=== PATIENT | male | born 1935 | race Caucasian/White ===

== ENCOUNTER → 2017-10-07 | Outpatient (CLI) | payer MEDICARE ==
--- NOTE | 2017-10-07 09:03 | CT ---
EXAMINATION TYPE: CT abdomen pelvis w con DATE OF EXAM: 10/07/2017 COMPARISON: Renal ultrasound November 28, 2015 HISTORY: Bladder cancer CT DLP: 1297.60 mGycm, Automated Exposure Control for Dose Reduction was Utilized. CONTRAST: CT scan of the abdomen and pelvis is performed with oral and with IV Contrast, patient injected with 100 ml mL of Visipaque 320. FINDINGS: LUNG BASES: Calcification at level of mitral valve is present. LIVER/GB: Liver is somewhat small in size. PANCREAS: No significant abnormality is seen. SPLEEN: No significant abnormality is seen. ADRENALS: Slight thickening centrally in both adrenal glands favors benign hyperplasia. KIDNEYS: There is symmetric cortical medullary uptake and excretion from both kidneys. There is occas ional subcentimeter low dense lesion identified bilaterally too small to further characterize but pre sumed benign largest lesion lower pole level left kidney measures 1.0 cm long axis consistent with si mple cyst seen best axial image 40 series 5 which likely correlates with ultrasound lesion. There is no significant right-sided hydronephrosis. There is however new mild to moderate left-sided pyelocali ectasis and diffuse hydroureter up to level of the bladder where there is eccentric 1.4 cm hyperdense or enhancing mass seen on axial image 72 and coronal image 73 along posterior bladder wall in which recurrent neoplasm is suspected. BOWEL: Normal-appearing appendix is seen from the cecum. No suspicious dilatation is noted. PROSTATE/SEMINAL VESICLES: Numerous brachytherapy seeds are seen in prostate bed which does not appea r suspiciously enlarged. LYMPH NODES: No greater than 1cm abdominal or pelvic lymph nodes are appreciated. OSSEOUS STRUCTURES: There is some narrowing and subchondral cystic change at pubic symphysis. There is moderate joint space narrowing with mild to moderate spurring and subchondral cystic change in both hips. There is multilevel vacuum disc phenomenon with mild to moderate disc space narrowing and spurring th roughout the lumbar spine. OTHER: There is mild to moderate mixed plaque in the aorta extending into iliac branch vessels. IMPRESSION: Suspicious posterior 1.4 cm bladder wall mass worrisome for recurrent malignancy as is ca using new mild to moderate left-sided hydronephrosis but not delayed excretion.
== END | disposition home or self-care (01) ==
LOC: RADCTMAIN 06:29
PROVIDERS: ATTEND Urology
DX: C67.0 Malignant neoplasm of trigone of bladder (principal); N13.30 Unspecified hydronephrosis
CPT/HCPCS: 82565; 84520; 74177; 36415; Q9967

== ENCOUNTER → 2017-12-06 | Outpatient (CLI) | payer MEDICARE | END | disposition home or self-care (01) | LOC: RADCTMAIN 11:23 | PROVIDERS: ATTEND Urology | DX: Z01.812 Encounter for preprocedural laboratory examination (principal); R94.4 Abnormal results of kidney function studies | CPT/HCPCS: 82565; 84520 ==

== ENCOUNTER → 2017-12-22 | Outpatient (CLI) | payer MEDICARE ==
--- NOTE | 2017-12-22 14:51 | MR ---
EXAMINATION TYPE: MR pelvis wo/w con DATE OF EXAM: 12/22/2017 COMPARISON: CT abdomen and pelvis October 07, 2017 HISTORY: Bladder CA initially diagnosed and treated in November 2015. CONTRAST: Standard multiplanar, multisequence MRI departmental protocol utilizing 10 mL intravenous Gadavist ga dolinium contrast. FINDINGS: Corresponding to recent CT bladder is poorly distended with mild to moderate concentric abn ormal wall thickening. Corresponding to CT there is heterogeneous suspected enhancing round area in t he posterior bladder wall measuring 1.3 x 0.9 cm axial image 21, while this does show some hyperinten sity on T1 fat saturation images. There is definitive surrounding ill-defined enhancement on postcont rast images. There is more hyperintense appearance or enhancement on sagittal images at this level sa gittal image 23. Area is isointense to may be slightly hyperintense on T2-weighted images. No serosal extension or breakthrough is identified. Exam is slightly suboptimal due to pelvic technique versus smaller mfakd-op-dews. Similar to CT there is mild to moderate distal hydroureter as lesion is in region of the UVJ. No righ t-sided hydroureter is present. Some vague enhancement along the course of the prostatic urethra is s een of uncertain etiology or significance. Punctate areas of T1 and T2 hypointensity correlate to bra chytherapy seeds. Small bilateral scrotal fluid collection or hydroceles are identified. No suspicious small or large bowel dilatation is seen. No concerning pelvic fluid collection is noted . No suspicious pelvic adenopathy is present. Visualized osseous structures are intact. IMPRESSION: Area of concern on recent CT is stable, recurrent neoplasm at this level cannot be excluded. Would ad vise correlation with cystoscopy to exclude. Findings could be postsurgical in nature.
== END | disposition home or self-care (01) ==
LOC: RADMRIMAIN 12:21
PROVIDERS: ATTEND Urology
DX: C67.9 Malignant neoplasm of bladder, unspecified (principal)
CPT/HCPCS: 72197; A9581

== ENCOUNTER → 2018-06-27 | Outpatient (CLI) | payer MEDICARE ==
--- NOTE | 2018-06-27 11:30 | US ---
EXAMINATION TYPE: US kidneys/renal and bladder DATE OF EXAM: 06/27/2018 COMPARISON: CT abdomen and pelvis October 07, 2017 CLINICAL HISTORY: N13.1 Hydronephrosis with ureteral stricture. Hx of left hydronephrosis and stent. Hx of bladder and prostate cancer with stent placement. EXAM MEASUREMENTS: Right Kidney: 9.9 x 3.9 x 4.5 cm Left Kidney: 10.0 x 4.1 x 5.1 cm Right Kidney: Cortical thinning seen. Lateral mid tiny cyst in cortex - 1.0 x 0.8 x 0.9 cm. Medial anechoic round lesion at hilum - 1.8 x 1.6 cm. Left Kidney: Cortical thinning. Increased echogenicity. Lobular in appearance. Bladder: Distended. Bladder lesion not appreciated on today's ultrasound. Right jet seen There is no evidence for hydronephrosis at this point in time. The urinary bladder is anechoic. Dist al right ureter jet is seen. IMPRESSION: No hydronephrosis currently including left kidney. A new 1.8 cm round anechoic lesion centrally in ri ght kidney images 12 through [address] definitive CT correspondence. Favor simple cyst. Howeve r given patient's history solid lesion or neoplasm is not excluded. Further investigation with renal protocol contrast-enhanced CT or MRI is advised. Chronic cortical changes left kidney are noted.
== END | disposition home or self-care (01) ==
LOC: RADUSWWP 10:36
PROVIDERS: ATTEND Urology
DX: N28.9 Disorder of kidney and ureter, unspecified (principal)
CPT/HCPCS: 76770

== ENCOUNTER → 2018-08-17 | Outpatient (CLI) | payer MEDICARE ==
--- NOTE | 2018-08-17 16:04 | CT ---
EXAMINATION TYPE: CT pelvis w con DATE OF EXAM: 08/17/2018 COMPARISON: Prior CT 10/07/2017 HISTORY: malignant neoplasm bladder CT DLP: 655.90 mGycm Automated exposure control for dose reduction was used. TECHNIQUE: Helical acquisition of images from the lung bases through the pelvis have been completed. CONTRAST: Performed with Oral Contrast and with IV Contrast, patient injected with 100 mL of Isovue 300. FINDINGS: AORTA: Atheromatous changes are present. KIDNEYS: Lower aspect of the kidneys included on the exam, ureters show normal insertion into the uri nary bladder, and there is no hydroureter REPRODUCTIVE ORGANS: No prostate seeds are present as on prior BOWEL: No significant abnormality is seen. FREE AIR: No Free Air visible. ASCITES: None visible. PELVIC ADENOPATHY: None visualized. RETROPERITONEAL ADENOPATHY: No Retroperitoneal Adenopathy visible. URINARY BLADDER: There is wall thickening which is nonspecific. The mural nodule seen posteriorly on previous exam is no longer evident. OSSEOUS STRUCTURES: Degenerative disc changes present at the lumbosacral spine, bilateral spondyloly sis at L5. IMPRESSION: INTERVAL TREATMENT CHANGE SUSPECTED, THE BLADDER WALL NODULE IS NO LONGER EVIDENT.
== END | disposition home or self-care (01) ==
LOC: RADCTMAIN 11:46
PROVIDERS: ATTEND Urology
DX: C67.9 Malignant neoplasm of bladder, unspecified (principal)
CPT/HCPCS: 82565; 84520; 72193; 36415; Q9967 ×2

== ENCOUNTER → 2018-08-18 | Outpatient (CLI) | payer MEDICARE ==
--- NOTE | 2018-08-18 18:06 | ECHOF ---
Referral Reason:R01.1 Heart Murmur MEASUREMENTS -------- HEIGHT: 180.3 cm WEIGHT: 86.2 kg BP: IVSd: 1.5 cm (0.6 - 1.1) LVIDd: 3.3 cm (3.9 - 5.3) LVPWd: 1.3 cm (0.6 - 1.1) IVSs: 1.9 cm LVIDs: 1.7 cm LVPWs: 1.6 cm LAESV Index (A-L): 31.83 ml/m MV E Abran: 1.32 m/s MV DecT: 871 ms MV A Abran: 0.01 m/s MV E/A Ratio: 228.93 AV maxP.96 mmHg AV meanP.65 mmHg RAP: 5.00 mmHg RVSP: 54.50 mmHg FINDINGS -------- Sinus rhythm. This was a technically adequate study. The left ventricular size is normal. There is mild concentric left ventricular hypertrophy. Overa ll left ventricular systolic function is normal with, an EF between 55 - 60 %. The right ventricle is normal in size and function. LA is midly dilated 29-33ml/m2. RA appears enlarged. There is severe aortic valve sclerosis. There is moderate aortic regurgitation. There is severe a ortic stenosis present. Peak/mean gradient across the Aortic Valve is 89.96mmHg / 58.65mmHg. The mitral valve leaflets are mild to moderately thickened. Severe mitral annular calcification pr esent. Ysvv-pk-erymvbkd mitral regurgitation is present. The peak and mean MV gradients are 22.9 2mmHg 8.93mmHg as measured by doppler. Moderate mitral stenosis. Vzms-ae-dhisdpop tricuspid regurgitation present. There is mild to moderate pulmonary hypertension. The right ventricular systolic pressure, as measured by Doppler, is 54.50mmHg. The pulmonic valve was not well visualized. The aortic root size is normal. Normal inferior vena cava with normal inspiratory collapse consistent with estimated right atrial pre ssure of 5 mmHg. There is no pericardial effusion. CONCLUSIONS -------- 1. Sinus rhythm. 2. This was a technically adequate study. 3. The left ventricular size is normal. 4. There is mild concentric left ventricular hypertrophy. 5. Overall left ventricular systolic function is normal with, an EF between 55 - 60 %. 6. LA is midly dilated 29-33ml/m2. 7. RA appears enlarged. 8. There is severe aortic valve sclerosis. 9. There is moderate aortic regurgitation. 10. There is severe aortic stenosis present. 11. Peak/mean gradient across the Aortic Valve is 89.96mmHg / 58.65mmHg. 12. The mitral valve leaflets are mild to moderately thickened. 13. Severe mitral annular calcification present. 14. Ngax-gp-vdschgzx mitral regurgitation is present. 15. The peak and mean MV gradients are 22.92mmHg 8.93mmHg as measured by doppler. 16. Moderate mitral stenosis. 17. Yaad-sf-niivmxru tricuspid regurgitation present. 18. There is mild to moderate pulmonary hypertension. 19. The right ventricular systolic pressure, as measured by Doppler, is 54.50mmHg. 20. The pulmonic valve was not well visualized. 21. The aortic root size is normal. 22. There is no pericardial effusion. PAPER TWISTER: Waldemar Pak RDCS
== END ==
LOC: RADECHMAIN 14:32
PROVIDERS: ATTEND Family Medicine
DX: I08.3 Combined rheumatic disorders of mitral, aortic and tricuspid valves (principal); I27.20 Pulmonary hypertension, unspecified
CPT/HCPCS: 93306

== ENCOUNTER → 2019-05-25 | Outpatient (CLI) | payer MEDICARE ==
--- NOTE | 2019-05-25 16:41 | CT ---
EXAMINATION TYPE: CT abdomen pelvis wo con DATE OF EXAM: 05/25/2019 COMPARISON: CT pelvis 08/17/2018 INDICATION: Bladder CA DLP: 577.1 mGycm, Automated exposure control for dose reduction was used. CONTRAST: 0 mL of Isovue 300. Study performed with Oral Contrast TECHNIQUE: Axial images were obtained from above the diaphragm to the pubic rami in the axial plane a t 5 mm thick sections. Reconstructed images are reviewed on the computer in the coronal plane. FINDINGS: Limited CT sections are obtained the lung bases. The lung bases are clear. CT ABDOMEN: Liver: Normal Spleen: Normal Pancreas: Normal Adrenal glands: The adrenal glands are normal. Gallbladder: Normal Kidneys: No masses are evident. No hydronephrosis is present. No cysts are present. No renal stone s are identified. Aorta: Vascular calcification is within the aorta. Inferior vena cava: Normal. CT PELVIS: Loops of bowel within the abdomen and pelvis are normal. There are loops of bowel which are incom pletely distended or lack oral contrast limiting their evaluation. Appendix: Normal as visualized. Urinary bladder: Decompressed and cannot be evaluated. Thickened wall cannot be excluded. Genitourinary structures: Multiple brachytherapy seeds are present within the enlarged prostate. Osseous structures: No suspicious lytic or sclerotic lesions. Degenerative disc changes are present L 5-S1. Spondylolysis of L5 is evident. IMPRESSIONS: 1. Urinary bladder cannot be evaluated on this examination due to non-distention no intravenous cont rast. 2. No suspicious changes suggest metastatic disease.
== END | disposition home or self-care (01) ==
LOC: RADCTMAIN 14:22
PROVIDERS: ATTEND Urology
DX: C67.9 Malignant neoplasm of bladder, unspecified (principal); C61 Malignant neoplasm of prostate
CPT/HCPCS: 36415; 74176; 82565; 84520

== ENCOUNTER → 2019-08-18 | Outpatient (CLI) | payer MEDICARE ==
[2019-08-18 11:02] LABS: Basophils % (A) 1 %; Eosinophils # (A) 0.2 k/uL (0-0.7); Eosinophils % (A) 3 %; HCT 38.7 % (39.0-53.0); HGB 12.2 gm/dL (13.0-17.5); Lymphocytes # (A) 0.9 k/uL (1.0-4.8); Lymphocytes % (A) 15 %; MCH 31.1 pg (25.0-35.0); MCHC 31.5 g/dL (31.0-37.0); MCV 98.8 fL (80.0-100.0); Mean Platelet Volume 6.6; Monocytes # (A) 0.4 k/uL (0-1.0); Monocytes % (A) 6 %; Neutrophils # (A) 4.7 k/uL (1.3-7.7); Neutrophils % (A) 74 %; Platelet Count 199 k/uL (150-450); RBC 3.91 m/uL (4.30-5.90); RDW 13.1 % (11.5-15.5); WBC 6.3 k/uL (3.8-10.6)
[2019-08-18 18:56] LABS: African American GFR (CKD) 58.5 (60.0-200.0); Albumin 4.3 g/dL (3.80-4.90); Albumin/Globulin Ratio 2.39 (1.60-3.17); Anion Gap 12.6 mmol/L (4.00-12.00); BUN/Creat Ratio 23.08 Ratio (12.00-20.00); Calcium 9.6 mg/dL (8.7-10.3); Carbon Dioxide 28.4 mmol/L (21.6-31.8); Globulin 1.8 g/dL (1.6-3.3); Total Bilirubin 0.4 mg/dL (0.2-1.2); Total Protein 6.1 g/dL (6.2-8.2)
== END | disposition home or self-care (01) ==
LOC: LABWHC1 09:47
PROVIDERS: ATTEND Internal Medicine Interventional Cardiology
DX: I35.0 Nonrheumatic aortic (valve) stenosis (principal)
CPT/HCPCS: 36415; 80053; 83880; 85025

== ENCOUNTER 2020-02-14 18:59 | Inpatient (IN) | payer MEDICARE ==
[2020-02-14 20:08] LABS: Basophils % (A) 0 %; Eosinophils # (A) 0.1 k/uL (0-0.7); Eosinophils % (A) 1 %; HCT 44.8 % (39.0-53.0); Lymphocytes # (A) 0.6 k/uL (1.0-4.8); Lymphocytes % (A) 4 %; MCH 30.4 pg (25.0-35.0); MCHC 31.2 g/dL (31.0-37.0); MCV 97.5 fL (80.0-100.0); Mean Platelet Volume 7.8; Monocytes # (A) 0.7 k/uL (0-1.0); Monocytes % (A) 5 %; Neutrophils # (A) 14.8 k/uL (1.3-7.7); Neutrophils % (A) 91 %; Platelet Count 249 k/uL (150-450); RBC 4.59 m/uL (4.30-5.90); RDW 13.4 % (11.5-15.5); WBC 16.3 k/uL (3.8-10.6)
[2020-02-14 20:15] LABS: Albumin 4.7 g/dL (3.5-5.0); Calcium 9.7 mg/dL (8.4-10.2); Total Bilirubin 0.7 mg/dL (0.2-1.3); Total Protein 7.7 g/dL (6.3-8.2)
[2020-02-14] MEDS ORDERED: ALBUTEROL NEBULIZED 2.5 MG/3 ML INHALATION STA ×2 (20:16→21:17)
[2020-02-14] MEDS ORDERED: IPRATROPIUM-ALBUTEROL 3 ML NEB INHALATION STA ×2 (20:16→21:17)
--- NOTE | 2020-02-14 20:28 | ED ---
General Adult HPI - General Chief complaint: Shortness of Breath Stated complaint: Chest pain, SOB Time Seen by Provider: 02/14/20 19:15 Source: patient, RN notes reviewed, old records reviewed Mode of arrival: wheelchair Limitations: no limitations - History of Present Illness Initial comments: 84 yo male presents with chief complaint of dyspnea minimal cough. No fever. Patient states symptoms have been worsening over the past several days. He sta bronwyn he does have baseline dyspnea. Also reports belching which is been ongoing for several years. He reports some minimal left-sided chest pain which is worse with deep inspiration. No central radiating chest pain. No vomiting. No abdominal pain. Minimal bilateral lower extremity swelling. - Related Data Home Medications Medication Instructions Recorded Confirmed Apixaban [Eliquis] 5 mg PO BID 02/14/20 02/14/20 Aspirin EC [Ecotrin Low Dose] 81 mg PO DAILY 02/14/20 02/14/20 Ipratropium Nebulized [Atrovent 0.5 mg INHALATION RT-TID 02/14/20 02/14/20 Nebulized 0.2 MG/ML] Metoprolol Tartrate [Lopressor] 25 mg PO BID 02/14/20 02/14/20 Multivitamins, Thera [Multivitamin 1 tab PO DAILY 02/14/20 02/14/20 (formulary)] Allergies Allergy/AdvReac Type Severity Reaction Status Date / Time No Known Allergies Allergy Verified 02/14/20 19:58 Review of Systems ROS Statement: Those systems with pertinent positive or pertinent negative responses have been documented in the HPI. ROS Other: All systems not noted in ROS Statement are negative. Past Medical History Past Medical History: Asthma, Hypertension History of Any Multi-Drug Resistant Organisms: None Reported Additional Past Surgical History / Comment(s): heart valve replacement, bladder sx Past Psychological History: No Psychological Hx Reported Smoking Status: Never smoker Past Alcohol Use History: None Reported Past Drug Use History: None Reported General Exam Limitations: no limitations General appearance: alert, in distress Head exam: Present: atraumatic, normocephalic Eye exam: Present: normal appearance, PERRL ENT exam: Present: normal exam Neck exam: Present: normal inspection. Absent: tenderness, meningismus Respiratory exam: Present: respiratory distress, accessory muscle use, decreased breath sounds. Absent: wheezes, rales Cardiovascular Exam: Present: regular rate, irregular rhythm, systolic murmur GI/Abdominal exam: Present: soft. Absent: distended, tenderness, guarding Extremities exam: Present: pedal edema Back exam: Present: normal inspection, full ROM Neurological exam: Present: alert, oriented X3, CN II-XII intact. Absent: motor sensory deficit Psychiatric exam: Present: normal affect, normal mood Skin exam: Present: warm, dry, intact. Absent: cyanosis, diaphoretic Course Vital Signs 02/14/20 02/14/20 02/14/20 19:03 19:51 20:00 Temperature 98.4 F Pulse Rate 95 109 H Respiratory 20 19 Rate Blood Pressure 95/59 84/64 O2 Sat by Pulse 100 99 94 L Oximetry 02/14/20 02/14/20 02/14/20 20:10 20:20 20:33 Temperature Pulse Rate 107 H 106 H Respiratory 34 H 22 Rate Blood Pressure 92/58 92/58 O2 Sat by Pulse 93 L 96 Oximetry 02/14/20 20:42 Temperature Pulse Rate 114 H Respiratory 28 H Rate Blood Pressure O2 Sat by Pulse Oximetry EKG Findings - EKG Comments: EKG Findings:: Atrial flutter with variable AV block rate of 114, rightward axis, baseline artifact, no definitive ST segment elevation QRS duration 90, QTC 463 similar compared to previous in 2016. Medical Decision Making - Medical Decision Making 84-year-old male presenting with chief complaint of dyspnea. Patient in moderate respiratory distress upon arrival. He has diminished breath sounds bilaterally. History of asthma and COPD. Complains of some intermittent left- sided chest pain, no radiating substernal chest pain. He has 1+ pitting edema bilaterally. X-ray performed, consistent with COPD, no focal pneumonia, no significant pulmonary edema. He has leukocytosis at 16, he has a creatinine of 1.57 which is baseline for this patient. He has an elevated d-dimer in the setting of chronic kidney disease. VQ scan has been ordered. He has normally elevated troponin of 0.40. This level will be trended. He will be started on heparin both for elevated troponin and for the possibility of pulmonary embolism given his positive d-dimer. I suspect the majority of his respiratory distress is secondary to asthma and COPD. He is placed on steroids, antibiotics and breathing treatments. He will be admitted with both cardiology and pulmonology on consult. I did discuss case with Dr. Kaur who will admit. - Lab Data Result diagrams: 02/14/20 19:35 02/14/20 19:35 Lab Results 02/14/20 02/14/20 02/14/20 Range/Units 19:35 19:35 19:35 WBC 16.3 H (3.8-10.6) k/uL RBC 4.59 (4.30-5.90) m/uL Hgb 14.0 (13.0-17.5) gm/dL Hct 44.8 (39.0-53.0) % MCV 97.5 (80.0-100.0) fL MCH 30.4 (25.0-35.0) pg MCHC 31.2 (31.0-37.0) g/dL RDW 13.4 (11.5-15.5) % Plt Count 249 (150-450) k/uL Neutrophils % 91 % Lymphocytes % 4 % Monocytes % 5 % Eosinophils % 1 % Basophils % 0 % Neutrophils # 14.8 H (1.3-7.7) k/uL Lymphocytes # 0.6 L (1.0-4.8) k/uL Monocytes # 0.7 (0-1.0) k/uL Eosinophils # 0.1 (0-0.7) k/uL Basophils # 0.0 (0-0.2) k/uL PT 10.9 (9.0-12.0) sec INR 1.1 (<1.2) APTT 25.9 (22.0-30.0) sec D-Dimer 0.76 H (<0.60) mg/L FEU Sodium 136 L (137-145) mmol/L Potassium 5.0 (3.5-5.1) mmol/L Chloride 95 L (98-107) mmol/L Carbon Dioxide 34 H (22-30) mmol/L Anion Gap 7 mmol/L BUN 29 H (9-20) mg/dL Creatinine 1.56 H (0.66-1.25) mg/dL Est GFR (CKD-EPI)AfAm 47 (>60 ml/min/1.73 sqM) Est GFR (CKD-EPI)NonAf 40 (>60 ml/min/1.73 sqM) Glucose 113 H (74-99) mg/dL Plasma Lactic Acid Jose (0.7-2.0) mmol/L Calcium 9.7 (8.4-10.2) mg/dL Total Bilirubin 0.7 (0.2-1.3) mg/dL AST 41 (17-59) U/L ALT 17 (4-49) U/L Alkaline Phosphatase 143 H (38-126) U/L Troponin I (0.000-0.034) ng/mL NT-Pro-B Natriuret Pep pg/mL Total Protein 7.7 (6.3-8.2) g/dL Albumin 4.7 (3.5-5.0) g/dL 02/14/20 02/14/20 02/14/20 Range/Units 19:35 19:35 19:35 WBC (3.8-10.6) k/uL RBC (4.30-5.90) m/uL Hgb (13.0-17.5) gm/dL Hct (39.0-53.0) % MCV (80.0-100.0) fL MCH (25.0-35.0) pg MCHC (31.0-37.0) g/dL RDW (11.5-15.5) % Plt Count (150-450) k/uL Neutrophils % % Lymphocytes % % Monocytes % % Eosinophils % % Basophils % % Neutrophils # (1.3-7.7) k/uL Lymphocytes # (1.0-4.8) k/uL Monocytes # (0-1.0) k/uL Eosinophils # (0-0.7) k/uL Basophils # (0-0.2) k/uL PT (9.0-12.0) sec INR (<1.2) APTT (22.0-30.0) sec D-Dimer (<0.60) mg/L FEU Sodium (137-145) mmol/L Potassium (3.5-5.1) mmol/L Chloride (98-107) mmol/L Carbon Dioxide (22-30) mmol/L Anion Gap mmol/L BUN (9-20) mg/dL Creatinine (0.66-1.25) mg/dL Est GFR (CKD-EPI)AfAm (>60 ml/min/1.73 sqM) Est GFR (CKD-EPI)NonAf (>60 ml/min/1.73 sqM) Glucose (74-99) mg/dL Plasma Lactic Acid Jose 2.4 H* (0.7-2.0) mmol/L Calcium (8.4-10.2) mg/dL Total Bilirubin (0.2-1.3) mg/dL AST (17-59) U/L ALT (4-49) U/L Alkaline Phosphatase (38-126) U/L Troponin I 0.040 H* (0.000-0.034) ng/mL NT-Pro-B Natriuret Pep 2180 pg/mL Total Protein (6.3-8.2) g/dL Albumin (3.5-5.0) g/dL Critical Care Time Critical Care Time: Yes Total Critical Care Time: 35 Disposition Clinical Impression: Acute exacerbation of chronic obstructive pulmonary disease, Atrial flutter, Elevated troponin Disposition: ADMITTED IP TO THIS [facility] Condition: Stable Is patient prescribed a controlled substance at d/c from ED?: No Referrals: Dago Kaur MD [Primary Care Provider] - 1-2 days Decision to Admit Reason: Admit from EC Decision Date: 02/14/20 Decision Time: 21:13
[2020-02-14] MEDS ORDERED: methylPREDNISolone SOD SUCCI 125 MG/2 ML VIAL IV STA (20:30)
[2020-02-14 20:32] LABS: INR 1.1 (<1.2); Partial Thromboplastin Time 25.9 sec (22.0-30.0); Prothrombin Time 10.9 sec (9.0-12.0)
[2020-02-14 20:34] LABS: D-Dimer 0.76 mg/L FEU (<0.60)
[2020-02-14] MEDS ORDERED: ASPIRIN 325 MG TAB PO STA (20:59)
[2020-02-14] MEDS ORDERED: cefTRIAXone IN SWFI 1,000 MG/10 ML SYRINGE IVP STA (21:01)
[2020-02-14] MEDS ORDERED: HEPARIN SODIUM,PORCINE 5,000 UNIT/ML 1 ML VIAL IV PRN (21:01)
[2020-02-14] MEDS ORDERED: HEPARIN SODIUM,PORCINE 5,000 UNIT/ML 1 ML VIAL IV ONE (21:01)
--- NOTE | 2020-02-14 21:07 | XR ---
EXAMINATION TYPE: XR chest 2V DATE OF EXAM: 02/14/2020 COMPARISON: NONE HISTORY: Shortness of breath TECHNIQUE: Frontal and lateral views of the chest are obtained. FINDINGS: Subtle perihilar peribronchial cuffing. 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 There is no focal air space opacity, pleural effusion, or pneumothorax seen. The cardiac silhouet te size is mildly enlarged. Cardiac stent graft is seen. Pleural reaction at the right lung base on the frontal view not reproduced on the lateral view. The osseous structures are intact. IMPRESSION: Findings suggesting underlying COPD and faint peribronchial cuffing that can be seen in bronchitis or reactive airway disease.
[2020-02-14] MEDS ORDERED: HEPARIN SOD,PORK IN 0.45% NACL 25,000 UNIT in 0.45% NACL 1 250ML.BAG IV SCH (21:15)
[2020-02-14] MEDS ORDERED: SODIUM CHLORIDE 0.9% 500 ML 500 ML IV ONE (21:17)
[2020-02-15] MEDS: methylPREDNISolone SOD SUCCI 125 MG/2 ML VIAL IV SCH ×5 (03:17→22:55)
[2020-02-15 03:25] LABS: Basophils % (A) 0 %; Eosinophils % (A) 0 %; HCT 41.3 % (39.0-53.0); HGB 12.9 gm/dL (13.0-17.5); Lymphocytes # (A) 0.5 k/uL (1.0-4.8); Lymphocytes % (A) 3 %; MCH 30.7 pg (25.0-35.0); MCHC 31.4 g/dL (31.0-37.0); Mean Platelet Volume 8.2; Monocytes # (A) 0.5 k/uL (0-1.0); Monocytes % (A) 3 %; Neutrophils # (A) 18.1 k/uL (1.3-7.7); Neutrophils % (A) 94 %; Platelet Count 222 k/uL (150-450); RBC 4.21 m/uL (4.30-5.90); RDW 13.5 % (11.5-15.5); WBC 19.1 k/uL (3.8-10.6)
[2020-02-15 06:03] LABS: Glucose,Whole Blood 134 mg/dL (75-99)
[2020-02-15] MEDS: INSULIN ASPART (NovoLOG) 100 UNIT/ML VIAL SQ SCH ×4 (06:35→22:56)
[2020-02-15 06:59] LABS: Basophils % (A) 0 %; Eosinophils # (A) 0.1 k/uL (0-0.7); Eosinophils % (A) 0 %; HCT 40.4 % (39.0-53.0); HGB 12.6 gm/dL (13.0-17.5); Lymphocytes # (A) 0.5 k/uL (1.0-4.8); Lymphocytes % (A) 3 %; MCH 30.6 pg (25.0-35.0); MCHC 31.3 g/dL (31.0-37.0); MCV 97.7 fL (80.0-100.0); Mean Platelet Volume 9.1; Monocytes # (A) 0.6 k/uL (0-1.0); Monocytes % (A) 4 %; Neutrophils # (A) 16.2 k/uL (1.3-7.7); Neutrophils % (A) 93 %; Platelet Count 195 k/uL (150-450); RBC 4.13 m/uL (4.30-5.90); RDW 13.4 % (11.5-15.5); WBC 17.4 k/uL (3.8-10.6)
[2020-02-15 07:25] LABS: Calcium 8.9 mg/dL (8.4-10.2); Total Bilirubin 0.6 mg/dL (0.2-1.3); Total Protein 7.4 g/dL (6.3-8.2)
[2020-02-15 07:34] LABS: Potassium 6.1 mmol/L (3.5-5.1)
[2020-02-15] MEDS ORDERED: ALBUTEROL NEBULIZED 2.5 MG/3 ML INHALATION SCH (08:00)
[2020-02-15] MEDS ORDERED: SODIUM POLYSTYRENE SULFONATE 15 GM/60 ML BOTTLE PO ONE (08:04)
[2020-02-15] MEDS ORDERED: SODIUM CHLORIDE 0.45% 1,000 ML with SODIUM BICARB (1 MEQ/ML) 50 ML IV ONE ×2 (08:30)
[2020-02-15] MEDS: ALBUTEROL HFA INHALER INHALATION SCH ×4 (08:39→20:09)
--- NOTE | 2020-02-15 08:46 | CONS ---
CONSULTATION Geraldo López is an 84-year-old gentleman, a patient of Dr. Dago Kaur who recently in November had a percutaneous aortic valve implant at [facility] by Dr. Jovany Mauricio. He has history of hypertension, chronic atrial fibrillation and he takes Eliquis 5 mg b.i.d. After his aortic valve implant was placed, apparently he went to [place] to stay with his son and then returned to [place], [place]. He came in with complaints of cough and shortness of breath getting worse over the past few days. He had also mild sharp discomfort in the chest, especially with deep breath. With these symptoms he came into the hospital. A V/Q scan was ordered which is being done today. He is also on heparin drip. His Eliquis has been held. When I saw him, patient has no chest discomfort. His respirophasic pleuritic-type pain seems to have also improved. He does have what he describes as decreased energy and some cough and shortness of breath at home. He does not have any chest discomfort to suggest angina. PAST MEDICAL HISTORY: 1. Bronchial asthma. Patient also may have some emphysema. 2. Hypertension. 3. History of aortic valve replacement by percutaneous approach in November at [facility]. 4. He has had some previous bladder surgery. SOCIAL HISTORY: Patient is not a smoker, does not consume alcohol. ALLERGIES: None. MEDICATIONS: Medications include Eliquis 5 mg b.i.d., aspirin 81 mg daily, metoprolol tartrate 25 mg b.i.d. and vitamin supplements and Atrovent inhaler. PHYSICAL EXAMINATION: On examination, blood pressure is 96/60, pulse rate is about 80 to 100, irregular. HEENT unremarkable. Fundus was not examined by me. Neck is supple. There is JVD of 1 cm. There is no carotid bruit. Heart exam reveals S1, S2. Heart sounds are distant. There is a short systolic murmur at the base. Lungs reveal a diminished air entry in both lung salgado. Abdomen is soft. Lower extremities reveal diminished pulses. Central nervous system grossly no focal deficits. IMPRESSION: 1. Pleuritic chest pain, rule out any pulmonary embolism seems unlikely. His D-dimer is elevated. 2. Status post aortic valve replacement by percutaneous approach. 3. History of probable upper respiratory tract infection, rule out pneumonia. 4. History of bronchial asthma and possibly some emphysema. 5. Patient also has mitral regurgitation and some calcific mitral stenosis by past echo in 2018. RECOMMENDATIONS: I am recommending that we proceed with a V/Q scan. Laboratory data reveals that the 3 sets of troponins are unremarkable and do not suggest any myocardial injury. Potassium is elevated to 6.1. I am recommending Kayexalate for potassium, a bicarb and half- normal saline drip. Seek Nephrology consult. If V/Q scan is negative, I will discontinue heparin and resume the Eliquis. His renal function has also deteriorated. I will place him on 100 mL/hour half-normal saline and bicarb combination. We will add Lopressor 50 mg daily. The patient has chronic atrial fibrillation and has been anticoagulated. BNP is modestly elevated at 2180. Prognosis remains guarded. MMODL / IJN: [id number] /
--- NOTE | 2020-02-15 08:47 | NM ---
EXAMINATION TYPE: NM pul vent and perfuse DATE OF EXAM: 02/15/2020 COMPARISON: NONE HISTORY: Pulmonary embolism TECHNIQUE: Utilizing inhalation of 68.9 mCi Tc 99m DTPA aerosol and intravenous injection of 5.2 mCi of Tc 99m MAA, ventilation and perfusion images are acquired post injection in multiple projections. FINDINGS: There is patchy radiotracer distribution on the ventilation portion study. Milder patchy distribution is present in the perfusion portion of the study. Large mismatched defects are not evident. Some mod erate mismatched defects appear to be present in the mid lung regions bilaterally and at the right ba se. This exam is compared to chest x-ray of 02/14/2020. Radiotracer distribution appears significantly wors e than the chest x-ray findings. IMPRESSION: Intermediate probability for acute pulmonary embolism.
[2020-02-15] MEDS ORDERED: SODIUM BICARB 8.4% 50 ML SYR (1 MEQ/ML) IV STA (08:55)
[2020-02-15] MEDS ORDERED: APIXABAN 2.5 MG TABLET PO SCH (09:00)
[2020-02-15] MEDS: METOPROLOL TARTRATE 50 MG TAB PO SCH (09:06)
[2020-02-15] MEDS: AZITHROMYCIN 500 MG TAB PO SCH (09:06)
[2020-02-15] MEDS: APIXABAN 5 MG TAB PO SCH ×2 (09:27→19:44)
[2020-02-15] MEDS ORDERED: IPRATROPIUM-ALBUTEROL 3 ML NEB INHALATION PRN (11:14)
[2020-02-15] MEDS ORDERED: ALBUTEROL HFA INHALER INHALATION PRN (11:40)
--- NOTE | 2020-02-15 12:03 | P.HPIM ---
History of Present Illness H&P Date: 02/15/20 This is an 84-year-old gentleman with history of chronic intermittent asthma, hypertension, recent aortic valve replacement at [facility] in November 2019, presented to the ER with complaints of worsening shortness of breath, accompanied by a mild cough, mild nonradiating left-sided chest pain worsened with deep inspiration, mild lower extremity edema. Denies fever or chills. Denies nausea vomiting or diarrhea. Denies abdominal pain. EKG reporting atrial flutter with variable AV block with PVCs with nonspecific ST abnormality. Elevated troponins 0.040, 0.061, 0.056. BNP 2180. Chest x-ray reporting underlying COPD with air bronchial cuffing, possible bronchitis or reactive airway disease. On admission BUN 29, creatinine 1.56, worsened this morning, creatinine 2.3 to, potassium 6.1. Received Kayexalate, sodium bicarb and IV fluids. Lactic acid on admission 2.4, down to 1.4. Afebrile, WBC 17.4. D- dimer elevated 0.76. VQ scan reported intermediate probability for acute PE; moderate mismatched defects present in the mid lung regions bilaterally and right base. Heparin drip initiated. Bicarb 34 on admission, down to 30. Tachycardic, borderline hypotension. Currently denies chest pain, palpitations. Review of Systems ROS Statement: Those systems with pertinent positive or pertinent negative responses have been documented in the HPI. ROS Other: All systems not noted in ROS Statement are negative. Past Medical History Past Medical History: Asthma, Hypertension History of Any Multi-Drug Resistant Organisms: None Reported Additional Past Surgical History / Comment(s): aortic heart valve replacement, bladder sx Past Psychological History: No Psychological Hx Reported Smoking Status: Never smoker Past Alcohol Use History: None Reported Past Drug Use History: None Reported - Past Family History Father Family Medical History: Cancer Medications and Allergies Home Medications Medication Instructions Recorded Confirmed Type Apixaban [Eliquis] 5 mg PO BID 02/14/20 02/14/20 History Aspirin EC [Ecotrin Low Dose] 81 mg PO DAILY 02/14/20 02/14/20 History Ipratropium Nebulized [Atrovent 0.5 mg INHALATION RT-TID 02/14/20 02/14/20 History Nebulized 0.2 MG/ML] Metoprolol Tartrate [Lopressor] 25 mg PO BID 02/14/20 02/14/20 History Multivitamins, Thera [Multivitamin 1 tab PO DAILY 02/14/20 02/14/20 History (formulary)] Allergies Allergy/AdvReac Type Severity Reaction Status Date / Time No Known Allergies Allergy Verified 02/14/20 19:58 Physical Exam Vitals: Vital Signs Temp Pulse Pulse Resp BP BP Pulse Ox 02/15/20 03:23 98.0 F 88 18 91/58 100 02/15/20 00:00 97.4 F L 109 H 24 95/45 96 02/14/20 22:41 97.4 F L 109 H 22 95/45 96 02/14/20 22:30 92/31 02/14/20 22:20 105 H 77/47 02/14/20 22:10 108 H 77/47 87 L 02/14/20 22:00 121 H 24 81/62 96 02/14/20 21:50 81/62 99 02/14/20 21:40 112 H 81/62 83 L 02/14/20 21:30 111 H 81/62 93 L 02/14/20 21:20 108 H 81/62 98 02/14/20 21:10 118 H 23 70/55 83 L 02/14/20 21:00 110 H 27 H 86/33 96 02/14/20 20:50 118 H 20 86/33 99 02/14/20 20:42 114 H 28 H 02/14/20 20:40 112 H 27 H 92/58 83 L 02/14/20 20:33 106 H 22 02/14/20 20:30 114 H 26 H 92/58 02/14/20 20:20 107 H 34 H 92/58 96 02/14/20 20:10 92/58 93 L 02/14/20 20:00 84/64 94 L 02/14/20 19:51 109 H 19 99 02/14/20 19:03 98.4 F 95 20 95/59 100 Intake and Output 02/14/20 02/15/20 02/15/20 22:59 06:59 14:59 Intake Total 9.99 57.253 Balance 9.99 57.253 Intake: Intake, IV Titration 9.99 57.253 Amount Heparin Sod,Pork in 0.45% 9.99 57.253 NaCl 25,000 unit In 0.45 % NaCl 1 250ml.bag @ 11.9 UNITS/KG/HR 9.986 mls/hr IV .Q24H [facility] Rx#: [id number] Other: Voiding Method Urinal Weight 83.915 kg 76 kg PHYSICAL EXAM: VITAL SIGNS: As above GENERAL: Sitting up in bed, no acute distress HEENT: Conjunctivae normal. eyes normal. NECK: No JVD. No thyroid enlargement. No LNs CARDIOVASCULAR: S1, S2 irregular. Systolic murmur. RESPIRATION: Breath sounds diminished in the bases. No rhonchi or crackles. No bronchial breathing. ABDOMEN: Soft, nontender . No guarding. no masses palpable. No ascites, No hepatosplenomegaly.Bowel sounds heard. LEGS: No edema. no swelling. PSYCHIATRY: Alert and oriented X3, mood and affect normal. NERVOUS SYSTEM: Cranial N 2-12 grossly normal. Moves all 4 limbs. Diffuse weakness No focal deficits. Strength and sensation grossly intact. Skin: no rash. Lymphatic system. No LN neck axilla. Results CBC & Chem 7: 02/15/20 06:07 02/15/20 06:07 Labs: Abnormal Lab Results - Last 24 Hours (Table) 02/14/20 02/14/20 02/14/20 Range/Units 19:35 19:35 19:35 WBC 16.3 H (3.8-10.6) k/uL RBC (4.30-5.90) m/uL Hgb (13.0-17.5) gm/dL Neutrophils # 14.8 H (1.3-7.7) k/uL Lymphocytes # 0.6 L (1.0-4.8) k/uL APTT (22.0-30.0) sec D-Dimer 0.76 H (<0.60) mg/L FEU Sodium 136 L (137-145) mmol/L Potassium (3.5-5.1) mmol/L Chloride 95 L (98-107) mmol/L Carbon Dioxide 34 H (22-30) mmol/L BUN 29 H (9-20) mg/dL Creatinine 1.56 H (0.66-1.25) mg/dL Glucose 113 H (74-99) mg/dL POC Glucose (mg/dL) (75-99) mg/dL Plasma Lactic Acid Jose (0.7-2.0) mmol/L Alkaline Phosphatase 143 H (38-126) U/L Troponin I (0.000-0.034) ng/mL 02/14/20 02/14/20 02/15/20 Range/Units 19:35 19:35 02:37 WBC (3.8-10.6) k/uL RBC (4.30-5.90) m/uL Hgb (13.0-17.5) gm/dL Neutrophils # (1.3-7.7) k/uL Lymphocytes # (1.0-4.8) k/uL APTT 103.3 H* (22.0-30.0) sec D-Dimer (<0.60) mg/L FEU Sodium (137-145) mmol/L Potassium (3.5-5.1) mmol/L Chloride (98-107) mmol/L Carbon Dioxide (22-30) mmol/L BUN (9-20) mg/dL Creatinine (0.66-1.25) mg/dL Glucose (74-99) mg/dL POC Glucose (mg/dL) (75-99) mg/dL Plasma Lactic Acid Jose 2.4 H* (0.7-2.0) mmol/L Alkaline Phosphatase (38-126) U/L Troponin I 0.040 H* (0.000-0.034) ng/mL 02/15/20 02/15/20 02/15/20 Range/Units 02:37 02:37 06:01 WBC 19.1 H (3.8-10.6) k/uL RBC 4.21 L (4.30-5.90) m/uL Hgb 12.9 L (13.0-17.5) gm/dL Neutrophils # 18.1 H (1.3-7.7) k/uL Lymphocytes # 0.5 L (1.0-4.8) k/uL APTT (22.0-30.0) sec D-Dimer (<0.60) mg/L FEU Sodium (137-145) mmol/L Potassium (3.5-5.1) mmol/L Chloride (98-107) mmol/L Carbon Dioxide (22-30) mmol/L BUN (9-20) mg/dL Creatinine (0.66-1.25) mg/dL Glucose (74-99) mg/dL POC Glucose (mg/dL) 134 H (75-99) mg/dL Plasma Lactic Acid Jose (0.7-2.0) mmol/L Alkaline Phosphatase (38-126) U/L Troponin I 0.061 H* (0.000-0.034) ng/mL 02/15/20 02/15/20 02/15/20 Range/Units 06:07 06:07 06:07 WBC 17.4 H (3.8-10.6) k/uL RBC 4.13 L (4.30-5.90) m/uL Hgb 12.6 L (13.0-17.5) gm/dL Neutrophils # 16.2 H (1.3-7.7) k/uL Lymphocytes # 0.5 L (1.0-4.8) k/uL APTT (22.0-30.0) sec D-Dimer (<0.60) mg/L FEU Sodium 134 L (137-145) mmol/L Potassium 6.1 H* (3.5-5.1) mmol/L Chloride 95 L (98-107) mmol/L Carbon Dioxide (22-30) mmol/L BUN 38 H (9-20) mg/dL Creatinine 2.32 H (0.66-1.25) mg/dL Glucose 128 H (74-99) mg/dL POC Glucose (mg/dL) (75-99) mg/dL Plasma Lactic Acid Jose (0.7-2.0) mmol/L Alkaline Phosphatase (38-126) U/L Troponin I 0.056 H* (0.000-0.034) ng/mL Thrombosis Risk Factor Assmnt - Choose All That Apply Each Factor Represents 1 point: Abnormal pulmonary function (COPD), Swollen legs (current) Each Risk Factor Represents 3 Points: Age 75 years or older Thrombosis Risk Factor Assessment Total Risk Factor Score: 5 Thrombosis Risk Factor Assessment Level: High Risk Assessment and Plan Assessment: Acute Chest pain, with elevated troponins, appears pleuritic in nature. Cardiology following Acute PE Acute hypoxic respiratory failure secondary to the above, possible acute bronchitis Chronic intermittent asthma Recent aortic valve replacement at [facility] in November 2019 Hypertension Acute on chronic renal failure, baseline 1.3, stage III Hyperkalemia Chronic atrial fibrillation, on Eliquis Plan: Continue on current medication regime ,monitoring and symptomatic treatment. Eliquis currently on hold, Anticoagulated on heparin drip. Gentle IV fluid hydration. Follow-up potassium level this afternoon ordered, status post Kayexalate. Nephrology, pulmonary consult in place, recommendations pend ing. Follow closely with cardiology. The impression and plan of care has been dictated as directed. : I performed a history and examination of this patient, discussed the same with the dictator. I agree with the dictator's note ,documented as a scribe. Any additional findings or plans will be noted.
[2020-02-15] MEDS: TIOTROPIUM 18 MCG/PUFF INHALER INHALATION SCH (12:06)
[2020-02-15 12:23] LABS: Glucose,Whole Blood 139 mg/dL (75-99)
[2020-02-15] MEDS ORDERED: IPRATROPIUM-ALBUTEROL 3 ML NEB INHALATION SCH (13:00)
[2020-02-15 13:43] VITALS: BMI 23.3
--- NOTE | 2020-02-15 13:56 | P.CNPUL ---
History of Present Illness Consult date: 02/15/20 Reason for consult: dyspnea Chief complaint: Dyspnea, minimal cough, lower extremity edema History of present illness: 84-year-old male patient of Dr. Dago Kaur, with past medical history of valvular heart disease, status post percutaneous aortic valve implant at [facility] by Dr. Jovany Palacios, hypertension, chronic A. fib on Eliquis, mild intermittent bronchial asthma, who presented to the hospital on 02/14/2020 evaluation of worsening shortness of breath, mild nonproductive cough, mild nonradiating left-sided chest pain which was worsened with deep inspiration, and increasing lower extremity edema, she denied any fever or chills, denied any nausea vomiting or diarrhea, no lightheadedness or dizziness, no phlegm production, no chest congestion. EKG showed a flutter with nonspecific ST abnormality, troponins were positive at 0.040, 0.061, and 0.056. ProBNP was 2180, chest x-ray showed underlying COPD, air bronchial coughing, possible bronchitis or reactive airway disease. White blood cell count was 16.3, hemoglobin of 14.0, increased neutrophilia at 14.8, and lymphopenia 0.6, d-dimer was 0.76, sodium was 136, potassium was 5.0, chloride was 95, CO2 is 34, B1 is 29 creatinine of 1.56. Patient was started on empiric antibiotics in the form of Zithromax and Rocephin for possibility of community-acquired pneumonia, he was given IV steroids, and breathing treatments on today's labs there has been worsening of his renal function, with B1 up to 38 and creatinine up to 2.32, potassium 6.1. Patient has been afebrile, he remains on 3 L of oxygen and the pulse ox of 96 100%. Patient normally does not wear oxygen at his baseline, VQ scan was completed and showed intermediate probability for acute pulmonary embolism, and is already on oral anticoagulation in the form of Eliquis, ec hocardiogram is pending. He is awake and alert, sitting up in the chair, in no acute distress, no altered mentation, no fever or chills, no rhonchi, wheezing, diminished breath sounds at the bases, does have significant lower extremity edema Review of Systems All systems: negative Constitutional: Denies chills, Denies fever Eyes: denies blurred vision, denies pain Ears, nose, mouth and throat: Denies headache, Denies sore throat Cardiovascular: Reports dyspnea on exertion, Reports leg edema, Denies chest pain, Denies shortness of breath Respiratory: Reports cough, Reports dyspnea Gastrointestinal: Denies abdominal pain, Denies diarrhea, Denies nausea, Denies vomiting Musculoskeletal: Denies myalgias Integumentary: Denies pruritus, Denies rash Neurological: Denies numbness, Denies weakness Psychiatric: Denies anxiety, Denies depression Endocrine: Denies fatigue, Denies weight change Past Medical History Past Medical History: Atrial Fibrillation, Atrial Flutter, Asthma, Heart Failure, Hypertension History of Any Multi-Drug Resistant Organisms: None Reported Additional Past Surgical History / Comment(s): aortic heart valve replacement, bladder sx Past Psychological History: No Psychological Hx Reported Smoking Status: Never smoker Past Alcohol Use History: None Reported Past Drug Use History: None Reported - Past Family History Father Family Medical History: Cancer Medications and Allergies Home Medications Medication Instructions Recorded Confirmed Type Apixaban [Eliquis] 5 mg PO BID 02/14/20 02/14/20 History Aspirin EC [Ecotrin Low Dose] 81 mg PO DAILY 02/14/20 02/14/20 History Ipratropium Nebulized [Atrovent 0.5 mg INHALATION RT-TID 02/14/20 02/14/20 Hist ory Nebulized 0.2 MG/ML] Metoprolol Tartrate [Lopressor] 25 mg PO BID 02/14/20 02/14/20 History Multivitamins, Thera [Multivitamin 1 tab PO DAILY 02/14/20 02/14/20 History (formulary)] Allergies Allergy/AdvReac Type Severity Reaction Status Date / Time No Known Allergies Allergy Verified 02/14/20 19:58 Physical Exam Vitals: Vital Signs Temp Pulse Pulse Resp BP BP Pulse Ox 02/15/20 08:00 98.0 F 116 H 18 95/44 96 02/15/20 03:23 98.0 F 88 18 91/58 100 02/15/20 00:00 97.4 F L 109 H 24 95/45 96 02/14/20 22:41 97.4 F L 109 H 22 95/45 96 02/14/20 22:30 92/31 02/14/20 22:20 105 H 77/47 02/14/20 22:10 108 H 77/47 87 L 02/14/20 22:00 121 H 24 81/62 96 02/14/20 21:50 81/62 99 02/14/20 21:40 112 H 81/62 83 L 02/14/20 21:30 111 H 81/62 93 L 02/14/20 21:20 108 H 81/62 98 02/14/20 21:10 118 H 23 70/55 83 L 02/14/20 21:00 110 H 27 H 86/33 96 02/14/20 20:50 118 H 20 86/33 99 02/14/20 20:42 114 H 28 H 02/14/20 20:40 112 H 27 H 92/58 83 L 02/14/20 20:33 106 H 22 02/14/20 20:30 114 H 26 H 92/58 02/14/20 20:20 107 H 34 H 92/58 96 02/14/20 20:10 92/58 93 L 02/14/20 20:00 84/64 94 L 02/14/20 19:51 109 H 19 99 02/14/20 19:03 98.4 F 95 20 95/59 100 Intake and Output 02/14/20 02/15/20 02/15/20 22:59 06:59 14:59 Intake Total 9.99 57.253 Output Total 25 Balance 9.99 57.253 -25 Intake: Intake, IV Titration 9.99 57.253 Amount Heparin Sod,Pork in 0.45% 9.99 57.253 NaCl 25,000 unit In 0.45 % NaCl 1 250ml.bag @ 11.9 UNITS/KG/HR 9.986 mls/hr IV .Q24H [facility] Rx#: [id number] Output: Urine 25 Other: Voiding Method Urinal Urinal Weight 83.915 kg 76 kg GENERAL EXAM: Alert, pleasant, 84-year-old white male, on 3 L of oxygen and the pulse ox 100%, comfortable in no apparent distress. HEAD: Normocephalic/atraumatic. EYES: Normal reaction of pupils, equal size. Conjunctiva pink, sclera white. NOSE: Clear with pink turbinates. THROAT: No erythema or exudates. NECK: No masses, no JVD, no thyroid enlargement, no adenopathy. CHEST: No chest wall deformity. Symmetrical expansion. LUNGS: Equal air entry with no crackles, wheeze, rhonchi or dullness. CVS: Irregular rate and rhythm, normal S1 and S2, no gallops, no murmurs, no rubs ABDOMEN: Soft, nontender. No hepatosplenomegaly, normal bowel sounds, no guarding or rigidity. EXTREMITIES: No clubbing,2+ lower extremity edema, no cyanosis, 2+ pulses and upper and lower extremities. MUSCULOSKELETAL: Muscle strength and tone normal. SPINE: No scoliosis or deformity SKIN: No rashes CENTRAL NERVOUS SYSTEM: Alert and oriented -3. No focal deficits, tone is normal in all 4 extremities. PSYCHIATRIC: Alert and oriented -3. Appropriate affect. Intact judgment and insight. Results - Laboratory Findings CBC and BMP: 02/15/20 06:07 02/15/20 06:07 PT/INR, D-dimer PT 10.9 sec (9.0-12.0) 02/14/20 19:35 INR 1.1 (<1.2) 02/14/20 19:35 D-Dimer 0.76 mg/L FEU (<0.60) H 02/14/20 19:35 Abnormal lab findings: Abnormal Labs 02/14/20 02/14/20 02/14/20 19:35 19:35 19:35 WBC 16.3 H RBC Hgb Neutrophils # 14.8 H Lymphocytes # 0.6 L APTT D-Dimer 0.76 H Sodium 136 L Potassium Chloride 95 L Carbon Dioxide 34 H BUN 29 H Creatinine 1.56 H Glucose 113 H POC Glucose (mg/dL) Plasma Lactic Acid Jose Alkaline Phosphatase 143 H Troponin I 02/14/20 02/14/20 02/15/20 19:35 19:35 02:37 WBC RBC Hgb Neutrophils # Lymphocytes # APTT 103.3 H* D-Dimer Sodium Potassium Chloride Carbon Dioxide BUN Creatinine Glucose POC Glucose (mg/dL) Plasma Lactic Acid Jose 2.4 H* Alkaline Phosphatase Troponin I 0.040 H* 02/15/20 02/15/20 02/15/20 02:37 02:37 06:01 WBC 19.1 H RBC 4.21 L Hgb 12.9 L Neutrophils # 18.1 H Lymphocytes # 0.5 L APTT D-Dimer Sodium Potassium Chloride Carbon Dioxide BUN Creatinine Glucose POC Glucose (mg/dL) 134 H Plasma Lactic Acid Jose Alkaline Phosphatase Troponin I 0.061 H* 02/15/20 02/15/20 02/15/20 06:07 06:07 06:07 WBC 17.4 H RBC 4.13 L Hgb 12.6 L Neutrophils # 16.2 H Lymphocytes # 0.5 L APTT D-Dimer Sodium 134 L Potassium 6.1 H* Chloride 95 L Carbon Dioxide BUN 38 H Creatinine 2.32 H Glucose 128 H POC Glucose (mg/dL) Plasma Lactic Acid Jose Alkaline Phosphatase Troponin I 0.056 H* 02/15/20 12:20 WBC RBC Hgb Neutrophils # Lymphocytes # APTT D-Dimer Sodium Potassium Chloride Carbon Dioxide BUN Creatinine Glucose POC Glucose (mg/dL) 139 H Plasma Lactic Acid Jose Alkaline Phosphatase Troponin I - Diagnostic Findings Chest x-ray: report reviewed, image reviewed Additional studies: VQ scan EKG reviewed Assessment and Plan Plan: Assessment: #1. Acute hypoxic respiratory failure multifactorial, possibly related to mild exacerbation of CHF with unknown EF, mild exacerbation of mild intermittent bronchial asthma/COPD. #2. Mildly elevated d-dimer, VQ scan showed intermediate probability of PE, patient has been maintained on oral anticoagulation on outpatient basis, doubt acute pulmonary embolism #3. Mild pleuritic chest discomfort, doubt possibility of acute pulmonary embolism #4. Chronic kidney disease unspecified #5. Acute kidney injury possibly cardiorenal #6. Hyperkalemia #7. History of aortic valve disease, status post percutaneous unit valve implant in November 2019 #8. Chronic atrial fibrillation on Eliquis #9. Hypertension #10. 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 We'll reorder patient's Spiriva, Symbicort, and Ventolin. Continue with IV steroids, we'll continue to follow and make further recommendations based on his clinical course I performed a history & physical examination of the patient and discussed their management with my nurse practitioner, Dea Urias. I reviewed the nurse practitioner's note and agree with the documented findings and plan of care. Lung sounds are positive for diminished breath sounds. The findings and the impression was discussed with the patient. I attest to the documentation by the nurse practitioner. Time with Patient: Greater than 30
--- NOTE | 2020-02-15 14:39 | ECHOF ---
Referral Reason:CHF MEASUREMENTS -------- HEIGHT: 180.3 cm WEIGHT: 75.7 kg BP: 91/58 RVIDd: 3.8 cm (< 3.3) IVSd: 1.3 cm (0.6 - 1.1) LVIDd: 3.0 cm (3.9 - 5.3) LVPWd: 1.3 cm (0.6 - 1.1) IVSs: 1.7 cm LVIDs: 2.4 cm LVPWs: 1.7 cm LAESV Index (A-L): 45.42 ml/m MV E Abran: 1.52 m/s MV DecT: 336 ms MV A Abran: 0.00 m/s MV E/A Ratio: 346.70 AV maxP.15 mmHg AV meanP.35 mmHg RAP: 5.00 mmHg RVSP: 34.21 mmHg FINDINGS -------- Undetermined rhythm. This was a technically difficult study with suboptimal views. The left ventricular size is normal. There is mild concentric left ventricular hypertrophy. Overa ll left ventricular systolic function is normal with, an EF between 55 - 60 %. The right ventricle is mild to moderately enlarged. LA is severely dilated >40 ml/m2 The right atrium is moderately enlarged. There is mild aortic valve sclerosis. There is mild aortic regurgitation. There is mild aortic st enosis present. Peak/mean gradient across the Aortic Valve is 24.15mmHg / 11.35mmHg. Severe mitral annular calcification present. Rmmo-[id number] mitral regurgitation is present. Mi cm-st-galbsgqk mitral stenosis , with a MVA of 2.2cm (by PHT) Mild tricuspid regurgitation present. There is mild pulmonary hypertension. The right ventricular systolic pressure, as measured by Doppler, is 34.21mmHg. The pulmonic valve was not well visualized. There is no pulmonic regurgitation present. The aortic root size is normal. IVC Not well visulized. There is a small, generalized pericardial effusion present. CONCLUSIONS -------- 1. This was a technically difficult study with suboptimal views. 2. There is mild concentric left ventricular hypertrophy. 3. Overall left ventricular systolic function is normal with, an EF between 55 - 60 %. 4. The right ventricle is mild to moderately enlarged. 5. LA is severely dilated >40 ml/m2 6. The right atrium is moderately enlarged. 7. There is mild aortic valve sclerosis. 8. There is mild aortic regurgitation. 9. There is mild aortic stenosis present. 10. Peak/mean gradient across the Aortic Valve is 24.15mmHg / 11.35mmHg. 11. Severe mitral annular calcification present. 12. Kybe-zr-bhmwifve mitral regurgitation is present. 13. Vism-vx-rnpghsqd mitral stenosis. 14. , with a MVA of 2.2cm (by PHT) 15. Mild tricuspid regurgitation present. 16. There is mild pulmonary hypertension. 17. There is a small, generalized pericardial effusion present. SPENT GRAIN DRYER: Sharon Lynn RDCS
--- NOTE | 2020-02-15 16:56 | US ---
EXAMINATION TYPE: US kidneys/renal and bladder DATE OF EXAM: 02/15/2020 COMPARISON: US 06/27/2018, CT 05/25/2019 CLINICAL HISTORY: rf. renal failure EXAM MEASUREMENTS: Right Kidney: 9.1 x 5.3 x 5.3 cm Left Kidney: 10.3 x 5.3 x 4.6 cm Right Kidney No hydronephrosis. Hypoechoic area visualized mid pole measuring 0.8 cm. This previously measured 0.8 cm x 0.9 x 1.0 cm on the prior of 06/27/2018. Corticomedullary thinning Left Kidney: No hydronephrosis. Corticomedullary thinning. Difficult and limited visualization. Lobul ar appearance Bladder: not distended There is no evidence for hydronephrosis at this point in time. No nephrolithiasis is seen. The urin shirin bladder is not distended IMPRESSION: No hydronephrosis of either kidney. Sonographic sequela of medical renal disease. Right r enal lesion appears to have no significant interval growth from 2018 and therefore likely is benign.
--- NOTE | 2020-02-15 17:10 | CONS ---
CONSULTATION REASON FOR CONSULTATION: Renal failure. HISTORY OF PRESENT ILLNESS: Patient is an 84-year-old male who has a history of hypertension, valvular heart disease status post aortic valve replacement in November 2019. The patient also has underlying CKD stage 3 with previous creatinine as low as 1.3 to 1.4 in 2017 and 2018 secondary to nephrosclerosis. He was admitted to the hospital this admission with complaints of shortness of breath with some cough and chest pain. Troponin was borderline as 0.061. The patient was noted to have a creatinine of 2.3 this morning, yesterday it was 1.56. Potassium was 6.1 today. The patient was not on any nonsteroidal antiinflammatory agents prior to admission or angiotensin receptor blockers. Blood pressure has been running low with systolic in the 90s currently. The patient has been voiding on his own. PAST MEDICAL HISTORY: Valvular heart disease, recent aortic valve replacement in November 2019, history of asthma, history of hypertension, CKD, atrial fibrillation. SOCIAL HISTORY: Negative for smoking, drug abuse, or alcohol abuse. PAST SURGICAL HISTORY: Bladder surgery, aortic valve replacement. MEDICATIONS: Prior to admission, Eliquis, aspirin, lopressor, multivitamins. ALLERGIES: None. PHYSICAL EXAMINATION: Patient is comfortable, awake, he is not in any acute distress. Blood pressure was 95/44, heart rate 116 per minute this morning. He is afebrile. EXAMINATION OF THE HEART: S1 and S2. EXAMINATION OF THE LUNGS: Decreased breath sounds at the bases. ABDOMEN: Soft, nontender. Examination of the extremities shows no significant edema. 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 LABS: Sodium 134, potassium 6.1, chloride 95, BUN 38, creatinine 2.32. Hemoglobin 12.5 g/dL. ASSESSMENT: 1. Acute kidney injury, most likely associated with hypotension hypoperfusion, rule out urine retention. Check UA. Check ultrasound of the kidneys. Repeat potassium this evening and avoid use of NSAIDs, angiotensin receptor blockers, and ROSALIND inhibitors for now. 2. Chronic kidney disease stage 3 secondary to nephrosclerosis. Previous creatinine 1.3 to 1.5 mg/dL in 2017 and August 2019. 3. Hyperkalemia associated with acute kidney injury. Rule out urine retention, status post Kayexalate today and IV bicarbonate. 4. Atrial fibrillation with controlled ventricular response, maintained on Eliquis. 5. Possible pneumonia, maintained on antibiotics. PLAN: Check UA. Check ultrasound of the kidneys. I would avoid use of IV bicarbonate as CO2 is already 30. Repeat potassium this evening. Repeat labs in the morning. Thank you for this consultation. We will continue to follow the patient with you during his hospitalization. SHIRIN / JEANNINEN: [id number] /
[2020-02-15] MEDS ORDERED: DEXTROSE 50% SYRINGE 50 ML IVP STA (17:14)
[2020-02-15 17:33] LABS: Glucose,Whole Blood 128 mg/dL (75-99)
[2020-02-15] MEDS: MIDODRINE 5 MG TAB PO SCH (17:54)
[2020-02-15] MEDS: SODIUM CHLORIDE 0.9% 1,000 ML IV SCH (17:55)
[2020-02-15] MEDS ORDERED: INSULIN REGULAR 100 UNIT/ML VIAL IV ONE (18:00)
[2020-02-15] MEDS: SYMBICORT 160-4.5 MCG INHALER INHALATION SCH (20:09)
[2020-02-15 20:34] LABS: Glucose,Whole Blood 136 mg/dL (75-99)
[2020-02-15 21:19] LABS: Appearance,Urine Clear (Clear); Bilirubin,Urine Negative (Negative); Blood,Urine Small (Negative); Color,Urine Yellow; Glucose,Urine (UA) Negative (Negative); Hyaline Casts,Urine 67 /lpf (0-2); Ketones,Urine Trace (Negative); Leukocyte Esterase,Urine Negative (Negative); Mucus,Urine Occasional /hpf; Nitrite,Urine Negative (Negative); Protein,Urine Trace (Negative); RBC,Urine 11 /hpf (0-5); Specific Gravity,Urine 1.019 (1.001-1.035); Squamous Epithelial Cell,Urine 1 /hpf (0-4); Urobilinogen,Urine <2.0 mg/dL (<2.0); WBC,Urine 2 /hpf (0-5)
[2020-02-16 06:21] LABS: Basophils % (A) 0 %; Eosinophils % (A) 0 %; HCT 35.9 % (39.0-53.0); HGB 11.3 gm/dL (13.0-17.5); Lymphocytes # (A) 0.5 k/uL (1.0-4.8); Lymphocytes % (A) 2 %; MCH 31.2 pg (25.0-35.0); MCHC 31.6 g/dL (31.0-37.0); MCV 98.9 fL (80.0-100.0); Mean Platelet Volume 8.5; Monocytes # (A) 0.7 k/uL (0-1.0); Monocytes % (A) 4 %; Neutrophils % (A) 94 %; Platelet Count 181 k/uL (150-450); RBC 3.63 m/uL (4.30-5.90); RDW 13.5 % (11.5-15.5); WBC 20.3 k/uL (3.8-10.6)
[2020-02-16 06:32] LABS: Glucose,Whole Blood 124 mg/dL (75-99)
[2020-02-16] MEDS: INSULIN ASPART (NovoLOG) 100 UNIT/ML VIAL SQ SCH ×4 (06:33→21:43)
[2020-02-16 06:35] LABS: Albumin 3.4 g/dL (3.5-5.0); Calcium 8.9 mg/dL (8.4-10.2); Potassium 5.1 mmol/L (3.5-5.1); Total Bilirubin 0.2 mg/dL (0.2-1.3); Total Protein 5.9 g/dL (6.3-8.2)
[2020-02-16] MEDS: methylPREDNISolone SOD SUCCI 125 MG/2 ML VIAL IV SCH ×4 (06:35→23:40)
--- NOTE | 2020-02-16 07:38 | XR ---
EXAMINATION TYPE: XR chest 1V portable DATE OF EXAM: 02/16/2020 CLINICAL HISTORY: Difficulty breathing progress study. TECHNIQUE: Single AP portable upright view of the chest is obtained. COMPARISON: Chest x-ray from 2 days earlier FINDINGS: There is chronic parenchymal fibrotic change without suspicious new focal airspace opacity or pneumothorax seen bilaterally. Stable small right pleural effusion or pleural thickening. Persist ent cardiomegaly with atherosclerotic thoracic aorta. Aortic root metallic stent graft redemonstrated seen better on prior study lateral view. Osseous structures are intact. IMPRESSION: Chronic emphysematous change and cardiomegaly with tiny right pleural effusion or pleural thickening redemonstrated. No new focal infiltrate.
[2020-02-16] MEDS: MIDODRINE 5 MG TAB PO SCH ×2 (07:57→19:17)
[2020-02-16] MEDS: AZITHROMYCIN 500 MG TAB PO SCH (07:58)
[2020-02-16] MEDS: APIXABAN 5 MG TAB PO SCH ×2 (07:58→20:35)
[2020-02-16] MEDS: ALBUTEROL HFA INHALER INHALATION SCH ×4 (08:28→21:02)
[2020-02-16] MEDS: SYMBICORT 160-4.5 MCG INHALER INHALATION SCH ×2 (08:28→21:03)
[2020-02-16] MEDS: TIOTROPIUM 18 MCG/PUFF INHALER INHALATION SCH (08:28)
--- NOTE | 2020-02-16 09:14 | PN ---
PROGRESS NOTE Mr. López is clinically feeling better. Denies any chest pain. He seems to be a bit dehydrated. He was started on midodrine by Dr. Anthony. His LV systolic function is good. He has mitral stenosis and regurgitation, but not significant. Aortic valve is stable, this is a bioprosthesis. He had a percutaneous implant. Gradient is mild. Patient overall clinically doing better. Creatinine remains high. We will continue to hydrate him and hopefully if we will once his labs improve, he can be discharged. I will see him in the office in 3 weeks. JVD is not evident. S1, S2 heard normally, short systolic murmur. Lungs reveal improved air entry. Abdomen is soft. Lower extremities reveal diminished pulses. Central nervous system grossly within normal limits. MMODL / IJN: [id number] /
--- NOTE | 2020-02-16 11:13 | P.PN ---
Subjective Progress Note Date: 02/16/20 Principal diagnosis: Dyspnea, minimal cough, lower extremity edema 84-year-old male patient of Dr. Dago Kaur, with past medical history of valvular heart disease, status post percutaneous aortic valve implant at [facility] by Dr. Jovany Palacios, hypertension, chronic A. fib on Eliquis, mild intermittent bronchial asthma, who presented to the hospital on 02/14/2020 evaluation of worsening shortness of breath, mild nonproductive cough, mild nonradiating left-sided chest pain which was worsened with deep inspiration, and increasing lower extremity edema, she denied any fever or chills, denied any nausea vomiting or diarrhea, no lightheadedness or dizziness, no phlegm production, no chest congestion. EKG showed a flutter with nonspecific ST abnormality, troponins were positive at 0.040, 0.061, and 0.056. ProBNP was 2180, chest x-ray showed underlying COPD, air bronchial coughing, possible bronchitis or reactive airway disease. White blood cell count was 16.3, hemoglobin of 14.0, increased neutrophilia at 14.8, and lymphopenia 0.6, d-dimer was 0.76, sodium was 136, potassium was 5.0, chloride was 95, CO2 is 34, B1 is 29 creatinine of 1.56. Patient was started on empiric antibiotics in the form of Zithromax and Rocephin for possibility of community-acquired pneumonia, he was given IV steroids, and breathing treatments on today's labs there has been worsening of his renal function, with B1 up to 38 and creatinine up to 2.32, potassium 6.1. Patient has been afebrile, he remains on 3 L of oxygen and the pulse ox of 96 100%. Patient normally does not wear oxygen at his baseline, VQ scan was completed and showed intermediate probability for acute pulmonary embolism, and is already on oral anticoagulation in the form of Eliquis, echocardiogram is pending. He is awake and alert, sitting up in the chair, in no acute distress, no altered mentation, no fever or chills, no rhonchi, wheezing, diminished breath sounds at the bases, does have significant lower extremity edema On 02/16/2020 the patient was seen at the bedside with Dr. Aguillon. He is sitting up in a recliner and appears very comfortable. Denies any pain or shortness of breath. Remains afebrile. Heart rate in the high 90s to low 100s. Blood pressure stable. Remains on room air with oxygen saturation 94%. Currently on Zithromax, ceftriaxone, and IV Solu-Medrol. Chest x-ray demonstrated chronic emphysematous changes with cardiomegaly and tiny right pleural effusion. White blood cell count 20.3, BUN 66, creatinine 2.48, potassium 5.1. Objective - Vital Signs Vital signs: Vital Signs Temp 97.4 F L 02/16/20 08:00 Pulse 106 H 02/16/20 08:00 Resp 18 02/16/20 08:00 BP 104/50 02/16/20 08:00 Pulse Ox 94 L 02/16/20 08:00 Intake & Output 02/15/20 02/16/20 02/16/20 18:59 06:59 18:59 Intake Total 460 275 480 Output Total 25 1050 400 Balance 435 -775 80 Weight 76 kg 87.7 kg Intake: Oral 460 275 480 Output: Urine 25 900 400 Post Void Residual 150 Other: Voiding Method Urinal Urinal Urinal # Voids 2 2 1 # Bowel Movements 1 1 - Constitutional Constitutional Comment(s): Sitting up in a recliner, appears comfortable General appearance: Present: cooperative, no acute distress, obese - Respiratory Details: Lungs sounds diminished bilaterally. Respirations even, nonlabored. Currently on room air with oxygen saturation 94%. - Cardiovascular Details: S1, S2 present. Irregular rate and rhythm, atrial fibrillation on telemetry. Palpable peripheral pulses bilaterally. 2+ bilateral lower extremity edema present. No calf pain or tenderness noted. - Gastrointestinal Gastrointestinal Comment(s): Abdomen soft, nontender, nondistended. No organomegaly present. Active bowel sounds present 4 quadrants. Tolerating diet. - Genitourinary Genitourinary Comment(s): Continues to void, negative fluid balance - Integumentary Integumentary Comment(s): Skin is warm and dry with evidence of good perfusion - Neurologic Neurologic: Present: CNII-XII intact - Musculoskeletal Musculoskeletal: Present: gait normal, strength equal bilaterally - Psychiatric Psychiatric: Present: A&O x's 3, appropriate affect, intact judgment & insight - Allied health notes Allied health notes reviewed: nursing - Labs CBC & Chem 7: 02/16/20 05:08 02/16/20 05:08 Labs: Abnormal Lab Results - Last 24 Hours (Table) 02/15/20 02/15/20 02/15/20 Range/Units 12:20 15:15 17:17 WBC (3.8-10.6) k/uL RBC (4.30-5.90) m/uL Hgb (13.0-17.5) gm/dL Hct (39.0-53.0) % Neutrophils # (1.3-7.7) k/uL Lymphocytes # (1.0-4.8) k/uL Sodium (137-145) mmol/L Potassium 6.3 H* (3.5-5.1) mmol/L Chloride (98-107) mmol/L Carbon Dioxide (22-30) mmol/L BUN (9-20) mg/dL Creatinine (0.66-1.25) mg/dL Glucose (74-99) mg/dL POC Glucose (mg/dL) 139 H 128 H (75-99) mg/dL Total Protein (6.3-8.2) g/dL Albumin (3.5-5.0) g/dL Urine Protein (Negative) Urine Ketones (Negative) Urine Blood (Negative) Urine RBC (0-5) /hpf Hyaline Casts (0-2) /lpf Urine Mucus (None) /hpf 02/15/20 02/15/20 02/16/20 Range/Units 20:23 20:26 05:08 WBC 20.3 H (3.8-10.6) k/uL RBC 3.63 L (4.30-5.90) m/uL Hgb 11.3 L (13.0-17.5) gm/dL Hct 35.9 L (39.0-53.0) % Neutrophils # 19.0 H (1.3-7.7) k/uL Lymphocytes # 0.5 L (1.0-4.8) k/uL Sodium (137-145) mmol/L Potassium (3.5-5.1) mmol/L Chloride (98-107) mmol/L Carbon Dioxide (22-30) mmol/L BUN (9-20) mg/dL Creatinine (0.66-1.25) mg/dL Glucose (74-99) mg/dL POC Glucose (mg/dL) 136 H (75-99) mg/dL Total Protein (6.3-8.2) g/dL Albumin (3.5-5.0) g/dL Urine Protein Trace H (Negative) Urine Ketones Trace H (Negative) Urine Blood Small H (Negative) Urine RBC 11 H (0-5) /hpf Hyaline Casts 67 H (0-2) /lpf Urine Mucus Occasional H (None) /hpf 02/16/20 02/16/20 Range/Units 05:08 05:56 WBC (3.8-10.6) k/uL RBC (4.30-5.90) m/uL Hgb (13.0-17.5) gm/dL Hct (39.0-53.0) % Neutrophils # (1.3-7.7) k/uL Lymphocytes # (1.0-4.8) k/uL Sodium 132 L (137-145) mmol/L Potassium (3.5-5.1) mmol/L Chloride 90 L (98-107) mmol/L Carbon Dioxide 33 H (22-30) mmol/L BUN 66 H (9-20) mg/dL Creatinine 2.48 H (0.66-1.25) mg/dL Glucose 135 H (74-99) mg/dL POC Glucose (mg/dL) 124 H (75-99) mg/dL Total Protein 5.9 L (6.3-8.2) g/dL Albumin 3.4 L (3.5-5.0) g/dL Urine Protein (Negative) Urine Ketones (Negative) Urine Blood (Negative) Urine RBC (0-5) /hpf Hyaline Casts (0-2) /lpf Urine Mucus (None) /hpf - Imaging and Cardiology Chest x-ray: report reviewed, image reviewed Assessment and Plan Assessment: #1. Acute hypoxic respiratory failure multifactorial, possibly related to mild exacerbation of CHF with unknown EF, mild exacerbation of mild intermittent bronchial asthma/COPD. #2. Mildly elevated d-dimer, VQ scan showed intermediate probability of PE, patient has been maintained on oral anticoagulation on outpatient basis, doubt acute pulmonary embolism #3. Mild pleuritic chest discomfort, doubt possibility of acute pulmonary embolism #4. Chronic kidney disease unspecified #5. Acute kidney injury possibly cardiorenal #6. Hyperkalemia, resolving #7. History of aortic valve disease, status post percutaneous valve implant in November 2019 #8. Chronic atrial fibrillation on Eliquis #9. Hypertension #10. 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 Lungs sounds are diminished bilaterally. Maintaining good O2 saturations in the 90s on room air. I discussed the assessment and plan of care with my nurse practitioner, Keshia Garner. I attest to the above note as dictated by her. Time with Patient: Greater than 30
[2020-02-16] MEDS: METOPROLOL TARTRATE 50 MG TAB PO SCH (11:38)
[2020-02-16 11:46] LABS: Glucose,Whole Blood 126 mg/dL (75-99)
[2020-02-16] MEDS: SODIUM CHLORIDE 0.9% 1,000 ML IV SCH ×2 (12:37→20:35)
--- NOTE | 2020-02-16 14:03 | P.PN ---
Subjective Progress Note Date: 02/16/20 This is an 84-year-old gentleman with history of chronic intermittent asthma, hypertension, recent aortic valve replacement at [facility] in November 2019, presented to the ER with complaints of worsening shortness of breath, accompanied by a mild cough, mild nonradiating left-sided chest pain worsened with deep inspiration, mild lower extremity edema. Denies fever or chills. Denies nausea vomiting or diarrhea. Denies abdominal pain. EKG reporting atrial flutter with variable AV block with PVCs with nonspecific ST abnormality. Elevated troponins 0.040, 0.061, 0.056. BNP 2180. Chest x-ray reporting underlying COPD with air bronchial cuffing, possible bronchitis or reactive airway disease. On admission BUN 29, creatinine 1.56, worsened this morning, creatinine 2.3 to, potassium 6.1. Received Kayexalate, sodium bicarb and IV fluids. Lactic acid on admission 2.4, down to 1.4. Afebrile, WBC 17.4. D- dimer elevated 0.76. VQ scan reported intermediate probability for acute PE; moderate mismatched defects present in the mid lung regions bilaterally and right base. Heparin drip initiated. Bicarb 34 on admission, down to 30. Tachycardic, borderline hypotension. Currently denies chest pain, palpitations. 02/16/2020 Maintained on Zithromax, Rocephin, IV steroids. Breathing improving, maintaining O2 sats of low 90s on room air. Blood sugars controlled. Telemetry reporting atrial fibrillation, heart rate low 100s, . Borderline hypotension, systolic blood pressure ranging from low 90s to 110 .Chest x-ray reporting cardiomegaly, chronic emphysematous change with pleural thickening. Creatinine mildly worsened .potassium significantly improved, currently 5.1. Afebrile. Objective - Vital Signs Vital signs: Vital Signs Temp 97.4 F L 02/16/20 08:00 Pulse 106 H 02/16/20 08:00 Resp 18 02/16/20 08:00 BP 104/50 02/16/20 08:00 Pulse Ox 94 L 02/16/20 08:00 Intake & Output 02/15/20 02/16/20 02/16/20 18:59 06:59 18:59 Intake Total 460 275 480 Output Total 25 1050 400 Balance 435 -775 80 Weight 76 kg 87.7 kg Intake: Oral 460 275 480 Output: Urine 25 900 400 Post Void Residual 150 Other: Voiding Method Urinal Urinal Urinal # Voids 2 2 1 # Bowel Movements 1 1 - Exam PHYSICAL EXAM: VITAL SIGNS: As above GENERAL: Sitting up in bed, no acute distress HEENT: Conjunctivae normal. eyes normal. NECK: No JVD. No thyroid enlargement. No LNs CARDIOVASCULAR: S1, S2 irregular. Systolic murmur. RESPIRATION: Breath sounds diminished in the bases. No rhonchi or crackles. No bronchial breathing. ABDOMEN: Soft, nontender . No guarding. no masses palpable. No ascites, No hepatosplenomegaly.Bowel sounds heard. LEGS: Positive edema. no calf tenderness. PSYCHIATRY: Alert and oriented X3, mood and affect normal. NERVOUS SYSTEM: Cranial N 2-12 grossly normal. Moves all 4 limbs. Diffuse weakness No focal deficits. Strength and sensation grossly intact. Skin: no rash. Lymphatic system. No LN neck axilla. - Labs CBC & Chem 7: 02/16/20 05:08 02/16/20 05:08 Labs: Abnormal Lab Results - Last 24 Hours (Table) 02/15/20 02/15/20 02/15/20 Range/Units 15:15 17:17 20:23 WBC (3.8-10.6) k/uL RBC (4.30-5.90) m/uL Hgb (13.0-17.5) gm/dL Hct (39.0-53.0) % Neutrophils # (1.3-7.7) k/uL Lymphocytes # (1.0-4.8) k/uL Sodium (137-145) mmol/L Potassium 6.3 H* (3.5-5.1) mmol/L Chloride (98-107) mmol/L Carbon Dioxide (22-30) mmol/L BUN (9-20) mg/dL Creatinine (0.66-1.25) mg/dL Glucose (74-99) mg/dL POC Glucose (mg/dL) 128 H (75-99) mg/dL Total Protein (6.3-8.2) g/dL Albumin (3.5-5.0) g/dL Urine Protein Trace H (Negative) Urine Ketones Trace H (Negative) Urine Blood Small H (Negative) Urine RBC 11 H (0-5) /hpf Hyaline Casts 67 H (0-2) /lpf Urine Mucus Occasional H (None) /hpf 02/15/20 02/16/20 02/16/20 Range/Units 20:26 05:08 05:08 WBC 20.3 H (3.8-10.6) k/uL RBC 3.63 L (4.30-5.90) m/uL Hgb 11.3 L (13.0-17.5) gm/dL Hct 35.9 L (39.0-53.0) % Neutrophils # 19.0 H (1.3-7.7) k/uL Lymphocytes # 0.5 L (1.0-4.8) k/uL Sodium 132 L (137-145) mmol/L Potassium (3.5-5.1) mmol/L Chloride 90 L (98-107) mmol/L Carbon Dioxide 33 H (22-30) mmol/L BUN 66 H (9-20) mg/dL Creatinine 2.48 H (0.66-1.25) mg/dL Glucose 135 H (74-99) mg/dL POC Glucose (mg/dL) 136 H (75-99) mg/dL Total Protein 5.9 L (6.3-8.2) g/dL Albumin 3.4 L (3.5-5.0) g/dL Urine Protein (Negative) Urine Ketones (Negative) Urine Blood (Negative) Urine RBC (0-5) /hpf Hyaline Casts (0-2) /lpf Urine Mucus (None) /hpf 02/16/20 02/16/20 Range/Units 05:56 11:44 WBC (3.8-10.6) k/uL RBC (4.30-5.90) m/uL Hgb (13.0-17.5) gm/dL Hct (39.0-53.0) % Neutrophils # (1.3-7.7) k/uL Lymphocytes # (1.0-4.8) k/uL Sodium (137-145) mmol/L Potassium (3.5-5.1) mmol/L Chloride (98-107) mmol/L Carbon Dioxide (22-30) mmol/L BUN (9-20) mg/dL Creatinine (0.66-1.25) mg/dL Glucose (74-99) mg/dL POC Glucose (mg/dL) 124 H 126 H (75-99) mg/dL Total Protein (6.3-8.2) g/dL Albumin (3.5-5.0) g/dL Urine Protein (Negative) Urine Ketones (Negative) Urine Blood (Negative) Urine RBC (0-5) /hpf Hyaline Casts (0-2) /lpf Urine Mucus (None) /hpf Assessment and Plan Assessment: Acute Chest pain, with elevated troponins, appears pleuritic in nature, Cardiology following Intermediate probability of PE, doubt acute PE as per pulmonary, in a patient on oral anticoagulation at home Acute hypoxic respiratory failure secondary to the above, possible acute asthma exacerbation secondary to bronchitis, with emphysematous changes. Possible acute COPD exacerbation. Possible community-acquired pneumonia pneumonia. Pulmonary following. Dehydration Chronic intermittent asthma Recent aortic valve replacement at [facility] in November 2019 Hypertension Acute on chronic renal failure, baseline 1.3, stage III. Acute secondary to hypotension, dehydration. Chronic related to nephrosclerosis. 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 Maintain nebulized bronchodilators, antibiotics, IV steroids. Maintain gentle IV fluid hydration, close monitoring of renal function, electrolytes with repeat labs ordered for a.m. Discharge planning in progress soon pending pulmonary ,cardiology clearance. The impression and plan of care has been dictated as directed. : I performed a history and examination of this patient, discussed the same with the dictator. I agree with the dictator's note ,documented as a scribe. Any additional findings or plans will be noted.
--- NOTE | 2020-02-16 16:29 | PN ---
PROGRESS NOTE Patient is seen for followup for acute kidney injury. He is currently sitting up in bed. Patient denies any significant complaints. He is maintained on IV fluids, which have been increased. Patient states he is voiding well. His blood pressure has been around 104 to 110 mmHg. He denies any nausea, vomiting, abdominal pain or diarrhea. PHYSICAL EXAMINATION: On examination this morning, blood pressure was 104/50, heart rate 106 per minute. Patient is afebrile. EXAMINATION OF THE HEART: S1 and S2. EXAMINATION OF LUNGS: Bilateral breath sounds are heard. Decreased breath sounds at bases. ABDOMEN: Soft, non-tender. Examination of lower extremities shows no evidence of edema. 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 LABS: Sodium 132, potassium 5.1, chloride 90. CO2 is 33, BUN 66, creatinine 2.48. ASSESSMENT: 1. Acute kidney injury; appears to be prerenal and associated with hypotension, hypoperfusion. Patient is nonoliguric. He is maintained on IV fluids. IV fluids have been increased. Ultrasound of the kidneys done yesterday shows no evidence of hydronephrosis. UA is fairly benign with trace blood and protein. No nephrotoxic medications on board. 2. Chronic kidney disease, stage III, secondary to nephrosclerosis. Previous creatinine 1.3 to 1.5 mg/dL in August of 2019 and 2018 as well. 3. Hyperkalemia associated with acute kidney injury, currently improved. 4. Atrial fibrillation with controlled ventricular response, maintained on Eliquis. 5. Possible pneumonia, maintained on empiric antibiotics. PLAN: Continue IV fluids. Check labs in a.m. Expect improvement in renal function. The patient will need followup as outpatient for CKD. MMODL / IJN: [id number] /
[2020-02-16 17:08] LABS: Glucose,Whole Blood 167 mg/dL (75-99)
[2020-02-16 20:29] LABS: Glucose,Whole Blood 147 mg/dL (75-99)
[2020-02-17 00:04] VITALS: RESP 18
[2020-02-17 05:47] LABS: Glucose,Whole Blood 151 mg/dL (75-99)
[2020-02-17] MEDS: methylPREDNISolone SOD SUCCI 125 MG/2 ML VIAL IV SCH ×2 (05:59→12:14)
[2020-02-17] MEDS: MIDODRINE 5 MG TAB PO SCH (05:59)
[2020-02-17] MEDS: INSULIN ASPART (NovoLOG) 100 UNIT/ML VIAL SQ SCH ×2 (06:00→11:59)
[2020-02-17] MEDS: SODIUM CHLORIDE 0.9% 1,000 ML IV SCH (06:10)
[2020-02-17 06:21] LABS: Basophils % (A) 0 %; Eosinophils % (A) 0 %; HCT 35.5 % (39.0-53.0); HGB 11.3 gm/dL (13.0-17.5); Lymphocytes # (A) 0.4 k/uL (1.0-4.8); Lymphocytes % (A) 2 %; MCH 31.1 pg (25.0-35.0); MCHC 31.9 g/dL (31.0-37.0); MCV 97.7 fL (80.0-100.0); Mean Platelet Volume 8.4; Monocytes # (A) 0.4 k/uL (0-1.0); Monocytes % (A) 3 %; Neutrophils # (A) 15.1 k/uL (1.3-7.7); Neutrophils % (A) 95 %; Platelet Count 224 k/uL (150-450); RBC 3.64 m/uL (4.30-5.90); RDW 13.7 % (11.5-15.5)
[2020-02-17 06:33] LABS: Albumin 3.2 g/dL (3.5-5.0); Calcium 8.8 mg/dL (8.4-10.2); Total Bilirubin 0.2 mg/dL (0.2-1.3); Total Protein 5.9 g/dL (6.3-8.2)
--- NOTE | 2020-02-17 07:03 | XR ---
EXAMINATION TYPE: XR chest 2V DATE OF EXAM: 02/17/2020 HISTORY: pneumonia. REFERENCE: Previous study dated 02/16/2020. FINDINGS: Lung volumes are prominent. The heart is mildly enlarged. There is a stable nodular opacity in the right lower lobe. There are numerous other nodular opacities IMPRESSION: 1. EMPHYSEMATOUS CHANGE. 2. MILD CARDIOMEGALY. 3. MULTIPLE NODULAR OPACITIES THROUGHOUT BOTH LUNGS. A CT SCAN OF THE CHEST WOULD BE SUGGESTED.
[2020-02-17] MEDS: SYMBICORT 160-4.5 MCG INHALER INHALATION SCH (07:28)
[2020-02-17] MEDS: TIOTROPIUM 18 MCG/PUFF INHALER INHALATION SCH (07:28)
[2020-02-17] MEDS: ALBUTEROL HFA INHALER INHALATION SCH ×3 (07:31→15:09)
[2020-02-17] MEDS: AZITHROMYCIN 500 MG TAB PO SCH (08:51)
[2020-02-17] MEDS: METOPROLOL TARTRATE 50 MG TAB PO SCH (08:51)
[2020-02-17] MEDS: APIXABAN 5 MG TAB PO SCH (08:51)
--- NOTE | 2020-02-17 09:56 | P.PN ---
Subjective This is a pleasant 84-year-old male currently being treated for dehydration and hypotension. Past medical history significant for percutaneous aortic valve and plan at [facility] in November 2019, hypertension and chronic atrial fibrillation on Eliquis. Repeat chest x-ray today reveals emphysematous changes with multiple nodule opacities throughout both lungs. Blood pressure 89/64 heart rate 98 afebrile maintaining oxygen saturation on room air. Laboratory data reviewed, WBC 16, hemoglobin 11.3, platelets 224, sodium 134, potassium 5.0, creatinine 1.94. Currently maintained on Eliquis 5 mg twice a day, Lopressor 50 mg daily and midodrine 10 mg twice a day. He is also receiving IV steroids, IV antibiotics and inhalers. GENERAL: Well-appearing, well-nourished and in no acute distress. NECK: Supple without JVD or thyromegaly. LUNGS: Breath sounds clear to auscultation bilaterally. Respiration equal and unlabored. No wheezes, rales or rhonchi. HEART: Regular rate and rhythm without murmurs, rubs or gallops. S1 and S2 heard. EXTREMITIES: Normal range of motion, no edema. No clubbing or cyanosis. Peripheral pulses intact. ASSESSMENT Pleuritic chest pain. Leukocytosis Bronchial asthma Acute kidney injury Valvular heart disease status post percutaneous valve replacement Hypertension Chronic persistent atrial fibrillation PLAN Continue current medical regimen. Clinically stable from a cardiac perspective. Follow-up in the office with Dr. Schaffer upon discharge. Nurse Practitioner note has been reviewed, I agree with a documented findings and plan of care. Patient was seen and examined. Objective - Vital Signs Vital signs: Vital Signs Temp 97.7 F 02/17/20 04:00 Pulse 98 02/17/20 04:00 Resp 18 02/17/20 04:00 BP 89/64 02/17/20 04:00 Pulse Ox 93 L 02/17/20 04:00 Intake & Output 02/16/20 02/17/20 02/17/20 18:59 06:59 18:59 Intake Total 1440 280 Output Total 850 1350 300 Balance 590 -1350 -20 Weight 86.8 kg Intake: Oral 1440 280 Output: Urine 850 1350 300 Other: Voiding Method Urinal Urinal # Voids 1 # Bowel Movements 1 - Labs CBC & Chem 7: 02/17/20 05:47 02/17/20 05:47 Labs: Abnormal Lab Results - Last 24 Hours (Table) 02/16/20 02/16/20 02/16/20 Range/Units 11:44 17:07 20:03 WBC (3.8-10.6) k/uL RBC (4.30-5.90) m/uL Hgb (13.0-17.5) gm/dL Hct (39.0-53.0) % Neutrophils # (1.3-7.7) k/uL Lymphocytes # (1.0-4.8) k/uL Sodium (137-145) mmol/L Chloride (98-107) mmol/L BUN (9-20) mg/dL Creatinine (0.66-1.25) mg/dL Glucose (74-99) mg/dL POC Glucose (mg/dL) 126 H 167 H 147 H (75-99) mg/dL Total Protein (6.3-8.2) g/dL Albumin (3.5-5.0) g/dL 02/17/20 02/17/20 02/17/20 Range/Units 05:45 05:47 05:47 WBC 16.0 H (3.8-10.6) k/uL RBC 3.64 L (4.30-5.90) m/uL Hgb 11.3 L (13.0-17.5) gm/dL Hct 35.5 L (39.0-53.0) % Neutrophils # 15.1 H (1.3-7.7) k/uL Lymphocytes # 0.4 L (1.0-4.8) k/uL Sodium 134 L (137-145) mmol/L Chloride 97 L (98-107) mmol/L BUN 63 H (9-20) mg/dL Creatinine 1.94 H (0.66-1.25) mg/dL Glucose 134 H (74-99) mg/dL POC Glucose (mg/dL) 151 H (75-99) mg/dL Total Protein 5.9 L (6.3-8.2) g/dL Albumin 3.2 L (3.5-5.0) g/dL Microbiology - Last 24 Hours (Table) 02/15/20 15:19 Blood Culture - Preliminary Blood No Growth after 24 hours 02/15/20 15:15 Blood Culture - Preliminary Blood No Growth after 24 hours
[2020-02-17 11:57] LABS: Glucose,Whole Blood 93 mg/dL (75-99)
--- NOTE | 2020-02-17 12:39 | P.PN ---
Subjective Progress Note Date: 02/17/20 Principal diagnosis: Acute hypoxic respiratory failure secondary to mild exacerbation of chronic congestive heart failure and acute exacerbation of mild intermittent chronic bronchial asthma/COPD 84-year-old male patient of Dr. Dago Kaur, with past medical history of valvular heart disease, status post percutaneous aortic valve implant at [facility] by Dr. Jovany Palacios, hypertension, chronic A. fib on Eliquis, mild intermittent bronchial asthma, who presented to the hospital on 02/14/2020 evaluation of worsening shortness of breath, mild nonproductive cough, mild nonradiating left-sided chest pain which was worsened with deep inspiration, and increasing lower extremity edema, she denied any fever or chills, denied any nausea vomiting or diarrhea, no lightheadedness or dizziness, no phlegm production, no chest congestion. EKG showed a flutter with nonspecific ST abnormality, troponins were positive at 0.040, 0.061, and 0.056. ProBNP was 2180, chest x-ray showed underlying COPD, air bronchial coughing, possible bronchitis or reactive airway disease. White blood cell count was 16.3, hemoglobin of 14.0, increased neutrophilia at 14.8, and lymphopenia 0.6, d-dimer was 0.76, sodium was 136, potassium was 5.0, chloride was 95, CO2 is 34, B1 is 29 creatinine of 1.56. Patient was started on empiric antibiotics in the form of Zithromax and Rocephin for possibility of community-acquired pneumonia, he was given IV steroids, and breathing treatments on today's labs there has been worsening of his renal function, with B1 up to 38 and creatinine up to 2.32, potassium 6.1. Patient has been afebrile, he remains on 3 L of oxygen and the pulse ox of 96 100%. Patient normally does not wear oxygen at his baseline, VQ scan was completed and showed intermediate probability for acute pulmonary embolism, and is already on oral anticoagulation in the form of Eliquis, echocardiogram is pending. He is awake and alert, sitting up in the chair, in no acute distress, no altered mentation, no fever or chills, no rhonchi, wheezing, diminished breath sounds at the bases, does have significant lower extremity edema On 02/16/2020 the patient was seen at the bedside with Dr. Henna. He is sitting up in a recliner and appears very comfortable. Denies any pain or shortness of breath. Remains afebrile. Heart rate in the high 90s to low 100s. Blood pressure stable. Remains on room air with oxygen saturation 94%. Currently on Zithromax, ceftriaxone, and IV Solu-Medrol. Chest x-ray demonstrated chronic emphysematous changes with cardiomegaly and tiny right pleural effusion. White blood cell count 20.3, BUN 66, creatinine 2.48, potassium 5.1. The patient is seen today 02/17/2020 in follow-up on the selective care unit. He is currently sitting up in a chair at the bedside. Awake and alert in no acute distress. Breathing quite a bit better today compared to yesterday. Still with some dyspnea on minimal exertion. He is maintaining O2 saturations in the 90s on room air. He's afebrile. Blood culture reveals no growth. White count 16.0. Hemoglobin 11.3. Creatinine 1.94. Chest x-ray reveals emphysematous changes. Mild cardiomegaly. Multiple nodular opacities throughout both lungs. Computed tomography scan of the chest without contrast pending. Objective - Vital Signs Vital signs: Vital Signs Temp 96.2 F L 02/17/20 08:00 Pulse 124 H 02/17/20 08:00 Resp 18 02/17/20 08:00 BP 125/65 02/17/20 08:00 Pulse Ox 92 L 02/17/20 08:00 Intake & Output 02/16/20 02/17/20 02/17/20 18:59 06:59 18:59 Intake Total 1440 280 Output Total 850 1350 300 Balance 590 -1350 -20 Weight 86.8 kg Intake: Oral 1440 280 Output: Urine 850 1350 300 Other: Voiding Method Urinal Urinal # Voids 1 # Bowel Movements 1 - Exam GENERAL EXAM: Alert, active, pleasant 84-year-old gentleman, on room air, comfortable in no apparent distress. HEAD: Normocephalic. EYES: Normal reaction of pupils, equal size. NOSE: Clear with pink turbinates. THROAT: No erythema or exudates. NECK: No masses, no JVD. CHEST: No chest wall deformity. LUNGS: Equal air entry with faint end expiratory wheeze. Diminished. CVS: S1 and S2 normal with no audible murmur, regular rhythm. ABDOMEN: No hepatosplenomegaly, normal bowel sounds, no guarding or rigidity. SPINE: No scoliosis or deformity SKIN: No rashes CENTRAL NERVOUS SYSTEM: No focal deficits, tone is normal in all 4 extremities. EXTREMITIES: There is no peripheral edema. No clubbing, no cyanosis. Peripheral pulses are intact. - Labs CBC & Chem 7: 02/17/20 05:47 02/17/20 05:47 Labs: Abnormal Lab Results - Last 24 Hours (Table) 02/16/20 02/16/20 02/17/20 Range/Units 17:07 20:03 05:45 WBC (3.8-10.6) k/uL RBC (4.30-5.90) m/uL Hgb (13.0-17.5) gm/dL Hct (39.0-53.0) % Neutrophils # (1.3-7.7) k/uL Lymphocytes # (1.0-4.8) k/uL Sodium (137-145) mmol/L Chloride (98-107) mmol/L BUN (9-20) mg/dL Creatinine (0.66-1.25) mg/dL Glucose (74-99) mg/dL POC Glucose (mg/dL) 167 H 147 H 151 H (75-99) mg/dL Total Protein (6.3-8.2) g/dL Albumin (3.5-5.0) g/dL 02/17/20 02/17/20 Range/Units 05:47 05:47 WBC 16.0 H (3.8-10.6) k/uL RBC 3.64 L (4.30-5.90) m/uL Hgb 11.3 L (13.0-17.5) gm/dL Hct 35.5 L (39.0-53.0) % Neutrophils # 15.1 H (1.3-7.7) k/uL Lymphocytes # 0.4 L (1.0-4.8) k/uL Sodium 134 L (137-145) mmol/L Chloride 97 L (98-107) mmol/L BUN 63 H (9-20) mg/dL Creatinine 1.94 H (0.66-1.25) mg/dL Glucose 134 H (74-99) mg/dL POC Glucose (mg/dL) (75-99) mg/dL Total Protein 5.9 L (6.3-8.2) g/dL Albumin 3.2 L (3.5-5.0) g/dL Microbiology - Last 24 Hours (Table) 02/15/20 15:19 Blood Culture - Preliminary Blood No Growth after 24 hours 02/15/20 15:15 Blood Culture - Preliminary Blood No Growth after 24 hours Assessment and Plan Assessment: #1. Acute hypoxic respiratory failure multifactorial, possibly related to mild exacerbation of diastolic congestive heart failure with preserved left ventricular systolic function, mild exacerbation of mild intermittent bronchial asthma/COPD. chest x-ray showing emphysematous changes, mild cardiomegaly, multiple nodular opacities throughout both lungs. Computed tomography scan of the chest without contrast pending. #2. Mildly elevated d-dimer, VQ scan showed intermediate probability of PE, patient has been maintained on oral anticoagulation on outpatient basis, doubt acute pulmonary embolism #3. Mild pleuritic chest discomfort, doubt possibility of acute pulmonary embolism #4. Chronic kidney disease unspecified #5. Acute kidney injury possibly cardiorenal #6. Hyperkalemia, resolving #7. History of aortic valve disease, status post percutaneous valve implant in November 2019 #8. Chronic atrial fibrillation on Eliquis #9. Hypertension #10. 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 Aguillon CT without contrast ordered per medicine If no significant findings could be discharged home today Continue Symbicort, Spiriva, albuterol. Prednisone taper upon discharge. Follow-up in our office for further COPD workup We'll continue to follow I, the cosigning physician, performed a history & physical examination of the patient. Lungs sounds with faint end expiratory wheeze, diminished. Maintaining good O2 saturations in the 90s on room air. I discussed the assessment and plan of care with my nurse practitioner, Che Millard. I attest to the above note as dictated by her.
[2020-02-17 13:54] VITALS: BP 145/79; PULSE 110; TEMP 97
--- NOTE | 2020-02-17 14:08 | PN ---
PROGRESS NOTE Patient is seen for followup for acute kidney injury, which is mainly prerenal. Patient is maintained on IV fluids. Serum creatinine has improved down to 1.9 from 2.48 yesterday. PHYSICAL EXAMINATION: Patient is comfortable. He denies any complaints. He is likely going home today. Blood pressure was 125/65, heart rate 124 per minute. He is afebrile. EXAMINATION OF THE HEART: S1, S2. EXAMINATION OF LUNGS: Decreased breath sounds at bases. ABDOMEN: Soft, nontender. Examination of lower extremities shows trace edema bilaterally. [employer] GU[employer] INSPECTOR exam grossly intact. LABS: Labs show sodium 134, potassium 5.0, BUN 63, creatinine 1.9, hemoglobin 11.3 g/dL. ASSESSMENT: 1. Acute kidney injury prerenal currently improved with IV hydration. 2. Chronic kidney disease NKF stage 3 previous creatinine 1.3 to 1.5 mg/dL in August 2019 and 2017 as well. 3. Hyperkalemia associated with acute kidney injury, now improved. 4. Atrial fibrillation with controlled ventricular response, maintained on Eliquis. 5. Possible pneumonia, currently on antibiotics. PLAN: Continue IV fluids. Continue to encourage increased oral intake. Currently patient is not volume overloaded. He could be discharged from nephrology standpoint with plans to follow up as outpatient with repeat labs in 4 to 5 days post discharge. MMODL / IJN: [id number] /
--- NOTE | 2020-02-20 11:17 | CDI ---
Documentation Clarification Form Date: 02/20/20 From: Nicolette Stephenson Phone: If you have a question about this query, please contact Hermelinda Frankel, Head Refrigerating Engineer at [phone] between 8am and 5pm. Admit Date: 02/14/20 Discharge Date: 02/17/20 Patient Name: LEIGH CHAPA Visit Number: [id number] ATTENTION: The Clinical Documentation Specialists (CDI) and [facility] Coding Staff appreciate your assistance in clarifying documentation. Please respond to the clarification below the line at the bottom and electronically sign. The CDI & [facility] Coding staff will review the response and follow-up if needed. Please note: Queries are made part of the Legal Health Record. If you have any questions, please contact the author of this message via ITS. Dear Dr. Dago Kaur, Atrial Flutter is documented in the ED Note & H&P. History/Risk factors: Emphysema, acute exacerbation of mild intermittent asthma, acute on chronic diastolic CHF, JAKE, chronic persistent atrial fibrillation EKG/telemetry: Atrial flutter with variable AV block rate of 114, rightward axis, baseline artifact, no definitive ST segment elevation QRS duration 90, QTC 463 Treatment: Eliquis In your professional opinion, in order to capture the severity of condition; can you please clarify the type of Atrial Flutter if known? Typical/Type I Atypical/Type II Other, please specify Unable to determine MTDD
--- NOTE | 2020-02-26 10:05 | CDI ---
Documentation Clarification Form Date: 02/20/20 From: Nicolette Stephenson Phone: If you have a question about this query, please contact Hermelinda Frankel, Orthodontic Treatment Coordinator at [phone] between 8am and 5pm. Admit Date: 02/14/20 Discharge Date: 02/17/20 Patient Name: LEIGH CHAPA Visit Number: [id number] ATTENTION: The Clinical Documentation Specialists (CDI) and [facility] Coding Staff appreciate your assistance in clarifying documentation. Please respond to the clarification below the line at the bottom and electronically sign. The CDI & [facility] Coding staff will review the response and follow-up if needed. Please note: Queries are made part of the Legal Health Record. If you have any questions, please contact the author of this message via ITS. Dear Dr. Dago Kaur, Atrial Flutter is documented in the ED Note & H&P. History/Risk factors: Emphysema, acute exacerbation of mild intermittent asthma, acute on chronic diastolic CHF, JAKE, chronic persistent atrial fibrillation EKG/telemetry: Atrial flutter with variable AV block rate of 114, rightward axis, baseline artifact, no definitive ST segment elevation QRS duration 90, QTC 463 Treatment: Eliquis In your professional opinion, in order to capture the severity of condition; can you please clarify the type of Atrial Flutter if known? Typical/Type I Atypical/Type II Other, please specify Unable to determine MTDD
--- NOTE | 2020-03-11 01:04 | DS ---
DISCHARGE SUMMARY DATE OF ADMISSION: 02/14/2020 DATE OF DISCHARGE: 02/17/2020. DISCHARGE MEDICATIONS: 1. Multivitamin daily. 2. Lopressor 25 b.i.d. 3. DuoNeb t.i.d. 4. Aspirin 81 mg daily. 5. Eliquis 5 mg b.i.d. 6. Azithromycin 500 daily for 7 days. CONDITION: Stable. PROGNOSIS: Guarded. AMBULATE: As tolerated. This is a white male who was admitted for acute hypoxemic respiratory failure secondary to CHF and COPD, was seen by the renal physician for chronic kidney disease; Dr. Aguillon, pulmonology; and Dr. Bryant for atrial fibrillation and atrial flutter. The patient was stabilized with medications from all of these doctors and patient was cleared for discharge to follow up with these 3 physicians and possibly a study for home sleep apnea. He was cleared for discharge by all the specialists. Respiratory thought his problems were cardiac in nature. Cardiology stabilized him as best they could, placed him on a blood thinner for atrial fibrillation to prevent strokes and he was sent home to follow up as an outpatient with Pulmonology. Prognosis guarded. Condition stable. Diet as tolerated. MMODL / IJN: [id number] /
== END 2020-02-17 15:13 | disposition home or self-care (01) | DRG 190 ==
LOC: EC 18:59 → 3SCARD 21:08
PROVIDERS: ADMIT Family Medicine; ATTEND Family Medicine
DX: J43.9 Emphysema, unspecified (principal); J96.01 Acute respiratory failure with hypoxia; I50.33 Acute on chronic diastolic (congestive) heart failure; J45.21 Mild intermittent asthma with (acute) exacerbation; N17.9 Acute kidney failure, unspecified; I13.0 Hypertensive heart and chronic kidney disease with heart failure and stage 1 through stage 4 chronic kidney disease, or unspecified chronic kidney disease; I48.19 Other persistent atrial fibrillation; I05.2 Rheumatic mitral stenosis with insufficiency; N18.3 Chronic kidney disease, stage 3 (moderate); I95.9 Hypotension, unspecified; J98.6 Disorders of diaphragm; E86.0 Dehydration; D72.810 Lymphocytopenia; E87.5 Hyperkalemia; Z95.2 Presence of prosthetic heart valve; Z79.82 Long term (current) use of aspirin; Z79.01 Long term (current) use of anticoagulants; Z79.899 Other long term (current) drug therapy; Z80.9 Family history of malignant neoplasm, unspecified
CPT/HCPCS: 36415; 71045; 71046; 76770; 78582; 80053; 81001; 83605; 83735; 83880; 84132; 84484; 85025; 85379; 85610; 85730; 87040; 93005; 93306; 94640; 96365; 96374; 96375; 99291

== ENCOUNTER 2020-02-18 17:03 | Inpatient (IN) | payer MEDICARE ==
[2020-02-18] MEDS ORDERED: IPRATROPIUM-ALBUTEROL 3 ML NEB INHALATION STA (17:37)
[2020-02-18 17:51] LABS: Basophils # (A) 0.1 k/uL (0-0.2); Basophils % (A) 0 %; Eosinophils # (A) 0.1 k/uL (0-0.7); Eosinophils % (A) 1 %; HGB 13.4 gm/dL (13.0-17.5); Lymphocytes # (A) 0.3 k/uL (1.0-4.8); Lymphocytes % (A) 1 %; MCH 30.7 pg (25.0-35.0); MCHC 31.1 g/dL (31.0-37.0); MCV 98.6 fL (80.0-100.0); Mean Platelet Volume 8.4; Monocytes # (A) 1.1 k/uL (0-1.0); Monocytes % (A) 5 %; Neutrophils # (A) 19.9 k/uL (1.3-7.7); Neutrophils % (A) 92 %; Platelet Count 262 k/uL (150-450); RBC 4.36 m/uL (4.30-5.90); RDW 13.6 % (11.5-15.5); WBC 21.6 k/uL (3.8-10.6)
[2020-02-18 18:01] LABS: Albumin 4.2 g/dL (3.5-5.0); Calcium 9.4 mg/dL (8.4-10.2); Magnesium 2.3 mg/dL (1.6-2.3); Total Bilirubin 0.7 mg/dL (0.2-1.3); Total Protein 7.5 g/dL (6.3-8.2)
[2020-02-18 18:02] LABS: Potassium 6.2 mmol/L (3.5-5.1)
[2020-02-18] MEDS ORDERED: SODIUM CHLORIDE 0.9% 500 ML 500 ML IV ONE (18:03)
[2020-02-18] MEDS ORDERED: DILTIAZEM DRIP BOLUS FROM BAG 1 MG SOLN IV ONE (18:06)
[2020-02-18 18:07] LABS: INR 1.1 (<1.2); Prothrombin Time 11.1 sec (9.0-12.0)
--- NOTE | 2020-02-18 18:08 | XR ---
EXAMINATION TYPE: XR chest 2V DATE OF EXAM: 02/18/2020 COMPARISON: 02/17/2020 TECHNIQUE: PA and lateral views submitted. HISTORY: Difficulty breathing FINDINGS: No pneumothorax or new consolidation. Hyperinflation suggests COPD and there is a coarsened interstit ial pattern with right-sided consolidation and bilateral pleural effusion or thickening. Heart is enl arged. Atherosclerotic change aorta. Stable 8 mm nodule right midlung. Previously described additional nodul es not as well-seen on today's exam. Degenerative changes spine. Suggestion of an aortic valve replac ement. IMPRESSION: 1. COPD with suspected chronic interstitial lung disease and chronic bilateral effusions or thickenin g. 2. Stable pulmonary nodules..
[2020-02-18 18:09] LABS: Partial Thromboplastin Time 19.7 sec (22.0-30.0)
--- NOTE | 2020-02-18 18:25 | ED ---
SOB HPI - General Source: patient, RN notes reviewed Mode of arrival: wheelchair Limitations: no limitations <Preet Corrigan - Last Filed: 02/18/20 18:38> <James Benton - Last Filed: 02/18/20 18:57> - General Chief Complaint: Shortness of Breath Stated Complaint: SOB Time Seen by Provider: 02/18/20 17:29 - History of Present Illness Initial Comments: 84-year-old male presents emergency Department chief complaint of worsening dyspnea. Patient states he was admitted for last 4 days or so and was discharged yesterday. Patient states he is on his way home when he states symptoms worsen they will go today and the symptoms were even worse. Patient states that he has no chest pain but states that he just cannot get a full breath of air. Patient states he was being treated for COPD. He does admit that he had aortic valve replacement at [facility] and November and he is on and take coagulants currently. Denies any leg swelling of the usual. Denies fevers or chills. (Preet Corrigan) - Related Data Home Medications Medication Instructions Recorded Confirmed Apixaban [Eliquis] 5 mg PO BID 02/14/20 02/18/20 Aspirin EC [Ecotrin Low Dose] 81 mg PO DAILY 02/14/20 02/18/20 Ipratropium Nebulized [Atrovent 0.5 mg INHALATION RT-TID 02/14/20 02/18/20 Nebulized 0.2 MG/ML] Metoprolol Tartrate [Lopressor] 25 mg PO BID 02/14/20 02/18/20 Multivitamins, Thera [Multivitamin 1 tab PO DAILY 02/14/20 02/18/20 (formulary)] Previous Rx's Medication Instructions Recorded Azithromycin [Zithromax] 500 mg PO DAILY 7 Days #7 tab 02/17/20 Allergies Allergy/AdvReac Type Severity Reaction Status Date / Time No Known Allergies Allergy Verified 02/18/20 18:34 Review of Systems ROS Other: All systems not noted in ROS Statement are negative. <Preet Corrigan - Last Filed: 02/18/20 18:38> ROS Other: All systems not noted in ROS Statement are negative. <James Benton - Last Filed: 02/18/20 18:57> ROS Statement: Those systems with pertinent positive or pertinent negative responses have been documented in the HPI. Past Medical History Past Medical History: Atrial Fibrillation, Atrial Flutter, Asthma, Heart Failure, Hypertension History of Any Multi-Drug Resistant Organisms: None Reported Additional Past Surgical History / Comment(s): aortic heart valve replacement, bladder sx Past Psychological History: No Psychological Hx Reported Smoking Status: Never smoker Past Alcohol Use History: None Reported Past Drug Use History: None Reported - Past Family History Father Family Medical History: Cancer <Preet Corrigan - Last Filed: 02/18/20 18:38> General Exam Limitations: no limitations General appearance: alert, in no apparent distress Head exam: Present: atraumatic, normocephalic, normal inspection Neck exam: Present: normal inspection, full ROM. Absent: tenderness, meningismus, lymphadenopathy Respiratory exam: Present: wheezes, decreased breath sounds. Absent: normal lung sounds bilaterally, respiratory distress, rales, rhonchi, stridor Cardiovascular Exam: Present: tachycardia, irregular rhythm, normal heart sounds. Absent: systolic murmur, diastolic murmur, rubs, gallop, clicks Back exam: Absent: CVA tenderness (R), CVA tenderness (L) Neurological exam: Present: alert, oriented X3 Skin exam: Present: warm, dry, intact, normal color. Absent: rash <Preet Corrigan - Last Filed: 02/18/20 18:38> Course Vital Signs 02/18/20 02/18/20 02/18/20 17:05 17:38 17:39 Temperature 97.4 F L Pulse Rate 127 H Respiratory 20 Rate Blood Pressure 146/81 O2 Sat by Pulse 89 L 90 L 89 L Oximetry 02/18/20 02/18/20 02/18/20 18:00 18:14 18:21 Temperature Pulse Rate 123 H 129 H Respiratory Rate Blood Pressure 132/98 O2 Sat by Pulse Oximetry 02/18/20 18:30 Temperature Pulse Rate 129 H Respiratory 20 Rate Blood Pressure 125/93 O2 Sat by Pulse 98 Oximetry Medical Decision Making - Lab Data Result diagrams: 02/18/20 17:25 02/18/20 18:07 - EKG Data -: EKG Interpreted by Md <Preet Corrigan - Last Filed: 02/18/20 18:38> - Lab Data Result diagrams: 02/18/20 17:25 02/18/20 18:07 <James Benton - Last Filed: 02/18/20 18:57> - Medical Decision Making 84-year-old male present emergency Department for dyspnea. Patient found in A. fib RVR was placed on Cardizem. Patient's case discussed with Dr. Richter who accepts admission. Patient's will have cardiology and pulmonary consult. (Preet Corrigan) Patient reevaluated and reexamined by myself, Dr. Benton. Patient resting comfortably in bed. Lung sounds are diminished. Heart rate remains 1:30 on Cardizem drip. Patient updated on results and plan. Case discussed in detail with Dr. Kaur who recently discharged patient and will admit. Consults will be placed for pulmonary and cardiology. I do agree with chief findings. This includes diagnostic interpretation and treatment plan. (James Benton) - Lab Data Lab Results 02/18/20 02/18/20 02/18/20 Range/Units 17:25 17:25 17:25 WBC 21.6 H (3.8-10.6) k/uL RBC 4.36 (4.30-5.90) m/uL Hgb 13.4 (13.0-17.5) gm/dL Hct 43.0 (39.0-53.0) % MCV 98.6 (80.0-100.0) fL MCH 30.7 (25.0-35.0) pg MCHC 31.1 (31.0-37.0) g/dL RDW 13.6 (11.5-15.5) % Plt Count 262 (150-450) k/uL Neutrophils % 92 % Lymphocytes % 1 % Monocytes % 5 % Eosinophils % 1 % Basophils % 0 % Neutrophils # 19.9 H (1.3-7.7) k/uL Lymphocytes # 0.3 L (1.0-4.8) k/uL Monocytes # 1.1 H (0-1.0) k/uL Eosinophils # 0.1 (0-0.7) k/uL Basophils # 0.1 (0-0.2) k/uL PT 11.1 (9.0-12.0) sec INR 1.1 (<1.2) APTT 19.7 L (22.0-30.0) sec Sodium 137 (137-145) mmol/L Potassium 6.2 H* (3.5-5.1) mmol/L Chloride 101 (98-107) mmol/L Carbon Dioxide 32 H (22-30) mmol/L Anion Gap 4 mmol/L BUN 64 H (9-20) mg/dL Creatinine 1.60 H (0.66-1.25) mg/dL Est GFR (CKD-EPI)AfAm 45 (>60 ml/min/1.73 sqM) Est GFR (CKD-EPI)NonAf 39 (>60 ml/min/1.73 sqM) Glucose 112 H (74-99) mg/dL Plasma Lactic Acid Jose (0.7-2.0) mmol/L Calcium 9.4 (8.4-10.2) mg/dL Magnesium 2.3 (1.6-2.3) mg/dL Total Bilirubin 0.7 (0.2-1.3) mg/dL AST 63 H (17-59) U/L ALT 42 (4-49) U/L Alkaline Phosphatase 90 (38-126) U/L Troponin I (0.000-0.034) ng/mL NT-Pro-B Natriuret Pep pg/mL Total Protein 7.5 (6.3-8.2) g/dL Albumin 4.2 (3.5-5.0) g/dL 02/18/20 02/18/20 02/18/20 Range/Units 17:25 17:25 17:25 WBC (3.8-10.6) k/uL RBC (4.30-5.90) m/uL Hgb (13.0-17.5) gm/dL Hct (39.0-53.0) % MCV (80.0-100.0) fL MCH (25.0-35.0) pg MCHC (31.0-37.0) g/dL RDW (11.5-15.5) % Plt Count (150-450) k/uL Neutrophils % % Lymphocytes % % Monocytes % % Eosinophils % % Basophils % % Neutrophils # (1.3-7.7) k/uL Lymphocytes # (1.0-4.8) k/uL Monocytes # (0-1.0) k/uL Eosinophils # (0-0.7) k/uL Basophils # (0-0.2) k/uL PT (9.0-12.0) sec INR (<1.2) APTT (22.0-30.0) sec Sodium (137-145) mmol/L Potassium (3.5-5.1) mmol/L Chloride (98-107) mmol/L Carbon Dioxide (22-30) mmol/L Anion Gap mmol/L BUN (9-20) mg/dL Creatinine (0.66-1.25) mg/dL Est GFR (CKD-EPI)AfAm (>60 ml/min/1.73 sqM) Est GFR (CKD-EPI)NonAf (>60 ml/min/1.73 sqM) Glucose (74-99) mg/dL Plasma Lactic Acid Jose 1.3 (0.7-2.0) mmol/L Calcium (8.4-10.2) mg/dL Magnesium (1.6-2.3) mg/dL Total Bilirubin (0.2-1.3) mg/dL AST (17-59) U/L ALT (4-49) U/L Alkaline Phosphatase (38-126) U/L Troponin I 0.037 H* (0.000-0.034) ng/mL NT-Pro-B Natriuret Pep 65987 pg/mL Total Protein (6.3-8.2) g/dL Albumin (3.5-5.0) g/dL 02/18/20 Range/Units 18:07 WBC (3.8-10.6) k/uL RBC (4.30-5.90) m/uL Hgb (13.0-17.5) gm/dL Hct (39.0-53.0) % MCV (80.0-100.0) fL MCH (25.0-35.0) pg MCHC (31.0-37.0) g/dL RDW (11.5-15.5) % Plt Count (150-450) k/uL Neutrophils % % Lymphocytes % % Monocytes % % Eosinophils % % Basophils % % Neutrophils # (1.3-7.7) k/uL Lymphocytes # (1.0-4.8) k/uL Monocytes # (0-1.0) k/uL Eosinophils # (0-0.7) k/uL Basophils # (0-0.2) k/uL PT (9.0-12.0) sec INR (<1.2) APTT (22.0-30.0) sec Sodium (137-145) mmol/L Potassium 5.5 H (3.5-5.1) mmol/L Chloride (98-107) mmol/L Carbon Dioxide (22-30) mmol/L Anion Gap mmol/L BUN (9-20) mg/dL Creatinine (0.66-1.25) mg/dL Est GFR (CKD-EPI)AfAm (>60 ml/min/1.73 sqM) Est GFR (CKD-EPI)NonAf (>60 ml/min/1.73 sqM) Glucose (74-99) mg/dL Plasma Lactic Acid Jose (0.7-2.0) mmol/L Calcium (8.4-10.2) mg/dL Magnesium (1.6-2.3) mg/dL Total Bilirubin (0.2-1.3) mg/dL AST (17-59) U/L ALT (4-49) U/L Alkaline Phosphatase (38-126) U/L Troponin I (0.000-0.034) ng/mL NT-Pro-B Natriuret Pep pg/mL Total Protein (6.3-8.2) g/dL Albumin (3.5-5.0) g/dL - EKG Data EKG Comments: EKG performed at 17:48 show flutter with 2-1 conduction rate of 128 QRS 96 QT/QTC 320/478 (Preet Corrigan) Critical Care Time Critical Care Time: Yes Total Critical Care Time: 35 <Preet Corrigan - Last Filed: 02/18/20 18:38> Critical Care Time: Total 35 minutes of critical care time used initially evaluated patient, reviewed past medical history, past medical records. Patient's found to be in A. fib RVR started on Cardizem , patient will have consult to cardiology. Patient also consult to pulmonology for ongoing dyspnea, COPD. Patient had leukocytosis may be related to steroids but started on antibiotics concerning for infection. Patient's BMP is notably elevated at 17,500 with no overt signs of CHF. This will be closely monitor at this time. (Preet Corrigan) Disposition <Preet Corrigan - Last Filed: 02/18/20 18:38> <James Benton - Last Filed: 02/18/20 18:57> Clinical Impression: Acute exacerbation of chronic obstructive pulmonary disease, Atrial flutter with rapid ventricular response, Elevated troponin Disposition: ADMITTED IP TO THIS HOSP Condition: Serious Referrals: Ramana Kaur MD [Primary Care Provider] - 1-2 days
[2020-02-18] MEDS: DILTIAZEM 125 MG in SODIUM CHLORIDE 0.9% 100 ML IV SCH (18:28)
[2020-02-18] MEDS ORDERED: NALOXONE 0.4 MG/ML 1 ML VIAL IV PRN (18:40)
[2020-02-18] MEDS: APIXABAN 5 MG TAB PO SCH (21:02)
[2020-02-18] MEDS: METOPROLOL TARTRATE 25 MG TAB PO SCH (23:36)
[2020-02-19] MEDS: DILTIAZEM 125 MG in SODIUM CHLORIDE 0.9% 100 ML IV SCH (05:34)
[2020-02-19 06:42] LABS: HCT 39.9 % (39.0-53.0); HGB 12.3 gm/dL (13.0-17.5); MCH 30.8 pg (25.0-35.0); MCHC 30.9 g/dL (31.0-37.0); MCV 99.7 fL (80.0-100.0); Mean Platelet Volume 8.2; Platelet Count 203 k/uL (150-450); RDW 13.6 % (11.5-15.5)
[2020-02-19 06:51] LABS: Albumin 3.5 g/dL (3.5-5.0); Calcium 9.4 mg/dL (8.4-10.2); Potassium 5.4 mmol/L (3.5-5.1); Total Bilirubin 0.4 mg/dL (0.2-1.3); Total Protein 6.2 g/dL (6.3-8.2)
[2020-02-19 07:21] LABS: Band Neutrophils % 1 %; Lymphocytes # (M) 0.24 k/uL (1.0-4.8); Monocytes # (M) 1.08 k/uL (0-1.0); Neutrophils % (M) 88 %; Nucleated Red Blood Cells 0 /100 WBC (0-0); Total Cells Counted 100
[2020-02-19] MEDS: METOPROLOL TARTRATE 25 MG TAB PO SCH ×2 (08:24→17:47)
[2020-02-19] MEDS: APIXABAN 5 MG TAB PO SCH ×2 (08:25→20:34)
[2020-02-19] MEDS ORDERED: AZITHROMYCIN 500 MG TAB PO SCH (09:00)
[2020-02-19] MEDS ORDERED: DEXTROSE 5% IN WATER 100 ML with AMIODARONE 150 MG IV ONE (10:30)
[2020-02-19] MEDS ORDERED: AMIODARONE 360 MG in DEXTROSE 5% IN WATER 200 ML IV ONE ×2 (10:30)
[2020-02-19] MEDS ORDERED: IPRATROPIUM-ALBUTEROL 3 ML NEB INHALATION PRN ×2 (10:35→13:10)
[2020-02-19] MEDS: PANTOPRAZOLE 40 MG TABLET PO SCH (10:43)
[2020-02-19] MEDS: IPRATROPIUM-ALBUTEROL 3 ML NEB INHALATION SCH ×3 (11:20→20:49)
[2020-02-19] MEDS ORDERED: FUROSEMIDE 10 MG/ML 4 ML VIAL IV STA (12:36)
--- NOTE | 2020-02-19 13:20 | P.HPIM ---
History of Present Illness H&P Date: 02/19/20 This is an 84-year-old gentleman with history of chronic intermittent asthma, hypertension, recent aortic valve replacement at [facility] in November 2019, recently discharged with multifactorial hypoxic respiratory failure, V/Q scan had showed intermediate probability of PE and multiple other medical issues presented to the ER with worsening shortness of breath, no chest pain. Denies fever or chills. Denies nausea vomiting or diarrhea. Chest x-ray reporting suspected chronic interstitial lung disease, chronic bilateral effusions or thickening, stable pulmonary nodules. Reports unable to sit back in recliner, positive belching. EKG report atrial flutter with 2:1 AV conduction, rapid ventricular rate, 130, possible anterior infarct, age undetermined. Troponin 0.0379 lower compared to the troponins from prior visit). BNP 17,500, significant increase from last visit. Placed on amiodarone drip, heart rate has improved from 130s now down to 60. Cardiology discussing possible cardioversion tomorrow if patient remains in atrial flutter. Review of Systems ROS Statement: Those systems with pertinent positive or pertinent negative responses have been documented in the HPI. ROS Other: All systems not noted in ROS Statement are negative. Past Medical History Past Medical History: Atrial Fibrillation, Atrial Flutter, Asthma, Heart Failure, Hypertension History of Any Multi-Drug Resistant Organisms: None Reported Additional Past Surgical History / Comment(s): aortic heart valve replacement, bladder sx Past Psychological History: No Psychological Hx Reported Smoking Status: Current every day smoker Past Alcohol Use History: None Reported Past Drug Use History: None Reported - Past Family History Father Family Medical History: Cancer Medications and Allergies Home Medications Medication Instructions Recorded Confirmed Type Apixaban [Eliquis] 5 mg PO BID 02/14/20 02/18/20 History Aspirin EC [Ecotrin Low Dose] 81 mg PO DAILY 02/14/20 02/18/20 History Ipratropium Nebulized [Atrovent 0.5 mg INHALATION RT-TID 02/14/20 02/18/20 History Nebulized 0.2 MG/ML] Metoprolol Tartrate [Lopressor] 25 mg PO BID 02/14/20 02/18/20 History Multivitamins, Thera [Multivitamin 1 tab PO DAILY 02/14/20 02/18/20 History (formulary)] Azithromycin [Zithromax] 500 mg PO DAILY 7 Days #7 tab 02/17/20 02/18/20 Rx Allergies Allergy/AdvReac Type Severity Reaction Status Date / Time No Known Allergies Allergy Verified 02/18/20 18:34 Physical Exam Vitals: Vital Signs Temp Pulse Pulse Resp BP BP Pulse Ox 02/19/20 11:39 64 02/19/20 11:20 64 02/19/20 11:13 65 16 107/61 96 02/19/20 11:00 98.1 F 65 18 111/44 96 02/19/20 08:42 97.6 F 133 H 16 96/61 96 02/19/20 04:00 97.9 F 131 H 17 95/61 98 02/18/20 23:37 97.5 F L 119 H 18 98/59 98 02/18/20 20:26 97.9 F 133 H 20 120/77 94 L 02/18/20 20:00 97.9 F 133 H 20 120/77 94 L 02/18/20 19:30 131 H 24 119/75 99 02/18/20 19:00 131 H 17 115/84 99 02/18/20 18:30 129 H 20 125/93 98 02/18/20 18:21 129 H 02/18/20 18:14 123 H 02/18/20 18:00 132/98 02/18/20 17:39 89 L 02/18/20 17:38 90 L 02/18/20 17:05 97.4 F L 127 H 20 146/81 89 L Intake and Output 02/18/20 02/19/20 02/19/20 22:59 06:59 14:59 Intake Total 644.25 102.5 240 Output Total 500 Balance 644.25 -397.5 240 Intake: Intake, IV Titration 104.25 102.5 Amount Diltiazem 125 mg In 4.25 102.5 Sodium Chloride 0.9% 100 ml @ 5 MG/HR 5 mls/hr IV .Q24H [facility] Rx#:[id number] cefTRIAXone 1 gm In 100 Sodium Chloride 0.9% 50 ml @ 100 mls/hr IVPB ONCE STA Rx#:[id number] Oral 540 240 Output: Urine 500 Other: Voiding Method Urinal Urinal Urinal # Voids 1 1 Weight 83.461 kg 90.9 kg VITAL SIGNS: As above GENERAL: Sitting up in recliner, respiratory effort mildly increased HEENT: Conjunctivae normal. eyes normal. NECK: No JVD. No thyroid enlargement. No LNs CARDIOVASCULAR: S1, S2 irregular. Systolic murmur. RESPIRATION: Breath sounds diminished in the bases. No rhonchi or crackles. Expiratory wheezing ABDOMEN: Soft, nontender . No guarding. no masses palpable. No ascites, No hepatosplenomegaly.Bowel sounds heard. LEGS: No edema. no swelling. PSYCHIATRY: Alert and oriented X3, mood and affect normal. NERVOUS SYSTEM: Cranial N 2-12 grossly normal. Moves all 4 limbs. Diffuse weakness No focal deficits. Strength and sensation grossly intact. Skin: no rash. Lymphatic system. No LN neck axilla. Results CBC & Chem 7: 02/19/20 06:18 02/19/20 06:18 Labs: Abnormal Lab Results - Last 24 Hours (Table) 02/18/20 02/18/20 02/18/20 Range/Units 17:25 17:25 17:25 WBC 21.6 H (3.8-10.6) k/uL RBC (4.30-5.90) m/uL Hgb (13.0-17.5) gm/dL MCHC (31.0-37.0) g/dL Neutrophils # 19.9 H (1.3-7.7) k/uL Neutrophils # (Manual) (1.3-7.7) k/uL Lymphocytes # 0.3 L (1.0-4.8) k/uL Lymphocytes # (Manual) (1.0-4.8) k/uL Monocytes # 1.1 H (0-1.0) k/uL Monocytes # (Manual) (0-1.0) k/uL APTT 19.7 L (22.0-30.0) sec Potassium 6.2 H* (3.5-5.1) mmol/L Carbon Dioxide 32 H (22-30) mmol/L BUN 64 H (9-20) mg/dL Creatinine 1.60 H (0.66-1.25) mg/dL Glucose 112 H (74-99) mg/dL AST 63 H (17-59) U/L Troponin I (0.000-0.034) ng/mL Total Protein (6.3-8.2) g/dL 02/18/20 02/18/20 02/19/20 Range/Units 17:25 18:07 06:18 WBC 12.0 H (3.8-10.6) k/uL RBC 4.00 L (4.30-5.90) m/uL Hgb 12.3 L (13.0-17.5) gm/dL MCHC 30.9 L (31.0-37.0) g/dL Neutrophils # (1.3-7.7) k/uL Neutrophils # (Manual) 10.60 H (1.3-7.7) k/uL Lymphocytes # (1.0-4.8) k/uL Lymphocytes # (Manual) 0.24 L (1.0-4.8) k/uL Monocytes # (0-1.0) k/uL Monocytes # (Manual) 1.08 H (0-1.0) k/uL APTT (22.0-30.0) sec Potassium 5.5 H (3.5-5.1) mmol/L Carbon Dioxide (22-30) mmol/L BUN (9-20) mg/dL Creatinine (0.66-1.25) mg/dL Glucose (74-99) mg/dL AST (17-59) U/L Troponin I 0.037 H* (0.000-0.034) ng/mL Total Protein (6.3-8.2) g/dL 02/19/20 Range/Units 06:18 WBC (3.8-10.6) k/uL RBC (4.30-5.90) m/uL Hgb (13.0-17.5) gm/dL MCHC (31.0-37.0) g/dL Neutrophils # (1.3-7.7) k/uL Neutrophils # (Manual) (1.3-7.7) k/uL Lymphocytes # (1.0-4.8) k/uL Lymphocytes # (Manual) (1.0-4.8) k/uL Monocytes # (0-1.0) k/uL Monocytes # (Manual) (0-1.0) k/uL APTT (22.0-30.0) sec Potassium 5.4 H (3.5-5.1) mmol/L Carbon Dioxide (22-30) mmol/L BUN 59 H (9-20) mg/dL Creatinine 1.59 H (0.66-1.25) mg/dL Glucose 102 H (74-99) mg/dL AST (17-59) U/L Troponin I (0.000-0.034) ng/mL Total Protein 6.2 L (6.3-8.2) g/dL Thrombosis Risk Factor Assmnt - Choose All That Apply Each Factor Represents 1 point: Abnormal pulmonary function (COPD), Serious lung disease incl. pneumonia (< 1month) Each Risk Factor Represents 3 Points: Age 75 years or older Thrombosis Risk Factor Assessment Total Risk Factor Score: 5 Thrombosis Risk Factor Assessment Level: High Risk Assessment and Plan Assessment: -Atrial flutter with uncontrolled ventricular rate, currently on amiodarone drip -Acute hypoxic respiratory failure secondary to the above, possible acute asthma exacerbation secondary to bronchitis, with emphysematous changes, acute COPD exacerbation. Possible community-acquired pneumonia pneumonia. Pulmonary - following. -Intermediate probability of PE, per VQ scan of last visit, doubt acute PE as per pulmonary, in a patient on prior oral anticoagulation at home -Stable pulmonary nodules including 8 mm nodule right mid lung, further follow- up outpatient. -Chronic intermittent asthma -Recent aortic valve replacement at [facility] in November 2019 -Hypertension -Acute on chronic renal failure, baseline 1.3, stage III. Chronic related to nephrosclerosis. 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 Cardizem drip discontinued, converted to amiodarone drip. Maintain ed on Rocephin. Dose of Lasix, nebulized bronchodilators ordered. Potential cardioversion being discussed as mentioned above for cardiology tomorrow. CT of chest and abdomen without contrast related to renal function;previously ordered on last visit. Pulmonary and cardiology consults in place. The impression and plan of care has been dictated as directed. : I performed a history and examination of this patient, discussed the same with the dictator. I agree with the dictator's note ,documented as a scribe. Any additional findings or plans will be noted.
[2020-02-19] MEDS ORDERED: IPRATROPIUM-ALBUTEROL 3 ML NEB INHALATION SCH (16:00)
[2020-02-19] MEDS: AMIODARONE 300 MG in DEXTROSE 5% IN WATER 250 ML IV SCH ×2 (17:36)
--- NOTE | 2020-02-19 19:55 | CONS ---
CONSULTATION Geraldo López is an 84-year-old gentleman who in November of this year underwent aortic valve replacement by percutaneous approach at [facility]. He carries a diagnosis of hypertension, chronic persistent atrial fibrillation -- apparently it has been paroxysmal but recently persistent -- and hypertension. He is not known to have any significant CAD. He does have some mitral valve disease, for which he was advised medical therapy. I saw this patient last week when he came into the hospital with atrial fibrillation, moderately rapid ventricular rate, and had history of a valve replacement by percutaneous approach. On February 14, his echo revealed that aortic valve was stable, ejection fraction was 50% to 55%. He remained in what seemed to be an atrial flutter with a slower rate. There was no significant pulmonary hypertension. There was mild to moderate mitral stenosis noted. However, apparently this gentleman was discharged. He went home on February 16 and he came back yesterday with complaints of increasing shortness of breath, was found to be in atrial flutter with a 2:1 rate and also short of breath, elevated BNP and mild increase in troponin. I was asked to see him in this regard. At the time of my evaluation, he is more comfortable resting. The rate is better. He has no chest pain. His shortness of breath has improved. He complains of belching, which seems to occur along with atrial fibrillation rapid rate. PAST MEDICAL HISTORY: 1. Status post percutaneous aortic valve implant. 2. Paroxysmal/persistent atrial fibrillation. 3. Hypertension. 4. Hyperlipidemia. 5. No evidence of documented CAD, according to the patient. ALLERGIES: NONE. MEDICATIONS: Medications include: 1. Eliquis 5 mg b.i.d. 2. Metoprolol tartrate 25 mg b.i.d. 3. Multivitamin tablets. 4. Atrovent inhaler. 5. Zithromax. PHYSICAL EXAMINATION: Blood pressure is 118/70. Pulse rate is about 70. Atrial flutter with a controlled rate. HEENT unremarkable. Fundus was not examined by me. NECK: Supple. There is JVD of about 1 cm. No carotid bruit. Heart exam reveals S1, S2 with tachycardia, short systolic murmur at the base. Lungs reveal diminished air entry. Abdomen is soft. Lower extremities reveal trace edema. Central nervous system is normal. IMPRESSION: 1. Atrial flutter with a 2:1 block with symptoms of shortness of breath. 2. Status post aortic valve replacement. 3. Probably diastolic heart failure secondary to atrial arrhythmia on arrival. 4. Hyperkalemia, which has resolved. 5. History of aortic valve replacement by percutaneous approach in November at [facility]. RECOMMENDATIONS: I am recommending that if he continues to be in atrial flutter with a rapid rate we will do electrical cardioversion. I will first try amiodarone intravenously to see if it helps convert him to sinus rhythm. If not, I will consider electrical cardioversion tomorrow. The patient has been on Eliquis or heparin continuously without any break in anticoagulation at least for the past 4-6 weeks that we know of. I am recommending that we cut down the Cardizem drip, add amiodarone bolus and drip, and if the rate is lower than 100, we will discontinue Cardizem drip and continue beta rinku. The patient understands the rationale, risks, benefits and options related to electrical cardioversion; he had this performed in [place] about a month or two ago after his aortic valve replacement. Patient wishes to proceed with the procedure. I will perform electrical cardioversion if the patient does not convert to sinus rhythm. Thank you very much for the consult. MMALEXIAL / IJN: [id number] /
--- NOTE | 2020-02-19 20:40 | CONS ---
CONSULTATION PULMONARY/CRITICAL CARE CONSULTATION: DATE OF CONSULTATION: 02/19/2020 REASON FOR CONSULTATION: Shortness of breath. This is an 84-year-old gentleman who was just recently inpatient. The patient complained of being short of breath and was evaluated recently and after about 4 days was discharged. He apparently was discharged home on February 16, I believe. Apparently on the way home the patient developed worsening shortness of breath. For that reason, he came back into the emergency room to be evaluated. The patient was seen in the emergency room on February 17 and admitted to the hospital for shortness of breath. The patient describes a pain in his left chest. In addition, he has atrial fibrillation with RVR. He does have some underlying COPD as well. In addition, the patient does admit to a relatively recent aortic valve replacement at [facility]. He apparently had a transcatheter aortic valve replacement. Anyway, the patient's complaints include the chest discomfort, which he says is related to belching, and his shortness of breath. He feels like he just cannot get a full breath in. He denies any fever or chills. He is not coughing. He is not wheezing. He denies any abdominal pain. There is no nausea, vomiting, diarrhea. There is no fever or chills. No genitourinary complaints. He is currently on a Cardizem drip for his atrial fibrillation RVR. CURRENT HOME MEDICATIONS: Reviewed. He is on Eliquis, aspirin, DuoNeb, metoprolol, multiple vitamins, and he was previously on Zithromax. ALLERGIES: DENIED. MEDICAL HISTORY: Medical history includes atrial fibrillation/flutter, COPD/asthma, CHF, hypertension, and aortic stenosis with recent transcatheter aortic valve replacement. In addition, the patient has had previous bladder surgery. SOCIAL HISTORY: Social history is significant in that he is a lifelong nonsmoker. Denies alcohol use. No illicit drug use. FAMILY HISTORY: Positive for father with cancer. The rest of his history is not too remarkable. REVIEW OF SYSTEMS: CONSTITUTIONAL: Negative. NEUROLOGIC: Negative. HEENT: Negative. CARDIOVASCULAR: Chest pain which is a pressure sensation over his left chest. PULMONARY: Shortness of breath. GI: Belching. : Negative. RHEUMATOLOGIC: Negative. IMMUNOLOGIC: Negative. ENDOCRINOLOGIC: Negative. DERMATOLOGIC: Negative. PHYSICAL EXAMINATION: VITAL SIGNS: Current vital signs are reviewed. Temperature 98.1, heart rate 64, respiratory rate 18, blood pressure 107/61, mean 76. Two-liter saturation 96%. GENERAL APPEARANCE: He appears in no acute distress. HEENT: Examination is grossly unremarkable. Mucous membranes are moist. No oral lesions. NECK: Supple. Full range of motion. No adenopathy. Neck veins are flat. CARDIOVASCULAR: Examination reveals tachycardia. It is irregular. Heart rate about 135. S1, S2 normal. No distinct murmur. LUNGS: A few scattered expiratory wheezes. No rhonchi or crackles. ABDOMEN: Soft. EXTREMITIES: Intact. No edema. SKIN: Without rash. NEUROLOGIC: Neurologic examination is brief but nonfocal. LABS/IMAGING: Reviewed. White count 12, hemoglobin 12.3, hematocrit 39.9, platelet count 203,000. PT/INR normal. PTT 19.7. Sodium 137, potassium 5.4, chloride 102. CO2 is 30. BUN and creatinine were 59 and 1.59. Anion gap is 5. His troponin was 0.037. N-terminal proBNP 17,500. Albumin 3.5. Microbiology is currently pending or negative. Chest x-ray shows some changes of COPD. There are some stable pulmonary nodules and some chronic interstitial changes. The costophrenic angles are blunted, suggesting small pleural effusions. CURRENT MEDICATIONS: Reviewed. He is on Eliquis, Rocephin, Cardizem drip, DuoNeb, metoprolol, Narcan and Protonix. ASSESSMENT: 1. Shortness of breath, likely multifactorial, in part related to mild underlying congestive heart failure, atrial fibrillation with rapid ventricular response, and possibly some mild chronic obstructive pulmonary disease exacerbation. 2. History of recent transcatheter aortic valve replacement for aortic stenosis. 3. History of chronic atrial fibrillation/atrial flutter. 4. History of asthma. 5. History of congestive heart failure. 6. History of hypertension. 7. Prior bladder surgery. PLAN: We added updrafts. No additional recommendations are made. I do not believe he has a significant COPD component to his complaint. No additional recommendations are made. He does continue to mention belching. Maybe a GI consult would be in order. He also described left-sided chest pain. He is being followed by Cardiology. He is currently on a Cardizem drip. Additional recommendations and suggestions are forthcoming. MMODL / IJN: [id number] /
[2020-02-19] MEDS: DILTIAZEM ORAL 30 MG TAB PO SCH (20:53)
[2020-02-20] MEDS: AMIODARONE 300 MG in DEXTROSE 5% IN WATER 250 ML IV SCH ×2 (04:01)
[2020-02-20] MEDS: APIXABAN 5 MG TAB PO SCH ×2 (06:11→19:58)
[2020-02-20] MEDS: DILTIAZEM ORAL 30 MG TAB PO SCH ×3 (06:11→22:20)
[2020-02-20] MEDS: METOPROLOL TARTRATE 25 MG TAB PO SCH ×2 (06:11→19:58)
[2020-02-20] MEDS: PANTOPRAZOLE 40 MG TABLET PO SCH ×2 (06:11→16:40)
[2020-02-20 06:35] LABS: Basophils % (A) 0 %; Eosinophils # (A) 0.2 k/uL (0-0.7); Eosinophils % (A) 2 %; HCT 40.5 % (39.0-53.0); HGB 12.6 gm/dL (13.0-17.5); Lymphocytes # (A) 0.7 k/uL (1.0-4.8); Lymphocytes % (A) 7 %; MCH 30.9 pg (25.0-35.0); MCHC 31.2 g/dL (31.0-37.0); MCV 98.9 fL (80.0-100.0); Mean Platelet Volume 8.3; Monocytes # (A) 0.8 k/uL (0-1.0); Monocytes % (A) 8 %; Neutrophils # (A) 8.8 k/uL (1.3-7.7); Neutrophils % (A) 83 %; Platelet Count 200 k/uL (150-450); RBC 4.09 m/uL (4.30-5.90); RDW 13.4 % (11.5-15.5); WBC 10.6 k/uL (3.8-10.6)
[2020-02-20 06:38] LABS: Calcium 9.2 mg/dL (8.4-10.2)
[2020-02-20 06:43] LABS: Potassium 5.2 mmol/L (3.5-5.1)
[2020-02-20] MEDS ORDERED: SODIUM CHLORIDE 0.9% 500 ML 500 ML IV ONE (07:08)
[2020-02-20] MEDS ORDERED: PROPOFOL 10 MG/ML 20 ML VIAL IV ONE (07:16)
[2020-02-20] MEDS: IPRATROPIUM-ALBUTEROL 3 ML NEB INHALATION SCH ×3 (07:32→19:12)
--- NOTE | 2020-02-20 08:35 | CE ---
CARDIAC ELECTROPHYSIOLOGY REPORT DATE OF SERVICE: 02/20/2020 PROCEDURE: Electrical cardioversion. INDICATION: Persistent atrial fibrillation in spite of pharmacological therapy. CLINICAL INFORMATION: Mr. Geraldo López is an 84-year-old gentleman with a history of aortic valve replacement, chronic persistent atrial flutter fibrillation syndrome. He continued to have A. Flutter with a rapid rate with then converted to atrial fibrillation. He was quite short of breath and symptomatic with this. He was already on Eliquis 5 mg b.i.d. for over 3 to 4 weeks. He was advised a cardioversion after due discussion with the patient and also his son was informed. He was brought in for the procedure today. PROCEDURE NOTE: Under the influence of ultra short-acting intravenous anesthetic agent with the attendance of the anesthesiologist, a single shock of 200 joules was delivered with anterior and posterior patches. Patient converted to sinus rhythm, remains hemodynamically stable and neurologically intact. This was a successful electrical cardioversion. He will be observed for 24 hours and will be discharged tomorrow. The details were discussed with the patient and his son. EKG will be performed. MMODL / IJN: [id number] /
[2020-02-20] MEDS: AMIODARONE 200 MG TAB PO SCH ×2 (09:42→19:58)
--- NOTE | 2020-02-20 10:47 | XR ---
EXAMINATION TYPE: XR chest 1V portable DATE OF EXAM: 02/20/2020 COMPARISON: 02/18/2020 HISTORY: Shortness of breath TECHNIQUE: Single frontal view of the chest is obtained. FINDINGS: Hyperinflation suggests COPD the degree of chronic underlying interstitial lung disease. S mall right effusion and consolidation seen. Air in the overlying neck appears to be likely within the airway correlate clinically. Vague nodule right lung stable. IMPRESSION: 1. COPD with right lower lobe infiltrate and small effusion. 2. Lucencies overlying the soft tissues the neck most likely related air within the airway correlate clinically.
[2020-02-20] MEDS: POLYETHYLENE GLYCOL 3350 17 GM POWD.PACK PO SCH (11:58)
[2020-02-20] MEDS: METOCLOPRAMIDE 5 MG TAB PO SCH ×2 (11:59→16:42)
--- NOTE | 2020-02-20 12:08 | P.PN ---
Subjective Progress Note Date: 02/20/20 Principal diagnosis: This 84-year-old gentleman who was recently an inpatient. Patient complained of being short of breath and was evaluated recently and after about 4 days was di scharged and was discharged home on 02/17/2020. On the way home apparently the patient developed worsening shortness of breath and for that reason he came back into the emergency room to be evaluated. The patient was seen and examined in the emergency room on 02/18/2020 and admitted to the hospital for shortness of breath. The patient describes a pain in his left chest. In addition, he has atrial fibrillation with RVR. He does have some underlying COPD as well. In addition, the patient does admit to relatively recent aortic valve replacement at [facility]. He apparently had a transcatheter aortic valve replacement. Anyways, the patient's complaints include the chest discomfort, which she says is related to belching, and his shortness of breath. He feels like he just cannot get a full breath in. He denies any fever or chills. He is not coughing. He is not wheezing. He denies any abnormal pain. There is no nausea, vomiting, diarrhea. There is no fever or chills. No genitourinary complaints. On 02/20/2020 the patient was seen in follow-up on the selective care unit with Dr. Odell. He is in no acute distress, remains hemodynamically stable, and is sitting up to the bedside recliner. He denies any complaints of chest pain or shortness of breath, although he is complaining of frequent belching. An electrical cardioversion was completed this morning by Dr. CHELSEA Schaffer for persistent atrial fibrillation despite pharmacological therapy. His remote telemetry is currently showing normal sinus rhythm with some global ST elevation heart rate 69. Oxygen saturation are 95% on 2 L nasal cannula. Amiodarone drip is infusing at 0.5 mg/m and he also has a 0.9% normal saline at 10 mL per hour. A chest x-ray was completed this morning which demonstrated COPD with right lower lobe infiltrate and small effusion. Objective - Vital Signs Vital signs: Vital Signs Temp 97.5 F L 02/20/20 08:18 Pulse 90 02/20/20 11:02 Resp 16 02/20/20 08:18 BP 119/60 04/14/20 08:18 Pulse Ox 95 02/20/20 08:18 Intake & Output 02/19/20 02/20/20 02/20/20 18:59 06:59 18:59 Intake Total 1000 566.4 0 Output Total 1300 1575 Balance -300 -1008.6 0 Weight 91.3 kg Intake: IV 0 Intake, IV Titration 400 566.4 Amount Amiodarone 300 mg In 250 Dextrose 5% in Water 250 ml @ 0.5 MG/MIN 25 mls/hr IV .Q10H [facility] Rx#: [id number] Amiodarone 360 mg In 200 266.4 Dextrose 5% in Water 200 ml @ 1 MG/MIN 33.333 mls/ hr IV .Q6H [facility] Rx#: [id number] Dextrose 5% in Water 100 100 ml @ 618 mls/hr IV .Q10M [facility] with Amiodarone 150 mg Rx#:[id number] cefTRIAXone 1 gm In 100 Sodium Chloride 0.9% 50 ml @ 100 mls/hr IVPB ONCE STA Rx#:[id number] cefTRIAXone 1 gm In 50 Sodium Chloride 0.9% 50 ml @ 100 mls/hr IVPB Q12HR [facility] Rx#:[id number] Oral 600 Output: Urine 1300 1575 Other: Voiding Method Urinal Urinal # Voids 2 2 # Bowel Movements 0 - Constitutional Constitutional Comment(s): This is an 84-year-old gentleman who is sitting up to the bedside chair in no acute distress. Alert and oriented 3. Oxygen saturations 95% on 2 L nasal cannula. General appearance: Present: cooperative, no acute distress, obese - EENT Eyes: Present: PERRLA. Absent: scleral icterus - Neck Details: Neck is supple, no JVD. Neck: Absent: stridor - Respiratory Details: Lung sounds essentially clear throughout with some few scattered expiratory wheezes. No rhonchi or crackles. Respirations are symmetrical and nonlabored. - Cardiovascular Details: Regular rhythm and rate. S1 and S2 present, negative for S3, gallop gallop with positive systolic murmur. - Gastrointestinal Gastrointestinal Comment(s): Abdomen is soft, nontender and nondistended. Active bowel sounds present in all 4 abdominal quadrants. no guarding or rigidity. General gastrointestinal: Present: normal bowel sounds. Absent: organomegaly - Integumentary Integumentary Comment(s): Skin is warm and dry. No clubbing or cyanosis is present. Integumentary: Absent: rash - Neurologic Neurologic: Present: CNII-XII intact - Musculoskeletal Musculoskeletal: Present: gait normal, strength equal bilaterally - Psychiatric Psychiatric: Present: A&O x's 3, appropriate affect, intact judgment & insight - Allied health notes Allied health notes reviewed: nursing - Labs CBC & Chem 7: 02/20/20 05:20 02/20/20 05:20 Labs: Abnormal Lab Results - Last 24 Hours (Table) 02/20/20 02/20/20 Range/Units 05:20 05:20 RBC 4.09 L (4.30-5.90) m/uL Hgb 12.6 L (13.0-17.5) gm/dL Neutrophils # 8.8 H (1.3-7.7) k/uL Lymphocytes # 0.7 L (1.0-4.8) k/uL Sodium 134 L (137-145) mmol/L Potassium 5.2 H (3.5-5.1) mmol/L Chloride 96 L (98-107) mmol/L Carbon Dioxide 31 H (22-30) mmol/L BUN 59 H (9-20) mg/dL Creatinine 1.71 H (0.66-1.25) mg/dL - Imaging and Cardiology Chest x-ray: report reviewed, image reviewed Assessment and Plan Assessment: 1. Shortness of breath, likely multifactorial, in part related to mild underlying congestive heart failure, atrial fibrillation with RVR and possibly some mild chronic obstructive pulmonary disease exacerbation. 2. History of recent transcatheter aortic valve replacement for aortic valve stenosis. 3. History of chronic persistent atrial fibrillation/atrial flutter status post cardioversion 02/20/2020. 4. History of asthma. 5. History of congestive heart failure. 6. History of hypertension. 7. History of prior bladder surgery. Plan: 1. The patient was seen and examined at his bedside on the selective care unit with Dr. Odell. 2. He continues to complain of belching, GI consult pending. 3. Atrial fibrillation/atrial flutter management per cardiology recommendations. 4. Continue updrafts. Wean oxygen as tolerated to keep oxygen saturations greater than or equal to 92%. 5. More recommendations to follow based on patient's clinical course. I, the cosigning physician, performed a history and physical examination on the patient. Lungs are clear with few expiratory wheezes and maintaining O2 saturation in the 90s on 2 L nasal cannula. I discussed the plan and assessment of care with Thor Arias NP. I attest that the above note is dictated by him. Time with Patient: Less than 30
--- NOTE | 2020-02-20 12:32 | P.PN ---
Subjective Progress Note Date: 02/20/20 This is an 84-year-old gentleman with history of chronic intermittent asthma, hypertension, recent aortic valve replacement at [facility] in November 2019, recently discharged with multifactorial hypoxic respiratory failure, V/Q scan had showed intermediate probability of PE and multiple other medical issues presented to the ER with worsening shortness of breath, no chest pain. Denies fever or chills. Denies nausea vomiting or diarrhea. Chest x-ray reporting suspected chronic interstitial lung disease, chronic bilateral effusions or thickening, stable pulmonary nodules. Reports unable to sit back in recliner, positive belching. EKG report atrial flutter with 2:1 AV conduction, rapid ventricular rate, 130, possible anterior infarct, age undetermined. Troponin 0.0379 lower compared to the troponins from prior visit). BNP 17,500, significant increase from last visit. Placed on amiodarone drip, heart rate has improved from 130s now down to 60. Cardiology discussing possible cardioversion tomorrow if patient remains in atrial flutter. 02/20/2020 underwent successful cardioversion, tolerated procedure well. Converted to oral amiodarone. GI consulted regarding persistent belching, recomm endations pending. Vital signs stable, maintaining O2 sats in the 90s on 2 L nasal cannula. Chest x-ray reporting COPD with right lower lobe infiltrate, small effusion, the right lung nodule, stable. Objective - Vital Signs Vital signs: Vital Signs Temp 97.5 F L 02/20/20 08:18 Pulse 90 02/20/20 11:02 Resp 16 02/20/20 08:18 BP 119/60 02/20/20 08:18 Pulse Ox 95 02/20/20 08:18 Intake & Output 02/19/20 02/20/20 02/20/20 18:59 06:59 18:59 Intake Total 1000 566.4 0 Output Total 1300 1575 Balance -300 -1008.6 0 Weight 91.3 kg Intake: IV 0 Intake, IV Titration 400 566.4 Amount Amiodarone 300 mg In 250 Dextrose 5% in Water 250 ml @ 0.5 MG/MIN 25 mls/hr IV .Q10H [facility] Rx#: [id number] Amiodarone 360 mg In 200 266.4 Dextrose 5% in Water 200 ml @ 1 MG/MIN 33.333 mls/ hr IV .Q6H [facility] Rx#: [id number] Dextrose 5% in Water 100 100 ml @ 618 mls/hr IV .Q10M [facility] with Amiodarone 150 mg Rx#:[id number] cefTRIAXone 1 gm In 100 Sodium Chloride 0.9% 50 ml @ 100 mls/hr IVPB ONCE STA Rx#:[id number] cefTRIAXone 1 gm In 50 Sodium Chloride 0.9% 50 ml @ 100 mls/hr IVPB Q12HR [facility] Rx#:[id number] Oral 600 Output: Urine 1300 1575 Other: Voiding Method Urinal Urinal # Voids 2 2 # Bowel Movements 0 - Exam VITAL SIGNS: As above GENERAL: Sitting up in bed, no acute distress HEENT: Conjunctivae normal. eyes normal. NECK: No JVD. No thyroid enlargement. No LNs CARDIOVASCULAR: S1, S2 irregular. Systolic murmur. RESPIRATION: Breath sounds diminished in the bases. No rhonchi or crackles. Fine scattered expiratory wheezing. ABDOMEN: Soft, nontender . No guarding. no masses palpable. Bowel sounds heard. LEGS: No edema. no swelling. PSYCHIATRY: Alert and oriented X3, mood and affect normal. NERVOUS SYSTEM: Cranial N 2-12 grossly normal. Moves all 4 limbs. Diffuse weakness, No focal deficits. Strength and sensation grossly intact. Skin: no rash. - Labs CBC & Chem 7: 02/20/20 05:20 02/20/20 05:20 Labs: Abnormal Lab Results - Last 24 Hours (Table) 02/20/20 02/20/20 Range/Units 05:20 05:20 RBC 4.09 L (4.30-5.90) m/uL Hgb 12.6 L (13.0-17.5) gm/dL Neutrophils # 8.8 H (1.3-7.7) k/uL Lymphocytes # 0.7 L (1.0-4.8) k/uL Sodium 134 L (137-145) mmol/L Potassium 5.2 H (3.5-5.1) mmol/L Chloride 96 L (98-107) mmol/L Carbon Dioxide 31 H (22-30) mmol/L BUN 59 H (9-20) mg/dL Creatinine 1.71 H (0.66-1.25) mg/dL Assessment and Plan Assessment: -Atrial flutter with uncontrolled ventricular rate, status post amiodarone drip. Status post successful cardioversion. -Acute hypoxic respiratory failure secondary to the above, possible acute asthma exacerbation secondary to bronchitis, with emphysematous changes, acute COPD exacerbation. Possible community-acquired pneumonia pneumonia. Pulmonary - following. -Intermediate probability of PE, per VQ scan of last visit, doubt acute PE as per pulmonary, in a patient on prior oral anticoagulation at home. -Stable pulmonary nodules including 8 mm nodule right mid lung, further follow- up outpatient. -Chronic intermittent asthma -Recent aortic valve replacement at [facility] in November 2019 -Hypertension -Acute on chronic renal failure, baseline 1.3, stage III. Chronic related to nephrosclerosis. 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 Converted to oral amiodarone. Maintained on Rocephin, nebulized bronchodilators ordered. Patient declined CT of chest and abdomen without contrast related to renal function;previously ordered on last visit. The impression and plan of care has been dictated as directed. : I performed a history and examination of this patient, discussed the same with the dictator. I agree with the dictator's note ,documented as a scribe. Any additional findings or plans will be noted.
--- NOTE | 2020-02-20 12:41 | PN ---
PROGRESS NOTE Mr. López is a gentleman with aortic valve replacement by percutaneous approach and paroxysmal atrial flutter fibrillation syndrome, underwent electrical cardioversion, maintaining sinus rhythm this morning. Complains of belching and hiccups. I will try Reglan a small dose 5 mg t.i.d. with each meal. Vitals are stable. Blood pressure is 108/70, pulse rate is 64. JVD 1 cm. No carotid bruit. S1, S2 heard normally, short systolic murmur. Lungs are clear. Abdomen and lower extremity exam unchanged. Plan is to increase activity and possibly discharge him tomorrow on Eliquis, amiodarone and his current medications for rate lowering. MMODL / IJN: [id number] /
--- NOTE | 2020-02-20 16:52 | CDI ---
Documentation Clarification Form Date: 02/20/2020 CDS: Sandy Murphy, CCS, CCDS Admit Date: 02/18/2020 Patient Name: Geraldo López Discharge Date: ATTENTION: The Clinical Documentation Specialists (CDI) and [facility] Coding Staff appreciate your assistance in clarifying documentation. Please respond to the clarification below the line at the bottom and electronically sign. The CDI & [facility] Coding staff will review the response and follow-up if needed. Please note: Queries are made part of the Legal Health Record. If you have any questions, please contact the author of this message via ITS. Dear Dr. Komal Schaffer: Atrial Flutter is documented in the Cardiology Consult on 02/18 and also in the subsequent Progress Notes & Electrical Cardioversion report of 02/19. History/Risk factors: Chronic intermittent asthma, Hypertension, recent AVR at [facility] November 2019. History of recent admit for multifactorial hypoxic respiratory failure & PE. Clinical Indicators: Presented to the ED on 02/17 with SOB. EKG/telemetry: Atrial flutter with 2:1 AV conduction, rapid ventricular rate: 130, possible anterior infarct, age undetermined. Treatment: INH Albuterol, IV fluid bolus 500 mls@999/hr, IV Cardizem drip, IV Rocephin. 02/19 Cardioversion. In your professional opinion, in order to capture the severity of condition; can you please clarify the type of Atrial Flutter if known? Typical/Type I Atypical/Type II Other, please specify Unable to determine (Last Revision: February 2018) Atypical/Type II MTDD
--- NOTE | 2020-02-20 17:41 | CONS ---
CONSULTATION DATE OF DICTATION: 02/20/2020 REASON FOR CONSULTATION: Extensive belching and epigastric discomfort. HISTORY OF PRESENT ILLNESS: The patient is an 84-year-old pleasant white male with a history of aortic valve replacement at [facility] in November of this year, history of atrial fibrillation and hypertension as well as coronary artery disease. He was admitted to the hospital because of shortness of breath as well as some left-sided chest pain. He was noted to have atrial fibrillation with RVR and he underwent cardioversion this morning. He is feeling better. We are consulted for extensive belching that has been going on for the last one year's duration. The patient states that his belching happens all day, sometimes mostly in the morning and postprandial periods. He does complain of occasional chest tightness and it feels like a gas bubble that is touching his chest area. Once he expels it, he feels better. He denies any heartburn. He reports no dysphagia or odynophagia. He denies any abdominal pain. No nausea or vomiting. He tried [id number] acid medications, with no relief. Never had an upper endoscopy in the past. PAST MEDICAL HISTORY: Significant for atrial fibrillation, COPD, hypertension, coronary artery disease, congestive heart failure, mitral regurgitation. MEDICATIONS: Medications at home include multivitamin, metoprolol, Atrovent, Zithromax, Ecotrin, Eliquis. ALLERGIES: NONE. SOCIAL HISTORY: No smoking. No alcohol use. FAMILY HISTORY: Unremarkable. PAST SURGICAL HISTORY: Aortic valve replacement and bladder surgery. REVIEW OF SYSTEMS: CARDIOPULMONARY: No chest pain or shortness of breath. GENITOURINARY: No dysuria or hematuria. MUSCULOSKELETAL: Unremarkable. SKIN: Unremarkable. ENDOCRINE: Unremarkable. PSYCHIATRIC: Unremarkable. NEUROLOGY: Unremarkable. ENT/VISION: Unremarkable. CONSTITUTIONAL: No recent weight loss. No fever, chills, night sweats. PHYSICAL EXAMINATION: He appears comfortable. No apparent distress. VITAL SIGNS: Stable. Blood pressure is 149/63, pulse rate 79, temperature 97.9. HEENT examination unremarkable. Conjunctivae pink. Sclerae anicteric. Oral cavity no lesions. NECK: No JVD or lymph node enlargement. CHEST: Clear to auscultation. HEART: Regular rate and rhythm. ABDOMEN: Soft. Bowel sounds are positive. No organomegaly. EXTREMITIES: No pedal edema. SKIN: No rashes. NEUROLOGIC: Alert and oriented x3. No focal deficits. LABS: WBC 10.6, hemoglobin 12.6, platelets normal. Basic metabolic panel is within normal limits. BUN is 59, creatinine 1.71. Sodium 134, potassium 5.2, chloride 96, CO2 31. IMPRESSION: 1. Atrial fibrillation with rapid ventricular response, status post cardioversion this morning. Patient doing well. Remains on Eliquis. 2. Excessive belching and chest tightness with occasional epigastric discomfort, possibly related to gastroesophageal reflux disease. Patient presently on Protonix 40 mg twice daily that was started 2 days ago as well as Reglan 5 mg before each meal and at bedtime, and so far he has not noticed any significant change in his symptoms. 3. History of aortic valve replacement. 4. History of congestive heart failure; remains stable. RECOMMENDATIONS: I had a lengthy discussion with the patient regarding excessive belching that he has been having for the last one year's duration. Often these symptoms are not serious and mostly related to gastroesophageal reflux disease, but other possible etiologies suggest gastroparesis. H pylori infection needs to be considered. At this time he was started on Protonix 40 mg daily as well as Reglan as needed, and we will continue to monitor him closely. I suggested that he may need an upper endoscopy in the future, mostly on an elective basis in 6-8 weeks, if there is no improvement in his symptoms. The patient is agreeable with this plan. For now, will follow up with you closely. Thank you for this consultation. SHIRIN / HECTOR: [id number] /
[2020-02-21] MEDS: PANTOPRAZOLE 40 MG TABLET PO SCH ×2 (06:37→17:44)
[2020-02-21] MEDS: METOCLOPRAMIDE 5 MG TAB PO SCH ×3 (06:37→17:44)
[2020-02-21] MEDS: IPRATROPIUM-ALBUTEROL 3 ML NEB INHALATION SCH ×3 (07:24→19:02)
[2020-02-21] MEDS: DILTIAZEM ORAL 30 MG TAB PO SCH ×3 (09:29→22:09)
[2020-02-21] MEDS: METOPROLOL TARTRATE 25 MG TAB PO SCH ×2 (09:29→22:09)
[2020-02-21] MEDS: APIXABAN 5 MG TAB PO SCH ×2 (09:29→22:09)
[2020-02-21] MEDS: AMIODARONE 200 MG TAB PO SCH ×2 (09:29→22:08)
[2020-02-21] MEDS: POLYETHYLENE GLYCOL 3350 17 GM POWD.PACK PO SCH (09:29)
[2020-02-21] MEDS ORDERED: SODIUM POLYSTYRENE SULFONATE 15 GM/60 ML BOTTLE PO ONE (10:11)
--- NOTE | 2020-02-21 13:02 | PN ---
PROGRESS NOTE Mr. López is in sinus rhythm. Underwent cardioversion yesterday. Vitals are stable, with JVD 1 cm, no carotid bruit. S1, S2 heard normally. Short systolic murmur noted. Lungs are clear. Abdomen and lower extremity exam unchanged. Plan is to continue current medications, increase activity and he can be discharged from a cardiac standpoint at any time. I will see him as needed and will see him in the office in 3 weeks. MMODL / IJN: [id number] /
--- NOTE | 2020-02-21 14:08 | P.PN ---
Subjective Progress Note Date: 02/21/20 Principal diagnosis: This 84-year-old gentleman who was recently an inpatient. Patient complained of being short of breath and was evaluated recently and after about 4 days was di scharged and was discharged home on 02/17/2020. On the way home apparently the patient developed worsening shortness of breath and for that reason he came back into the emergency room to be evaluated. The patient was seen and examined in the emergency room on 02/18/2020 and admitted to the hospital for shortness of breath. The patient describes a pain in his left chest. In addition, he has atrial fibrillation with RVR. He does have some underlying COPD as well. In addition, the patient does admit to relatively recent aortic valve replacement at [facility]. He apparently had a transcatheter aortic valve replacement. Anyways, the patient's complaints include the chest discomfort, which she says is related to belching, and his shortness of breath. He feels like he just cannot get a full breath in. He denies any fever or chills. He is not coughing. He is not wheezing. He denies any abnormal pain. There is no nausea, vomiting, diarrhea. There is no fever or chills. No genitourinary complaints. On 02/20/2020 the patient was seen in follow-up on the selective care unit with Dr. Odell. He is in no acute distress, remains hemodynamically stable, and is sitting up to the bedside recliner. He denies any complaints of chest pain or shortness of breath, although he is complaining of frequent belching. An electrical cardioversion was completed this morning by Dr. CHELSEA Schaffer for persistent atrial fibrillation despite pharmacological therapy. His remote telemetry is currently showing normal sinus rhythm with some global ST elevation heart rate 69. Oxygen saturation are 95% on 2 L nasal cannula. Amiodarone drip is infusing at 0.5 mg/m and he also has a 0.9% normal saline at 10 mL per hour. A chest x-ray was completed this morning which demonstrated COPD with right lower lobe infiltrate and small effusion. The patient was seen and examined on 02/21/2020 on the cardiac stepdown unit with Dr. Odell. He was sitting up in a recliner talking on the phone in no acute distress. Denies any pain, states shortness of breath has improved. Currently on 2 L nasal cannula with oxygen saturation 97%. Remains afebrile and hemodynamically stable. No labs or x-rays completed today. He was cardioverted yesterday, remains in sinus rhythm. No new concerns. Objective - Vital Signs Vital signs: Vital Signs Temp 97.9 F 02/21/20 12:00 Pulse 60 02/21/20 12:00 Resp 16 02/21/20 12:00 BP 133/63 02/21/20 12:00 Pulse Ox 97 02/21/20 12:00 Intake & Output 02/20/20 02/21/20 02/21/20 18:59 06:59 18:59 Intake Total 360 230 Output Total 1600 1200 300 Balance -1240 -970 -300 Weight 90.5 kg Intake: IV 0 80 0.9 80 Intake, IV Titration 50 Amount cefTRIAXone 1 gm In 50 Sodium Chloride 0.9% 50 ml @ 100 mls/hr IVPB Q12HR [facility] Rx#:[id number] Oral 360 100 Output: Urine 1600 1200 300 Other: Voiding Method Urinal Urinal Urinal # Voids 1 1 1 # Bowel Movements 0 - Constitutional Constitutional Comment(s): Appears comfortable, sitting up in a recliner talking on the phone - Respiratory Details: Lungs sounds clear throughout with a few scattered expiratory wheezes. Respirations even, nonlabored. Currently on 2 L nasal cannula with oxygen saturation 97%. Strong cough. - Cardiovascular Details: S1, S2 present. Regular rate and rhythm, sinus rhythm on telemetry. Palpable peripheral pulses bilaterally. 1+ bilateral lower extremity edema present. No calf pain or tenderness noted. - Gastrointestinal Gastrointestinal Comment(s): Abdomen soft, nontender, nondistended. No organomegaly present. Active bowel sounds present 4 quadrants. Tolerating diet. - Integumentary Integumentary Comment(s): Skin is warm and dry. - Neurologic Neurologic: Present: CNII-XII intact - Musculoskeletal Musculoskeletal: Present: gait normal, strength equal bilaterally - Psychiatric Psychiatric: Present: A&O x's 3, appropriate affect, intact judgment & insight - Allied health notes Allied health notes reviewed: nursing - Labs CBC & Chem 7: 02/20/20 05:20 02/20/20 05:20 Labs: Abnormal Lab Results - Last 24 Hours (Table) 02/20/20 Range/Units 05:20 TSH 5.190 H (0.465-4.680) mIU/L Assessment and Plan Assessment: 1. Shortness of breath, likely multifactorial, in part related to mild underlying congestive heart failure, atrial fibrillation with RVR and possibly some mild chronic obstructive pulmonary disease exacerbation. 2. History of recent transcatheter aortic valve replacement for aortic valve stenosis. 3. History of chronic persistent atrial fibrillation/atrial flutter status post cardioversion 02/20/2020, currently in sinus rhythm. 4. History of asthma. 5. History of congestive heart failure. 6. History of hypertension. 7. History of prior bladder surgery. Plan: The patient was seen and examined at his bedside on the selective care unit with Dr. Odell. Wean O2 as tolerated. Continue updrafts Continue amiodarone, Eliquis per cardiology GI consulted for belching, no acute intervention. Patient may need EGD on outpatient basis in 6-8 weeks. Patient is stable from pulmonary standpoint May discharge when okay with other services We'll continue to follow while hospitalized I, the cosigning physician, performed a history & physical examination of the patient. Lungs sounds are diminished bilaterally. Maintaining good O2 saturations in the 90s on 2 L nasal cannula. I discussed the assessment and eduardo n of care with my nurse practitioner, Keshia Garner. I attest to the above note as dictated by her. Time with Patient: Greater than 30
--- NOTE | 2020-02-21 17:23 | P.PN ---
Subjective Progress Note Date: 02/21/20 This is an 84-year-old gentleman with history of chronic intermittent asthma, hypertension, recent aortic valve replacement at [facility] in November 2019, recently discharged with multifactorial hypoxic respiratory failure, V/Q scan had showed intermediate probability of PE and multiple other medical issues presented to the ER with worsening shortness of breath, no chest pain. Denies fever or chills. Denies nausea vomiting or diarrhea. Chest x-ray reporting suspected chronic interstitial lung disease, chronic bilateral effusions or thickening, stable pulmonary nodules. Reports unable to sit back in recliner, positive belching. EKG report atrial flutter with 2:1 AV conduction, rapid ventricular rate, 130, possible anterior infarct, age undetermined. Troponin 0.0379 lower compared to the troponins from prior visit). BNP 17,500, significant increase from last visit. Placed on amiodarone drip, heart rate has improved from 130s now down to 60. Cardiology discussing possible cardioversion tomorrow if patient remains in atrial flutter. 02/20/2020 underwent successful cardioversion, tolerated procedure well. Converted to oral amiodarone. GI consulted regarding persistent belching, recomm endations pending. Vital signs stable, maintaining O2 sats in the 90s on 2 L nasal cannula. Chest x-ray reporting COPD with right lower lobe infiltrate, small effusion, the right lung nodule, stable. 02/21/2020 evaluated by GI with recommendations noted. Telemetry reporting sinus rhythm with occasional PACs. Maintaining O2 sats in the high 90s on 2 L nasal cannula. Afebrile. Denies chest pain, palpitations or shortness of breath. Denies lightheadedness, dizziness or focal deficits. Renal function mildly worsened, 1.71 with potassium up to 5.2. Objective - Vital Signs Vital signs: Vital Signs Temp 97.8 F 02/21/20 08:00 Pulse 88 02/21/20 11:52 Resp 16 02/21/20 08:00 BP 116/56 02/21/20 08:00 Pulse Ox 94 L 02/21/20 08:00 Intake & Output 02/20/20 02/21/20 02/21/20 18:59 06:59 18:59 Intake Total 360 230 Output Total 1600 1200 300 Balance -1240 -970 -300 Weight 90.5 kg Intake: IV 0 80 0.9 80 Intake, IV Titration 50 Amount cefTRIAXone 1 gm In 50 Sodium Chloride 0.9% 50 ml @ 100 mls/hr IVPB Q12HR [facility] Rx#:[id number] Oral 360 100 Output: Urine 1600 1200 300 Other: Voiding Method Urinal Urinal Urinal # Voids 1 1 1 # Bowel Movements 0 - Exam VITAL SIGNS: As above GENERAL: Sitting up in bed, no acute distress HEENT: Conjunctivae normal. eyes normal. NECK: No JVD. No thyroid enlargement. No LNs CARDIOVASCULAR: S1, S2 irregular. Systolic murmur. RESPIRATION: Breath sounds diminished in the bases. No rhonchi or crackles. Fine scattered expiratory wheezing. ABDOMEN: Soft, nontender . No guarding. no masses palpable. Bowel sounds heard. LEGS: No edema. no swelling. PSYCHIATRY: Alert and oriented X3, mood and affect normal. NERVOUS SYSTEM: Cranial N 2-12 grossly normal. Moves all 4 limbs. Diffuse weakness, No focal deficits. Strength and sensation grossly intact. Skin: no rash. - Labs CBC & Chem 7: 02/20/20 05:20 02/20/20 05:20 Labs: Abnormal Lab Results - Last 24 Hours (Table) 02/20/20 Range/Units 05:20 TSH 5.190 H (0.465-4.680) mIU/L Assessment and Plan Assessment: -Atrial flutter with uncontrolled ventricular rate, status post amiodarone drip. Status post successful cardioversion. -Acute hypoxic respiratory failure secondary to the above, possible acute asthma exacerbation secondary to bronchitis, with emphysematous changes, acute COPD exacerbation. Possible community-acquired pneumonia pneumonia. Pulmonary - following. -Intermediate probability of PE, per VQ scan of last visit, doubt acute PE as per pulmonary, in a patient on prior oral anticoagulation at home. -Stable pulmonary nodules including 8 mm nodule right mid lung, further follow- up outpatient. -Chronic intermittent asthma -Recent aortic valve replacement at [facility] in November 2019 -Hypertension -Acute on chronic renal failure, baseline 1.3, stage III. Chronic related to nephrosclerosis. 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 Continue on Rocephin, nebulized bronchodilators. Antiarrhythmics as per cardiology. Close monitoring of renal function with repeat labs ordered. Discharge planning in progress pending pulmonary cardiology clearance. The impression and plan of care has been dictated as directed. : I performed a history and examination of this patient, discussed the same with the dictator. I agree with the dictator's note ,documented as a scribe. Any additional findings or plans will be noted.
--- NOTE | 2020-02-21 18:32 | PN ---
PROGRESS NOTE DATE OF DICTATION: 02/21/2020 This patient is an 84-year-old pleasant white male admitted to the hospital with atrial fibrillation with RVR and underwent cardioversion yesterday. He remains on Eliquis daily. Patient was seen in consultation yesterday for excessive belching, burping and chest discomfort with occasional epigastric discomfort/pain. He was started on Protonix 40 mg twice daily as well as Reglan 5 mg before each meal, and his symptoms have much improved today. In fact, he had minimal burping after eating this morning. Overall he is feeling better. He denies any other new symptoms. PHYSICAL EXAMINATION: Appears comfortable. No apparent distress. Vitals are stable. Blood pressure is 153/69, pulse rate 64, temperature 97.4. HEENT examination unremarkable. Conjunctivae pink. Sclerae anicteric. Oral cavity no lesions. NECK: No JVD or lymph node enlargement. CHEST: Clear to auscultation. HEART: Regular rate and rhythm. ABDOMEN: Soft. Bowel sounds are positive. Small bruise in the right upper extremity. EXTREMITIES: No pedal edema. SKIN: No rashes. NEUROLOGIC: Alert and oriented x3. No focal deficits. LABS: WBC 10.6, hemoglobin 12.6, platelets are normal. Basic metabolic panel showed a BUN of 59, creatinine 1.71, potassium 5.2 and sodium 134. IMPRESSION: 1. Excessive belching and burping for the last one year duration, most likely related to gastroesophageal reflux disease. His symptoms are significantly improved on Protonix 40 mg twice daily as well as Reglan 5 mg 3 times daily. 2. Atrial fibrillation with rapid ventricular response, on Eliquis, status post cardioversion yesterday, and he is doing much better. 3. History of coronary artery disease. 4. Chronic kidney disease with elevated BUN and creatinine. RECOMMENDATIONS: 1. Continue with Protonix 40 mg twice daily. 2. Will continue Reglan 5 mg 4 times daily as needed for another 2 weeks and then gradually wean the medication because of potential side effects in elderly patients. 3. Small frequent meals. 4. Dietary modification as well as anti-reflux measures were discussed with the patient. 5. Patient was advised to follow up in the office in 3 to 4 weeks after discharge. Thank you for this consultation. MMODL / IJN: [id number] /
[2020-02-22] MEDS: METOCLOPRAMIDE 5 MG TAB PO SCH ×3 (07:02→17:22)
[2020-02-22] MEDS: PANTOPRAZOLE 40 MG TABLET PO SCH ×2 (07:02→17:22)
[2020-02-22 07:08] LABS: Basophils % (A) 0 %; Eosinophils # (A) 0.3 k/uL (0-0.7); Eosinophils % (A) 3 %; HCT 39.2 % (39.0-53.0); Lymphocytes # (A) 0.7 k/uL (1.0-4.8); Lymphocytes % (A) 6 %; MCH 30.8 pg (25.0-35.0); MCHC 30.6 g/dL (31.0-37.0); MCV 100.6 fL (80.0-100.0); Mean Platelet Volume 8.5; Monocytes # (A) 0.8 k/uL (0-1.0); Monocytes % (A) 7 %; Neutrophils % (A) 83 %; Platelet Count 195 k/uL (150-450); RBC 3.89 m/uL (4.30-5.90); RDW 13.4 % (11.5-15.5)
[2020-02-22 07:19] LABS: Potassium 5.8 mmol/L (3.5-5.1)
[2020-02-22] MEDS ORDERED: SODIUM POLYSTYRENE SULFONATE 15 GM/60 ML BOTTLE PO STA ×2 (08:25→16:43)
[2020-02-22] MEDS: IPRATROPIUM-ALBUTEROL 3 ML NEB INHALATION SCH ×3 (08:47→20:54)
[2020-02-22] MEDS: POLYETHYLENE GLYCOL 3350 17 GM POWD.PACK PO SCH (09:00)
[2020-02-22] MEDS: AMIODARONE 200 MG TAB PO SCH ×2 (09:01→21:01)
[2020-02-22] MEDS: DILTIAZEM ORAL 30 MG TAB PO SCH ×3 (09:02→21:01)
[2020-02-22] MEDS: METOPROLOL TARTRATE 25 MG TAB PO SCH ×2 (09:02→21:01)
[2020-02-22] MEDS: APIXABAN 5 MG TAB PO SCH ×2 (09:02→21:01)
--- NOTE | 2020-02-22 10:38 | PN ---
PROGRESS NOTE Mr. López is in sinus rhythm. Breathing well. He is receiving a breathing treatment. He has COPD, aortic valve replacement by percutaneous approach in November and a cardioversion 3 days ago. He is doing well overall. Complains of some belching, but no chest pain or shortness of breath. Maintaining sinus rhythm. Hemodynamically stable. Vitals are stable. JVD 1 cm. No carotid bruit. S1, S2 heard normally. Ejection systolic murmur is audible. Lungs reveal diminished air entry bilaterally. Abdomen and lower extremity exam unchanged. Advised to continue current medical regimen, increase activity and discharge today. MMODL / IJN: [id number] /
--- NOTE | 2020-02-22 11:05 | P.PN ---
Subjective Progress Note Date: 02/22/20 Principal diagnosis: This 84-year-old gentleman who was recently an inpatient. Patient complained of being short of breath and was evaluated recently and after about 4 days was di scharged and was discharged home on 02/17/2020. On the way home apparently the patient developed worsening shortness of breath and for that reason he came back into the emergency room to be evaluated. The patient was seen and examined in the emergency room on 02/18/2020 and admitted to the hospital for shortness of breath. The patient describes a pain in his left chest. In addition, he has atrial fibrillation with RVR. He does have some underlying COPD as well. In addition, the patient does admit to relatively recent aortic valve replacement at [facility]. He apparently had a transcatheter aortic valve replacement. Anyways, the patient's complaints include the chest discomfort, which she says is related to belching, and his shortness of breath. He feels like he just cannot get a full breath in. He denies any fever or chills. He is not coughing. He is not wheezing. He denies any abnormal pain. There is no nausea, vomiting, diarrhea. There is no fever or chills. No genitourinary complaints. On 02/20/2020 the patient was seen in follow-up on the selective care unit with Dr. Odell. He is in no acute distress, remains hemodynamically stable, and is sitting up to the bedside recliner. He denies any complaints of chest pain or shortness of breath, although he is complaining of frequent belching. An electrical cardioversion was completed this morning by Dr. CHELSEA Schaffer for persistent atrial fibrillation despite pharmacological therapy. His remote telemetry is currently showing normal sinus rhythm with some global ST elevation heart rate 69. Oxygen saturation are 95% on 2 L nasal cannula. Amiodarone drip is infusing at 0.5 mg/m and he also has a 0.9% normal saline at 10 mL per hour. A chest x-ray was completed this morning which demonstrated COPD with right lower lobe infiltrate and small effusion. The patient was seen and examined on 02/21/2020 on the cardiac stepdown unit with Dr. Odell. He was sitting up in a recliner talking on the phone in no acute distress. Denies any pain, states shortness of breath has improved. Currently on 2 L nasal cannula with oxygen saturation 97%. Remains afebrile and hemodynamically stable. No labs or x-rays completed today. He was cardioverted yesterday, remains in sinus rhythm. No new concerns. The patient was seen and examined on 02/22/2020 and the cardiac stepdown unit with Dr. Odell. He sitting up in a recliner in no acute distress. Denies any pain, states shortness of breath has improved from admission. Currently on 2 L nasal cannula with oxygen saturation 95%. Remains afebrile. Hemodynamically stable. Remains in normal sinus rhythm. White blood cell count 12, hemoglobin 12, BUN 40, creatinine 1.4, potassium 5.8, TSH 5.19. No chest x-ray completed today. No new concerns. Objective - Vital Signs Vital signs: Vital Signs Temp 97 F L 02/22/20 07:37 Pulse 82 02/22/20 08:58 Resp 18 02/22/20 08:00 BP 162/72 02/22/20 07:37 Pulse Ox 95 02/22/20 07:37 Intake & Output 02/21/20 02/22/20 02/22/20 18:59 06:59 18:59 Intake Total 600 240 240 Output Total 300 550 Balance 300 -310 240 Weight 92.1 kg Intake: Oral 600 240 240 Output: Urine 300 550 Other: Voiding Method Urinal Urinal Urinal # Voids 1 - Constitutional Constitutional Comment(s): Sitting up in a chair talking animatedly, appears comfortable. General appearance: Present: cooperative, no acute distress - Respiratory Details: Lungs sounds diminished bilaterally. Respirations even, nonlabored. Currently on 2 L nasal cannula with oxygen saturation 95%. Strong cough. - Cardiovascular Details: S1, S2 present. Regular rate and rhythm, sinus rhythm on telemetry. Palpable peripheral pulses bilaterally. 1+ bilateral lower extremity edema present. No calf pain or tenderness noted. - Gastrointestinal Gastrointestinal Comment(s): Abdomen soft, nontender, nondistended. No organomegaly present. Active bowel sounds present 4 quadrants. Tolerating diet. - Integumentary Integumentary Comment(s): Skin is warm and dry. - Neurologic Neurologic: Present: CNII-XII intact - Musculoskeletal Musculoskeletal: Present: gait normal, strength equal bilaterally - Psychiatric Psychiatric: Present: A&O x's 3, appropriate affect, intact judgment & insight - Allied health notes Allied health notes reviewed: nursing - Labs CBC & Chem 7: 02/22/20 06:15 02/22/20 06:15 Labs: Abnormal Lab Results - Last 24 Hours (Table) 02/20/20 02/22/20 02/22/20 Range/Units 05:20 06:15 06:15 WBC 12.0 H (3.8-10.6) k/uL RBC 3.89 L (4.30-5.90) m/uL Hgb 12.0 L (13.0-17.5) gm/dL MCV 100.6 H (80.0-100.0) fL MCHC 30.6 L (31.0-37.0) g/dL Neutrophils # 10.0 H (1.3-7.7) k/uL Lymphocytes # 0.7 L (1.0-4.8) k/uL Sodium 136 L (137-145) mmol/L Potassium 5.8 H (3.5-5.1) mmol/L Chloride 95 L (98-107) mmol/L Carbon Dioxide 39 H (22-30) mmol/L BUN 40 H (9-20) mg/dL Creatinine 1.40 H (0.66-1.25) mg/dL Glucose 101 H (74-99) mg/dL TSH 5.190 H (0.465-4.680) mIU/L Assessment and Plan Assessment: 1. Shortness of breath, likely multifactorial, in part related to mild underlying congestive heart failure, atrial fibrillation with RVR and possibly some mild chronic obstructive pulmonary disease exacerbation. 2. History of recent transcatheter aortic valve replacement for aortic valve st enosis. 3. History of chronic persistent atrial fibrillation/atrial flutter status post cardioversion 02/20/2020, currently in sinus rhythm. 4. History of asthma. 5. History of congestive heart failure. 6. History of hypertension. 7. History of prior bladder surgery. Plan: The patient was seen and examined with Dr. Odell. Wean O2 as tolerated. Continue updrafts. May discontinue antibiotics Continue amiodarone, Eliquis per cardiology GI consulted for belching, no acute intervention. Patient may need EGD on outpatient basis in 6-8 weeks. Patient is stable from pulmonary standpoint May discharge when okay with other services I, the cosigning physician, performed a history & physical examination of the patient. Lungs sounds are diminished bilaterally. Maintaining good O2 saturations in the 90s on 2 L nasal cannula. I discussed the assessment and plan of care with my nurse practitioner, Keshia Garner. I attest to the above note as dictated by her. Time with Patient: Greater than 30
--- NOTE | 2020-02-22 14:21 | P.DS ---
Providers Date of admission: 02/18/20 18:53 Expected date of discharge: 02/22/20 Attending physician: Dago Kaur Consults: 02/18/20 18:41 Consult Physician Urgent Consulting Provider: Josh Bryant Consult Reason/Comments: Atrial flutter rvr Do you want consulting provider notified?: Yes 02/18/20 18:42 Consult Physician Urgent Consulting Provider: Juana Aguillon Consult Reason/Comments: COPD Do you want consulting provider notified?: Yes 02/19/20 22:09 Consult Physician Routine Consulting Provider: James Fernandez Consult Reason/Comments: belching Do you want consulting provider notified?: Yes [facility] Course: -Atrial flutter with uncontrolled ventricular rate, status post amiodarone drip. Status post successful cardioversion. -Acute hypoxic respiratory failure secondary to the above, possible acute asthma exacerbation secondary to bronchitis, with emphysematous changes, acute COPD exacerbation. Possible community-acquired pneumonia pneumonia. Pulmonary - following. -Intermediate probability of PE, per VQ scan of last visit, doubt acute PE as per pulmonary, in a patient on prior oral anticoagulation at home. -Stable pulmonary nodules including 8 mm nodule right mid lung, further follow- up outpatient. -Chronic intermittent asthma -Recent aortic valve replacement at [facility] in November 2019 -Hypertension -Acute on chronic renal failure, baseline 1.3, stage III. Chronic related to nephrosclerosis. 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 Denies fever or chills. Denies nausea vomiting or diarrhea. Chest x-ray reporting suspected chronic interstitial lung disease, chronic bilateral effusions or thickening, stable pulmonary nodules. Reports unable to sit back in recliner, positive belching. EKG report atrial flutter with 2:1 AV conduction, rapid ventricular rate, 130, possible anterior infarct, age undetermined. Troponin 0.0379 lower compared to the troponins from prior visit). BNP 17,500, significant increase from last visit. Placed on amiodarone drip, heart rate has improved from 130s now down to 60. Cardiology discussing possible cardioversion tomorrow if patient remains in atrial flutter. 02/20/2020 underwent successful cardioversion, tolerated procedure well. Converted to oral amiodarone. GI consulted regarding persistent belching, recommendations pending. Vital signs stable, maintaining O2 sats in the 90s on 2 L nasal cannula. Chest x-ray reporting COPD with right lower lobe infiltrate, small effusion, the right lung nodule, stable. 02/21/2020 evaluated by GI with recommendations noted. Telemetry reporting sinus rhythm with occasional PACs. Maintaining O2 sats in the high 90s on 2 L nasal cannula. Afebrile. Denies chest pain, palpitations or shortness of breath. Denies lightheadedness, dizziness or focal deficits. Renal function mildly worsened, 1.71 with potassium up to 5.2. Significant clinical improvement. Cleared by cardiology for discharge. Patient is being discharged home today in stable condition with guarded prognosis pending follow-up potassium level. The impression and plan of care has been dictated as directed. : I performed a history and examination of this patient, discussed the same with the dictator. I agree with the dictator's note ,documented as a scribe. Any additional findings or plans will be noted. Patient Condition at Discharge: Stable Plan - Discharge Summary New Discharge Prescriptions: New Pantoprazole [Protonix] 40 mg PO AC-BID #60 tablet. Metoclopramide [Reglan] 5 mg PO AC-TID #42 tab Polyethylene Glycol 3350 [Miralax] 17 gm PO DAILY powd.pack Cefuroxime Axetil [Ceftin] 500 mg PO BID 5 Days #10 tab Diltiazem Oral [Cardizem*] 30 mg PO TID #90 tab Amiodarone [Cordarone] 400 mg PO BID #9 tab Amiodarone [Cordarone] 200 mg PO BID #60 tab Continue Multivitamins, Thera [Multivitamin (formulary)] 1 tab PO DAILY Metoprolol Tartrate [Lopressor] 25 mg PO BID Ipratropium Nebulized [Atrovent Nebulized 0.2 MG/ML] 0.5 mg INHALATION RT-TID Aspirin EC [Ecotrin Low Dose] 81 mg PO DAILY Apixaban [Eliquis] 5 mg PO BID Discontinued Azithromycin [Zithromax] 500 mg PO DAILY 7 Days #7 tab Discharge Medication List Apixaban [Eliquis] 5 mg PO BID 02/14/20 [History] Aspirin EC [Ecotrin Low Dose] 81 mg PO DAILY 02/14/20 [History] Ipratropium Nebulized [Atrovent Nebulized 0.2 MG/ML] 0.5 mg INHALATION RT-TID 02/14/20 [History] Metoprolol Tartrate [Lopressor] 25 mg PO BID 02/14/20 [History] Multivitamins, Thera [Multivitamin (formulary)] 1 tab PO DAILY 02/14/20 [History] Cefuroxime Axetil [Ceftin] 500 mg PO BID 5 Days #10 tab 02/21/20 [Rx] Diltiazem Oral [Cardizem*] 30 mg PO TID #90 tab 02/21/20 [Rx] Metoclopramide [Reglan] 5 mg PO AC-TID #42 tab 02/21/20 [Rx] Pantoprazole [Protonix] 40 mg PO AC-BID #60 tablet.dr 02/21/20 [Rx] Polyethylene Glycol 3350 [Miralax] 17 gm PO DAILY powd.pack 02/21/20 [Rx] Amiodarone [Cordarone] 200 mg PO BID #60 tab 02/22/20 [Rx] Amiodarone [Cordarone] 400 mg PO BID #9 tab 02/22/20 [Rx] Follow up Appointment(s)/Referral(s): Katerina Schaffer MD [STAFF PHYSICIAN] - 3 Weeks Aliza Bryant MD [STAFF PHYSICIAN] - 4 Weeks Ramana Kaur MD [Primary Care Provider] - 3 Days Ambulatory/Diagnostic Orders: Complete Blood Count w/diff [LAB.AMB] Time Frame: 3 Days, Location: None Selected Activity/Diet/Wound Care/Special Instructions: amiodarone taper as per cardiology; 400 mg twice a day 9 doses more than 200 mg twice a day. Diet: Low potassium diet
--- NOTE | 2020-02-22 18:29 | PN ---
PROGRESS NOTE DATE OF DICTATION: 02/22/2020 Patient is an 84-year-old, pleasant, white male admitted to the hospital with atrial fibrillation with RVR and underwent a cardioversion two days ago. He remains on Eliquis 5 mg twice daily. He has been complaining of excessive burping, belching, and chest pain and he was started on Protonix 40 mg twice daily as well as Reglan 5 mg before each meal. Initially, his symptoms improved, however, last night he could not sleep well because he was having persistent belching . He is requesting for an upper endoscopy. However, patient has been on Eliquis and his last dose was just an hour ago this morning. PHYSICAL EXAMINATION: He reports no symptoms. VITAL SIGNS: Stable. Blood pressure is 112/66, pulse rate 71, temperature 97.1. HEENT: Unremarkable. Conjunctivae are pink. Sclera nonicteric. Oral cavity, no lesions. NECK: No JVD or lymph node enlargement. CHEST: Clear to auscultation. HEART: Regular rate and rhythm. ABDOMEN: Mild tenderness in the epigastric area. The rest of the abdomen was benign. Bowel sounds are positive. EXTREMITIES: No pedal edema. SKIN: No rashes. NEURO: Alert and oriented x3. No focal deficits. LABS: WBC 12, hemoglobin 12, platelets normal. Basic metabolic panel showed potassium of 5.8, repeat potassium was 6.1. BUN 40, creatinine 1.40. IMPRESSION: 1. Epigastric discomfort associated with atypical chest pain and excessive belching and burping for the last one-year duration. Presently on Protonix 40 mg twice daily as well as Reglan with some improvement in his symptoms. 2. Atrial fibrillation, on Eliquis, status post cardioversion two days ago. 3. History of chronic kidney disease. 4. Hyperkalemia. RECOMMENDATIONS: 1. Discussed with the patient that at this time there is no urgency to proceed with an upper endoscopy but this will be done in four to six weeks on an outpatient basis. 2. In the meantime, continue with Protonix 40 mg twice daily as well as Reglan as needed. 3. Small frequent meals. 4. Discussed about antireflux measures as well as diet modification and we will follow the patient closely during this hospital stay. Thank you for this consultation. MMODL / IJN: [id number] /
--- NOTE | 2020-02-22 23:32 | PN ---
PROGRESS NOTE ADDENDUM: This is an 84-year-old white male who wanted something done for belching. GI saw the patient, has no further plans. Protonix. Reglan. Small meals. Do not swallow air. Decreased carbonation in the diet. He has been kept because he had hyperkalemia. Receiving Kayexalate x2. We will get a renal physician to assess him prior to going home. Lungs show scattered wheeze. CARDIOVASCULAR: S1, S2. GI soft, distended due to obesity. Switched to L oxygen. Plan is to wean him off suction, get him ambulating. Try to treat hyperkalemia with renal physician prior to discharge. MMODL / IJN: [id number] /
[2020-02-23 00:23] VITALS: RESP 18
[2020-02-23] MEDS: PANTOPRAZOLE 40 MG TABLET PO SCH (06:18)
[2020-02-23] MEDS: METOCLOPRAMIDE 5 MG TAB PO SCH ×2 (06:18→12:42)
[2020-02-23] MEDS ORDERED: LEVOTHYROXINE 50 MCG TAB PO SCH (06:30)
[2020-02-23 07:48] LABS: Basophils % (A) 0 %; Eosinophils # (A) 0.2 k/uL (0-0.7); Eosinophils % (A) 2 %; HCT 39.2 % (39.0-53.0); HGB 12.1 gm/dL (13.0-17.5); Lymphocytes # (A) 0.6 k/uL (1.0-4.8); Lymphocytes % (A) 6 %; MCHC 30.9 g/dL (31.0-37.0); MCV 100.3 fL (80.0-100.0); Mean Platelet Volume 8.1; Monocytes # (A) 0.7 k/uL (0-1.0); Monocytes % (A) 7 %; Neutrophils # (A) 9.1 k/uL (1.3-7.7); Neutrophils % (A) 84 %; Platelet Count 196 k/uL (150-450); RBC 3.91 m/uL (4.30-5.90); RDW 13.4 % (11.5-15.5); WBC 10.8 k/uL (3.8-10.6)
[2020-02-23] MEDS: IPRATROPIUM-ALBUTEROL 3 ML NEB INHALATION SCH ×2 (07:50→13:09)
[2020-02-23 07:58] LABS: Potassium 5.6 mmol/L (3.5-5.1)
[2020-02-23] MEDS: DILTIAZEM ORAL 30 MG TAB PO SCH (10:09)
[2020-02-23] MEDS: AMIODARONE 200 MG TAB PO SCH (10:09)
[2020-02-23] MEDS: METOPROLOL TARTRATE 25 MG TAB PO SCH (10:09)
[2020-02-23] MEDS: APIXABAN 5 MG TAB PO SCH (10:10)
[2020-02-23] MEDS: POLYETHYLENE GLYCOL 3350 17 GM POWD.PACK PO SCH (10:10)
[2020-02-23] MEDS ORDERED: FUROSEMIDE 10 MG/ML 2 ML VIAL IV ONE (11:21)
--- NOTE | 2020-02-23 11:26 | P.NPCON ---
History of Present Illness - Reason for Consult acute renal failure, hyperkalemia - History of Present Illness Reason for consultation: Acute kidney injury on chronic kidney disease and hyperkalemia History of present illness: Patient is a 84-year-old male seen in renal consultation for acute kidney injury on chronic kidney disease and hyperkalemia. Patient's creatinine on admission was 1.6 and is 1.4 today. Patient presented to hospital with shortness of breath. Patient was discharged from the hospital a day before this current admission. Patient states his dyspnea continued to worsen and he felt more short of breath. He also complains of edema in his lower extremities. He was noted to be in A. fib with RVR. He underwent cardioversion on February 20. Heart rate is well controlled. Blood pressures also stable. He is maintained on oral amiodarone and Cardizem. He admits to good urine output. Denies any hematuria or dysuria. No vomiting or diarrhea. No fever or chills. No chest pain. Oral intake is good. Patient's potassium level has also been running on the higher side this admission. It has been in the range of 5.2-6.2. He received Kayexalate this morning. No evidence of metabolic acidosis or hyperglycemia. No other complaints at this time. He denies family history of renal disease. Denies use of nonsteroidals. Vital signs are stable. General: The patient appeared well nourished and normally developed. HEENT: Head exam is unremarkable. Neck is without jugular venous distension. LUNGS: Lungs are clear to auscultation and percussion. Breath sounds decreased. HEART: Rate and Rhythm are regular. First and second heart sounds normal. No murmurs, rubs or gallops. ABDOMEN: Soft, non-tender. EXTREMITITES: 1+ edema. Past Medical History Past Medical History: Atrial Fibrillation, Atrial Flutter, Asthma, Heart Failure, Hypertension History of Any Multi-Drug Resistant Organisms: None Reported Additional Past Surgical History / Comment(s): aortic heart valve replacement, bladder sx Past Psychological History: No Psychological Hx Reported Smoking Status: Current every day smoker Past Alcohol Use History: None Reported Past Drug Use History: None Reported - Past Family History Father Family Medical History: Cancer Medications and Allergies Home Medications Medication Instructions Recorded Confirmed Type Apixaban [Eliquis] 5 mg PO BID 02/14/20 02/18/20 History Ipratropium Nebulized [Atrovent 0.5 mg INHALATION RT-TID 02/14/20 02/18/20 History Nebulized 0.2 MG/ML] Metoprolol Tartrate [Lopressor] 25 mg PO BID 02/14/20 02/18/20 History Multivitamins, Thera [Multivitamin 1 tab PO DAILY 02/14/20 02/18/20 History (formulary)] Cefuroxime Axetil [Ceftin] 500 mg PO BID 5 Days #10 tab 02/21/20 Rx Diltiazem Oral [Cardizem*] 30 mg PO TID #90 tab 02/21/20 Rx Metoclopramide [Reglan] 5 mg PO AC-TID #42 tab 02/21/20 Rx Pantoprazole [Protonix] 40 mg PO AC-BID #60 tablet.dr 02/21/20 Rx Polyethylene Glycol 3350 [Miralax] 17 gm PO DAILY powd.pack 02/21/20 Rx Amiodarone [Cordarone] 200 mg PO BID #60 tab 02/22/20 Rx Amiodarone [Cordarone] 400 mg PO BID #9 tab 02/22/20 Rx Allergies Allergy/AdvReac Type Severity Reaction Status Date / Time No Known Allergies Allergy Verified 02/18/20 18:34 Physical Exam Vitals: Vital Signs Temp Pulse Pulse Pulse Pulse Pulse Pulse 02/23/20 08:01 72 02/23/20 07:51 70 02/23/20 03:20 98.1 F 68 02/22/20 23:50 98.2 F 70 02/22/20 21:07 86 02/22/20 20:54 86 02/22/20 20:00 98.9 F 75 02/22/20 16:00 99.1 F 73 73 02/22/20 15:05 75 74 76 02/22/20 13:41 80 02/22/20 13:31 84 02/22/20 12:00 73 73 02/22/20 11:32 97.1 F L 71 71 Resp BP Pulse Ox Pulse Ox Pulse Ox Pulse Ox 02/23/20 08:01 02/23/20 07:51 02/23/20 03:20 18 127/76 94 L 02/22/20 23:50 18 123/69 95 02/22/20 21:07 04/16/20 20:54 95 02/22/20 20:00 17 148/67 02/22/20 16:00 18 132/57 02/22/20 15:05 91 L 92 L 94 L 02/22/20 13:41 02/22/20 13:31 02/22/20 12:00 18 02/22/20 11:32 16 112/56 95 Intake and Output 02/22/20 02/23/20 02/23/20 22:59 06:59 14:59 Intake Total 120 Output Total 300 600 Balance -180 -600 Intake: Oral 120 Output: Urine 300 600 Other: Voiding Method Urinal Urinal # Voids 1 Weight 92.7 kg Results - Lab Results Most recent lab results Calcium 9.0 mg/dL (8.4-10.2) 02/23/20 06:44 Magnesium 2.3 mg/dL (1.6-2.3) 02/18/20 17:25 02/23/20 06:44 02/23/20 06:44 Assessment and Plan Plan: Assessment: 1. Acute kidney injury mostly prerenal secondary to hemodynamic instability. Creatinine peaked at 1.7 this admission and is 1.42 today. 2. Chronic kidney disease stage III with baseline creatinine in the range of 1.3-1.5. Etiology is nephrosclerosis. 3. Hyperkalemia secondary to chronic kidney disease. Rule out urinary retention. 4. A. fib status post cardioversion on February 20. Maintained on oral amiodarone and Cardizem. 5. Fluid overload. Plan: Patient received Kayexalate this morning. I will give him a dose of IV Lasix now. Start Lasix 20 mg orally once daily upon discharge. Repeat potassium level this afternoon. Potential discharge later today. Thank you for the consultation. I will continue to follow the patient with you during his hospital stay.
--- NOTE | 2020-02-23 11:32 | P.PN ---
Subjective Progress Note Date: 02/23/20 Principal diagnosis: This 84-year-old gentleman who was recently an inpatient. Patient complained of being short of breath and was evaluated recently and after about 4 days was di scharged and was discharged home on 02/17/2020. On the way home apparently the patient developed worsening shortness of breath and for that reason he came back into the emergency room to be evaluated. The patient was seen and examined in the emergency room on 02/18/2020 and admitted to the hospital for shortness of breath. The patient describes a pain in his left chest. In addition, he has atrial fibrillation with RVR. He does have some underlying COPD as well. In addition, the patient does admit to relatively recent aortic valve replacement at [facility]. He apparently had a transcatheter aortic valve replacement. Anyways, the patient's complaints include the chest discomfort, which she says is related to belching, and his shortness of breath. He feels like he just cannot get a full breath in. He denies any fever or chills. He is not coughing. He is not wheezing. He denies any abnormal pain. There is no nausea, vomiting, diarrhea. There is no fever or chills. No genitourinary complaints. On 02/20/2020 the patient was seen in follow-up on the selective care unit with Dr. Odell. He is in no acute distress, remains hemodynamically stable, and is sitting up to the bedside recliner. He denies any complaints of chest pain or shortness of breath, although he is complaining of frequent belching. An electrical cardioversion was completed this morning by Dr. CHELSEA Schaffer for persistent atrial fibrillation despite pharmacological therapy. His remote telemetry is currently showing normal sinus rhythm with some global ST elevation heart rate 69. Oxygen saturation are 95% on 2 L nasal cannula. Amiodarone drip is infusing at 0.5 mg/m and he also has a 0.9% normal saline at 10 mL per hour. A chest x-ray was completed this morning which demonstrated COPD with right lower lobe infiltrate and small effusion. The patient was seen and examined on 02/21/2020 on the cardiac stepdown unit with Dr. Odell. He was sitting up in a recliner talking on the phone in no acute distress. Denies any pain, states shortness of breath has improved. Currently on 2 L nasal cannula with oxygen saturation 97%. Remains afebrile and hemodynamically stable. No labs or x-rays completed today. He was cardioverted yesterday, remains in sinus rhythm. No new concerns. The patient was seen and examined on 02/22/2020 and the cardiac stepdown unit with Dr. Odell. He sitting up in a recliner in no acute distress. Denies any pain, states shortness of breath has improved from admission. Currently on 2 L nasal cannula with oxygen saturation 95%. Remains afebrile. Hemodynamically stable. Remains in normal sinus rhythm. White blood cell count 12, hemoglobin 12, BUN 40, creatinine 1.4, potassium 5.8, TSH 5.19. No chest x-ray completed today. No new concerns. The patient was seen and examined 02/23/[address] Love on the cardiac stepdown unit. He is sitting up in a recliner again in no acute distress. Denies any pain or shortness of breath. Currently on 2 L nasal cannula with oxygen saturation 94%. Remains afebrile. Hemodynamically stable. WBC 10.8, hemoglobin 12.1, potassium 5.6, BUN 38, creatinine 1.42. No chest x-ray today. No new concerns, plan is for discharge to home today. Objective - Vital Signs Vital signs: Vital Signs Temp 98.1 F 02/23/20 03:20 Pulse 72 02/23/20 08:01 Resp 18 02/23/20 03:20 BP 127/76 02/23/20 03:20 Pulse Ox 94 L 02/23/20 03:20 Intake & Output 02/22/20 02/23/20 02/23/20 18:59 06:59 18:59 Intake Total 480 Output Total 900 Balance 480 -900 Weight 92.7 kg Intake: Oral 480 Output: Urine 900 Other: Voiding Method Urinal Urinal # Voids 1 - Constitutional Constitutional Comment(s): Sitting up in a chair in no acute distress, appears comfortable, talking on the telephone General appearance: Present: cooperative, no acute distress - Respiratory Details: Lungs sounds diminished bilaterally. Respirations even, nonlabored. Currently on 2 L nasal cannula with oxygen saturation 94%. Strong cough. - Cardiovascular Details: S1, S2 present. Regular rate and rhythm, sinus rhythm on telemetry. Palpable peripheral pulses bilaterally. 1+ bilateral lower extremity edema present. No calf pain or tenderness noted. - Gastrointestinal Gastrointestinal Comment(s): Abdomen soft, nontender, nondistended. No organomegaly present. Active bowel sounds present 4 quadrants. Tolerating diet. - Integumentary Integumentary Comment(s): Skin is warm and dry. - Neurologic Neurologic: Present: CNII-XII intact - Musculoskeletal Musculoskeletal: Present: gait normal, strength equal bilaterally - Psychiatric Psychiatric: Present: A&O x's 3, appropriate affect, intact judgment & insight - Allied health notes Allied health notes reviewed: nursing - Labs CBC & Chem 7: 02/23/20 06:44 02/23/20 06:44 Labs: Abnormal Lab Results - Last 24 Hours (Table) 02/22/20 02/22/20 02/23/20 Range/Units 14:01 15:40 06:44 WBC 10.8 H (3.8-10.6) k/uL RBC 3.91 L (4.30-5.90) m/uL Hgb 12.1 L (13.0-17.5) gm/dL MCV 100.3 H (80.0-100.0) fL MCHC 30.9 L (31.0-37.0) g/dL Neutrophils # 9.1 H (1.3-7.7) k/uL Lymphocytes # 0.6 L (1.0-4.8) k/uL Potassium 6.1 H* 6.0 H (3.5-5.1) mmol/L Chloride (98-107) mmol/L Carbon Dioxide (22-30) mmol/L BUN (9-20) mg/dL Creatinine (0.66-1.25) mg/dL 02/23/20 Range/Units 06:44 WBC (3.8-10.6) k/uL RBC (4.30-5.90) m/uL Hgb (13.0-17.5) gm/dL MCV (80.0-100.0) fL MCHC (31.0-37.0) g/dL Neutrophils # (1.3-7.7) k/uL Lymphocytes # (1.0-4.8) k/uL Potassium 5.6 H (3.5-5.1) mmol/L Chloride 92 L (98-107) mmol/L Carbon Dioxide 37 H (22-30) mmol/L BUN 38 H (9-20) mg/dL Creatinine 1.42 H (0.66-1.25) mg/dL Assessment and Plan Assessment: 1. Shortness of breath, likely multifactorial, in part related to mild underlying congestive heart failure, atrial fibrillation with RVR and possibly some mild chronic obstructive pulmonary disease exacerbation. 2. History of recent transcatheter aortic valve replacement for aortic valve stenosis. 3. History of chronic persistent atrial fibrillation/atrial flutter status post cardioversion 02/20/2020, currently in sinus rhythm. 4. History of asthma. 5. History of congestive heart failure. 6. History of hypertension. 7. History of prior bladder surgery. Plan: The patient was seen and examined with Dr. Odell. Wean O2 as tolerated. Continue updrafts. May discontinue antibiotics Continue amiodarone, Eliquis per cardiology GI consulted for belching, no acute intervention. Patient may need EGD on outpatient basis in 6-8 weeks. Patient is stable from pulmonary standpoint May discharge when okay with other services I, the cosigning physician, performed a history & physical examination of the patient. Lungs sounds are diminished bilaterally. Maintaining good O2 saturations in the 90s on 2 L nasal cannula. I discussed the assessment and plan of care with my nurse practitioner, Keshia Garner. I attest to the above note as dictated by her. Time with Patient: Greater than 30
--- NOTE | 2020-02-23 13:00 | PN ---
PROGRESS NOTE Mr. López is in sinus rhythm, breathing better. Denies chest pain. Complains of shortness of breath which is stable. Vitals are stable. Heart rate is about 70. JVD 1 cm. No carotid bruit. S1, S2 heard normally, short systolic murmur noted. Lungs reveal improved air entry. Abdomen and lower extremity exam unchanged. This patient is status post aortic valve replacement by percutaneous approach, preserved LV function, moderate pulmonary hypertension, COPD, and had paroxysmal atrial fibrillation and after cardioversion is maintaining sinus rhythm. Advised to be discharged on his current medical regimen. I discussed my thoughts in detail with the patient and also talked to Dr. Dago Kaur. MMODL / IJN: [id number] /
--- NOTE | 2020-02-23 15:09 | PN ---
PROGRESS NOTE DATE OF SERVICE: 02/23/2020 Patient is an 84-year-old pleasant white male admitted to the hospital with atrial fibrillation with RVR, underwent cardioversion, remains on Eliquis 500 mg twice daily. He started on Protonix 40 mg daily as well as Reglan 5 mg before each meal and his symptoms are gradually improving. His belching has improved. Denies any abdominal discomfort. No chest pain. PHYSICAL EXAMINATION: Appears comfortable. VITAL SIGNS: Stable. Blood pressure is 133/82, pulse rate 70, afebrile. HEENT: Examination unremarkable. Conjunctivae are pink. Sclerae nonicteric. Oral cavity no lesions. NECK: No JVD or lymph node enlargement. CHEST: Clear to auscultation. HEART: Regular rate and rhythm. ABDOMEN: Soft. Bowel sounds are positive. No organomegaly. EXTREMITIES: No pedal edema. SKIN: No rashes. NEUROLOGIC: Alert and oriented x3. No focal deficits. LABS: WBC 10.8, hemoglobin 12.1, platelets normal. Basic metabolic panel showed a potassium of 5.6, BUN 38, creatinine 1.42. IMPRESSION: 1. Excessive belching, burping, probably related to GERD on Protonix 40 mg twice daily as well as Reglan 5 mg before admission and bedtime, symptoms gradually improving. 2. Atrial fibrillation on Eliquis. 3. Chronic kidney disease and hyperkalemia, which is improving. RECOMMENDATIONS: Discussed with the patient about diet modification for possible GERD causing his symptoms. Recommended small frequent meals. Avoid caffeine, carbonated beverages, and follow anti-reflux measures. He will remain on Protonix 40 mg daily and try to wean the Reglan and take as needed. He will be seen in the office in 3-4 weeks and we will plan upper endoscopy in the next 4-6 weeks. Thank you for this consultation. MMODL / IJN: [id number] /
[2020-02-23 15:35] VITALS: TEMP 98
[2020-02-23 17:26] VITALS: BP 132/63; PULSE 67
[2020-02-24] MEDS ORDERED: FUROSEMIDE 20 MG TAB PO SCH (09:00)
[2020-02-27] MEDS ORDERED: AMIODARONE 200 MG TAB PO SCH (09:00)
== END 2020-02-23 18:11 | disposition home or self-care (01) | DRG 308 ==
LOC: EC 17:03 → 3SCARD 18:53
PROVIDERS: ADMIT Family Medicine; ATTEND Family Medicine
PROC: 5A2204Z Restoration of Cardiac Rhythm, Single (ICD-10-PCS; principal; 2020-02-20 07:30)
DX: I48.4 Atypical atrial flutter (principal); J96.01 Acute respiratory failure with hypoxia; J18.9 Pneumonia, unspecified organism; I13.0 Hypertensive heart and chronic kidney disease with heart failure and stage 1 through stage 4 chronic kidney disease, or unspecified chronic kidney disease; I50.32 Chronic diastolic (congestive) heart failure; J44.1 Chronic obstructive pulmonary disease with (acute) exacerbation; J45.21 Mild intermittent asthma with (acute) exacerbation; N17.9 Acute kidney failure, unspecified; I48.19 Other persistent atrial fibrillation; I27.20 Pulmonary hypertension, unspecified; J98.6 Disorders of diaphragm; N18.3 Chronic kidney disease, stage 3 (moderate); E66.9 Obesity, unspecified; E78.5 Hyperlipidemia, unspecified; E87.5 Hyperkalemia; F17.200 Nicotine dependence, unspecified, uncomplicated; I34.0 Nonrheumatic mitral (valve) insufficiency; I25.10 Atherosclerotic heart disease of native coronary artery without angina pectoris; K21.9 Gastro-esophageal reflux disease without esophagitis; R06.6 Hiccough; R91.1 Solitary pulmonary nodule; R79.89 Other specified abnormal findings of blood chemistry; Z68.28 Body mass index [BMI] 28.0-28.9, adult; Z79.01 Long term (current) use of anticoagulants; Z79.82 Long term (current) use of aspirin; Z79.899 Other long term (current) drug therapy; Z95.2 Presence of prosthetic heart valve; Z80.9 Family history of malignant neoplasm, unspecified
CPT/HCPCS: 36415; 71045; 71046; 80048; 80053; 83605; 83735; 83880; 84132; 84443; 84484; 85025; 85610; 85730; 92960; 93005; 94640; 96365; 96366; 96368; 96376; 99291

== ENCOUNTER 2020-02-24 08:41 | Inpatient (IN) | payer MEDICARE ==
[2020-02-24] MEDS ORDERED: IPRATROPIUM-ALBUTEROL 3 ML NEB INHALATION STA (08:56)
[2020-02-24 09:15] LABS: Basophils % (A) 0 %; Eosinophils # (A) 0.1 k/uL (0-0.7); Eosinophils % (A) 1 %; HCT 44.3 % (39.0-53.0); HGB 13.7 gm/dL (13.0-17.5); Lymphocytes # (A) 0.6 k/uL (1.0-4.8); Lymphocytes % (A) 4 %; MCH 30.8 pg (25.0-35.0); MCV 99.6 fL (80.0-100.0); Mean Platelet Volume 8.1; Monocytes # (A) 0.7 k/uL (0-1.0); Monocytes % (A) 5 %; Neutrophils # (A) 12.6 k/uL (1.3-7.7); Neutrophils % (A) 89 %; Platelet Count 272 k/uL (150-450); RBC 4.45 m/uL (4.30-5.90); RDW 13.3 % (11.5-15.5); WBC 14.1 k/uL (3.8-10.6)
--- NOTE | 2020-02-24 09:17 | ED ---
SOB HPI - General Chief Complaint: Shortness of Breath Stated Complaint: SOB Time Seen by Provider: 02/24/20 08:48 Source: patient, RN notes reviewed Mode of arrival: wheelchair Limitations: physical limitation - History of Present Illness Initial Comments: This is a 84-year-old male who was just discharged yesterday from this facility he has a history of COPD with home oxygen who states he started developing shortness of breath last night he also states he has increased swelling to his lower extremities. He denies any overt fevers chills sweats he does have a history of atrial fibrillation apparently. No palpitations reported no other modifying factors at this time he does have exertional dyspnea MD Complaint: shortness of breath - Related Data Home Medications Medication Instructions Recorded Confirmed Apixaban [Eliquis] 5 mg PO BID 02/14/20 02/18/20 Ipratropium Nebulized [Atrovent 0.5 mg INHALATION RT-TID 02/14/20 02/18/20 Nebulized 0.2 MG/ML] Metoprolol Tartrate [Lopressor] 25 mg PO BID 02/14/20 02/18/20 Multivitamins, Thera [Multivitamin 1 tab PO DAILY 02/14/20 02/18/20 (formulary)] Amiodarone [Cordarone] 200 mg PO DIRECTED 02/24/20 02/24/20 Polyethylene Glycol 3350 [Miralax] 17 gm PO DAILY PRN 02/24/20 02/24/20 Previous Rx's Medication Instructions Recorded Cefuroxime Axetil [Ceftin] 500 mg PO BID 5 Days #10 tab 02/21/20 Diltiazem Oral [Cardizem*] 30 mg PO TID #90 tab 02/21/20 Metoclopramide [Reglan] 5 mg PO AC-TID #42 tab 02/21/20 Pantoprazole [Protonix] 40 mg PO AC-BID #60 tablet. 02/21/20 Amiodarone [Cordarone] 400 mg PO BID #9 tab 02/22/20 Furosemide [Lasix] 20 mg PO DAILY #0 tab 02/23/20 Allergies Allergy/AdvReac Type Severity Reaction Status Date / Time No Known Allergies Allergy Verified 02/24/20 10:37 Review of Systems ROS Statement: Those systems with pertinent positive or pertinent negative responses have been documented in the HPI. ROS Other: All systems not noted in ROS Statement are negative. Past Medical History Past Medical History: Atrial Fibrillation, Atrial Flutter, Asthma, Heart Failure, Hypertension History of Any Multi-Drug Resistant Organisms: None Reported Additional Past Surgical History / Comment(s): aortic heart valve replacement, bladder sx Past Psychological History: No Psychological Hx Reported Smoking Status: Former smoker Past Alcohol Use History: None Reported Past Drug Use History: None Reported - Past Family History Father Family Medical History: Cancer General Exam - General Exam Comments Initial Comments: This is a well-developed well-nourished awake alert oriented 3 male patient did have a 83% pulse ox on room air he is normally on 2 L. Limitations: physical limitation General appearance: alert Head exam: Present: atraumatic, normocephalic, normal inspection Eye exam: Present: normal appearance, PERRL, EOMI. Absent: scleral icterus, conjunctival injection, periorbital swelling ENT exam: Present: normal exam, mucous membranes moist Neck exam: Present: normal inspection, full ROM, other (No stridor JVD or bruits). Absent: tenderness, meningismus, lymphadenopathy Respiratory exam: Present: wheezes, rales, decreased breath sounds. Absent: respiratory distress, rhonchi, stridor Cardiovascular Exam: Present: normal rhythm, tachycardia, normal heart sounds. Absent: systolic murmur, diastolic murmur, rubs, gallop, clicks GI/Abdominal exam: Present: soft, normal bowel sounds. Absent: distended, tenderness, guarding, rebound, rigid Extremities exam: Present: full ROM, normal capillary refill, pedal edema (Pila edema to the knees). Absent: tenderness, joint swelling, calf tenderness Back exam: Present: normal inspection Neurological exam: Present: alert, oriented X3, CN II-XII intact Psychiatric exam: Present: normal affect, normal mood Skin exam: Present: warm, dry, intact, normal color. Absent: rash Course Vital Signs 02/24/20 02/24/20 08:45 09:10 Temperature 98.0 F Pulse Rate 108 H Respiratory 28 H 24 Rate Blood Pressure 144/68 O2 Sat by Pulse 83 L Oximetry - Reevaluation(s) Reevaluation #1: 02/24/20 10:44 Reevaluation patient reveals he is at slightly increased aeration after treatment he states he feels slightly better he does however have now bilateral rales. He states this didn't occur overnight. I did discuss the findings with him also with Dr. Kaur the patient will be readmitted and cardiology will be consulted. Of note the EKG today shows evidence of atrial flutter with a reasonably controlled rate he was in a sinus rhythm and the 14th of this month Medical Decision Making - Medical Decision Making I did reevaluate patient and the patient is showing is only slightly improved he does demonstrate evidence of acute CHF and recurrent atrial flutter. Also his magnesium level is borderline. Patient will be admitted the case is discussed with Dr. Kaur. Cardiology will be consulted. - Lab Data Result diagrams: 02/24/20 09:00 02/24/20 09:00 Lab Results 02/24/20 02/24/20 02/24/20 Range/Units 09:00 09:00 09:00 WBC 14.1 H (3.8-10.6) k/uL RBC 4.45 (4.30-5.90) m/uL Hgb 13.7 (13.0-17.5) gm/dL Hct 44.3 (39.0-53.0) % MCV 99.6 (80.0-100.0) fL MCH 30.8 (25.0-35.0) pg MCHC 31.0 (31.0-37.0) g/dL RDW 13.3 (11.5-15.5) % Plt Count 272 (150-450) k/uL Neutrophils % 89 % Lymphocytes % 4 % Monocytes % 5 % Eosinophils % 1 % Basophils % 0 % Neutrophils # 12.6 H (1.3-7.7) k/uL Lymphocytes # 0.6 L (1.0-4.8) k/uL Monocytes # 0.7 (0-1.0) k/uL Eosinophils # 0.1 (0-0.7) k/uL Basophils # 0.0 (0-0.2) k/uL PT (9.0-12.0) sec INR (<1.2) APTT (22.0-30.0) sec Sodium 137 (137-145) mmol/L Potassium 6.0 H (3.5-5.1) mmol/L Chloride 93 L (98-107) mmol/L Carbon Dioxide 34 H (22-30) mmol/L Anion Gap 10 mmol/L BUN 42 H (9-20) mg/dL Creatinine 1.39 H (0.66-1.25) mg/dL Est GFR (CKD-EPI)AfAm 54 (>60 ml/min/1.73 sqM) Est GFR (CKD-EPI)NonAf 46 (>60 ml/min/1.73 sqM) Glucose 107 H (74-99) mg/dL Plasma Lactic Acid Jose 1.4 (0.7-2.0) mmol/L Calcium 9.2 (8.4-10.2) mg/dL Magnesium 1.7 (1.6-2.3) mg/dL Total Bilirubin 0.7 (0.2-1.3) mg/dL AST 48 (17-59) U/L ALT 36 (4-49) U/L Alkaline Phosphatase 135 H (38-126) U/L Creatine Kinase 77 (55-170) U/L Troponin I (0.000-0.034) ng/mL NT-Pro-B Natriuret Pep pg/mL Total Protein 7.7 (6.3-8.2) g/dL Albumin 4.1 (3.5-5.0) g/dL 02/24/20 02/24/20 02/24/20 Range/Units 09:00 09:00 09:30 WBC (3.8-10.6) k/uL RBC (4.30-5.90) m/uL Hgb (13.0-17.5) gm/dL Hct (39.0-53.0) % MCV (80.0-100.0) fL MCH (25.0-35.0) pg MCHC (31.0-37.0) g/dL RDW (11.5-15.5) % Plt Count (150-450) k/uL Neutrophils % % Lymphocytes % % Monocytes % % Eosinophils % % Basophils % % Neutrophils # (1.3-7.7) k/uL Lymphocytes # (1.0-4.8) k/uL Monocytes # (0-1.0) k/uL Eosinophils # (0-0.7) k/uL Basophils # (0-0.2) k/uL PT 11.0 (9.0-12.0) sec INR 1.1 (<1.2) APTT 27.2 (22.0-30.0) sec Sodium (137-145) mmol/L Potassium (3.5-5.1) mmol/L Chloride (98-107) mmol/L Carbon Dioxide (22-30) mmol/L Anion Gap mmol/L BUN (9-20) mg/dL Creatinine (0.66-1.25) mg/dL Est GFR (CKD-EPI)AfAm (>60 ml/min/1.73 sqM) Est GFR (CKD-EPI)NonAf (>60 ml/min/1.73 sqM) Glucose (74-99) mg/dL Plasma Lactic Acid Jose (0.7-2.0) mmol/L Calcium (8.4-10.2) mg/dL Magnesium (1.6-2.3) mg/dL Total Bilirubin (0.2-1.3) mg/dL AST (17-59) U/L ALT (4-49) U/L Alkaline Phosphatase (38-126) U/L Creatine Kinase (55-170) U/L Troponin I 0.021 (0.000-0.034) ng/mL NT-Pro-B Natriuret Pep 5010 pg/mL Total Protein (6.3-8.2) g/dL Albumin (3.5-5.0) g/dL - EKG Data -: EKG Interpreted by Me (EKG shows atrial flutter with variable A-V rate of 108) EKG Comments: QRS 92 QT since QTC 344/460 poor R-wave progression atrial flutter was noted he comparison with a EKG dated 02/20/20 shows a sinus rhythm a 73 that time - Radiology Data Radiology results: report reviewed (I did review the imaging and report evidence of COPD with bilateral pleural effusions.), image reviewed Critical Care Time Critical Care Time: Yes Critical Care Time: 31 minutes of critical care time which includes initial presentation with history physical labs x-rays discussed with paramedics brought the patient review of old charting was available reevaluation the patient. Discussed with the admitting physician admission orders and documentation of the above Disposition Clinical Impression: Congestive heart failure, Atrial flutter, Hyperkalemia, Renal insufficiency syndrome, COPD exacerbation Disposition: ADMITTED IP TO THIS HOSP Condition: Fair Referrals: Ramana Kaur MD [Primary Care Provider] - 1-2 days
[2020-02-24] MEDS ORDERED: ALBUTEROL HFA INHALER INHALATION STA (09:26)
--- NOTE | 2020-02-24 09:26 | XR ---
EXAMINATION TYPE: XR chest 1V DATE OF EXAM: 02/24/2020 HISTORY: difficulty breathing. REFERENCE: Previous study dated 02/20/2020. FINDINGS: Lung volumes are prominent. The heart is mildly enlarged. There is bibasilar infiltrates. T here are worsening small effusions. There is mild vascular congestion without andres edema. IMPRESSION: 1. COPD. 2. WORSENING BIBASILAR AIRSPACE DISEASE. 3. CARDIOMEGALY. 4. SMALL, BILATERAL EFFUSIONS.
[2020-02-24 09:46] LABS: Albumin 4.1 g/dL (3.5-5.0); Calcium 9.2 mg/dL (8.4-10.2); Total Bilirubin 0.7 mg/dL (0.2-1.3); Total Protein 7.7 g/dL (6.3-8.2)
[2020-02-24 09:47] LABS: Magnesium 1.7 mg/dL (1.6-2.3)
[2020-02-24 10:14] LABS: INR 1.1 (<1.2)
[2020-02-24 10:15] LABS: Partial Thromboplastin Time 27.2 sec (22.0-30.0)
[2020-02-24] MEDS ORDERED: MAGNESIUM SULFATE-D5W PMX 1 GM in DEXTROSE/WATER 1 100ML.BAG IVPB ONE (10:48)
[2020-02-24] MEDS ORDERED: POLYETHYLENE GLYCOL 3350 17 GM POWD.PACK PO PRN (10:53)
[2020-02-24] MEDS ORDERED: SODIUM POLYSTYRENE SULFONATE 15 GM/60 ML BOTTLE PO STA (10:54)
[2020-02-24] MEDS: FUROSEMIDE 10 MG/ML 4 ML VIAL IV SCH ×2 (11:30→21:31)
[2020-02-24] MEDS: TIOTROPIUM 18 MCG/PUFF INHALER INHALATION SCH (12:07)
[2020-02-24] MEDS ORDERED: IPRATROPIUM 0.5 MG/2.5 ML NEBU INHALATION SCH (13:00)
[2020-02-24] MEDS: METOCLOPRAMIDE 5 MG TAB PO SCH ×2 (13:04→16:26)
[2020-02-24] MEDS: DILTIAZEM ORAL 30 MG TAB PO SCH ×2 (16:20→21:32)
[2020-02-24] MEDS: PIPERACILLIN-TAZOBACTAM 3.375 GM in SODIUM CHLORIDE 0.9% 100 ML IVPB SCH ×2 (16:20→23:09)
[2020-02-24] MEDS: PANTOPRAZOLE 40 MG TABLET PO SCH (16:26)
--- NOTE | 2020-02-24 17:14 | HP ---
HISTORY AND PHYSICAL 84-year-old white male discharged less than a day ago. He went home with his family. He came back with severe significant shortness of breath in just 12 hours and severe swelling in his legs. He was found to have a really fast heart rate at home and he came to the emergency room for shortness of breath. He was found to be severely hyperkalemic, worsening renal function, elevated BNP of over 5000 and possible bilateral airspace disease. HOME MEDICATIONS: Eliquis, Atrovent, Lopressor, Cordarone, MiraLAX. ALLERGIES: Negative. REVIEW OF SYSTEMS: Fourteen-point review of systems negative except for mentioned in HPI. PAST MEDICAL HISTORY: Atrial fibrillation, atrial flutter, asthma, heart failure, hypertension. FAMILY HISTORY: Father with cancer. PHYSICAL EXAMINATION: Temperature 98, pulse 108, respiratory rate 28, blood pressure is 144/68, O2 saturation 83 on room air. Well developed, well nourished male with hypoxemia on 2 L. EXTREMITIES show 2+ pedal edema. CARDIOVASCULAR tachycardic, 2/6 systolic ejection murmur. Wheezes, rales, rhonchi. NECK: Supple. OPHTHALMOLOGIC: Pupils equal, round, reactive. EXTREMITIES absent tenderness, joint or calf tenderness. PSYCH: Fair mood and affect. NEUROLOGIC: Alert and oriented x3. ASSESSMENT AND PLAN: 1. Acute hypoxemic respiratory distress secondary to bilateral pneumonia. 2. Congestive heart failure. 3. Atrial fibrillation. 4. Acute on chronic congestive heart failure, possibly secondary to pulmonary hypertension. 5. Atrial flutter, new onset. 6. Cardiology has been consulted. 7. Treatment of pneumonia will continue. 8. Renal insufficiency with hyperkalemia, which will be addressed by renal physician. 9. We will get transportation modeler to try to help treat the pneumonia. 10.Please see further orders. 11.He will need renal rehab center for 3 weeks prior to his family taking him home. MMODL / IJN: [id number] /
[2020-02-24 20:22] LABS: Potassium 5.4 mmol/L (3.5-5.1)
[2020-02-24] MEDS ORDERED: METOPROLOL TARTRATE 25 MG TAB PO SCH (21:00)
[2020-02-24] MEDS ORDERED: CEFDINIR 300 MG CAP PO SCH (21:00)
[2020-02-24 21:01] LABS: Glucose,Whole Blood 126 mg/dL (75-99)
[2020-02-24] MEDS: METOPROLOL TARTRATE 50 MG TAB PO SCH (21:32)
[2020-02-24] MEDS: AMIODARONE 200 MG TAB PO SCH (21:32)
[2020-02-24] MEDS: APIXABAN 5 MG TAB PO SCH (21:32)
--- NOTE | 2020-02-24 22:24 | CT ---
EXAMINATION TYPE: CT chest wo con DATE OF EXAM: 02/24/2020 COMPARISON: None HISTORY: increased SOB CT DLP: 550.6 mGycm Automated exposure control for dose reduction was used. There are bilateral moderate pleural effusions. Heart is enlarged. There is mild pericardial effusion . There is aortic valve surgery. There is no mediastinal adenopathy. Thoracic aorta is atheromatous. There is no aneurysm. There are no hilar masses. There is no evidence of a pulmonary mass. There is m ild atelectasis at the lung bases. Bony thorax is intact. IMPRESSION: Cardiomegaly with pleural effusions and pericardial effusion that could relate to mild chronic conges tive heart failure. No suspicious pulmonary mass. Mild basilar pulmonary infiltrates and atelectasis.
[2020-02-25 06:07] LABS: Glucose,Whole Blood 198 mg/dL (75-99)
[2020-02-25] MEDS: METOCLOPRAMIDE 5 MG TAB PO SCH ×3 (06:27→17:25)
[2020-02-25] MEDS: PANTOPRAZOLE 40 MG TABLET PO SCH ×2 (06:27→17:25)
[2020-02-25] MEDS ORDERED: SODIUM POLYSTYRENE SULFONATE 15 GM/60 ML BOTTLE PO STA (07:52)
[2020-02-25] MEDS ORDERED: IPRATROPIUM-ALBUTEROL 3 ML NEB INHALATION SCH (08:00)
[2020-02-25] MEDS: PIPERACILLIN-TAZOBACTAM 3.375 GM in SODIUM CHLORIDE 0.9% 100 ML IVPB SCH ×3 (08:15→23:50)
[2020-02-25] MEDS: APIXABAN 5 MG TAB PO SCH ×2 (08:16→21:41)
[2020-02-25] MEDS: AMIODARONE 200 MG TAB PO SCH ×2 (08:16→21:40)
[2020-02-25] MEDS: FUROSEMIDE 10 MG/ML 4 ML VIAL IV SCH ×2 (08:16→21:41)
[2020-02-25] MEDS: MULTIVITAMINS, THERA 1 EACH TAB PO SCH (08:16)
[2020-02-25] MEDS: DILTIAZEM ORAL 30 MG TAB PO SCH ×3 (08:16→21:41)
[2020-02-25] MEDS: METOPROLOL TARTRATE 50 MG TAB PO SCH ×2 (08:16→21:41)
[2020-02-25] MEDS: ALBUTEROL HFA INHALER INHALATION SCH ×4 (08:48→20:00)
[2020-02-25] MEDS: TIOTROPIUM 18 MCG/PUFF INHALER INHALATION SCH (08:49)
[2020-02-25] MEDS ORDERED: FUROSEMIDE 20 MG TAB PO SCH (09:00)
--- NOTE | 2020-02-25 09:03 | CONS ---
CONSULTATION Mr. López was recently discharged from the hospital. He came. He has history of aortic valve replacement by percutaneous approach. Past history of smoking, COPD, mild to moderate renal dysfunction with hyperkalemia. He also has a chronic persistent atrial flutter fibrillation. Last Wednesday, I performed electrical cardioversion on this patient. He was sent home on metoprolol tartrate 50 mg b.i.d., Cardizem and amiodarone. After he went home, he became more short of breath and came back into the emergency room. He was found to be in atrial fibrillation. He was actually in sinus rhythm upon discharge, but he was in atrial fibrillation when he came in. The rate was in the 110-120 range. He has been hospitalized. He is resting comfortably at the time of my evaluation, looking at his computer. This gentleman seems to have chronic persistent atrial fibrillation and he has had a cardioversion about 2 months ago in [place] as well. He is on Eliquis 5 mg b.i.d., resting comfortably without symptoms. Please refer to my detailed notes during the last admission about 3 days ago. At the time of my evaluation, he is resting comfortably without symptoms. Blood pressure is 118/70, pulse rate is about 70 -80 per minute, irregular. JVD 1 cm. No carotid bruit. There is a short systolic murmur at the base. Lungs revealed diminished air entry. Abdomen and lower extremity exam is unchanged. IMPRESSION: 1. Recurrent persistent atrial fibrillation status post electrical cardioversion back in atrial flutter fibrillation at this time. 2. Hypertension. 3. History of aortic valve replacement by percutaneous approach in November. 4. History of chronic obstructive pulmonary disease. 5. Past history of smoking. 6. Renal insufficiency with hyperkalemia. RECOMMENDATIONS: I am recommending that we give him a Kayexalate for his hyperkalemia. Kayexalate for his hyperkalemia. Leave him on metoprolol tartrate 50 mg b.i.d. and continue all his other medications as before and hopefully we can settle for rate control and anticoagulation. Discharge him soon. I discussed my thoughts in detail with the patient. Thank you very much for the consult. MMODL / IJN: [id number] /
--- NOTE | 2020-02-25 10:49 | P.NPCON ---
History of Present Illness - Reason for Consult Consult date: 02/25/20 acute renal failure - Chief Complaint Acute kidney injury congestive heart failure - History of Present Illness This is an 84-year-old male being admitted after 12 hours post discharge with shortness of breath. He was seen in exacerbation with acute kidney injury and chronic kidney disease hyperkalemia. Since admission he was diuresed and has felt significantly improvement in his shortness of breath. Denies any fever chills cough nausea, vomiting diarrhea has a good appetite. No dizziness Denies any complaints suggestive of any prostatism. He is known with COPD, atrial fibrillation, aortic valve replacement, asthma, hypertension, additionally has had recent cardioversion on 02/20/2020 Past Medical History Past Medical History: Atrial Fibrillation, Atrial Flutter, Asthma, Heart Failure, Hypertension History of Any Multi-Drug Resistant Organisms: None Reported Additional Past Surgical History / Comment(s): aortic heart valve replacement, bladder sx Past Anesthesia/Blood Transfusion Reactions: No Reported Reaction Past Psychological History: No Psychological Hx Reported Smoking Status: Former smoker Past Alcohol Use History: None Reported Past Drug Use History: None Reported - Past Family History Father Family Medical History: Cancer Medications and Allergies Home Medications Medication Instructions Recorded Confirmed Type Apixaban [Eliquis] 5 mg PO BID 02/14/20 02/24/20 History Ipratropium Nebulized [Atrovent 0.5 mg INHALATION RT-TID 02/14/20 02/24/20 History Nebulized 0.2 MG/ML] Metoprolol Tartrate [Lopressor] 25 mg PO BID 02/14/20 02/24/20 History Multivitamins, Thera [Multivitamin 1 tab PO DAILY 02/14/20 02/24/20 History (formulary)] Cefuroxime Axetil [Ceftin] 500 mg PO BID 5 Days #10 tab 02/21/20 02/24/20 Rx Diltiazem Oral [Cardizem*] 30 mg PO TID #90 tab 02/21/20 02/24/20 Rx Metoclopramide [Reglan] 5 mg PO AC-TID #42 tab 02/21/20 02/24/20 Rx Pantoprazole [Protonix] 40 mg PO AC-BID #60 tablet. 02/21/20 02/24/20 Rx Amiodarone [Cordarone] 400 mg PO BID #9 tab 02/22/20 02/24/20 Rx Furosemide [Lasix] 20 mg PO DAILY #0 tab 02/23/20 02/24/20 Rx Amiodarone [Cordarone] 200 mg PO DIRECTED 02/24/20 02/24/20 History Polyethylene Glycol 3350 [Miralax] 17 gm PO DAILY PRN 02/24/20 02/24/20 History Allergies Allergy/AdvReac Type Severity Reaction Status Date / Time No Known Allergies Allergy Verified 02/24/20 10:37 Physical Exam Vitals: Vital Signs Temp Pulse Pulse Resp BP BP Pulse Ox 02/25/20 08:00 97.9 F 83 18 100/58 97 02/25/20 04:00 98 F 82 18 102/63 95 02/25/20 00:00 98 F 84 19 93/63 95 02/24/20 20:00 98 F 95 19 107/60 98 02/24/20 16:00 98.3 F 102 H 20 114/60 98 02/24/20 12:00 98 20 02/24/20 11:41 98.0 F 100 20 138/58 98 02/24/20 11:28 97.9 F 98 20 107/65 98 02/24/20 10:59 100 20 138/58 98 Intake and Output 02/24/20 02/25/20 02/25/20 22:59 06:59 14:59 Output Total 400 260 Balance -400 -260 Output: Urine 400 250 Post Void Residual 10 Other: Voiding Method Urinal Urinal Urinal # Voids 800 1 Weight 91.2 kg 91.2 kg On examination is awake alert oriented comfortable sitting in a chair with nasal cannula oxygen HEENT exam no JVP neck is supple no facial asymmetry Lungs are significant for bilateral coarse crackles with fairly good air entry bilaterally Heart sounds are unremarkable for any murmur rub gallop he is in atrial fibril lation in spite of the recent cardioversion on 02/20/2020 Abdomen soft nontender no organomegaly ascites masses noted Extremity exam was moderate edema Neurologically awake alert oriented 3 but has weakness Results - Lab Results Most recent lab results Calcium 9.0 mg/dL (8.4-10.2) 02/24/20 19:36 Magnesium 1.7 mg/dL (1.6-2.3) 02/24/20 09:00 02/24/20 09:00 04/18/20 19:36 Assessment and Plan Assessment: Impression 1. Acute kidney injury from cardiorenal syndrome with congestive heart failure. 2. Chronic kidney disease stage III with GFR in the 30s secondary to neph rosclerosis Baseline creatinine 1.4 dated 02/22/2020. Right kidney measures 9.1 and left 10.3 cm is a right renal lesion without any increase in growth from 2018 likely is benign 0.8 cm hypoechoic area 3. Congestive heart failure. With recurrent atrial fibrillation in spite of cardioversion dated 02/20/2020 4. Echocardiogram dated 02/15/2020 shows ejection fraction 55-60% 5. Hyperkalemia secondary to acute kidney injury. 6. Significant metabolic alkalosis with bicarb of 44, likely from diuresis Recommendation 1. Check orthostatic changes to assess volume as his metabolic alkalosis suggest volume depletion 2. In the meantime maintain Lasix to 40 every 12 . 3. Consider checking for COVID 4. Start Diamox 250 3 times a day for 3 days Thank you for this consultation will continue to follow
[2020-02-25 12:16] LABS: Glucose,Whole Blood 108 mg/dL (75-99)
[2020-02-25] MEDS: acetaZOLAMIDE 250 MG TAB PO SCH ×3 (13:30→21:41)
[2020-02-25 17:36] LABS: Glucose,Whole Blood 149 mg/dL (75-99)
[2020-02-25 18:50] LABS: Calcium 8.5 mg/dL (8.4-10.2); Potassium 4.4 mmol/L (3.5-5.1)
[2020-02-25 20:03] LABS: Glucose,Whole Blood 169 mg/dL (75-99)
--- NOTE | 2020-02-25 23:55 | PN ---
PROGRESS NOTE An 84-year-old with history of smoking, COPD, mild to moderate renal dysfunction, hyperkalemia came with a potassium of 6, which is improved today, a worsening atrial fibrillation that came back after he had cardiac shock on last admission. He could not breathe at home. He came in with congestive heart failure and atrial fibrillation versus flutter. Cardiology saw him. He still has 2 to 3+ pitting edema in his legs. CARDIOVASCULAR: Irregular, irregular rhythm. LUNGS: Show rales at the base. PSYCH: Fair mood and affect. ASSESSMENT: 1. Persistent atrial fibrillation with failed electrical cardioversion shock. 2. Atrial flutter. 3. Hypertension. 4. Aortic valve replacement. 5. Chronic obstructive pulmonary disease. 6. History of smoking. 7. Renal insufficiency. 8. Hyperkalemia. Await for renal and cardiology recommendations. Continue with IV Lasix to diuresis. Creatinine is increasing up to 2.2 today. Continue with Kayexalate for hyperkalemia. Continue on metoprolol. We are going to monitor him until he is stable and get him into a rehab center. He needs to go to rehab facility for 2 to 3 weeks. MMODL / IJN: [id number] /
[2020-02-26 05:38] LABS: Basophils % (A) 0 %; Eosinophils # (A) 0.1 k/uL (0-0.7); Eosinophils % (A) 1 %; HCT 37.1 % (39.0-53.0); Hypochromasia Slight; Lymphocytes # (A) 0.5 k/uL (1.0-4.8); Lymphocytes % (A) 4 %; MCH 30.4 pg (25.0-35.0); MCHC 29.6 g/dL (31.0-37.0); MCV 102.7 fL (80.0-100.0); Macrocytosis Slight; Mean Platelet Volume 8.9; Monocytes # (A) 0.9 k/uL (0-1.0); Monocytes % (A) 7 %; Neutrophils # (A) 11.1 k/uL (1.3-7.7); Neutrophils % (A) 87 %; Platelet Count 223 k/uL (150-450); RBC 3.61 m/uL (4.30-5.90); RDW 13.3 % (11.5-15.5); WBC 12.8 k/uL (3.8-10.6)
[2020-02-26 06:17] LABS: Glucose,Whole Blood 118 mg/dL (75-99)
[2020-02-26 06:17] LABS: Albumin 3.1 g/dL (3.5-5.0); Calcium 8.5 mg/dL (8.4-10.2); Potassium 4.5 mmol/L (3.5-5.1); Total Bilirubin 0.4 mg/dL (0.2-1.3); Total Protein 5.7 g/dL (6.3-8.2)
[2020-02-26] MEDS: PANTOPRAZOLE 40 MG TABLET PO SCH ×2 (06:31→19:40)
[2020-02-26] MEDS: METOCLOPRAMIDE 5 MG TAB PO SCH ×3 (06:31→17:58)
[2020-02-26] MEDS: ALBUTEROL HFA INHALER INHALATION SCH ×3 (07:00→15:31)
[2020-02-26] MEDS: TIOTROPIUM 18 MCG/PUFF INHALER INHALATION SCH (07:04)
[2020-02-26] MEDS: MULTIVITAMINS, THERA 1 EACH TAB PO SCH (08:23)
[2020-02-26] MEDS: METOPROLOL TARTRATE 50 MG TAB PO SCH ×2 (08:23→20:56)
[2020-02-26] MEDS: AMIODARONE 200 MG TAB PO SCH ×2 (08:23→20:55)
[2020-02-26] MEDS: PIPERACILLIN-TAZOBACTAM 3.375 GM in SODIUM CHLORIDE 0.9% 100 ML IVPB SCH ×3 (08:24→23:20)
[2020-02-26] MEDS: DILTIAZEM ORAL 30 MG TAB PO SCH ×3 (08:24→20:56)
[2020-02-26] MEDS: APIXABAN 5 MG TAB PO SCH ×2 (08:24→20:55)
[2020-02-26] MEDS: FUROSEMIDE 10 MG/ML 4 ML VIAL IV SCH ×2 (08:25→20:57)
[2020-02-26 12:07] LABS: Glucose,Whole Blood 128 mg/dL (75-99)
[2020-02-26] MEDS: acetaZOLAMIDE 250 MG TAB PO SCH ×3 (13:12→20:56)
--- NOTE | 2020-02-26 13:28 | P.PN ---
Subjective Progress Note Date: 02/26/20 This is an 84-year-old gentleman who was just recently discharged from the hospital. He has a history of aortic valve replacement by percutaneous approach, prior history of smoking, COPD, renal dysfunction. Patient also has chronic persistent atrial fibrillation/flutter and underwent an electro cardioversion on Wednesday of last week by Dr. CHELSEA Schaffer. Patient presented back to the hospital with symptoms of shortness of breath, he was found to be in atrial fibrillation with rapid ventricular response. This morning the patient is in a typical atrial flutter with a heart rate of 70-80. Overall the patient feels well, he continues to have a significant amount of bilateral lower extremity edema. Blood pressure 107/50, heart rate in the 70s to 80s. White blood cell count 12.8, hemoglobin 11.0, platelet count 223. Sodium 137, potassium 4.5, BUN 55 and creatinine 2.3. Objective - Vital Signs Vital signs: Vital Signs Temp 97.4 F L 02/26/20 12:47 Pulse 84 02/26/20 12:47 Resp 20 02/26/20 12:47 BP 98/52 02/26/20 12:47 Pulse Ox 99 02/26/20 12:47 Intake & Output 02/25/20 02/26/20 02/26/20 18:59 06:59 18:59 Intake Total 640 480 Output Total 1350 1700 200 Balance -710 -1700 280 Weight 91.2 kg 91 kg Intake: Oral 640 480 Output: Urine 1350 1700 200 Other: Voiding Method Urinal Urinal Urinal # Voids 1 - Exam PHYSICAL EXAMINATION: GENERAL: 84-year-old gentleman in no acute distress at the time of my examination HEENT: Head is atraumatic, normocephalic. Pupils equal, round. Sclera anicteric. Conjunctiva are clear. Mucous membranes of the mouth are moist. Neck is supple. There is no elevated jugular venous pressure. No carotid bruit is heard. HEART EXAMINATION: Heart S1 and S2 irregularly irregular a systolic murmur is heard CHEST EXAMINATION: Lungs reveal mild diminished air entry to the bases posteriorly ABDOMEN: Soft, nontender. Bowel sounds are heard. No organomegaly noted. EXTREMITIES:[ 2+ peripheral pulses with 3+ evidence of peripheral edema NEUROLOGIC patient is awake, alert and oriented 3 . . - Labs CBC & Chem 7: 02/26/20 04:45 02/26/20 04:45 Labs: Abnormal Lab Results - Last 24 Hours (Table) 02/25/20 02/25/20 02/25/20 Range/Units 17:33 18:15 20:02 WBC (3.8-10.6) k/uL RBC (4.30-5.90) m/uL Hgb (13.0-17.5) gm/dL Hct (39.0-53.0) % MCV (80.0-100.0) fL MCHC (31.0-37.0) g/dL Neutrophils # (1.3-7.7) k/uL Lymphocytes # (1.0-4.8) k/uL Sodium 133 L (137-145) mmol/L Chloride 86 L (98-107) mmol/L Carbon Dioxide 42 H* (22-30) mmol/L BUN 51 H (9-20) mg/dL Creatinine 2.27 H (0.66-1.25) mg/dL Glucose 135 H (74-99) mg/dL POC Glucose (mg/dL) 149 H 169 H (75-99) mg/dL Total Protein (6.3-8.2) g/dL Albumin (3.5-5.0) g/dL 02/26/20 02/26/20 02/26/20 Range/Units 04:45 04:45 06:16 WBC 12.8 H (3.8-10.6) k/uL RBC 3.61 L (4.30-5.90) m/uL Hgb 11.0 L (13.0-17.5) gm/dL Hct 37.1 L (39.0-53.0) % MCV 102.7 H (80.0-100.0) fL MCHC 29.6 L (31.0-37.0) g/dL Neutrophils # 11.1 H (1.3-7.7) k/uL Lymphocytes # 0.5 L (1.0-4.8) k/uL Sodium (137-145) mmol/L Chloride 87 L (98-107) mmol/L Carbon Dioxide 43 H* (22-30) mmol/L BUN 55 H (9-20) mg/dL Creatinine 2.31 H (0.66-1.25) mg/dL Glucose 103 H (74-99) mg/dL POC Glucose (mg/dL) 118 H (75-99) mg/dL Total Protein 5.7 L (6.3-8.2) g/dL Albumin 3.1 L (3.5-5.0) g/dL 02/26/20 Range/Units 12:03 WBC (3.8-10.6) k/uL RBC (4.30-5.90) m/uL Hgb (13.0-17.5) gm/dL Hct (39.0-53.0) % MCV (80.0-100.0) fL MCHC (31.0-37.0) g/dL Neutrophils # (1.3-7.7) k/uL Lymphocytes # (1.0-4.8) k/uL Sodium (137-145) mmol/L Chloride (98-107) mmol/L Carbon Dioxide (22-30) mmol/L BUN (9-20) mg/dL Creatinine (0.66-1.25) mg/dL Glucose (74-99) mg/dL POC Glucose (mg/dL) 128 H (75-99) mg/dL Total Protein (6.3-8.2) g/dL Albumin (3.5-5.0) g/dL Assessment and Plan Plan: Assessment and plan #1 paroxysmal atrial fibrillation with rapid ventricular response. Patient this morning is in a typical atrial flutter with a heart rate in the 70s to 80s. Patient recently underwent cardioversion for atrial fibrillation. #2 hypertension #3 history of aortic valve replacement by percutaneous approach in November #4 COPD #5 prior history of smoking #6 renal insufficiency with hyperkalemia Plan From cardiology's perspective, we will continue the patient on his current medications along with his anticoagulation. Diuretic management as per nephrology. DNP note has been reviewed, I agree with a documented findings and plan of care. Patient was seen and examined.
--- NOTE | 2020-02-26 15:37 | PN ---
PROGRESS NOTE Patient is seen for followup for chronic kidney disease and acute kidney injury, mainly cardiorenal. He is currently being diuresed. Lasix is at 40 mg q.12 hours. Overall, patient states he is feeling better, although he continues to have significant edema bilateral lower extremities. His creatinine is at 2.3 from 1.39 on initial admission with baseline of about 1.5-1.4 mg/dL. PHYSICAL EXAMINATION: On examination today, blood pressure was 107/50, heart rate 83 per minute, patient is afebrile. Examination of the heart S1, S2. Examination of the lungs, decreased breath sounds at bases. Abdomen is soft, nontender. Examination of the lower extremities, edema 2+ bilaterally. HOUSING INSPECTOR exam grossly intact. LABS: Show sodium 137, potassium 4.5, chloride 87, BUN 55, creatinine 2.3, chloride 87, and CO2 is 43. Hemoglobin 11.0 g/dL. ASSESSMENT: 1. Chronic kidney disease NKF stage III, secondary to nephrosclerosis. Baseline creatinine 1.4-1.5 mg/dL. 2. Acute kidney injury, cardiorenal, maintained on IV Lasix which I will continue AT the same dose for now. 3. Right renal mass, being followed by Urology as outpatient. 4. Atrial fibrillation with history of recent cardioversion on 02/20/2020. 5. Hyperkalemia associated with acute kidney injury. 6. Significant metabolic alkalosis from diuretics, started on Diamox. PLAN: Continue current dose of Lasix. Repeat labs in a.m. Continue with Diamox as well. Monitor electrolytes. MMODL / IJN: [id number] /
[2020-02-26 16:39] LABS: Glucose,Whole Blood 150 mg/dL (75-99)
[2020-02-26] MEDS ORDERED: FUROSEMIDE 10 MG/ML 4 ML VIAL IV STA (18:35)
[2020-02-26 19:27] LABS: Lactic Acid, Venous 1.3 mmol/L (0.7-2.0)
[2020-02-26 19:30] LABS: Magnesium 1.7 mg/dL (1.6-2.3)
--- NOTE | 2020-02-26 19:41 | CT ---
EXAMINATION TYPE: CT brain wo con DATE OF EXAM: 02/26/2020 COMPARISON: None HISTORY: 84-year-old male Confusion. TECHNIQUE: Examination was done in axial plane without intravenous contrast. Coronal and sagittal r econstructions performed. CT DLP: 1113.4 mGycm Automated exposure control for dose reduction was used. FINDINGS: There is no evidence of acute intracranial hemorrhage, acute ischemic changes, mass, mass-effect, or extra-axial fluid collection. There is no effacement of cerebral sulci or basal subarachnoid cister ns. There is no hydrocephalus. There is no midline shift. Jameson-white matter distinction is preserv ed. Extensive atherosclerotic calcifications carotid siphons and V4 segment left vertebral artery. Mild mucosal thickening throughout the ethmoid air cells. Mastoid air cells well pneumatized. Orbits and globes are intact. IMPRESSION: No acute intracranial abnormality seen.
[2020-02-26] MEDS ORDERED: IPRATROPIUM-ALBUTEROL 3 ML NEB INHALATION SCH (20:00)
[2020-02-26 20:05] LABS: Glucose,Whole Blood 157 mg/dL (75-99)
[2020-02-26] MEDS: IPRATROPIUM-ALBUTEROL 3 ML NEB INHALATION PRN (20:33)
[2020-02-26 20:39] LABS: ABG Base Excess 16.3 mmol/L; ABG Oxygen Saturation 98.6 % (94-97); ABG PH 7.33 (7.35-7.45); ABG PO2 126 mmHg (83-108); ABG TCO2 45 mmol/L (19-24); Allen Test Performed? Yes
--- NOTE | 2020-02-26 20:49 | PN ---
PROGRESS NOTE The patient is slowly declining today with more confusion, worsening oxygenation, but he has not been given his DuoNeb for unclear reasons. He is COVID negative. I continue to order DuoNeb updrafts and wait for Pulmonology to see him for elevated CO2. His renal function is still maintaining around 2.2 with a high BUN and elevated BNP of 8000. Discussed with the family. CT scan of the brain for confusion. Urine culture. Multiple medications are ordered as far as neurology consult and pulmonary consult. CT scan of the brain was done tonight which essentially did not show any stroke or any bleed. His BNP is elevated, which I suspect is due to worsening heart failure. He has a large amount of third-spacing fluid with 3+ pedal edema bilaterally. He is still remaining in atrial flutter and atrial fibrillation, for which Cardiology is seeing him. He still is not getting better, which is probably triggering flash congestive heart failure. He has elevated CO2 due to possibly hypercapnic respiratory failure due to COPD without his DuoNeb treatments, which have been ordered. He may need BiPAP at night. His renal function was worsening with increased Lasix, so he has got a tough balance between the Lasix and the heart failure. He will possibly be transferred down to [facility] if he does not continue to improve. I discussed with the family and the patient. Will see what Neurology has to say and wait for further labs and opinions of Nephrology and Cardiology tomorrow. Extremely guarded prognosis. MMODL / IJN: [id number] /
[2020-02-26 20:52] LABS: ABG PCO2 81 mmHg (35-45)
[2020-02-26 20:53] LABS: ABG HCO3 42 mmol/L (21-25)
[2020-02-27 04:11] LABS: ABG Base Excess 15.6 mmol/L; ABG Oxygen Saturation 93.4 % (94-97); ABG PH 7.36 (7.35-7.45); ABG PO2 68 mmHg (83-108); ABG TCO2 43 mmol/L (19-24); Allen Test Performed? Yes
[2020-02-27 04:14] LABS: ABG HCO3 41 mmol/L (21-25); ABG PCO2 73 mmHg (35-45)
[2020-02-27 06:22] LABS: Glucose,Whole Blood 126 mg/dL (75-99)
[2020-02-27] MEDS: PANTOPRAZOLE 40 MG TABLET PO SCH ×2 (06:37→17:43)
[2020-02-27] MEDS: TIOTROPIUM 18 MCG/PUFF INHALER INHALATION SCH (08:11)
[2020-02-27] MEDS: IPRATROPIUM-ALBUTEROL 3 ML NEB INHALATION PRN ×2 (08:11→11:42)
[2020-02-27 09:39] LABS: HCT 36.7 % (39.0-53.0); HGB 11.1 gm/dL (13.0-17.5); Hypochromasia Slight; MCH 31.1 pg (25.0-35.0); MCHC 30.1 g/dL (31.0-37.0); MCV 103.4 fL (80.0-100.0); Macrocytosis Slight; Mean Platelet Volume 7.9; Platelet Count 220 k/uL (150-450); RBC 3.55 m/uL (4.30-5.90); RDW 13.5 % (11.5-15.5); WBC 16.6 k/uL (3.8-10.6)
[2020-02-27] MEDS: acetaZOLAMIDE 250 MG TAB PO SCH ×3 (09:57→21:16)
[2020-02-27] MEDS: APIXABAN 5 MG TAB PO SCH ×2 (09:57→21:16)
[2020-02-27] MEDS: AMIODARONE 200 MG TAB PO SCH ×2 (09:57→21:16)
[2020-02-27] MEDS: METOPROLOL TARTRATE 50 MG TAB PO SCH ×2 (09:57→21:15)
[2020-02-27] MEDS: MULTIVITAMINS, THERA 1 EACH TAB PO SCH (09:57)
[2020-02-27] MEDS: DILTIAZEM ORAL 30 MG TAB PO SCH ×2 (09:58→21:15)
[2020-02-27 10:00] LABS: Calcium 8.6 mg/dL (8.4-10.2); Potassium 3.5 mmol/L (3.5-5.1)
[2020-02-27] MEDS: PIPERACILLIN-TAZOBACTAM 3.375 GM in SODIUM CHLORIDE 0.9% 100 ML IVPB SCH ×2 (10:00→17:35)
[2020-02-27] MEDS: FUROSEMIDE 10 MG/ML 4 ML VIAL IV SCH (10:05)
--- NOTE | 2020-02-27 10:32 | US ---
EXAMINATION TYPE: US venous doppler duplex LE DATE OF EXAM: 02/27/2020 10:25 AM COMPARISON: NONE CLINICAL HISTORY: r/o dvt. pain and edema left lower leg. Patient on blood thinner, history of heart valve replacement SIDE PERFORMED: Bilateral TECHNIQUE: The lower extremity deep venous system is examined utilizing real time linear array sonog ben with graded compression, doppler sonography and color-flow sonography. VESSELS IMAGED: External Iliac Vein (EIV) Common Femoral Vein Deep Femoral Vein Greater Saphenous Vein * Femoral Vein Popliteal Vein Small Saphenous Vein * Proximal Calf Veins (* superficial vessels) Right Leg: No evidence of DVT Left Leg: No evidence of DVT. Anechoic area left popliteal fossa = 4.3 x 1.0 x 1.9cm, Nash's cyst IMPRESSION: 1. No evidence for DVT. 2. Left-sided Nash's cyst.
--- NOTE | 2020-02-27 10:45 | XR ---
EXAMINATION TYPE: XR chest 1V portable DATE OF EXAM: 02/27/2020 COMPARISON: 02/24/2020 INDICATION: Follow-up, Covid TECHNIQUE: Single frontal view of the chest is obtained. FINDINGS: The heart size is mildly prominent. The pulmonary vasculature is upper limits of normal. Small bilateral pleural effusions are present, stable. Some mild adjacent infiltrate is present. This may be slightly greater on the right. IMPRESSION: 1. Stable small bilateral pleural effusions. 2. Mild increasing infiltrate at the right base can be related to some compressive atelectasis. 3. Mild cardiomegaly
[2020-02-27 11:34] LABS: Glucose,Whole Blood 128 mg/dL (75-99)
--- NOTE | 2020-02-27 12:03 | P.PN ---
Subjective Progress Note Date: 02/27/20 This is an 84-year-old gentleman who was just recently discharged from the hospital. He has a history of aortic valve replacement by percutaneous approach, prior history of smoking, COPD, renal dysfunction. Patient also has chronic persistent atrial fibrillation/flutter and underwent an electro cardioversion on Wednesday of last week by Dr. CHELSEA Schaffer. Patient presented back to the hospital with symptoms of shortness of breath, he was found to be in atrial fibrillation with rapid ventricular response. This morning the patient is in a typical atrial flutter with a heart rate of 70-80. Overall the patient feels well, he continues to have a significant amount of bilateral lower extremity edema. Blood pressure 107/50, heart rate in the 70s to 80s. White blood cell count 12.8, hemoglobin 11.0, platelet count 223. Sodium 137, potassium 4.5, BUN 55 and creatinine 2.3. 02/27/2020 Patient seen and examined this morning, appears to be more confused today. Heart rate remains stable in the 70s. Blood pressure 118/70. White blood cell count 16.6, hemoglobin 11, platelet count 220 sodium 139, potassium 3.5, BUN 68, creatinine 2.8. We will going to discontinue his IV Lasix today we will also decrease the dose of amiodarone. Recheck his labs in the morning. Objective - Vital Signs Vital signs: Vital Signs Temp 98.4 F 02/27/20 07:53 Pulse 92 02/27/20 11:47 Resp 20 02/27/20 07:53 BP 118/78 02/27/20 07:53 Pulse Ox 94 L 02/27/20 10:00 Intake & Output 02/26/20 02/27/20 02/27/20 18:59 06:59 18:59 Intake Total 600 120 Output Total 200 480 Balance 400 -480 120 Weight 92.3 kg Intake: Oral 600 120 Output: Urine 200 480 Other: Voiding Method Urinal Urinal Diaper # Voids 0 1 1 # Bowel Movements 0 0 - Exam PHYSICAL EXAMINATION: GENERAL: 84-year-old gentleman in no acute distress at the time of my examination HEENT: Head is atraumatic, normocephalic. Pupils equal, round. Sclera anic teric. Conjunctiva are clear. Mucous membranes of the mouth are moist. Neck is supple. There is no elevated jugular venous pressure. No carotid bruit is heard. HEART EXAMINATION: Heart S1 and S2 irregularly irregular a systolic murmur is heard CHEST EXAMINATION: Lungs reveal mild diminished air entry to the bases posteriorly ABDOMEN: Soft, nontender. Bowel sounds are heard. No organomegaly noted. EXTREMITIES:[ 2+ peripheral pulses with 3+ evidence of dependent peripheral edema NEUROLOGIC patient is awake, alert and oriented 3 . . - Labs CBC & Chem 7: 02/27/20 09:21 02/27/20 09:21 Labs: Abnormal Lab Results - Last 24 Hours (Table) 02/26/20 02/26/20 02/26/20 Range/Units 12:03 16:37 20:02 WBC (3.8-10.6) k/uL RBC (4.30-5.90) m/uL Hgb (13.0-17.5) gm/dL Hct (39.0-53.0) % MCV (80.0-100.0) fL MCHC (31.0-37.0) g/dL ABG pH (7.35-7.45) ABG pCO2 (35-45) mmHg ABG pO2 (83-108) mmHg ABG HCO3 (21-25) mmol/L ABG Total CO2 (19-24) mmol/L ABG O2 Saturation (94-97) % Chloride (98-107) mmol/L Carbon Dioxide (22-30) mmol/L BUN (9-20) mg/dL Creatinine (0.66-1.25) mg/dL Glucose (74-99) mg/dL POC Glucose (mg/dL) 128 H 150 H 157 H (75-99) mg/dL 02/26/20 02/27/20 02/27/20 Range/Units 20:34 04:09 06:19 WBC (3.8-10.6) k/uL RBC (4.30-5.90) m/uL Hgb (13.0-17.5) gm/dL Hct (39.0-53.0) % MCV (80.0-100.0) fL MCHC (31.0-37.0) g/dL ABG pH 7.33 L (7.35-7.45) ABG pCO2 81 H* 73 H* (35-45) mmHg ABG pO2 126 H 68 L (83-108) mmHg ABG HCO3 42 H* 41 H* (21-25) mmol/L ABG Total CO2 45 H 43 H (19-24) mmol/L ABG O2 Saturation 98.6 H 93.4 L (94-97) % Chloride (98-107) mmol/L Carbon Dioxide (22-30) mmol/L BUN (9-20) mg/dL Creatinine (0.66-1.25) mg/dL Glucose (74-99) mg/dL POC Glucose (mg/dL) 126 H (75-99) mg/dL 02/27/20 02/27/20 02/27/20 Range/Units 09:21 09:21 11:25 WBC 16.6 H (3.8-10.6) k/uL RBC 3.55 L (4.30-5.90) m/uL Hgb 11.1 L (13.0-17.5) gm/dL Hct 36.7 L (39.0-53.0) % MCV 103.4 H (80.0-100.0) fL MCHC 30.1 L (31.0-37.0) g/dL ABG pH (7.35-7.45) ABG pCO2 (35-45) mmHg ABG pO2 (83-108) mmHg ABG HCO3 (21-25) mmol/L ABG Total CO2 (19-24) mmol/L ABG O2 Saturation (94-97) % Chloride 87 L (98-107) mmol/L Carbon Dioxide 38 H (22-30) mmol/L BUN 68 H (9-20) mg/dL Creatinine 2.82 H (0.66-1.25) mg/dL Glucose 137 H (74-99) mg/dL POC Glucose (mg/dL) 128 H (75-99) mg/dL Microbiology - Last 24 Hours (Table) 02/26/20 18:50 Urine Culture - Preliminary Urine,Voided Assessment and Plan Plan: Assessment and plan #1 paroxysmal atrial fibrillation with rapid ventricular response. Patient this morning is in a typical atrial flutter with a heart rate in the 70s to 80s. Patient recently underwent cardioversion for atrial fibrillation. #2 hypertension #3 history of aortic valve replacement by percutaneous approach in November #4 COPD #5 prior history of smoking #6 renal insufficiency with hyperkalemia Plan From cardiology's perspective, we will discontinue the IV Lasix, wraps the patient's lower extremities and feet, encouraging the extremities to be elevated. Decrease the dose of amiodarone. Check labs in the morning. DNP note has been reviewed, I agree with a documented findings and plan of care. Patient was seen and examined.
--- NOTE | 2020-02-27 12:49 | P.CNPUL ---
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 has been on home oxygen he came into the hospital with one-day history of increased shortness of breath and increased swelling of the lower extremity, patient does have chronic atrial fibrillation and has been on anticoagulants also on bronchodilator, patient has been on amiodarone as well his prior cardiac history significant for for heart failure atrial flutter fibrillation and aortic valve replacement, he used to smoke heavily in the past Review of Systems ROS unobtainable: due to mental status Past Medical History Past Medical History: Atrial Fibrillation, Atrial Flutter, Asthma, Heart Failure, Hypertension History of Any Multi-Drug Resistant Organisms: None Reported Additional Past Surgical History / Comment(s): aortic heart valve replacement, bladder sx Past Anesthesia/Blood Transfusion Reactions: No Reported Reaction Past Psychological History: No Psychological Hx Reported Smoking Status: Former smoker Past Alcohol Use History: None Reported Past Drug Use History: None Reported - Past Family History Father Family Medical History: Cancer Medications and Allergies Home Medications Medication Instructions Recorded Confirmed Type Apixaban [Eliquis] 5 mg PO BID 02/14/20 02/24/20 History Ipratropium Nebulized [Atrovent 0.5 mg INHALATION RT-TID 02/14/20 02/24/20 History Nebulized 0.2 MG/ML] Metoprolol Tartrate [Lopressor] 25 mg PO BID 02/14/20 02/24/20 History Multivitamins, Thera [Multivitamin 1 tab PO DAILY 02/14/20 02/24/20 History (formulary)] Cefuroxime Axetil [Ceftin] 500 mg PO BID 5 Days #10 tab 02/21/20 02/24/20 Rx Diltiazem Oral [Cardizem*] 30 mg PO TID #90 tab 02/21/20 02/24/20 Rx Metoclopramide [Reglan] 5 mg PO AC-TID #42 tab 02/21/20 02/24/20 Rx Pantoprazole [Protonix] 40 mg PO AC-BID #60 tablet. 02/21/20 02/24/20 Rx Amiodarone [Cordarone] 400 mg PO BID #9 tab 02/22/20 02/24/20 Rx Furosemide [Lasix] 20 mg PO DAILY #0 tab 02/23/20 02/24/20 Rx Amiodarone [Cordarone] 200 mg PO DIRECTED 02/24/20 02/24/20 History Polyethylene Glycol 3350 [Miralax] 17 gm PO DAILY PRN 02/24/20 02/24/20 History Allergies Allergy/AdvReac Type Severity Reaction Status Date / Time No Known Allergies Allergy Verified 02/24/20 10:37 Physical Exam Vitals: Vital Signs Temp Pulse Pulse Resp BP Pulse Ox 02/27/20 11:47 92 02/27/20 11:39 92 02/27/20 10:00 94 L 02/27/20 08:30 84 20 02/27/20 08:24 90 02/27/20 08:15 88 02/27/20 07:53 98.4 F 84 20 118/78 02/27/20 04:00 97.7 F 86 19 120/71 95 02/27/20 00:00 98.3 F 79 19 98/50 92 L 02/26/20 20:55 95 02/26/20 20:34 95 99 02/26/20 20:00 98.4 F 91 18 125/71 100 02/26/20 18:00 92 118/60 02/26/20 16:00 98.9 F 92 16 99/54 93 L 02/26/20 12:47 97.4 F L 84 20 98/52 99 Intake and Output 02/26/20 02/27/20 02/27/20 22:59 06:59 14:59 Intake Total 120 120 Output Total 100 380 550 Balance 20 -380 -430 Intake: Oral 120 120 Output: Urine 100 380 550 Other: Voiding Method Urinal Urinal Urinal Diaper # Voids 1 1 1 # Bowel Movements 0 0 Weight 92.3 kg - Constitutional General appearance: disheveled, morbidly obese - EENT Eyes: EOMI, PERRLA Ears: bilateral: normal - Neck Neck: normal ROM Carotids: bilateral: upstroke normal Thyroid: bilateral: normal size - Respiratory Respiratory: bilateral: diminished, dullness, rales - Cardiovascular Rhythm: regular Heart sounds: normal: S1, S2 - Gastrointestinal General gastrointestinal: decreased bowel sounds, distended, soft - Musculoskeletal Musculoskeletal: generalized weakness Results - Laboratory Findings CBC and BMP: 02/27/20 09:21 02/27/20 09:21 ABG ABG pH 7.36 (7.35-7.45) 02/27/20 04:09 ABG pCO2 73 mmHg (35-45) H* 02/27/20 04:09 ABG pO2 68 mmHg (83-108) L 02/27/20 04:09 ABG O2 Saturation 93.4 % (94-97) L 02/27/20 04:09 PT/INR, D-dimer PT 11.0 sec (9.0-12.0) 02/24/20 09:30 INR 1.1 (<1.2) 02/24/20 09:30 Abnormal lab findings: Abnormal Labs 02/24/20 02/24/20 02/24/20 09:00 09:00 19:36 WBC 14.1 H RBC Hgb Hct MCV MCHC Neutrophils # 12.6 H Lymphocytes # 0.6 L ABG pH ABG pCO2 ABG pO2 ABG HCO3 ABG Total CO2 ABG O2 Saturation Sodium Potassium 6.0 H 5.4 H Chloride 93 L 90 L Carbon Dioxide 34 H 44 H* BUN 42 H 48 H Creatinine 1.39 H 1.81 H Glucose 107 H 113 H POC Glucose (mg/dL) Alkaline Phosphatase 135 H Total Protein Albumin 02/24/20 02/25/20 02/25/20 20:46 06:06 12:13 WBC RBC Hgb Hct MCV MCHC Neutrophils # Lymphocytes # ABG pH ABG pCO2 ABG pO2 ABG HCO3 ABG Total CO2 ABG O2 Saturation Sodium Potassium Chloride Carbon Dioxide BUN Creatinine Glucose POC Glucose (mg/dL) 126 H 198 H 108 H Alkaline Phosphatase Total Protein Albumin 02/25/20 02/25/20 02/25/20 17:33 18:15 20:02 WBC RBC Hgb Hct MCV MCHC Neutrophils # Lymphocytes # ABG pH ABG pCO2 ABG pO2 ABG HCO3 ABG Total CO2 ABG O2 Saturation Sodium 133 L Potassium Chloride 86 L Carbon Dioxide 42 H* BUN 51 H Creatinine 2.27 H Glucose 135 H POC Glucose (mg/dL) 149 H 169 H Alkaline Phosphatase Total Protein Albumin 02/26/20 02/26/20 02/26/20 04:45 04:45 06:16 WBC 12.8 H RBC 3.61 L Hgb 11.0 L Hct 37.1 L MCV 102.7 H MCHC 29.6 L Neutrophils # 11.1 H Lymphocytes # 0.5 L ABG pH ABG pCO2 ABG pO2 ABG HCO3 ABG Total CO2 ABG O2 Saturation Sodium Potassium Chloride 87 L Carbon Dioxide 43 H* BUN 55 H Creatinine 2.31 H Glucose 103 H POC Glucose (mg/dL) 118 H Alkaline Phosphatase Total Protein 5.7 L Albumin 3.1 L 02/26/20 02/26/20 02/26/20 12:03 16:37 20:02 WBC RBC Hgb Hct MCV MCHC Neutrophils # Lymphocytes # ABG pH ABG pCO2 ABG pO2 ABG HCO3 ABG Total CO2 ABG O2 Saturation Sodium Potassium Chloride Carbon Dioxide BUN Creatinine Glucose POC Glucose (mg/dL) 128 H 150 H 157 H Alkaline Phosphatase Total Protein Albumin 02/26/20 02/27/20 02/27/20 20:34 04:09 06:19 WBC RBC Hgb Hct MCV MCHC Neutrophils # Lymphocytes # ABG pH 7.33 L ABG pCO2 81 H* 73 H* ABG pO2 126 H 68 L ABG HCO3 42 H* 41 H* ABG Total CO2 45 H 43 H ABG O2 Saturation 98.6 H 93.4 L Sodium Potassium Chloride Carbon Dioxide BUN Creatinine Glucose POC Glucose (mg/dL) 126 H Alkaline Phosphatase Total Protein Albumin 02/27/20 02/27/20 02/27/20 09:21 09:21 11:25 WBC 16.6 H RBC 3.55 L Hgb 11.1 L Hct 36.7 L MCV 103.4 H MCHC 30.1 L Neutrophils # Lymphocytes # ABG pH ABG pCO2 ABG pO2 ABG HCO3 ABG Total CO2 ABG O2 Saturation Sodium Potassium Chloride 87 L Carbon Dioxide 38 H BUN 68 H Creatinine 2.82 H Glucose 137 H POC Glucose (mg/dL) 128 H Alkaline Phosphatase Total Protein Albumin - Diagnostic Findings Chest x-ray: report reviewed, image reviewed (Initial x-ray cystoscopy COPD along with bilateral infiltrate with cardiomegaly and small effusion compared to prior x-ray done on February 19 slight worsening, more recent x-ray earlier this morning essentially not significant change has been noted) CT scan - chest: report reviewed, image reviewed (Computed tomography scan of the chest revealed bilateral cardiomegaly. Bilateral effusion pericardial effusion highly suggestive of fluid overload and heart failure) Assessment and Plan Assessment: Hypercapnic hypoxic respiratory failure Chronic systolic heart failure with acute exacerbation Status post aortic valve replacement Altered mental status/encephalopathy due to elevated CO2 and CO2 narcosis Worsening of heart failure Bilateral pleural effusion Bilateral pneumonia Plan: Patient needs gentle diuresis as needed Continue BiPAP each night and when necessary Keep oxygen 2-3 L to keep saturation over 90% Agree with broad-spectrum antibiotics. Continue bronchodilators Overall long-term prognosis is guarded Time with Patient: Greater than 30
[2020-02-27] MEDS: METOCLOPRAMIDE 5 MG TAB PO SCH ×2 (13:09→17:34)
--- NOTE | 2020-02-27 15:29 | PN ---
Already dictated. MTDD
--- NOTE | 2020-02-27 15:44 | PN ---
PROGRESS NOTE Patient is seen for followup for acute kidney injury, mainly cardiorenal. He is currently maintained on IV Lasix. The patient had become confused last night. His mentation is now improved. He has a sitter. He was noted to be significantly alkalotic with bicarb of 43 yesterday, for which patient was started on Diamox. He continues to have significant edema in his lower extremities. Patient's weight has actually gone up. His urine output is not accurately charted. PHYSICAL EXAMINATION: On examination today, blood pressure was 114/58, heart rate 67 per minute. He is afebrile. EXAMINATION OF THE HEART: S1 and S2. EXAMINATION OF LUNGS: Bilateral breath sounds are heard. Decreased breath sounds at bases. ABDOMEN: Soft, non-tender. Examination of lower extremities shows edema 2+ bilaterally. 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 LABS/IMAGING: Sodium 139, potassium 3.5, chloride 87. CO2 is 38, BUN 68, creatinine 2.82. Hemoglobin 11.1 g/dL. Chest x-ray shows bilateral small pleural effusions, pulmonary vasculature in the upper limits of normal. ASSESSMENT: 1. Acute kidney injury, cardiorenal. Serum creatinine has increased to 2.8 today. The IV Lasix is currently on hold. Patient's blood pressure is on the lower side, which will hinder diuresis as well. He is maintained on Cardizem and Lopressor for rate control. There are no nephrotoxic agents on board. Patient's weight has actually gone up. I will resume oral diuretics. Check ultrasound of the kidneys as well if not done on last admission. 2. Diastolic heart failure with severely dilated left atrium, mild pulmonary hypertension, status post IV Lasix. 3. Metabolic alkalosis secondary to recent diuresis, maintained on Diamox and improved. 4. Chronic persistent atrial fibrillation, status post cardioversion, with no response to the cardioversion. 5. History of aortic valve replacement by percutaneous approach in November of 2019. 6. Chronic kidney disease, stage III, secondary to nephrosclerosis. Creatinine 1.4 in February of 2020. 7. Right renal lesion with no change since 2018. PLAN: Resume oral loop diuretics. Consider decreasing Cardizem to allow higher perfusion pressure for better diuresis. Agree with elevating legs. Continue to avoid high salt intake. Continue to avoid nephrotoxic medications and repeat labs in a.m. MMODL / IJN: [id number] /
[2020-02-27 17:12] LABS: Glucose,Whole Blood 114 mg/dL (75-99)
[2020-02-27] MEDS: BUMETANIDE 1 MG TAB PO SCH (17:35)
[2020-02-27 20:19] LABS: Glucose,Whole Blood 118 mg/dL (75-99)
--- NOTE | 2020-02-27 21:58 | PN ---
PROGRESS NOTE This patient is an 84-year-old white male who remains on oral Cardizem, Reglan, Lopressor, Protonix, Spiriva, MiraLAX, Zosyn through the IV, DuoNeb, Cordarone, Diamox, Eliquis, Bumex. The patient has improved mental status today with the BiPAP on all day. White count is up to 16.6. Hemoglobin is 11.1, BUN is 68, creatinine 2.82. Sugars are mid 100s. Carbon dioxide is 38. Dr. Anthony saw the patient IV Lasix for cardiorenal syndrome. Cardiology saw the patient, is decreasing the dose of amiodarone, discontinuing his IV Lasix, rechecking labs in the morning. Continue in the next 24-48 hours. Wait for recommendations from Cardiology and Infectious Disease and Pulmonary. Prognosis extremely guarded. He will need BiPAP in the rehab center. MMODL / IJN: [id number] /
[2020-02-28] MEDS: PIPERACILLIN-TAZOBACTAM 3.375 GM in SODIUM CHLORIDE 0.9% 100 ML IVPB SCH ×3 (00:03→22:43)
[2020-02-28 06:16] LABS: Glucose,Whole Blood 101 mg/dL (75-99)
[2020-02-28] MEDS: METOCLOPRAMIDE 5 MG TAB PO SCH ×3 (06:22→17:28)
[2020-02-28] MEDS: TIOTROPIUM 18 MCG/PUFF INHALER INHALATION SCH (08:34)
[2020-02-28] MEDS: acetaZOLAMIDE 250 MG TAB PO SCH ×4 (09:02→22:53)
[2020-02-28] MEDS: MULTIVITAMINS, THERA 1 EACH TAB PO SCH (09:02)
[2020-02-28] MEDS: DILTIAZEM ORAL 30 MG TAB PO SCH ×4 (09:02→22:53)
[2020-02-28] MEDS: METOPROLOL TARTRATE 50 MG TAB PO SCH ×3 (09:02→22:53)
[2020-02-28] MEDS: AMIODARONE 200 MG TAB PO SCH ×3 (09:02→22:53)
[2020-02-28] MEDS: BUMETANIDE 1 MG TAB PO SCH ×2 (09:02→17:28)
[2020-02-28] MEDS: APIXABAN 5 MG TAB PO SCH ×3 (09:02→22:53)
--- NOTE | 2020-02-28 09:41 | P.PN ---
Subjective Progress Note Date: 02/28/20 Principal diagnosis: Acute Hypercapnic hypoxic respiratory failure Chronic systolic heart failure with acute exacerbation Status post aortic valve replacement Altered mental status/encephalopathy due to elevated CO2 and CO2 narcosis Worsening of heart failure Bilateral pleural effusion Bilateral pneumonia 02/28/2020, patient seen eval reexamined during the rounds sitting upright on the chair breathing comfortably about to get breathing treatment, patient is more awake and alert eyes open. The commands, alert and oriented 3, patient used almost 6-1/2 hour BiPAP machine last night which definitely has helped his mental status, as well as general well-being, denies any chest pain cough or sputum production, labs reviewed WBC count is up to 16,000 yesterday today is pending we'll check a follow-up x-ray in the morning This is a 84-year-old morbidly obese male was seen evaluated examined, patient is somnolent but arousable, patient had a trial of BiPAP overnight after that he is more calm for the ICU she has problems associated with confusion and intermittent agitation sitter is present at bedside, patient FiO2 has been lowered down to 4 L to 3 L, review of the old records revealed that 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 has been on home oxygen he came into the hospital with one-day history of increased shortness of breath and increased swelling of the lower extremity, patient does have chronic atrial fibrillation and has been on anticoagulants also on bronchodilator, patient has been on amiodarone as well his prior cardiac history significant for for heart failure atrial flutter fibrillation and aortic valve replacement, he used to smoke heavily in the past Objective - Vital Signs Vital signs: Vital Signs Temp 97.8 F 02/28/20 04:34 Pulse 92 02/28/20 04:34 Resp 19 02/28/20 04:34 BP 101/72 02/28/20 04:34 Pulse Ox 95 02/28/20 04:34 Intake & Output 02/27/20 02/28/20 02/28/20 18:59 06:59 18:59 Intake Total 480 120 Output Total 950 200 Balance -470 -200 120 Weight 91.6 kg Intake: Oral 480 120 Output: Urine 950 200 Other: Voiding Method Urinal Urinal # Voids 0 2 # Bowel Movements 0 - Exam - Constitutional General appearance: disheveled, morbidly obese - EENT Eyes: EOMI, PERRLA Ears: bilateral: normal - Neck Neck: normal ROM Carotids: bilateral: upstroke normal Thyroid: bilateral: normal size - Respiratory Respiratory: bilateral: diminished, dullness, rales - Cardiovascular Rhythm: regular Heart sounds: normal: S1, S2 - Gastrointestinal General gastrointestinal: decreased bowel sounds, distended, soft - Musculoskeletal Musculoskeletal: generalized weakness - Labs CBC & Chem 7: 02/27/20 09:21 02/27/20 09:21 Labs: Abnormal Lab Results - Last 24 Hours (Table) 02/27/20 02/27/20 02/27/20 Range/Units 09:21 09:21 11:25 WBC 16.6 H (3.8-10.6) k/uL RBC 3.55 L (4.30-5.90) m/uL Hgb 11.1 L (13.0-17.5) gm/dL Hct 36.7 L (39.0-53.0) % MCV 103.4 H (80.0-100.0) fL MCHC 30.1 L (31.0-37.0) g/dL Chloride 87 L (98-107) mmol/L Carbon Dioxide 38 H (22-30) mmol/L BUN 68 H (9-20) mg/dL Creatinine 2.82 H (0.66-1.25) mg/dL Glucose 137 H (74-99) mg/dL POC Glucose (mg/dL) 128 H (75-99) mg/dL 02/27/20 02/27/20 02/28/20 Range/Units 17:05 20:17 06:13 WBC (3.8-10.6) k/uL RBC (4.30-5.90) m/uL Hgb (13.0-17.5) gm/dL Hct (39.0-53.0) % MCV (80.0-100.0) fL MCHC (31.0-37.0) g/dL Chloride (98-107) mmol/L Carbon Dioxide (22-30) mmol/L BUN (9-20) mg/dL Creatinine (0.66-1.25) mg/dL Glucose (74-99) mg/dL POC Glucose (mg/dL) 114 H 118 H 101 H (75-99) mg/dL Microbiology - Last 24 Hours (Table) 02/26/20 18:50 Urine Culture - Final Urine,Voided Assessment and Plan Assessment: Acute Hypercapnic hypoxic respiratory failure Chronic systolic heart failure with acute exacerbation Status post aortic valve replacement Altered mental status/encephalopathy due to elevated CO2 and CO2 narcosis Worsening of heart failure Bilateral pleural effusion Bilateral pneumonia Plan: Check follow-up chest x-ray Patient needs gentle diuresis as needed Continue BiPAP each night and when necessary during the day Keep oxygen 2-3 L to keep saturation over 90% Agree with broad-spectrum antibiotics. Continue bronchodilators Overall long-term prognosis is guarded Time with Patient: Greater than 30
[2020-02-28 10:16] LABS: Calcium 8.8 mg/dL (8.4-10.2)
[2020-02-28 11:20] LABS: Glucose,Whole Blood 114 mg/dL (75-99)
[2020-02-28 11:50] LABS: Appearance,Urine Clear (Clear); Bilirubin,Urine Negative (Negative); Blood,Urine Small (Negative); Color,Urine Yellow; Glucose,Urine (UA) Negative (Negative); Ketones,Urine Negative (Negative); Leukocyte Esterase,Urine Negative (Negative); Mucus,Urine Rare /hpf; Nitrite,Urine Negative (Negative); PH, Urine 5.5 (5.0-8.0); Protein,Urine Trace (Negative); RBC,Urine 28 /hpf (0-5); Specific Gravity,Urine 1.018 (1.001-1.035); Urobilinogen,Urine <2.0 mg/dL (<2.0); WBC,Urine 1 /hpf (0-5)
--- NOTE | 2020-02-28 12:11 | P.PN ---
Subjective Progress Note Date: 02/28/20 This is an 84-year-old gentleman who was just recently discharged from the hospital. He has a history of aortic valve replacement by percutaneous approach, prior history of smoking, COPD, renal dysfunction. Patient also has chronic persistent atrial fibrillation/flutter and underwent an electro cardioversion on Wednesday of last week by Dr. CHELSEA Schaffer. Patient presented back to the hospital with symptoms of shortness of breath, he was found to be in atrial fibrillation with rapid ventricular response. This morning the patient is in a typical atrial flutter with a heart rate of 70-80. Overall the patient feels well, he continues to have a significant amount of bilateral lower extremity edema. Blood pressure 107/50, heart rate in the 70s to 80s. White blood cell count 12.8, hemoglobin 11.0, platelet count 223. Sodium 137, potassium 4.5, BUN 55 and creatinine 2.3. 02/27/2020 Patient seen and examined this morning, appears to be more confused today. Heart rate remains stable in the 70s. Blood pressure 118/70. White blood cell count 16.6, hemoglobin 11, platelet count 220 sodium 139, potassium 3.5, BUN 68, creatinine 2.8. We will going to discontinue his IV Lasix today we will also decrease the dose of amiodarone. Recheck his labs in the morning. 02/28/2020 Patient was seen and examined this morning, looking much better overall today. He is much less confused. Continues to be in atrial flutter with a controlled ventricular response. Blood pressure 120 over 80s with a heart rate in the 80s. Objective - Vital Signs Vital signs: Vital Signs Temp 96.8 F L 02/28/20 08:00 Pulse 97 02/28/20 08:00 Resp 19 02/28/20 04:34 BP 125/80 02/28/20 08:00 Pulse Ox 99 02/28/20 08:00 Intake & Output 02/27/20 02/28/20 02/28/20 18:59 06:59 18:59 Intake Total 480 120 Output Total 950 200 500 Balance -470 -200 -380 Weight 91.6 kg Intake: Oral 480 120 Output: Urine 950 200 500 Other: Voiding Method Urinal Urinal # Voids 0 2 2 # Bowel Movements 0 - Exam PHYSICAL EXAMINATION: GENERAL: 84-year-old gentleman in no acute distress at the time of my examination HEENT: Head is atraumatic, normocephalic. Pupils equal, round. Sclera anicteric. Conjunctiva are clear. Mucous membranes of the mouth are moist. Neck is supple. There is no elevated jugular venous pressure. No carotid bru it is heard. HEART EXAMINATION: Heart S1 and S2 irregularly irregular a systolic murmur is heard CHEST EXAMINATION: Lungs reveal mild diminished air entry to the bases posteriorly ABDOMEN: Soft, nontender. Bowel sounds are heard. No organomegaly noted. EXTREMITIES:[ 2+ peripheral pulses with 3+ evidence of dependent peripheral edema NEUROLOGIC patient is awake, alert and oriented 3 . . - Labs CBC & Chem 7: 02/27/20 09:21 02/28/20 09:14 Labs: Abnormal Lab Results - Last 24 Hours (Table) 02/27/20 02/27/20 02/28/20 Range/Units 17:05 20:17 06:13 Chloride (98-107) mmol/L Carbon Dioxide (22-30) mmol/L BUN (9-20) mg/dL Creatinine (0.66-1.25) mg/dL Glucose (74-99) mg/dL POC Glucose (mg/dL) 114 H 118 H 101 H (75-99) mg/dL Urine Protein (Negative) Urine Blood (Negative) Urine RBC (0-5) /hpf Urine Mucus (None) /hpf 02/28/20 02/28/20 02/28/20 Range/Units 09:14 11:19 11:30 Chloride 88 L (98-107) mmol/L Carbon Dioxide 39 H (22-30) mmol/L BUN 80 H (9-20) mg/dL Creatinine 3.20 H (0.66-1.25) mg/dL Glucose 140 H (74-99) mg/dL POC Glucose (mg/dL) 114 H (75-99) mg/dL Urine Protein Trace H (Negative) Urine Blood Small H (Negative) Urine RBC 28 H (0-5) /hpf Urine Mucus Rare H (None) /hpf Microbiology - Last 24 Hours (Table) 02/26/20 18:50 Urine Culture - Final Urine,Voided Assessment and Plan Plan: Assessment and plan #1 paroxysmal atrial fibrillation with rapid ventricular response. Patient this morning is in a typical atrial flutter with a heart rate in the 70s to 80s. Patient recently underwent cardioversion for atrial fibrillation. #2 hypertension #3 history of aortic valve replacement by percutaneous approach in November #4 COPD #5 prior history of smoking #6 renal insufficiency with hyperkalemia Plan From cardiology's perspective, we will continue this patient on his current medications. He's cleared for discharge from our perspective. We will make a follow-up appointment in the office with Dr. Dena Schaffer. DNP note has been reviewed, I agree with a documented findings and plan of care. Patient was seen and examined.
--- NOTE | 2020-02-28 14:45 | CDI ---
Documentation Clarification Form Date: 02/28/2020 01:09:01 PM From: Tatiana Orosco RN CCDS Admit Date: 02/24/2020 10:51:00 AM Patient Name: Geraldo López Visit Number: [id number] Discharge Date: ATTENTION: The Clinical Documentation Specialists (CDI) and [facility] Coding Staff appreciate your assistance in clarifying documentation. Please respond to the clarification below the line at the bottom and electronically sign. The CDI & [facility] Coding staff will review the response and follow-up if needed. Please note: Queries are made part of the Legal Health Record. If you have any questions, please contact the author of this message via ITS. Dr. Tristian Arias MD Encephalopathy is documented in your consult 02/26 and progress note 02/27 History/Risk Factors: 84-year-old male presents to the ED with severe shortness of breath and swelling in his legs. Medical History Atrial Fibrillation, Heart Failure and Asthma Clinical Indicators: Per your consult 02/26 Altered mental status / encephalopathy due to elevated CO2 and CO2 narcosis. 02/26 VSS 00:00 BP 98/50, 79, 19, 92% on BiPAP 02/25 ABG Right Radial PH 7.33, pCO2 81, pO2 126, HCO3 42, Total CO2 45, Oxygen Sat 98.6 02/25 Labs Wbc 12.8, Neutrophils 11.1, Lymph 0.5, Carbon Dioxide 43, Bun 55, Creatinine 2.31 02/25 CT Brain: No acute intracranial abnormality seen. Treatment: Oxygen via nasal cannula and BiPap In your professional opinion, can you please clarify the specific type of Encephalopathy, if known? Acute Metabolic Encephalopathy (Last Revision: February 2018) MTDD
--- NOTE | 2020-02-28 15:31 | PN ---
PROGRESS NOTE Patient is seen for followup for acute kidney injury associated with CHF and cardiorenal syndrome. Patient's renal function continues to worsen. I did discuss with him regarding possibility of dialysis if his renal function continues to worsen, which will also help with his ongoing volume overload and significant lower extremity edema. He states that at this time he does not want to pursue any kind of renal replacement therapy. Patient is maintained on Bumex 1 mg p.o. b.i.d. His urine output is not accurately charted. Weight is however down from yesterday. PHYSICAL EXAMINATION: On examination today, blood pressure was 98/61, heart rate 89 per minute. He is afebrile. EXAMINATION OF THE HEART: S1 and S2. EXAMINATION OF LUNGS: Decreased breath sounds at bases. ABDOMEN: Soft, non-tender. Examination of lower extremities shows edema 3+ bilaterally. 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 LABS: Sodium 139, potassium 4.0, chloride 88. CO2 is 39, BUN 80, creatinine 3.2. ASSESSMENT: 1. Acute kidney injury, cardiorenal, with progressive worsening renal failure in the setting of significant volume overload and lower extremity edema. Patient does not want to pursue any kind of renal replacement therapy. He is maintained on oral diuretics at this point. His chest x-ray does show bilateral effusions, although not significant overwhelming CHF. Blood pressure has been on the lower side. Therefore I will add midodrine, which might help with the diuresis. Patient is maintained on Lopressor and Cardizem for rate control for atrial fibrillation. 2. Metabolic alkalosis, started on Diamox, with improvement in the CO2. PLAN: Continue the with Bumex. No plans for renal replacement therapy as per patient's request if renal function continues to worsen. Add midodrine, as blood pressure is low and this might help with the diuresis. Repeat labs in a.m. Overall prognosis is guarded. MMODL / IJN: [id number] /
[2020-02-28] MEDS: PANTOPRAZOLE 40 MG TABLET PO SCH (17:28)
[2020-02-28] MEDS: MIDODRINE 5 MG TAB PO SCH (17:28)
[2020-02-28] MEDS ORDERED: ANIDULAFUNGIN 200 MG in SODIUM CHLORIDE 0.9% 200 ML IVPB ONE (18:00)
--- NOTE | 2020-02-28 19:07 | CONS ---
CONSULTATION DATE OF SERVICE: 02/28/2020 REASON FOR CONSULTATION: Leukocytosis. HISTORY OF PRESENT ILLNESS: The patient is an 84-year-old male who presented to the hospital on February 24, 2020, for evaluation of increasing shortness of breath and increasing swelling to the lower extremities. Patient with no fever or sweats. He does have a history of atrial fibrillation. With these symptoms, the patient was evaluated by the ER physician. On arrival at the ER, the patient did have a chest x-ray that shows COPD, worsening bibasilar airspace disease and cardiomegaly. The patient has been afebrile throughout his hospital stay. The patient did have a white count of 14.1 and that is up to 16.6 today. That has prompted this infectious disease consultation. Patient's UA obtained yesterday has been negative. He was noted to have worsening of his kidney function, with creatinine of 1.39 on admission, up to 3.20. The patient did have a chest CT showing cardiomegaly with pleural effusion, pericardial effusion that could lead to congestive heart failure. No mass. Patient at this point has been complaining of feeling weak and tired and is complaining of shortness of breath. He did have some cough with occasional sputum. No hemoptysis. The patient denies having any nausea. No vomiting or choking on the food. No abdominal pain. No diarrhea. Currently no open wound. Patient has been on Zosyn since admission and has not received any steroids. REVIEW OF SYSTEMS: Positive points have been mentioned in HPI. Rest of the systems are negative. PAST MEDICAL HISTORY: Atrial fibrillation, atrial flutter, asthma, heart failure and hypertension. PAST SURGICAL HISTORY: Aortic valve replacement and history of bladder surgery. SOCIAL HISTORY: Remote history of smoking. No drinking or drug use. FAMILY HISTORY: Father with history of cancer. ALLERGIES: NO KNOWN DRUG ALLERGIES. MEDICATIONS: The patient is currently on Diamox, Ventolin, amiodarone, Eliquis, Bumex, Cardizem, Reglan, Lopressor, midodrine, Theragran, Protonix, Zosyn, MiraLAX, Spiriva. PHYSICAL EXAMINATION: Blood pressure is 125/80 with a pulse of 97, temperature 96.8. He is 99% on 2 L nasal cannula. General description is an elderly male up in the chair in no distress. No tachypnea or accessory muscle of respiration use. HEENT examination shows slight pallor. No scleral icterus. Oral mucosa membrane is dry. No pharyngeal erythema or thrush. NECK: Trachea is central. No thyromegaly. LUNGS: Unlabored breathing. Decreased breath sounds at the base. No wheeze. HEART: S1, S2. Irregular rhythm. No added sound. ABDOMEN: Soft. No tenderness. No guarding or rigidity. EXTREMITIES: Both legs are current wrapped up with Dat with no open wound per the RN. SKIN EXAMINATION: No rash or mass palpable. Neurologically the patient is awake, alert, oriented x3. Mood and affect normal. LABS/IMAGING: Hemoglobin 11.1, white count 16.5, BUN of 80, creatinine 3.20. Urine has been negative. Chest x-ray and CT report as mentioned above. DIAGNOSTIC IMPRESSION AND PLAN: Patient with leukocytosis, worsening in this patient admitted to hospital with worsening shortness of breath in this patient who has been diagnosed with CHF exacerbation and has been over-diuresed, now with evidence of renal failure and possible hemoconcentration in this patient who has been exposed to antibiotic. Underlying oropharyngeal candidiasis not entirely excluded with a possible component of pneumonia, but no Response to the Zosyn. PLAN: 1. We will obtain sputum for Gram stain and culture. 2. We will add Eraxis. Diflucan could not be used because the patient is on amiodarone. 3. Will repeat CBC, CRP and procalcitonin tomorrow. 4. We will follow his clinical condition and culture to further adjust medication if needed. Thank you for this consultation. Will follow this patient along with you. MMODL / IJN: [id number] / ADOLPH
[2020-02-28 20:52] LABS: Glucose,Whole Blood 138 mg/dL (75-99)
[2020-02-28 22:19] LABS: ABG HCO3 39 mmol/L (21-25); ABG Oxygen Saturation 89.9 % (94-97); ABG PH 7.32 (7.35-7.45); ABG PO2 61 mmHg (83-108); ABG TCO2 42 mmol/L (19-24); Allen Test Performed? Yes
--- NOTE | 2020-02-28 23:30 | PN ---
PROGRESS NOTE An 84-year-old white male seen by Dr. Anthony for renal insufficiency and CHF, cardiorenal syndrome, possible dialysis with fluid overload. He told the renal doctor he does not want to do any kind of renal replacement therapy. He is on Bumex 1 mg b.i.d. Urine output is not accurately charted. Weight is down from yesterday. 98/61, heart rate 89, afebrile. HEART: S1, S2. LUNGS: Are decreased. ABDOMEN: Soft. EXTREMITIES: 3+ bilateral bipedal edema. Sodium 139, potassium 4.0, CO2 of 39, BUN 80, creatinine 3.28. Wears BiPAP at night, 3 L of oxygen during the day. Acute Kidney injury, cardiorenal, progressive worsening renal failure due to volume overload, lower extremity edema. He is on Bumex 1 mg b.i.d. Chest x-ray shows bilateral effusions. Blood pressure lower side. We are going to add midodrine for blood pressure. Continue on Lopressor, Cardizem for atrial fibrillation. Continue on Bumex for diuresis. BiPAP at night. Metabolic alkalosis on Diamox. Add midodrine. Prognosis guarded. Will need BiPAP at night and 3 L of oxygen during the day. Prognosis guarded. MMODL / IJN: [id number] /
[2020-02-29] MEDS: MIDODRINE 5 MG TAB PO SCH ×3 (06:25→17:12)
[2020-02-29] MEDS: METOCLOPRAMIDE 5 MG TAB PO SCH ×2 (06:25→12:56)
[2020-02-29] MEDS: PANTOPRAZOLE 40 MG TABLET PO SCH ×2 (06:25→17:11)
[2020-02-29 06:34] LABS: Basophils % (A) 0 %; Eosinophils % (A) 0 %; HCT 36.9 % (39.0-53.0); HGB 11.1 gm/dL (13.0-17.5); Hypochromasia Moderate; Lymphocytes # (A) 0.4 k/uL (1.0-4.8); Lymphocytes % (A) 2 %; MCH 30.7 pg (25.0-35.0); MCHC 30.1 g/dL (31.0-37.0); Macrocytosis Slight; Mean Platelet Volume 8.3; Monocytes # (A) 0.8 k/uL (0-1.0); Monocytes % (A) 4 %; Neutrophils # (A) 19.7 k/uL (1.3-7.7); Neutrophils % (A) 94 %; Platelet Count 234 k/uL (150-450); RBC 3.61 m/uL (4.30-5.90); RDW 13.3 % (11.5-15.5); WBC 21.1 k/uL (3.8-10.6)
[2020-02-29 06:39] LABS: Albumin 2.9 g/dL (3.5-5.0); Calcium 8.2 mg/dL (8.4-10.2); Potassium 3.1 mmol/L (3.5-5.1); Total Bilirubin 0.6 mg/dL (0.2-1.3); Total Protein 5.5 g/dL (6.3-8.2)
[2020-02-29] MEDS: TIOTROPIUM 18 MCG/PUFF INHALER INHALATION SCH (07:44)
--- NOTE | 2020-02-29 08:10 | XR ---
EXAMINATION TYPE: XR chest 1V DATE OF EXAM: 02/29/2020 CLINICAL HISTORY: Difficulty breathing and covid pneumonia progress study. TECHNIQUE: Single AP portable upright view of the chest is obtained. COMPARISON: Chest x-ray from [address] chest 5 days ago. FINDINGS: Cardiac silhouette size is stable and mildly enlarged with atherosclerotic thoracic aorta. Background chronic emphysematous change with bibasilar opacities.. Areas of pleural thickening right upper lung redemonstrated. Osseous structures are intact. IMPRESSION: Overall stable findings, chronic emphysematous change and cardiomegaly with central vas cular congestion, small bilateral pleural effusions and associated bibasilar atelectasis and/or infil trates are all redemonstrated. Favor CHF exacerbation.
[2020-02-29 08:18] LABS: C Reactive Protein 299.6 mg/L (<10.0)
[2020-02-29] MEDS: METOPROLOL TARTRATE 50 MG TAB PO SCH ×2 (08:53→20:48)
[2020-02-29] MEDS: AMIODARONE 200 MG TAB PO SCH ×2 (08:53→20:48)
[2020-02-29] MEDS: PIPERACILLIN-TAZOBACTAM 3.375 GM in SODIUM CHLORIDE 0.9% 100 ML IVPB SCH ×2 (08:53→20:49)
[2020-02-29] MEDS: DILTIAZEM ORAL 30 MG TAB PO SCH ×3 (08:53→20:48)
[2020-02-29] MEDS: APIXABAN 5 MG TAB PO SCH ×2 (08:53→20:48)
[2020-02-29] MEDS: acetaZOLAMIDE 250 MG TAB PO SCH ×3 (08:54→20:48)
[2020-02-29] MEDS: MULTIVITAMINS, THERA 1 EACH TAB PO SCH (08:54)
[2020-02-29] MEDS: BUMETANIDE 1 MG TAB PO SCH ×2 (08:54→17:11)
--- NOTE | 2020-02-29 10:11 | P.PN ---
Subjective Progress Note Date: 02/29/20 Principal diagnosis: Acute metabolic encephalopathy Acute Hypercapnic hypoxic respiratory failure Chronic systolic heart failure with acute exacerbation Status post aortic valve replacement Altered mental status/encephalopathy due to elevated CO2 and CO2 narcosis Worsening of heart failure Bilateral pleural effusion Bilateral pneumonia 02/29/2020, patient seen eval reexamined during the rounds labs reviewed medications reviewed as main on supplemental oxygen sitting upright in the bed breathing comfortably awake and alert, patient had problems last night with somnolence and lethargy metabolic related to high CO2 and is recommended to use the BiPAP each night and when necessary during the day Will use it for short period time for 2-3 hour in the afternoon today discussed with the respiratory therapy 02/28/2020, patient seen eval reexamined during the rounds sitting upright on the chair breathing comfortably about to get breathing treatment, patient is more awake and alert eyes open. The commands, alert and oriented 3, patient used almost 6-1/2 hour BiPAP machine last night which definitely has helped his mental status, as well as general well-being, denies any chest pain cough or sputum production, labs reviewed WBC count is up to 16,000 yesterday today is pending we'll check a follow-up x-ray in the morning This is a 84-year-old morbidly obese male was seen evaluated examined, patient is somnolent but arousable, patient had a trial of BiPAP overnight after that he is more calm for the ICU she has problems associated with confusion and intermit tent agitation sitter is present at bedside, patient FiO2 has been lowered down to 4 L to 3 L, review of the old records revealed that 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 has been on home oxygen he came into the hospital with one-day history of increased shortness of breath and increased swelling of the lower extremity, patient does have chronic atrial fibrillation and has been on anticoagulants also on bronchodilator, patient has been on amiodarone as well his prior cardiac history significant for for heart failure atrial flutter fibrillation and aortic valve replacement, he used to smoke heavily in the past Objective - Vital Signs Vital signs: Vital Signs Temp 98.7 F 02/28/20 20:43 Pulse 81 02/29/20 04:49 Resp 23 02/29/20 04:49 BP 111/63 02/29/20 04:49 Pulse Ox 92 L 02/29/20 04:49 Intake & Output 02/28/20 02/29/20 02/29/20 18:59 06:59 18:59 Intake Total 240 360 Output Total 500 350 Balance -260 -350 360 Weight 80 kg Intake: Oral 240 360 Output: Urine 500 350 Other: Voiding Method Self-Catheterization # Voids 2 - Exam - Constitutional General appearance: disheveled, morbidly obese - EENT Eyes: EOMI, PERRLA Ears: bilateral: normal - Neck Neck: normal ROM Carotids: bilateral: upstroke normal Thyroid: bilateral: normal size - Respiratory Respiratory: bilateral: diminished, dullness, rales - Cardiovascular Rhythm: regular Heart sounds: normal: S1, S2 - Gastrointestinal General gastrointestinal: decreased bowel sounds, distended, soft - Musculoskeletal Musculoskeletal: generalized weakness - Labs CBC & Chem 7: 02/29/20 05:54 02/29/20 05:53 Labs: Abnormal Lab Results - Last 24 Hours (Table) 02/28/20 02/28/20 02/28/20 Range/Units 09:14 11:19 11:30 WBC (3.8-10.6) k/uL RBC (4.30-5.90) m/uL Hgb (13.0-17.5) gm/dL Hct (39.0-53.0) % MCV (80.0-100.0) fL MCHC (31.0-37.0) g/dL Neutrophils # (1.3-7.7) k/uL Lymphocytes # (1.0-4.8) k/uL ABG pH (7.35-7.45) ABG pCO2 (35-45) mmHg ABG pO2 (83-108) mmHg ABG HCO3 (21-25) mmol/L ABG Total CO2 (19-24) mmol/L ABG O2 Saturation (94-97) % Potassium (3.5-5.1) mmol/L Chloride 88 L (98-107) mmol/L Carbon Dioxide 39 H (22-30) mmol/L BUN 80 H (9-20) mg/dL Creatinine 3.20 H (0.66-1.25) mg/dL Glucose 140 H (74-99) mg/dL POC Glucose (mg/dL) 114 H (75-99) mg/dL Calcium (8.4-10.2) mg/dL C-Reactive Protein (<10.0) mg/L Total Protein (6.3-8.2) g/dL Albumin (3.5-5.0) g/dL Urine Protein Trace H (Negative) Urine Blood Small H (Negative) Urine RBC 28 H (0-5) /hpf Urine Mucus Rare H (None) /hpf 02/28/20 02/28/20 02/29/20 Range/Units 20:51 22:17 05:53 WBC (3.8-10.6) k/uL RBC (4.30-5.90) m/uL Hgb (13.0-17.5) gm/dL Hct (39.0-53.0) % MCV (80.0-100.0) fL MCHC (31.0-37.0) g/dL Neutrophils # (1.3-7.7) k/uL Lymphocytes # (1.0-4.8) k/uL ABG pH 7.32 L (7.35-7.45) ABG pCO2 77 H* (35-45) mmHg ABG pO2 61 L (83-108) mmHg ABG HCO3 39 H (21-25) mmol/L ABG Total CO2 42 H (19-24) mmol/L ABG O2 Saturation 89.9 L (94-97) % Potassium 3.1 L (3.5-5.1) mmol/L Chloride 90 L (98-107) mmol/L Carbon Dioxide 39 H (22-30) mmol/L BUN 87 H (9-20) mg/dL Creatinine 3.12 H (0.66-1.25) mg/dL Glucose 113 H (74-99) mg/dL POC Glucose (mg/dL) 138 H (75-99) mg/dL Calcium 8.2 L (8.4-10.2) mg/dL C-Reactive Protein 299.6 H (<10.0) mg/L Total Protein 5.5 L (6.3-8.2) g/dL Albumin 2.9 L (3.5-5.0) g/dL Urine Protein (Negative) Urine Blood (Negative) Urine RBC (0-5) /hpf Urine Mucus (None) /hpf 02/29/20 Range/Units 05:54 WBC 21.1 H (3.8-10.6) k/uL RBC 3.61 L (4.30-5.90) m/uL Hgb 11.1 L (13.0-17.5) gm/dL Hct 36.9 L (39.0-53.0) % MCV 102.0 H (80.0-100.0) fL MCHC 30.1 L (31.0-37.0) g/dL Neutrophils # 19.7 H (1.3-7.7) k/uL Lymphocytes # 0.4 L (1.0-4.8) k/uL ABG pH (7.35-7.45) ABG pCO2 (35-45) mmHg ABG pO2 (83-108) mmHg ABG HCO3 (21-25) mmol/L ABG Total CO2 (19-24) mmol/L ABG O2 Saturation (94-97) % Potassium (3.5-5.1) mmol/L Chloride (98-107) mmol/L Carbon Dioxide (22-30) mmol/L BUN (9-20) mg/dL Creatinine (0.66-1.25) mg/dL Glucose (74-99) mg/dL POC Glucose (mg/dL) (75-99) mg/dL Calcium (8.4-10.2) mg/dL C-Reactive Protein (<10.0) mg/L Total Protein (6.3-8.2) g/dL Albumin (3.5-5.0) g/dL Urine Protein (Negative) Urine Blood (Negative) Urine RBC (0-5) /hpf Urine Mucus (None) /hpf Assessment and Plan Assessment: Acute Hypercapnic hypoxic respiratory failure Chronic systolic heart failure with acute exacerbation Status post aortic valve replacement Altered mental status/encephalopathy metabolic due to elevated CO2 and CO2 narcosis Worsening of heart failure Bilateral pleural effusion Bilateral pneumonia Plan: Check follow-up chest x-ray Patient needs gentle diuresis as needed Continue BiPAP each night and when necessary during the day would recommend to 3 hours in the afternoon as well as Keep oxygen 2-3 L to keep saturation over 90% Agree with broad-spectrum antibiotics. Continue bronchodilators Overall long-term prognosis is guarded Time with Patient: Greater than 30
--- NOTE | 2020-02-29 11:09 | P.PN ---
Subjective Progress Note Date: 02/29/20 This is an 84-year-old gentleman who was just recently discharged from the hospital. He has a history of aortic valve replacement by percutaneous approach, prior history of smoking, COPD, renal dysfunction. Patient also has chronic persistent atrial fibrillation/flutter and underwent an electro cardioversion on Wednesday of last week by Dr. CHELSEA Schaffer. Patient presented back to the hospital with symptoms of shortness of breath, he was found to be in atrial fibrillation with rapid ventricular response. This morning the patient is in a typical atrial flutter with a heart rate of 70-80. Overall the patient feels well, he continues to have a significant amount of bilateral lower extremity edema. Blood pressure 107/50, heart rate in the 70s to 80s. White blood cell count 12.8, hemoglobin 11.0, platelet count 223. Sodium 137, potassium 4.5, BUN 55 and creatinine 2.3. 02/27/2020 Patient seen and examined this morning, appears to be more confused today. Heart rate remains stable in the 70s. Blood pressure 118/70. White blood cell count 16.6, hemoglobin 11, platelet count 220 sodium 139, potassium 3.5, BUN 68, creatinine 2.8. We will going to discontinue his IV Lasix today we will also decrease the dose of amiodarone. Recheck his labs in the morning. 02/28/2020 Patient was seen and examined this morning, looking much better overall today. He is much less confused. Continues to be in atrial flutter with a controlled ventricular response. Blood pressure 120 over 80s with a heart rate in the 80s. 02/29/2020 Patient seen and examined this morning, sitting up in his chair at bedside. Continues to be much more alert today, however he is somewhat forgetful of current events. He continues to be in an atrial flutter with controlled ventricular response. Edema in the lower extremities has improved. Objective - Vital Signs Vital signs: Vital Signs Temp 98.7 F 02/28/20 20:43 Pulse 81 02/29/20 04:49 Resp 23 02/29/20 04:49 BP 111/63 02/29/20 04:49 Pulse Ox 92 L 02/29/20 04:49 Intake & Output 02/28/20 02/29/20 02/29/20 18:59 06:59 18:59 Intake Total 240 360 Output Total 500 350 Balance -260 -350 360 Weight 80 kg Intake: Oral 240 360 Output: Urine 500 350 Other: Voiding Method Self-Catheterization # Voids 2 - Exam PHYSICAL EXAMINATION: GENERAL: 84-year-old gentleman in no acute distress at the time of my examination HEENT: Head is atraumatic, normocephalic. Pupils equal, round. Sclera anicteric. Conjunctiva are clear. Mucous membranes of the mouth are moist. Nec k is supple. There is no elevated jugular venous pressure. No carotid bruit is heard. HEART EXAMINATION: Heart S1 and S2 irregularly irregular a systolic murmur is heard CHEST EXAMINATION: Lungs reveal mild diminished air entry to the bases posteriorly ABDOMEN: Soft, nontender. Bowel sounds are heard. No organomegaly noted. EXTREMITIES:[ 2+ peripheral pulses with 1+ evidence of dependent peripheral edema NEUROLOGIC patient is awake, alert and oriented 3 . . - Labs CBC & Chem 7: 02/29/20 05:54 02/29/20 05:53 Labs: Abnormal Lab Results - Last 24 Hours (Table) 02/28/20 02/28/20 02/28/20 Range/Units 11:19 11:30 20:51 WBC (3.8-10.6) k/uL RBC (4.30-5.90) m/uL Hgb (13.0-17.5) gm/dL Hct (39.0-53.0) % MCV (80.0-100.0) fL MCHC (31.0-37.0) g/dL Neutrophils # (1.3-7.7) k/uL Lymphocytes # (1.0-4.8) k/uL ABG pH (7.35-7.45) ABG pCO2 (35-45) mmHg ABG pO2 (83-108) mmHg ABG HCO3 (21-25) mmol/L ABG Total CO2 (19-24) mmol/L ABG O2 Saturation (94-97) % Potassium (3.5-5.1) mmol/L Chloride (98-107) mmol/L Carbon Dioxide (22-30) mmol/L BUN (9-20) mg/dL Creatinine (0.66-1.25) mg/dL Glucose (74-99) mg/dL POC Glucose (mg/dL) 114 H 138 H (75-99) mg/dL Calcium (8.4-10.2) mg/dL C-Reactive Protein (<10.0) mg/L Total Protein (6.3-8.2) g/dL Albumin (3.5-5.0) g/dL Urine Protein Trace H (Negative) Urine Blood Small H (Negative) Urine RBC 28 H (0-5) /hpf Urine Mucus Rare H (None) /hpf 02/28/20 02/29/20 02/29/20 Range/Units 22:17 05:53 05:54 WBC 21.1 H (3.8-10.6) k/uL RBC 3.61 L (4.30-5.90) m/uL Hgb 11.1 L (13.0-17.5) gm/dL Hct 36.9 L (39.0-53.0) % MCV 102.0 H (80.0-100.0) fL MCHC 30.1 L (31.0-37.0) g/dL Neutrophils # 19.7 H (1.3-7.7) k/uL Lymphocytes # 0.4 L (1.0-4.8) k/uL ABG pH 7.32 L (7.35-7.45) ABG pCO2 77 H* (35-45) mmHg ABG pO2 61 L (83-108) mmHg ABG HCO3 39 H (21-25) mmol/L ABG Total CO2 42 H (19-24) mmol/L ABG O2 Saturation 89.9 L (94-97) % Potassium 3.1 L (3.5-5.1) mmol/L Chloride 90 L (98-107) mmol/L Carbon Dioxide 39 H (22-30) mmol/L BUN 87 H (9-20) mg/dL Creatinine 3.12 H (0.66-1.25) mg/dL Glucose 113 H (74-99) mg/dL POC Glucose (mg/dL) (75-99) mg/dL Calcium 8.2 L (8.4-10.2) mg/dL C-Reactive Protein 299.6 H (<10.0) mg/L Total Protein 5.5 L (6.3-8.2) g/dL Albumin 2.9 L (3.5-5.0) g/dL Urine Protein (Negative) Urine Blood (Negative) Urine RBC (0-5) /hpf Urine Mucus (None) /hpf Assessment and Plan Plan: Assessment and plan #1 paroxysmal atrial fibrillation with rapid ventricular response. Patient this morning is in a typical atrial flutter with a heart rate in the 70s to 80s. Patient recently underwent cardioversion for atrial fibrillation. #2 hypertension #3 history of aortic valve replacement by percutaneous approach in November #4 COPD #5 prior history of smoking #6 renal insufficiency with hyperkalemia Plan From cardiology's perspective, we will continue this patient on his current medications. He's cleared for discharge from our perspective. We will make a follow-up appointment in the office with Dr. Dena Schaffer. DNP note has been reviewed, I agree with a documented findings and plan of care. Patient was seen and examined.
[2020-02-29 11:14] VITALS: BMI 24.5
[2020-02-29] MEDS: ALBUTEROL HFA INHALER INHALATION PRN ×3 (11:29→20:30)
--- NOTE | 2020-02-29 16:03 | PN ---
PROGRESS NOTE Patient is seen for followup for acute kidney injury, mainly cardiorenal. He is maintained on oral Bumex. Patient's weight is stable. He has a Hunt catheter currently. Renal function is about the same as yesterday I had discussed with the patient regarding possible dialysis if his renal function continues to deteriorate, and at this time he states that he does not want any kind of renal replacement therapy. In the meantime, patient's blood pressure was on the lower side and I added midodrine which has helped to some degree. PHYSICAL EXAMINATION: On examination today, blood pressure is 122/57, heart rate 90 per minute, he is afebrile. Examination of the heart S1, S2. Examination of the lungs, bilateral breath sounds are heard. Abdomen is soft, nontender. Examination of the lower extremities shows edema 3+ bilaterally. COMMUNICATIONS ANALYST exam grossly intact. LABS: Show sodium 140, potassium 3.1, chloride 90, BUN 87, serum creatinine 3.1. CO2 is 39. ASSESSMENT: 1. Acute kidney injury cardiorenal, renal function fairly stable, somewhat improved with better perfusion pressures. Continue with the midodrine for now. Continue with current dose of Bumex. 2. Significant lower extremity edema. Patient refuses any kind of renal replacement therapy. I will continue with current dose of Bumex. 3. Metabolic alkalosis, currently on Diamox. 4. CHF diastolic acute on top of chronic, ejection fraction 55%-60% with severely dilated left atrium and mild pulmonary hypertension. PLAN: Continue with the midodrine. Continue with current dose of Bumex. Repeat labs in a.m. Avoid nephrotoxic agents. MMODL / IJN: [id number] /
[2020-02-29] MEDS: LINEZOLID 600 MG in DEXTROSE/WATER 1 300ML.BAG IVPB SCH (17:12)
[2020-02-29] MEDS: ANIDULAFUNGIN 100 MG in SODIUM CHLORIDE 0.9% 100 ML IVPB SCH (17:13)
[2020-02-29 21:02] LABS: Glucose,Whole Blood 187 mg/dL (75-99)
--- NOTE | 2020-02-29 22:27 | PN ---
PROGRESS NOTE DATE OF SERVICE: 02/29/2020 REASON FOR FOLLOWUP: Leukocytosis and pneumonia. INTERVAL HISTORY: The patient is currently afebrile. He has been breathing comfortably. The patient denies having any chest pain. He did have some cough but no sputum. Denies having any nausea or vomiting. No abdominal pain or diarrhea. PHYSICAL EXAMINATION: Blood pressure is 143/65 with a pulse of 102, temperature 97.8. He is 96% on 2 L nasal cannula. General description is an elderly male up in the chair in no distress. RESPIRATORY SYSTEM: Unlabored breathing with decreased breath sounds at the base. No wheeze. HEART: S1, S2. Regular rate and rhythm. ABDOMEN: Soft. No tenderness. LABS: Hemoglobin is 11.1, white count 21.1, BUN of 87, creatinine 3.12. CRP is 29. DIAGNOSTIC IMPRESSION AND PLAN: Patient with leukocytosis, concern for possible pneumonia. This patient's urine is negative. No evidence of any cellulitis with worsening of the white count despite good Gram-negative coverage. Will add Zyvox to cover for the Gram- positive. Patient with borderline kidney function and high risk of nephrotoxicity from vancomycin. Will monitor his clinical course closely. MMODL / IJN: [id number] / ADOLPH
[2020-03-01] MEDS: LINEZOLID 600 MG in DEXTROSE/WATER 1 300ML.BAG IVPB SCH (03:50)
[2020-03-01 06:31] LABS: Glucose,Whole Blood 146 mg/dL (75-99)
[2020-03-01] MEDS: MIDODRINE 5 MG TAB PO SCH ×3 (06:34→17:46)
[2020-03-01] MEDS: PANTOPRAZOLE 40 MG TABLET PO SCH ×2 (06:34→17:46)
[2020-03-01 07:40] LABS: ABG PCO2 77 mmHg (35-45)
[2020-03-01] MEDS: ALBUTEROL HFA INHALER INHALATION PRN ×4 (08:13→20:50)
[2020-03-01] MEDS: TIOTROPIUM 18 MCG/PUFF INHALER INHALATION SCH (08:15)
[2020-03-01] MEDS ORDERED: Potassium Replacement Protocol 1 EACH MISC MISCELLANE PRN (08:50)
[2020-03-01 09:01] LABS: HCT 37.3 % (39.0-53.0); HGB 10.8 gm/dL (13.0-17.5); Hypochromasia Marked; MCH 30.6 pg (25.0-35.0); MCV 105.5 fL (80.0-100.0); Macrocytosis Moderate; Mean Platelet Volume 8.7; Platelet Count 244 k/uL (150-450); RBC 3.54 m/uL (4.30-5.90); RDW 13.5 % (11.5-15.5); WBC 18.1 k/uL (3.8-10.6)
[2020-03-01 09:09] LABS: Calcium 8.4 mg/dL (8.4-10.2); Potassium 3.4 mmol/L (3.5-5.1)
[2020-03-01] MEDS: METOPROLOL TARTRATE 50 MG TAB PO SCH ×2 (09:12→22:06)
[2020-03-01] MEDS: BUMETANIDE 1 MG TAB PO SCH ×2 (09:12→16:14)
[2020-03-01] MEDS: acetaZOLAMIDE 250 MG TAB PO SCH ×3 (09:12→22:06)
[2020-03-01] MEDS: PIPERACILLIN-TAZOBACTAM 3.375 GM in SODIUM CHLORIDE 0.9% 100 ML IVPB SCH ×2 (09:12→22:07)
--- NOTE | 2020-03-01 09:12 | P.PN ---
Subjective Progress Note Date: 03/01/20 Principal diagnosis: Acute metabolic encephalopathy Acute Hypercapnic hypoxic respiratory failure Chronic systolic heart failure with acute exacerbation Status post aortic valve replacement Altered mental status/encephalopathy due to elevated CO2 and CO2 narcosis Worsening of heart failure Bilateral pleural effusion Bilateral pneumonia March 01 2020, patient seen eval examined during the rounds sitting upright on the bed on 2 L nasal cannula breathing comfortably, awake and alert, he used to have few hours in the afternoon and the throughout the night for his almost 6- 1/2 hours, a prescription of BiPAP has been provided, which is to be used patient night for 6-7 hours at least and during the day once to our during afternoon naps 02/29/2020, patient seen eval reexamined during the rounds labs reviewed medications reviewed as main on supplemental oxygen sitting upright in the bed breathing comfortably awake and alert, patient had problems last night with somnolence and lethargy metabolic related to high CO2 and is recommended to use the BiPAP each night and when necessary during the day Will use it for short period time for 2-3 hour in the afternoon today discussed with the respiratory therapy 02/28/2020, patient seen eval reexamined during the rounds sitting upright on the chair breathing comfortably about to get breathing treatment, patient is more awake and alert eyes open. The commands, alert and oriented 3, patient used almost 6-1/2 hour BiPAP machine last night which definitely has helped his mental status, as well as general well-being, denies any chest pain cough or sputum production, labs reviewed WBC count is up to 16,000 yesterday today is pending we'll check a follow-up x-ray in the morning This is a 84-year-old morbidly obese male was seen evaluated examined, patient is somnolent but arousable, patient had a trial of BiPAP overnight after that he is more calm for the ICU she has problems associated with confusion and interm ittent agitation sitter is present at bedside, patient FiO2 has been lowered down to 4 L to 3 L, review of the old records revealed that 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 COPD has been on home oxygen he came into the hospital with one-day history of increased shortness of breath and increased swelling of the lower extremity, patient does have chronic atrial fibrillation and has been on anticoagulants also on bronchodilator, patient has been on amiodarone as well his prior cardiac history significant for for heart failure atrial flutter fibrillation and aortic valve replacement, he used to smoke heavily in the past Objective - Vital Signs Vital signs: Vital Signs Temp 97.6 F 03/01/20 08:00 Pulse 89 03/01/20 08:00 Resp 16 03/01/20 08:00 BP 129/60 03/01/20 08:00 Pulse Ox 96 03/01/20 08:00 Intake & Output 02/29/20 03/01/20 03/01/20 18:59 06:59 18:59 Intake Total 820 250 Output Total 500 750 Balance 320 -500 Weight 80 kg 90.3 kg Intake: Intake, IV Titration 100 250 Amount Anidulafungin 100 mg In 100 Sodium Chloride 0.9% 100 ml @ 84 mls/hr IVPB DAILY @1800 [facility] Rx#:[id number] Linezolid 600 mg In 150 Dextrose/Water 1 300ml. bag @ 150 mls/hr IVPB Q12H [facility] Rx#:[id number] Piperacillin-Tazobactam 3 100 .375 gm In Sodium Chloride 0.9% 100 ml @ 25 mls/hr IVPB Q12HR [facility] Rx #:[id number] Oral 720 Output: Urine 500 750 Other: Voiding Method Indwelling Catheter Indwelling Catheter - Exam - Constitutional General appearance: disheveled, morbidly obese - EENT Eyes: EOMI, PERRLA Ears: bilateral: normal - Neck Neck: normal ROM Carotids: bilateral: upstroke normal Thyroid: bilateral: normal size - Respiratory Respiratory: bilateral: diminished, dullness, rales - Cardiovascular Rhythm: regular Heart sounds: normal: S1, S2 - Gastrointestinal General gastrointestinal: decreased bowel sounds, distended, soft - Musculoskeletal Musculoskeletal: generalized weakness - Labs CBC & Chem 7: 03/01/20 08:31 02/29/20 05:53 Labs: Abnormal Lab Results - Last 24 Hours (Table) 02/28/20 02/29/20 02/29/20 Range/Units 22:17 05:53 21:01 WBC (3.8-10.6) k/uL RBC (4.30-5.90) m/uL Hgb (13.0-17.5) gm/dL Hct (39.0-53.0) % MCV (80.0-100.0) fL MCHC (31.0-37.0) g/dL ABG pCO2 77 H* (35-45) mmHg POC Glucose (mg/dL) 187 H (75-99) mg/dL Procalcitonin 0.24 H (0.02-0.09) ng/mL 03/01/20 03/01/20 Range/Units 06:29 08:31 WBC 18.1 H (3.8-10.6) k/uL RBC 3.54 L (4.30-5.90) m/uL Hgb 10.8 L (13.0-17.5) gm/dL Hct 37.3 L (39.0-53.0) % MCV 105.5 H (80.0-100.0) fL MCHC 29.0 L (31.0-37.0) g/dL ABG pCO2 (35-45) mmHg POC Glucose (mg/dL) 146 H (75-99) mg/dL Procalcitonin (0.02-0.09) ng/mL Assessment and Plan Assessment: Acute Hypercapnic hypoxic respiratory failure Chronic systolic heart failure with acute exacerbation Status post aortic valve replacement Altered mental status/encephalopathy metabolic due to elevated CO2 and CO2 narcosis Worsening of heart failure Bilateral pleural effusion Bilateral pneumonia Plan: Follow-up chest x-ray reviewed, findings are suggestive of CHF Patient needs gentle diuresis as needed Continue BiPAP each night and when necessary during the day would recommend to 3 hours in the afternoon as well as Keep oxygen 2 L to keep saturation over 88 % Agree with broad-spectrum antibiotics. However they can be changed to oral at the time of discharge Continue bronchodilators Overall long-term prognosis is guarded Time with Patient: Greater than 30
[2020-03-01] MEDS: MULTIVITAMINS, THERA 1 EACH TAB PO SCH (09:13)
[2020-03-01] MEDS: APIXABAN 5 MG TAB PO SCH (09:13)
[2020-03-01] MEDS: DILTIAZEM ORAL 30 MG TAB PO SCH ×3 (09:13→22:06)
[2020-03-01] MEDS: AMIODARONE 200 MG TAB PO SCH ×2 (09:14→22:13)
--- NOTE | 2020-03-01 10:43 | P.PN ---
Subjective Progress Note Date: 03/01/20 This is an 84-year-old gentleman who was just recently discharged from the hospital. He has a history of aortic valve replacement by percutaneous approach, prior history of smoking, COPD, renal dysfunction. Patient also has chronic persistent atrial fibrillation/flutter and underwent an electro cardioversion on Wednesday of last week by Dr. CHELSEA Schaffer. Patient presented back to the hospital with symptoms of shortness of breath, he was found to be in atrial fibrillation with rapid ventricular response. This morning the patient is in a typical atrial flutter with a heart rate of 70-80. Overall the patient feels well, he continues to have a significant amount of bilateral lower extremity edema. Blood pressure 107/50, heart rate in the 70s to 80s. White blood cell count 12.8, hemoglobin 11.0, platelet count 223. Sodium 137, potassium 4.5, BUN 55 and creatinine 2.3. 02/27/2020 Patient seen and examined this morning, appears to be more confused today. Heart rate remains stable in the 70s. Blood pressure 118/70. White blood cell count 16.6, hemoglobin 11, platelet count 220 sodium 139, potassium 3.5, BUN 68, creatinine 2.8. We will going to discontinue his IV Lasix today we will also decrease the dose of amiodarone. Recheck his labs in the morning. 02/28/2020 Patient was seen and examined this morning, looking much better overall today. He is much less confused. Continues to be in atrial flutter with a controlled ventricular response. Blood pressure 120 over 80s with a heart rate in the 80s. 02/29/2020 Patient seen and examined this morning, sitting up in his chair at bedside. Continues to be much more alert today, however he is somewhat forgetful of current events. He continues to be in an atrial flutter with controlled ventricular response. Edema in the lower extremities has improved. 03/01/2020 The patient was seen and examined this morning, still mildly confused this morning a little more so than yesterday. He is wanting to contact his son. We will make sure that he has a facetime or Skype with his son today. Hemodynamically he is stable. Objective - Vital Signs Vital signs: Vital Signs Temp 97.6 F 03/01/20 08:00 Pulse 89 04/24/20 08:00 Resp 16 03/01/20 08:00 BP 129/60 03/01/20 08:00 Pulse Ox 96 03/01/20 08:00 Intake & Output 02/29/20 03/01/20 03/01/20 18:59 06:59 18:59 Intake Total 820 250 Output Total 500 750 Balance 320 -500 Weight 80 kg 90.3 kg Intake: Intake, IV Titration 100 250 Amount Anidulafungin 100 mg In 100 Sodium Chloride 0.9% 100 ml @ 84 mls/hr IVPB DAILY @1800 [facility] Rx#:[id number] Linezolid 600 mg In 150 Dextrose/Water 1 300ml. bag @ 150 mls/hr IVPB Q12H [facility] Rx#:[id number] Piperacillin-Tazobactam 3 100 .375 gm In Sodium Chloride 0.9% 100 ml @ 25 mls/hr IVPB Q12HR [facility] Rx #:[id number] Oral 720 Output: Urine 500 750 Other: Voiding Method Indwelling Catheter Indwelling Catheter - Exam PHYSICAL EXAMINATION: GENERAL: 84-year-old gentleman in no acute distress at the time of my examination HEENT: Head is atraumatic, normocephalic. Pupils equal, round. Sclera anicteric. Conjunctiva are clear. Mucous membranes of the mouth are moist. Neck is supple. There is no elevated jugular venous pressure. No carotid bru it is heard. HEART EXAMINATION: Heart S1 and S2 irregularly irregular a systolic murmur is heard CHEST EXAMINATION: Lungs reveal mild diminished air entry to the bases posteriorly ABDOMEN: Soft, nontender. Bowel sounds are heard. No organomegaly noted. EXTREMITIES:[ 2+ peripheral pulses with 1+ evidence of dependent peripheral edema NEUROLOGIC patient is awake, alert and oriented 3 . . - Labs CBC & Chem 7: 03/01/20 08:31 03/01/20 08:31 Labs: Abnormal Lab Results - Last 24 Hours (Table) 02/28/20 02/29/20 02/29/20 Range/Units 22:17 05:53 21:01 WBC (3.8-10.6) k/uL RBC (4.30-5.90) m/uL Hgb (13.0-17.5) gm/dL Hct (39.0-53.0) % MCV (80.0-100.0) fL MCHC (31.0-37.0) g/dL ABG pCO2 77 H* (35-45) mmHg Potassium (3.5-5.1) mmol/L Chloride (98-107) mmol/L Carbon Dioxide (22-30) mmol/L BUN (9-20) mg/dL Creatinine (0.66-1.25) mg/dL Glucose (74-99) mg/dL POC Glucose (mg/dL) 187 H (75-99) mg/dL Procalcitonin 0.24 H (0.02-0.09) ng/mL 03/01/20 03/01/20 03/01/20 Range/Units 06:29 08:31 08:31 WBC 18.1 H (3.8-10.6) k/uL RBC 3.54 L (4.30-5.90) m/uL Hgb 10.8 L (13.0-17.5) gm/dL Hct 37.3 L (39.0-53.0) % MCV 105.5 H (80.0-100.0) fL MCHC 29.0 L (31.0-37.0) g/dL ABG pCO2 (35-45) mmHg Potassium 3.4 L (3.5-5.1) mmol/L Chloride 89 L (98-107) mmol/L Carbon Dioxide 41 H* (22-30) mmol/L BUN 92 H (9-20) mg/dL Creatinine 2.97 H (0.66-1.25) mg/dL Glucose 158 H (74-99) mg/dL POC Glucose (mg/dL) 146 H (75-99) mg/dL Procalcitonin (0.02-0.09) ng/mL Microbiology - Last 24 Hours (Table) 03/01/20 00:16 Sputum Culture - Preliminary Sputum Assessment and Plan Plan: Assessment and plan #1 paroxysmal atrial fibrillation with rapid ventricular response. Patient this morning is in a typical atrial flutter with a heart rate in the 70s to 80s. Patient recently underwent cardioversion for atrial fibrillation. #2 hypertension #3 history of aortic valve replacement by percutaneous approach in November #4 COPD #5 prior history of smoking #6 renal insufficiency with hyperkalemia Plan From cardiology's perspective, we will continue this patient on his current medications. He's cleared for discharge from our perspective. We will make a follow-up appointment in the office with Dr. Dena Schaffer. DNP note has been reviewed, I agree with a documented findings and plan of care. Patient was seen and examined.
--- NOTE | 2020-03-01 11:57 | P.DS ---
Providers Date of admission: 02/24/20 10:51 Expected date of discharge: 03/01/20 Attending physician: Dago Kaur Consults: 02/24/20 10:51 Consult Physician Routine Consulting Provider: Katerina Schaffer Consult Reason/Comments: CHF, atrial flutter Do you want consulting provider notified?: Yes 02/24/20 15:13 Consult Physician Routine Consulting Provider: Regan Pathak Consult Reason/Comments: hyperkalemia/renal insuff Do you want consulting provider notified?: Yes 02/26/20 18:30 Consult Physician Routine Consulting Provider: Tristian Arias Consult Reason/Comments: elevated co2/copd Do you want consulting provider notified?: Yes 02/26/20 18:32 Consult Physician Routine Consulting Provider: Kalani Bruce Consult Reason/Comments: confusion Do you want consulting provider notified?: Yes 02/26/20 18:35 Consult Physician Routine Consulting Provider: Keena Alejandro Consult Reason/Comments: new onset confusion Do you want consulting provider notified?: Yes 02/27/20 21:30 Consult Physician Routine Consulting Provider: Kyle Farrell Consult Reason/Comments: leucocytosis Do you want consulting provider notified?: Yes [facility] Course: Final Diagnoses: Acute on chronic CHF exacerbation, diastolic dysfunction secondary to fluid overload, bilateral pleural effusions, bilateral pneumonia, community-acquired. Tested negative for coronavirus. Acute hypoxic, hypercapnic respiratory failure, requiring BiPAP at night, and afternoon Acute metabolic encephalopathy secondary to the above, elevated CO2, CO2 narcosis improved with BiPAP Acute renal failure, cardiorenal Hypotension, on midodrin Metabolic alkalosis COPD Paroxysmal atrial fibrillation, atrial flutter with RVR, currently controlled. Recent cardioversion for atrial fibrillation Hypertension Prior nicotine dependence Hospital course: This a 84-year-old gentleman admitted with acute CHF exacerbation, fluid overload, respiratory failure, acute renal failure/cardiorenal multiple other medical issues. Patient did not diurese well on Lasix, converted over to Diamox with better results. Maintained on broad- spectrum antibiotics as per infectious disease. Also continues to require BiPAP each night, 3 hours in the afternoon and when necessary as per pulmonary's recommendations. Please refer to H&P/consults for specific details. Patient will be discharged to [facility] subacute rehab in a stable condition with guarded prognosis pending confirmation of BiPAP at [facility], final DC recommendations/clearance from nephrology and infectious disease. The impression and plan of care has been dictated as directed. : I performed a history and examination of this patient, discussed the same with the dictator. I agree with the dictator's note ,documented as a scribe. Any additional findings or plans will be noted. Patient Condition at Discharge: Stable Plan - Discharge Summary Discharge Rx Participant: No New Discharge Prescriptions: New Bumetanide [BUMEX] 1 mg PO BID@0900,1600 tab Amiodarone [Cordarone] 200 mg PO BID tab acetaZOLAMIDE [Diamox] 250 mg PO TID tab Ipratropium-Albuterol Nebulize [Duoneb 0.5 mg-3 mg/3 ml Soln] 3 ml INHALATION QID #120 neb Metoprolol Tartrate [Lopressor] 50 mg PO BID tab Midodrine [ProAmatine] 10 mg PO AC-TID tab Continue Multivitamins, Thera [Multivitamin (formulary)] 1 tab PO DAILY Apixaban [Eliquis] 5 mg PO BID Pantoprazole [Protonix] 40 mg PO AC-BID #60 tablet. Metoclopramide [Reglan] 5 mg PO AC-TID #42 tab Diltiazem Oral [Cardizem*] 30 mg PO TID #90 tab Polyethylene Glycol 3350 [Miralax] 17 gm PO DAILY PRN PRN Reason: Constipation Discontinued Metoprolol Tartrate [Lopressor] 25 mg PO BID Ipratropium Nebulized [Atrovent Nebulized 0.2 MG/ML] 0.5 mg INHALATION RT-TID Cefuroxime Axetil [Ceftin] 500 mg PO BID 5 Days #10 tab Amiodarone [Cordarone] 400 mg PO BID #9 tab Furosemide [Lasix] 20 mg PO DAILY #0 tab Amiodarone [Cordarone] 200 mg PO DIRECTED Discharge Medication List Apixaban [Eliquis] 5 mg PO BID 02/14/20 [History] Multivitamins, Thera [Multivitamin (formulary)] 1 tab PO DAILY 02/14/20 [History] Diltiazem Oral [Cardizem*] 30 mg PO TID #90 tab 02/21/20 [Rx] Metoclopramide [Reglan] 5 mg PO AC-TID #42 tab 02/21/20 [Rx] Pantoprazole [Protonix] 40 mg PO AC-BID #60 tablet. 02/21/20 [Rx] Polyethylene Glycol 3350 [Miralax] 17 gm PO DAILY PRN 02/24/20 [History] Amiodarone [Cordarone] 200 mg PO BID tab 03/01/20 [Rx] Bumetanide [BUMEX] 1 mg PO BID@0900,1600 tab 03/01/20 [Rx] Ipratropium-Albuterol Nebulize [Duoneb 0.5 mg-3 mg/3 ml Soln] 3 ml INHALATION QID #120 neb 03/01/20 [Rx] Metoprolol Tartrate [Lopressor] 50 mg PO BID tab 03/01/20 [Rx] Midodrine [ProAmatine] 10 mg PO AC-TID tab 03/01/20 [Rx] acetaZOLAMIDE [Diamox] 250 mg PO TID tab 03/01/20 [Rx] Follow up Appointment(s)/Referral(s): Manisha Anthony MD [STAFF PHYSICIAN] - 1 Week Dago Kaur MD [STAFF PHYSICIAN] - 3 Days Tristian Arias MD [STAFF PHYSICIAN] - 1 Week Activity/Diet/Wound Care/Special Instructions: [facility] pending antibiotics/ final DC recommendations/clearance from both infectious disease and nephrology. confirm cardiology follow-up appointment prior to discharge. Overnight pulse ox completed/patient will need BiPAP at night and prn during the day at [facility] BiPAP settings as per pulmonary CBC, BMP in 2 days with results to PCP Discharge Disposition: TRANSFER TO SNF/ECF
[2020-03-01 12:16] LABS: Glucose,Whole Blood 124 mg/dL (75-99)
--- NOTE | 2020-03-01 12:48 | PN ---
PROGRESS NOTE Patient is seen for followup for chronic kidney disease and acute kidney injury, mainly cardiorenal. Patient is sitting up on in a chair. He is trying to eat although he says he does not have much of an appetite. Blood pressure this morning 129/60, heart rate 89 per minute, he is afebrile. Examination of the heart S1, S2. Examination of the lungs, decreased breath sounds at the lung bases. Abdomen is soft, nontender. Examination of the lower extremities shows 3+ edema bilaterally. 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 LABS: Show sodium of 140, potassium 3.4, chloride 89. CO2 is 41, BUN 92, serum creatinine 2.97, hemoglobin 10.8. ASSESSMENT: 1. Acute kidney injury, cardiorenal and secondary to hypotension, hypoperfusion, somewhat improved with use of midodrine. Patient is maintained on oral Bumex, which I will continue. He remains significantly volume overloaded. Patient has refused on dialysis to help with his severe fluid overload. 2. Hypokalemia secondary to diuresis. 3. Metabolic alkalosis. I will add Diamox. 4. Severe cardiomyopathy. PLAN: Add Diamox, continue with oral Bumex. Continue with the midodrine. Increase the midodrine to 10 mg t.i.d. and repeat labs in a.m. MMODL / IJN: [id number] /
[2020-03-01 17:06] LABS: Glucose,Whole Blood 144 mg/dL (75-99)
[2020-03-01] MEDS: ANIDULAFUNGIN 100 MG in SODIUM CHLORIDE 0.9% 100 ML IVPB SCH (17:45)
[2020-03-01] MEDS: LINEZOLID 600 MG TAB PO SCH (17:46)
[2020-03-01 20:21] LABS: Glucose,Whole Blood 164 mg/dL (75-99)
[2020-03-01] MEDS: APIXABAN 2.5 MG TABLET PO SCH (22:06)
--- NOTE | 2020-03-01 22:39 | PN ---
PROGRESS NOTE DATE OF SERVICE: 03/01/2020 REASON FOR FOLLOWUP: Leukocytosis, likely pneumonia. INTERVAL HISTORY: The patient is currently afebrile, has been breathing comfortably. Denies having any chest pain. Cough but no sputum. No abdominal pain and no diarrhea. PHYSICAL EXAMINATION: Blood pressure is 116/57, pulse of 72. Temperature is 97.5. He is 92% on 2 L nasal cannula. General description is an elderly male up in the chair in no distress. RESPIRATORY SYSTEM: Unlabored breathing with decreased breath sounds at the base. No wheeze. HEART: S1, S2. Regular rate and rhythm. ABDOMEN: Soft. No tenderness. LABS: Hemoglobin is 10.8, white count 18.1, BUN of 22, creatinine is 2.97. Sputum culture is currently pending. DIAGNOSTIC IMPRESSION AND PLAN: Patient with leukocytosis, multifactorial, with possible component of pneumonia. The patient's white count responded to addition of Zyvox yesterday. Will wait for the sputum culture to finalize to determine his discharge antibiotics. Continue with supportive care. MMODL / IJN: [id number] /
[2020-03-02 06:26] LABS: Glucose,Whole Blood 132 mg/dL (75-99)
[2020-03-02 06:51] LABS: Calcium 8.7 mg/dL (8.4-10.2); Potassium 3.4 mmol/L (3.5-5.1)
[2020-03-02] MEDS: PANTOPRAZOLE 40 MG TABLET PO SCH ×2 (07:33→17:37)
[2020-03-02] MEDS: LINEZOLID 600 MG TAB PO SCH ×2 (07:33→17:37)
[2020-03-02] MEDS: MIDODRINE 5 MG TAB PO SCH ×3 (07:33→17:37)
--- NOTE | 2020-03-02 08:38 | P.PN ---
Subjective Progress Note Date: 03/02/20 Principal diagnosis: Acute metabolic encephalopathy Acute Hypercapnic hypoxic respiratory failure Chronic systolic heart failure with acute exacerbation Status post aortic valve replacement Altered mental status/encephalopathy due to elevated CO2 and CO2 narcosis Worsening of heart failure Bilateral pleural effusion Bilateral pneumonia 03/02/2020, patient seen eval examined during rounds sitting upright in chair breathing comfortably on 2 L oxygen oxygen saturation are in low 90s, patient was confused and agitated last night did not use the BiPAP machine throughout t he night however he managed reasonably 3 hours, this morning looks relatively composed labs reviewed per duration was 3.4 and creatinine 88 and 2.9, CO2 is 40 on 3 numbers appears to have plateaued out and in fact slowly improving and showing a downward trend March 01 2020, patient seen eval examined during the rounds sitting upright on the bed on 2 L nasal cannula breathing comfortably, awake and alert, he used to have few hours in the afternoon and the throughout the night for his almost 6-1/ 2 hours, a prescription of BiPAP has been provided, which is to be used patient night for 6-7 hours at least and during the day once to our during afternoon naps 02/29/2020, patient seen eval reexamined during the rounds labs reviewed medications reviewed as main on supplemental oxygen sitting upright in the bed breathing comfortably awake and alert, patient had problems last night with somnolence and lethargy metabolic related to high CO2 and is recommended to use the BiPAP each night and when necessary during the day Will use it for short period time for 2-3 hour in the afternoon today discussed with the respiratory therapy 02/28/2020, patient seen eval reexamined during the rounds sitting upright on the chair breathing comfortably about to get breathing treatment, patient is more awake and alert eyes open. The commands, alert and oriented 3, patient used almost 6-1/2 hour BiPAP machine last night which definitely has helped his mental status, as well as general well-being, denies any chest pain cough or sputum production, labs reviewed WBC count is up to 16,000 yesterday today is pending we'll check a follow-up x-ray in the morning This is a 84-year-old morbidly obese male was seen evaluated examined, patient is somnolent but arousable, patient had a trial of BiPAP overnight after that he is more calm for the ICU she has problems associated with confusion and intermittent agitation sitter is present at bedside, patient FiO2 has been lowered down to 4 L to 3 L, review of the old records revealed that 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 has been on home oxygen he came into the hospital with one-day history of increased shortness of breath and increased swelling of the lower extremity, patient does have chronic atrial fibrillation and has been on anticoagulants also on bronchodilator, patient has been on amiodarone as well his prior cardiac history significant for for heart failure atrial flutter fibrillation and aortic valve replacement, he used to smoke heavily in the past Objective - Vital Signs Vital signs: Vital Signs Temp 97.9 F 03/02/20 04:00 Pulse 90 03/02/20 04:00 Resp 18 03/02/20 04:00 BP 117/80 03/02/20 04:00 Pulse Ox 94 L 03/02/20 04:00 Intake & Output 03/01/20 03/02/20 03/02/20 18:59 06:59 18:59 Intake Total 540 Output Total 1800 550 Balance -1260 -550 Weight 92.5 kg Intake: Oral 540 Output: Urine 1800 550 Other: Voiding Method Indwelling Catheter Indwelling Catheter # Voids 0 # Bowel Movements 0 - Exam - Constitutional General appearance: disheveled, morbidly obese - EENT Eyes: EOMI, PERRLA Ears: bilateral: normal - Neck Neck: normal ROM Carotids: bilateral: upstroke normal Thyroid: bilateral: normal size - Respiratory Respiratory: bilateral: diminished, dullness, rales - Cardiovascular Rhythm: regular Heart sounds: normal: S1, S2 - Gastrointestinal General gastrointestinal: decreased bowel sounds, distended, soft - Musculoskeletal Musculoskeletal: generalized weakness - Labs CBC & Chem 7: 03/01/20 08:31 03/02/20 05:48 Labs: Abnormal Lab Results - Last 24 Hours (Table) 03/01/20 03/01/20 03/01/20 Range/Units 08:31 08:31 12:02 WBC 18.1 H (3.8-10.6) k/uL RBC 3.54 L (4.30-5.90) m/uL Hgb 10.8 L (13.0-17.5) gm/dL Hct 37.3 L (39.0-53.0) % MCV 105.5 H (80.0-100.0) fL MCHC 29.0 L (31.0-37.0) g/dL Potassium 3.4 L (3.5-5.1) mmol/L Chloride 89 L (98-107) mmol/L Carbon Dioxide 41 H* (22-30) mmol/L BUN 92 H (9-20) mg/dL Creatinine 2.97 H (0.66-1.25) mg/dL Glucose 158 H (74-99) mg/dL POC Glucose (mg/dL) 124 H (75-99) mg/dL 03/01/20 03/01/20 03/02/20 Range/Units 16:45 20:18 05:48 WBC (3.8-10.6) k/uL RBC (4.30-5.90) m/uL Hgb (13.0-17.5) gm/dL Hct (39.0-53.0) % MCV (80.0-100.0) fL MCHC (31.0-37.0) g/dL Potassium 3.4 L (3.5-5.1) mmol/L Chloride 91 L (98-107) mmol/L Carbon Dioxide 40 H (22-30) mmol/L BUN 88 H (9-20) mg/dL Creatinine 2.91 H (0.66-1.25) mg/dL Glucose 114 H (74-99) mg/dL POC Glucose (mg/dL) 144 H 164 H (75-99) mg/dL 03/02/20 Range/Units 06:23 WBC (3.8-10.6) k/uL RBC (4.30-5.90) m/uL Hgb (13.0-17.5) gm/dL Hct (39.0-53.0) % MCV (80.0-100.0) fL MCHC (31.0-37.0) g/dL Potassium (3.5-5.1) mmol/L Chloride (98-107) mmol/L Carbon Dioxide (22-30) mmol/L BUN (9-20) mg/dL Creatinine (0.66-1.25) mg/dL Glucose (74-99) mg/dL POC Glucose (mg/dL) 132 H (75-99) mg/dL Microbiology - Last 24 Hours (Table) 03/01/20 00:16 Gram Stain - Preliminary Sputum Sputum Culture - Preliminary Assessment and Plan Assessment: Acute Hypercapnic hypoxic respiratory failure Chronic systolic heart failure with acute exacerbation Status post aortic valve replacement Altered mental status/encephalopathy metabolic due to elevated CO2 and CO2 narcosis Worsening of heart failure Acute on chronic renal failure Bilateral pleural effusion Bilateral pneumonia Leukocytosis due to above Plan: Follow-up chest x-ray reviewed, findings are suggestive of CHF as well as component of pneumonia Patient needs gentle diuresis as needed Continue BiPAP each night and when necessary during the day would recommend to 3 hours in the afternoon as well as Keep oxygen 2 L to keep saturation over 88 % Agree with broad-spectrum antibiotics. However they can be changed to oral at the time of discharge Continue bronchodilators Monitor renal function and CO2 level very closely Overall long-term prognosis is guarded Time with Patient: Greater than 30
[2020-03-02] MEDS: ALBUTEROL HFA INHALER INHALATION PRN ×4 (08:55→19:21)
[2020-03-02] MEDS: TIOTROPIUM 18 MCG/PUFF INHALER INHALATION SCH (08:55)
[2020-03-02] MEDS: DILTIAZEM ORAL 30 MG TAB PO SCH ×3 (09:13→21:50)
[2020-03-02] MEDS: BUMETANIDE 1 MG TAB PO SCH (09:13)
[2020-03-02] MEDS: MULTIVITAMINS, THERA 1 EACH TAB PO SCH ×2 (09:13→09:15)
[2020-03-02] MEDS: PIPERACILLIN-TAZOBACTAM 3.375 GM in SODIUM CHLORIDE 0.9% 100 ML IVPB SCH ×2 (09:13→21:51)
[2020-03-02] MEDS: AMIODARONE 200 MG TAB PO SCH ×2 (09:13→21:51)
[2020-03-02] MEDS: acetaZOLAMIDE 250 MG TAB PO SCH ×3 (09:14→21:50)
[2020-03-02] MEDS: METOPROLOL TARTRATE 50 MG TAB PO SCH ×2 (09:14→21:50)
[2020-03-02] MEDS: APIXABAN 2.5 MG TABLET PO SCH ×2 (09:14→21:50)
[2020-03-02 11:22] LABS: Glucose,Whole Blood 138 mg/dL (75-99)
--- NOTE | 2020-03-02 13:04 | PN ---
PROGRESS NOTE Patient is seen for followup for acute kidney injury on top of chronic kidney disease, severe lower extremity edema and cardiorenal syndrome. Currently maintained on oral Bumex. Serum creatinine staying at 2.9 mg/dL. The patient was started on midodrine as his blood pressure remained low. This morning he denies any significant complaints. PHYSICAL EXAMINATION: On examination, blood pressure was 133/51, heart rate 76 per minute, he is afebrile. Examination of the heart S1, S2. Examination of the lungs, decreased breath sounds at bases. Abdomen is soft, nontender. Examination lower extremities shows 4+ edema bilaterally. 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 LABS: Show sodium 141, potassium 3.4, chloride 91, CO2 is 40, BUN 88, serum creatinine 2.91, calcium 8.7. ASSESSMENT: 1. Acute kidney injury, cardiorenal. Renal function, somewhat improved with initiation of midodrine to help with the perfusion pressures. The patient has refused any kind of renal replacement therapy to help with the volume overload and significant lower extremity edema. 2. Metabolic alkalosis associated with diuresis. 3. Significant edema bilateral lower extremities associated with congestive heart failure and severe cardiomyopathy. 4. Hypokalemia secondary to diuresis. PLAN: Increase Bumex to 2 mg b.i.d. Continue with midodrine. Repeat labs in a.m. Wrap legs and elevate legs. MMODL / IJN: [id number] /
[2020-03-02] MEDS ORDERED: BUMETANIDE 1 MG TAB PO SCH (16:00)
[2020-03-02 16:37] LABS: Glucose,Whole Blood 139 mg/dL (75-99)
[2020-03-02] MEDS: ANIDULAFUNGIN 100 MG in SODIUM CHLORIDE 0.9% 100 ML IVPB SCH (17:37)
--- NOTE | 2020-03-02 18:04 | PN ---
PROGRESS NOTE DATE OF SERVICE: 03/02/2020 REASON FOR FOLLOWUP: Pneumonia. INTERVAL HISTORY: The patient is currently afebrile. He was on a BiPAP. The patient has tolerated his breathing comfortably. Denies significant chest pain or cough. No abdominal pain or diarrhea. PHYSICAL EXAMINATION: Blood pressure 127/59 with a pulse of 74, temperature 96.5. He is 93% on 3 L nasal cannula. General description is an elderly male up in the chair in no distress. Respiratory system: Unlabored breathing, decreased breath sounds at the base. No wheeze. HEART: S1, S2. Regular rate and rhythm. ABDOMEN: Soft, no tenderness. LABS: Creatinine is 2.1. No CBC has been done. DIAGNOSTIC IMPRESSION AND PLAN: Patient with elevated white count with concern for possible pneumonia. The patient's white count did show some improvement though was not checked today. Will repeat his white count tomorrow. Keep the patient on current antibiotics while waiting for the culture to finalize to determine discharge antibiotics. Continue supportive care. MMODL / IJN: [id number] /
[2020-03-02 21:14] LABS: Glucose,Whole Blood 115 mg/dL (75-99)
[2020-03-02] MEDS ORDERED: FUROSEMIDE 10 MG/ML 4 ML VIAL IV STA (21:24)
[2020-03-03 06:08] LABS: Glucose,Whole Blood 151 mg/dL (75-99)
[2020-03-03 06:30] LABS: ABG Oxygen Saturation 90.9 % (94-97); ABG PO2 76 mmHg (83-108); Allen Test Performed? Yes
[2020-03-03 06:31] LABS: ABG PH 7.07 (7.35-7.45)
[2020-03-03 06:32] LABS: ABG PCO2 >120 mmHg (35-45)
[2020-03-03 07:00] LABS: Glucose,Whole Blood 103 mg/dL (75-99)
[2020-03-03 07:16] LABS: HCT 44.9 % (39.0-53.0); HGB 12.5 gm/dL (13.0-17.5); Hypochromasia Marked; MCH 30.4 pg (25.0-35.0); MCHC 27.8 g/dL (31.0-37.0); MCV 109.4 fL (80.0-100.0); Macrocytosis Marked; Mean Platelet Volume 8.4; Platelet Count 328 k/uL (150-450); RBC 4.11 m/uL (4.30-5.90); RDW 13.8 % (11.5-15.5); WBC 15.6 k/uL (3.8-10.6)
[2020-03-03] MEDS: TIOTROPIUM 18 MCG/PUFF INHALER INHALATION SCH (07:35)
[2020-03-03 07:37] LABS: Calcium 8.7 mg/dL (8.4-10.2); Potassium 3.8 mmol/L (3.5-5.1)
[2020-03-03 07:49] LABS: C Reactive Protein 150.3 mg/L (<10.0)
[2020-03-03 08:04] LABS: Band Neutrophils % 1 %; Lymphocytes # (M) 0.16 k/uL (1.0-4.8); Monocytes # (M) 1.56 k/uL (0-1.0); Nucleated Red Blood Cells 0 /100 WBC (0-0)
[2020-03-03 08:05] LABS: Basophils # (M) 0.16 k/uL (0-0.2); Neutrophils % (M) 87 %; Total Cells Counted 102
[2020-03-03 08:40] LABS: ABG Oxygen Saturation 92.7 % (94-97); ABG PO2 76 mmHg (83-108); Allen Test Performed? Yes
[2020-03-03 08:49] LABS: ABG PCO2 >120 mmHg (35-45); ABG PH 7.12 (7.35-7.45)
[2020-03-03] MEDS: PIPERACILLIN-TAZOBACTAM 3.375 GM in SODIUM CHLORIDE 0.9% 100 ML IVPB SCH ×2 (10:13→20:03)
[2020-03-03] MEDS: BUMETANIDE 0.25 MG/ML 4 ML VIAL IV SCH (10:14)
--- NOTE | 2020-03-03 11:26 | P.PN ---
Subjective Progress Note Date: 03/03/20 (Critical care time spent 35 minutes) Principal diagnosis: Acute metabolic encephalopathy Acute Hypercapnic hypoxic respiratory failure Chronic systolic heart failure with acute exacerbation Status post aortic valve replacement Altered mental status/encephalopathy due to elevated CO2 and CO2 narcosis Worsening of heart failure Bilateral pleural effusion Bilateral pneumonia 03/03/2020, patient seen and evaluated examined in ICU critical care time spent 35 minutes, patient to follow her has been off of BiPAP for 3-1/2 hours if fold off his BiPAP resulted in PaCO2 to to over 120 and pH reduced to 7, patient became is very unresponsive lethargic not arousable transferred to the ICU. Patient has been resumed on CPAP serial blood gases have been done pH is slowly improving CO2 is still high patient is now slowly arousable but closes eyes, will keep him nothing by mouth for now continue BiPAP is on 15/5 tidal volume increased from 120 range up to 350, respiratory rate is 12-16, it appears that patient is grunting adequate ventilation and repeat arterial blood gases pending, BUN/creatinine creatinine worsened BUNs is 95 creatinine is 3.58 which is up from yesterday, chest x-ray done this morning reviewed noted to have bilateral pleural effusion with cardiomegaly more so on the right side compared to left side, patient is being followed by renal service patient has declined hemodialysis is still have bilateral lower extremity edema 03/02/2020, patient seen ramon examined during rounds sitting upright in chair breathing comfortably on 2 L oxygen oxygen saturation are in low 90s, patient was confused and agitated last night did not use the BiPAP machine throughout the night however he managed reasonably 3 hours, this morning looks relatively composed labs reviewed per duration was 3.4 and creatinine 88 and 2.9, CO2 is 40 on 3 numbers appears to have plateaued out and in fact slowly improving and showing a downward trend March 01 2020, patient seen ramon examined during the rounds sitting upright on the bed on 2 L nasal cannula breathing comfortably, awake and alert, he used to have few hours in the afternoon and the throughout the night for his almost 6- 1/2 hours, a prescription of BiPAP has been provided, which is to be used patient night for 6-7 hours at least and during the day once to our during afternoon naps 02/29/2020, patient seen ramon reexamined during the rounds labs reviewed medications reviewed as main on supplemental oxygen sitting upright in the bed breathing comfortably awake and alert, patient had problems last night with somnolence and lethargy metabolic related to high CO2 and is recommended to use the BiPAP each night and when necessary during the day Will use it for short period time for 2-3 hour in the afternoon today discussed with the respiratory therapy 02/28/2020, patient seen eval reexamined during the rounds sitting upright on the chair breathing comfortably about to get breathing treatment, patient is more awake and alert eyes open. The commands, alert and oriented 3, patient used almost 6-1/2 hour BiPAP machine last night which definitely has helped his mental status, as well as general well-being, denies any chest pain cough or sputum production, labs reviewed WBC count is up to 16,000 yesterday today is pending we'll check a follow-up x-ray in the morning This is a 84-year-old morbidly obese male was seen evaluated examined, patient is somnolent but arousable, patient had a trial of BiPAP overnight after that he is more calm for the ICU she has problems associated with confusion and intermittent agitation sitter is present at bedside, patient FiO2 has been lowered down to 4 L to 3 L, review of the old records revealed that 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 has been on home oxygen he came into the hospital with one-day history of increased shortness of breath and increased swelling of the lower extremity, patient does have chronic atrial fibrillation and has been on anticoagulants also on bronchodilator, patient has been on amiodarone as well his prior cardiac history significant for for heart failure atrial flutter fibrillation and aortic valve replacement, he used to smoke heavily in the past Objective - Vital Signs Vital signs: Vital Signs Temp 97.6 F 03/03/20 08:00 Pulse 80 03/03/20 08:00 Resp 22 03/03/20 08:00 BP 123/70 03/03/20 08:00 Pulse Ox 92 L 03/03/20 04:00 Intake & Output 03/02/20 03/03/20 03/03/20 18:59 06:59 18:59 Intake Total 100 Output Total 2300 980 Balance 100 -2300 -980 Intake: Intake, IV Titration 100 Amount Piperacillin-Tazobactam 3 100 .375 gm In Sodium Chloride 0.9% 100 ml @ 25 mls/hr IVPB Q12HR [facility] Rx #:[id number] Output: Urine 2300 980 Other: Voiding Method Indwelling Catheter Indwelling Catheter Indwelling Catheter # Voids 0 0 # Bowel Movements 0 0 - Exam - Constitutional General appearance: disheveled, morbidly obese - EENT Eyes: EOMI, PERRLA Ears: bilateral: normal - Neck Neck: normal ROM Carotids: bilateral: upstroke normal Thyroid: bilateral: normal size - Respiratory Respiratory: bilateral: diminished, dullness, rales - Cardiovascular Rhythm: regular Heart sounds: normal: S1, S2 - Gastrointestinal General gastrointestinal: decreased bowel sounds, distended, soft - Musculoskeletal Musculoskeletal: generalized weakness bilateral lower extremity extensive edema - Labs CBC & Chem 7: 03/03/20 05:59 03/03/20 05:59 Labs: Abnormal Lab Results - Last 24 Hours (Table) 03/02/20 03/02/20 03/02/20 Range/Units 11:20 16:36 21:13 WBC (3.8-10.6) k/uL RBC (4.30-5.90) m/uL Hgb (13.0-17.5) gm/dL MCV (80.0-100.0) fL MCHC (31.0-37.0) g/dL Neutrophils # (Manual) (1.3-7.7) k/uL Lymphocytes # (Manual) (1.0-4.8) k/uL Monocytes # (Manual) (0-1.0) k/uL Macrocytosis ABG pH (7.35-7.45) ABG pCO2 (35-45) mmHg ABG pO2 (83-108) mmHg ABG O2 Saturation (94-97) % Chloride (98-107) mmol/L Carbon Dioxide (22-30) mmol/L BUN (9-20) mg/dL Creatinine (0.66-1.25) mg/dL Glucose (74-99) mg/dL POC Glucose (mg/dL) 138 H 139 H 115 H (75-99) mg/dL C-Reactive Protein (<10.0) mg/L 03/03/20 03/03/20 03/03/20 Range/Units 05:59 05:59 06:05 WBC 15.6 H (3.8-10.6) k/uL RBC 4.11 L (4.30-5.90) m/uL Hgb 12.5 L (13.0-17.5) gm/dL MCV 109.4 H (80.0-100.0) fL MCHC 27.8 L (31.0-37.0) g/dL Neutrophils # (Manual) 13.70 H (1.3-7.7) k/uL Lymphocytes # (Manual) 0.16 L (1.0-4.8) k/uL Monocytes # (Manual) 1.56 H (0-1.0) k/uL Macrocytosis Marked A ABG pH (7.35-7.45) ABG pCO2 (35-45) mmHg ABG pO2 (83-108) mmHg ABG O2 Saturation (94-97) % Chloride 92 L (98-107) mmol/L Carbon Dioxide 41 H* (22-30) mmol/L BUN 95 H (9-20) mg/dL Creatinine 3.58 H (0.66-1.25) mg/dL Glucose 108 H (74-99) mg/dL POC Glucose (mg/dL) 151 H (75-99) mg/dL C-Reactive Protein 150.3 H (<10.0) mg/L 03/03/20 03/03/20 03/03/20 Range/Units 06:25 06:59 08:25 WBC (3.8-10.6) k/uL RBC (4.30-5.90) m/uL Hgb (13.0-17.5) gm/dL MCV (80.0-100.0) fL MCHC (31.0-37.0) g/dL Neutrophils # (Manual) (1.3-7.7) k/uL Lymphocytes # (Manual) (1.0-4.8) k/uL Monocytes # (Manual) (0-1.0) k/uL Macrocytosis ABG pH 7.07 L* 7.12 L* (7.35-7.45) ABG pCO2 >120 H* >120 H* (35-45) mmHg ABG pO2 76 L 76 L (83-108) mmHg ABG O2 Saturation 90.9 L 92.7 L (94-97) % Chloride (98-107) mmol/L Carbon Dioxide (22-30) mmol/L BUN (9-20) mg/dL Creatinine (0.66-1.25) mg/dL Glucose (74-99) mg/dL POC Glucose (mg/dL) 103 H (75-99) mg/dL C-Reactive Protein (<10.0) mg/L Microbiology - Last 24 Hours (Table) 03/01/20 00:16 Gram Stain - Final Sputum Sputum Culture - Final Assessment and Plan Assessment: Altered mental status/encephalopathy metabolic in nature Acute Hypercapnic hypoxic respiratory failure Chronic systolic heart failure with acute exacerbation Status post aortic valve replacement Worsening of heart failure Acute on chronic renal failure with progressive worsening Bilateral pleural effusion Bilateral pneumonia, clinically and radiographically improving Leukocytosis due to above however continued to decline Plan: We'll keep BiPAP 15/5 with oxygen to keep saturation over 90% and above throug hout the day and night ABG from 1 PM is pending repeat labs and x-ray tomorrow morning Follow-up from today chest x-ray reviewed, findings are suggestive of CHF as well as component of pneumonia Patient continued to needs gentle diuresis as needed Continue BiPAP each night and when necessary during the day would recommend to 3 hours in the afternoon as well as Keep oxygen 2 L to keep saturation over 88 % Agree with broad-spectrum antibiotics. However they can be changed to oral at the time of discharge Continue bronchodilators Monitor renal function and CO2 level very closely, will recommend dialysis or comfort measures Overall long-term prognosis is guarded and poor Time with Patient: Greater than 30
--- NOTE | 2020-03-03 11:28 | PN ---
PROGRESS NOTE The patient is seen for followup for acute kidney injury mainly cardiorenal. He was brought into the ICU early this morning as patient had significant hypoxia and was unresponsive. He was placed on BiPAP and brought to the ICU. Apparently, patient's BiPAP machine had broken on the floor. He is currently resting comfortably. The patient has had fairly good urine output on the floor. He is maintained on oral Bumex for significant lower extremity edema and CHF exacerbation. The patient has also had metabolic alkalosis for which he is maintained on Diamox. I have discussed with him regarding starting dialysis for significant CHF, volume overload and impaired renal function, which he had refused. In the meantime, serum creatinine had improved slightly and we have continued to maintain patient on loop diuretics. PHYSICAL EXAMINATION: On examination today, patient is on BiPAP. He is arousable but goes back to sleep. Blood pressure was 133/74, heart rate 91 per minute. Patient is afebrile. Examination shows bilateral breath sounds are heard. ABDOMEN: Soft. Examination of lower extremities shows bilateral extremities to be wrapped. 3+ edema has been present. CHILD CARE DEVELOPMENT SPECIALIST exam cannot be performed. LAB: Show from today sodium 143, potassium 3.8, CO2 is 41, BUN 95, creatinine 3.58. ASSESSMENT: 1. Acute kidney injury cardiorenal, serum creatinine currently worse if the patient's urine output drops further and he remains volume overloaded, we will re-discuss renal replacement therapy, particularly given the severe edema. In the meantime, I will continue with the Bumex. We can switch it to IV. There are no nephrotoxic agents on board. The patient's blood pressure has been borderline on the floor and therefore he was started on midodrine which I will continue for now. However, if he is not able to take it, he may need pressors if he becomes hypotensive. 2. Metabolic alkalosis secondary to diuresis. Change Diamox to IV. 3. Cardiomyopathy, mainly diastolic heart failure with dilated left atrium and mild pulmonary hypertension. 4. Chronic persistent atrial fibrillation status post cardioversion on his last admission with no response. 5. History of aortic valve replacement by percutaneous approach in November of 2019. 6. Chronic kidney disease stage 3 secondary to nephrosclerosis. Creatinine 1.4 in early February of 2020. 7. Right renal lesion which no change since 2017. PLAN: Change the Bumex to IV. Check chest x-ray. Change Diamox to IV as well. Consider renal replacement therapy if the patient does not diurese well. MMODL / IJN: [id number] /
[2020-03-03] MEDS: APIXABAN 2.5 MG TABLET PO SCH ×2 (11:55→20:24)
[2020-03-03] MEDS: METOPROLOL TARTRATE 50 MG TAB PO SCH ×2 (11:55→20:25)
[2020-03-03] MEDS: MIDODRINE 5 MG TAB PO SCH ×3 (11:55→17:27)
[2020-03-03] MEDS: DILTIAZEM ORAL 30 MG TAB PO SCH ×3 (11:55→21:26)
[2020-03-03] MEDS: LINEZOLID 600 MG TAB PO SCH ×2 (11:55→17:27)
[2020-03-03] MEDS: AMIODARONE 200 MG TAB PO SCH ×2 (11:55→20:24)
--- NOTE | 2020-03-03 11:55 | PN ---
PROGRESS NOTE DATE OF SERVICE: 03/02/2020 84-year-old white male ended up in the 3rd floor. He has acute metabolic encephalopathy, hypercapnic respiratory failure, chronic systolic heart failure, status post aortic valve replacement, encephalopathy, worsening heart failure, bilateral pleural effusion and bilateral pneumonia. His sats were in the low 90s on 2-3 L. He did not use the BiPAP machine last night as they could not arrange for him in the custodial. At this time, he is showing a downward trend. Pulmonology has evaluated for possible transfer to the ICU. VITAL SIGNS: Temperature 97.9, pulse 91, blood pressure 117/80, respiratory 16 to 18, O2 94%. Cardiovascular S1, S2. Lungs show diminished rales at the base. GI soft, nontender. Musculoskeletal generalized weakness. Extraocular movements intact. White count is 18.1, hemoglobin is 10.3, BUN is 88, creatinine 2.91. ASSESSMENT: 1. Hypercapnic respiratory failure. 2. Chronic systolic heart failure with acute exacerbation static aortic valve replacement. 3. Encephalopathy. 4. CO2 narcosis. 5. Worsening heart failure. 6. Acute on chronic renal failure. 7. Bilateral effusion. 8. Bilateral pneumonia. Followup chest x-rays, worsening CHF component, pneumonia, gentle diuresis, BiPAP, continue on oxygen 2 L at this point. Broad-spectrum antibiotics. Prognosis is guarded. The patient does not appear to be getting better. MMODL / IJN: [id number] /
[2020-03-03] MEDS: PANTOPRAZOLE 40 MG/10 ML VIAL IVP SCH ×2 (11:59→20:00)
[2020-03-03 12:07] LABS: ABG Oxygen Saturation 93.3 % (94-97); ABG PO2 77 mmHg (83-108); Allen Test Performed? Yes
[2020-03-03 12:10] LABS: ABG PH 7.14 (7.35-7.45)
--- NOTE | 2020-03-03 12:10 | XR ---
EXAMINATION TYPE: XR chest 1V DATE OF EXAM: 03/03/2020 HISTORY: chf. REFERENCE: Previous study dated 02/29/2020. FINDINGS: The heart is enlarged. There is bibasilar airspace disease. There are bilateral effusions w hich May have increased slightly. There is vascular congestion and subtle interstitial change. IMPRESSION: 1. WORSENING BILATERAL AIRSPACE DISEASE. 2. WORSENING EFFUSIONS. 3. CARDIOMEGALY. 4. MILD CHANGES OF CONGESTIVE HEART FAILURE.
[2020-03-03 12:11] LABS: ABG PCO2 >120 mmHg (35-45)
[2020-03-03] MEDS: ANIDULAFUNGIN 100 MG in SODIUM CHLORIDE 0.9% 100 ML IVPB SCH (18:22)
--- NOTE | 2020-03-03 23:36 | PN ---
PROGRESS NOTE DATE OF SERVICE: 03/03/2020. REASON FOR FOLLOWUP: Leukocytosis possible pneumonia. INTERVAL HISTORY: The patient has been transferred to the ICU because of worsening respiratory status and lethargic. The patient has been put on a BiPAP. He was noted to have significant elevated pCO2 of more than 120. The patient remains to be slightly lethargic though slowly waking up. Unable to provide any history. Currently not on pressor support. No vomiting or diarrhea reported by the nursing staff. PHYSICAL EXAMINATION: Blood pressure 135/73 with pulse of 90, temperature is 97.7. He is 94% on 40% FiO2. General description is an elderly male up in the bed in no distress. RESPIRATORY SYSTEM: Unlabored breathing, some decreased intensive breath sounds. No wheeze. HEART: S1, S2. Regular rate and rhythm. ABDOMEN: Soft, no tenderness. LABS: Hemoglobin is 12.5, white count down to 15.6, BUN of 25, creatinine 3.58. Sputum has been finalized with usual respiratory víctor. DIAGNOSTIC IMPRESSION AND PLAN: Patient with acute respiratory failure which is likely multifactorial in this patient with question of possible pneumonia. Patient's sputum has been negative. He has been covered with antibiotic in the form Zosyn and Zyvox to continue while waiting for his condition to stabilize. Prognosis remains to be guarded. Continue with supportive care. MMODL / IJN: [id number] / MTDD
--- NOTE | 2020-03-04 01:12 | PN ---
PROGRESS NOTE This 84-year-old white male admitted with acute metabolic encephalopathy, acute hypercapnic hypoxemic respiratory failure, systolic heart failure, aortic valve replacement, diastolic heart failure elevated CO2 levels only responding to BiPAP, worsening heart failure with atrial fibrillation and atrial flutter, bilateral pleural effusion, bilateral pneumonia, and discussed with Infectious Disease, machine plug shaper and potato spotter today. Possibly will have to transfer him down to [facility] tomorrow as he is not responding to our treatments. His BUN is up to 95, creatinine is 3.58, maybe was over diuresed possibly. Remains in ICU on a BiPAP, saturating in the lower 90s on FiO2 40%. Blood pressure 120s over 70s, pulse 70s to 80s. He is kind of obtunded. Respiratory is sleeping with difficulty with breathing on the BiPAP. CARDIOVASCULAR: S1, S2. GI: Soft. MUSCULOSKELETAL: Generalized weakness. White count 15.6, hemoglobin is 12.5, BUN 95, creatinine 3.58, CO2 is 41. He is on antifungals as well sa Zosyn. ASSESSMENT: 1. Metabolic encephalopathy. 2. Acute hypercapnic respiratory failure. 3. Diastolic heart failure. 4. Aortic valve replacement. 5. Acute on chronic renal failure, progressively worsening. 6. Bilateral pleural effusions. 7. Bilateral pneumonia. 8. Leukocytosis secondary to above. Chest x-ray, congestive heart failure, pneumonia. He will have to use BiPAP, keep his oxygen up and metabolic encephalopathy, possibly transfer him down to [facility] as he is not getting better with our treatments over the last 2 to 3 weeks. MMODL / IJN: [id number] /
[2020-03-04 04:34] LABS: Basophils % (A) 0 %; Eosinophils % (A) 0 %; HCT 41.3 % (39.0-53.0); HGB 11.8 gm/dL (13.0-17.5); Hypochromasia Marked; Lymphocytes # (A) 0.3 k/uL (1.0-4.8); Lymphocytes % (A) 2 %; MCH 30.8 pg (25.0-35.0); MCHC 28.5 g/dL (31.0-37.0); MCV 108.2 fL (80.0-100.0); Monocytes # (A) 0.5 k/uL (0-1.0); Monocytes % (A) 4 %; Neutrophils # (A) 11.3 k/uL (1.3-7.7); Neutrophils % (A) 93 %; Platelet Count 259 k/uL (150-450); RBC 3.82 m/uL (4.30-5.90); RDW 13.9 % (11.5-15.5); WBC 12.2 k/uL (3.8-10.6)
[2020-03-04 04:37] LABS: Albumin 3.3 g/dL (3.5-5.0); Potassium 3.4 mmol/L (3.5-5.1); Total Bilirubin 0.7 mg/dL (0.2-1.3)
[2020-03-04 04:43] LABS: Macrocytosis Marked
[2020-03-04 04:59] LABS: Calcium 8.1 mg/dL (8.4-10.2); Total Protein 5.9 g/dL (6.3-8.2)
[2020-03-04 05:27] LABS: ABG HCO3 39 mmol/L (21-25); ABG Oxygen Saturation 96.2 % (94-97); ABG PO2 89 mmHg (83-108); ABG TCO2 42 mmol/L (19-24); Allen Test Performed? Yes
[2020-03-04 05:28] LABS: ABG PCO2 99 mmHg (35-45)
[2020-03-04] MEDS ORDERED: POTASSIUM CHLORIDE 10 MEQ in WATER FOR INJECTION 1 100ML.BAG IVPB STA (05:42)
[2020-03-04] MEDS: LINEZOLID 600 MG TAB PO SCH ×2 (05:50→17:02)
--- NOTE | 2020-03-04 07:12 | XR ---
EXAMINATION TYPE: XR chest 1V DATE OF EXAM: 03/04/2020 COMPARISON: 03/03/2020 HISTORY: Congestive heart failure and shortness of breath TECHNIQUE: Single frontal view of the chest is obtained. FINDINGS: There is an enlarged cardiomediastinal silhouette and small layering bilateral pleural effu sions with associated bibasilar airspace disease. Very mild pulmonary vascular congestion. Findings a re similar to the prior. Cardiac stent grafts again seen midline. Biapical pleural thickening is agai n noted. No acute osseous pathology. IMPRESSION: Stable sequela of congestive heart failure with small pleural effusions, bibasilar airsp jeni disease and mild pulmonary vascular congestion.
[2020-03-04] MEDS: TIOTROPIUM 18 MCG/PUFF INHALER INHALATION SCH (07:23)
[2020-03-04] MEDS: PIPERACILLIN-TAZOBACTAM 3.375 GM in SODIUM CHLORIDE 0.9% 100 ML IVPB SCH ×2 (08:06→20:05)
[2020-03-04] MEDS: BUMETANIDE 0.25 MG/ML 4 ML VIAL IV SCH (08:07)
[2020-03-04] MEDS: PANTOPRAZOLE 40 MG/10 ML VIAL IVP SCH ×2 (08:07→20:05)
--- NOTE | 2020-03-04 09:17 | P.PN ---
Subjective Patient is seen in follow-up for acute kidney injury on chronic kidney disease. Renal function is worse today. Creatinine 4.9. Patient is currently on BiPAP. Patient only nods to verbal commands. According to the nurse, patient has been alert and oriented 1. Urine output about 25-30 mL an hour. Vital signs are stable. General: The patient appeared well nourished and normally developed. HEENT: Head exam is unremarkable. Neck is without jugular venous distension. On BiPAP. LUNGS: Breath sounds decreased. HEART: Rate and Rhythm are regular. ABDOMEN: Soft. Nontender. EXTREMITITES: 1+ edema. Objective - Vital Signs Vital signs: Vital Signs Temp 97.9 F 03/04/20 08:00 Pulse 98 03/04/20 08:00 Resp 23 03/04/20 08:00 BP 131/64 03/04/20 08:00 Pulse Ox 94 L 03/04/20 08:00 Intake & Output 03/03/20 03/04/20 03/04/20 18:59 06:59 18:59 Intake Total 100 440 140 Output Total 1300 285 60 Balance -1200 155 80 Weight 92.3 kg Intake: IV 140 140 0.9 140 40 Piperacillin-Tazobactam 3 100 .375 gm In Sodium Chloride 0.9% 100 ml @ 25 mls/hr IVPB Q12HR [facility] Rx #:[id number] Intake, IV Titration 100 300 Amount Anidulafungin 100 mg In 100 100 Sodium Chloride 0.9% 100 ml @ 84 mls/hr IVPB DAILY @1800 [facility] Rx#:[id number] Piperacillin-Tazobactam 3 100 .375 gm In Sodium Chloride 0.9% 100 ml @ 25 mls/hr IVPB Q12HR [facility] Rx #:[id number] Potassium Chloride 10 meq 100 In Water For Injection 1 100ml.bag @ 100 mls/hr IVPB ONCE [facility] Rx#: [id number] Output: Urine 1300 285 60 Other: Voiding Method Indwelling Catheter Indwelling Catheter # Voids 0 # Bowel Movements 0 - Labs CBC & Chem 7: 03/04/20 03:52 03/04/20 03:52 Labs: Abnormal Lab Results - Last 24 Hours (Table) 03/03/20 03/04/20 03/04/20 Range/Units 11:54 03:52 03:52 WBC 12.2 H (3.8-10.6) k/uL RBC 3.82 L (4.30-5.90) m/uL Hgb 11.8 L (13.0-17.5) gm/dL MCV 108.2 H (80.0-100.0) fL MCHC 28.5 L (31.0-37.0) g/dL Neutrophils # 11.3 H (1.3-7.7) k/uL Lymphocytes # 0.3 L (1.0-4.8) k/uL Macrocytosis Marked A ABG pH 7.14 L* (7.35-7.45) ABG pCO2 >120 H* (35-45) mmHg ABG pO2 77 L (83-108) mmHg ABG HCO3 (21-25) mmol/L ABG Total CO2 (19-24) mmol/L ABG O2 Saturation 93.3 L (94-97) % Potassium 3.4 L (3.5-5.1) mmol/L Chloride 93 L (98-107) mmol/L Carbon Dioxide 40 H (22-30) mmol/L BUN 117 H* (9-20) mg/dL Creatinine 4.90 H (0.66-1.25) mg/dL Glucose 102 H (74-99) mg/dL Calcium 8.1 L (8.4-10.2) mg/dL AST 971 H (17-59) U/L ALT 522 H (4-49) U/L Alkaline Phosphatase 144 H (38-126) U/L Total Protein 5.9 L (6.3-8.2) g/dL Albumin 3.3 L (3.5-5.0) g/dL 03/04/20 Range/Units 05:21 WBC (3.8-10.6) k/uL RBC (4.30-5.90) m/uL Hgb (13.0-17.5) gm/dL MCV (80.0-100.0) fL MCHC (31.0-37.0) g/dL Neutrophils # (1.3-7.7) k/uL Lymphocytes # (1.0-4.8) k/uL Macrocytosis ABG pH 7.20 L (7.35-7.45) ABG pCO2 99 H* (35-45) mmHg ABG pO2 (83-108) mmHg ABG HCO3 39 H (21-25) mmol/L ABG Total CO2 42 H (19-24) mmol/L ABG O2 Saturation (94-97) % Potassium (3.5-5.1) mmol/L Chloride (98-107) mmol/L Carbon Dioxide (22-30) mmol/L BUN (9-20) mg/dL Creatinine (0.66-1.25) mg/dL Glucose (74-99) mg/dL Calcium (8.4-10.2) mg/dL AST (17-59) U/L ALT (4-49) U/L Alkaline Phosphatase (38-126) U/L Total Protein (6.3-8.2) g/dL Albumin (3.5-5.0) g/dL Microbiology - Last 24 Hours (Table) 03/01/20 00:16 Gram Stain - Final Sputum Sputum Culture - Final Assessment and Plan Plan: Assessment: 1. Acute kidney injury secondary to ATN. Renal function worsening. Creatinine 4.9 today. Urine output 25-30 mL an hour. 2. Acute on chronic diastolic CHF. 3. Volume overload. 4. Acute mixed hypercapnic and hypoxic respiratory failure currently on BiPAP. ABG reviewed. 5. Hypokalemia secondary to diuresis. Being replaced. 6. Chronic kidney disease stage III with baseline creatinine 1.3-1.4. Plan: Maintain Bumex. Hold tonight's dose of Diamox as patient's metabolic alkalosis is mostly compensatory for the respiratory acidosis. Family came [place] from out of state yesterday. Await their decision for long-term care as well as renal replacement therapy.
--- NOTE | 2020-03-04 09:54 | P.PN ---
Subjective Progress Note Date: 03/04/20 Principal diagnosis: Acute metabolic encephalopathy Acute Hypercapnic hypoxic respiratory failure Chronic systolic heart failure with acute exacerbation Status post aortic valve replacement Altered mental status/encephalopathy due to elevated CO2 and CO2 narcosis Worsening of heart failure Bilateral pleural effusion Bilateral pneumonia 03/04/2020, patient seen and evaluated examined she remains in the ICU on BiPAP currently is on IPAP of 15 and EPAP of 5 spontaneous tidal volume have increase up to 300-350 remains somnolent and lethargic but more arousable arterial blood gases reviewed pH is improved to 7.2, PaCO2 have come down into 90s, hemodynamically patient remains stable not on any vasopressors, saturation is 94-95%, chest x-ray arterial blood gas and laboratory data reviewed, renal functions continued to progressively getting worse, I have discussed with renal services they have recommended hemodialysis patient [place] output is very dark on the 25 mL/h or less, patient also has bilateral pleural effusion, we'll talk to the son critical care time spent over 35 minutes 03/03/2020, patient seen and evaluated examined in ICU critical care time spent 35 minutes, patient to follow her has been off of BiPAP for 3-1/2 hours if fold off his BiPAP resulted in PaCO2 to to over 120 and pH reduced to 7, patient became is very unresponsive lethargic not arousable transferred to the ICU. Patient has been resumed on CPAP serial blood gases have been done pH is slowly improving CO2 is still high patient is now slowly arousable but closes eyes, will keep him nothing by mouth for now continue BiPAP is on 15/5 tidal volume increased from 120 range up to 350, respiratory rate is 12-16, it appears that patient is grunting adequate ventilation and repeat arterial blood gases pending, BUN/creatinine creatinine worsened BUNs is 95 creatinine is 3.58 which is up from yesterday, chest x-ray done this morning reviewed noted to have bilateral pleural effusion with cardiomegaly more so on the right side compared to left side, patient is being followed by renal service patient has declined hemodialysis is still have bilateral lower extremity edema 03/02/2020, patient seen eval examined during rounds sitting upright in chair breathing comfortably on 2 L oxygen oxygen saturation are in low 90s, patient was confused and agitated last night did not use the BiPAP machine throughout the night however he managed reasonably 3 hours, this morning looks relatively composed labs reviewed per duration was 3.4 and creatinine 88 and 2.9, CO2 is 40 on 3 numbers appears to have plateaued out and in fact slowly improving and showing a downward trend March 01 2020, patient seen ramon examined during the rounds sitting upright on the bed on 2 L nasal cannula breathing comfortably, awake and alert, he used to have few hours in the afternoon and the throughout the night for his almost 6- 1/2 hours, a prescription of BiPAP has been provided, which is to be used patient night for 6-7 hours at least and during the day once to our during afternoon naps 02/29/2020, patient seen evjoseph reexamined during the rounds labs reviewed medications reviewed as main on supplemental oxygen sitting upright in the bed breathing comfortably awake and alert, patient had problems last night with somnolence and lethargy metabolic related to high CO2 and is recommended to use the BiPAP each night and when necessary during the day Will use it for short period time for 2-3 hour in the afternoon today discussed with the respiratory therapy 02/28/2020, patient seen evjoseph reexamined during the rounds sitting upright on the chair breathing comfortably about to get breathing treatment, patient is more awake and alert eyes open. The commands, alert and oriented 3, patient used almost 6-1/2 hour BiPAP machine last night which definitely has helped his mental status, as well as general well-being, denies any chest pain cough or sputum production, labs reviewed WBC count is up to 16,000 yesterday today is pending we'll check a follow-up x-ray in the morning This is a 84-year-old morbidly obese male was seen evaluated examined, patient is somnolent but arousable, patient had a trial of BiPAP overnight after that he is more calm for the ICU she has problems associated with confusion and intermittent agitation sitter is present at bedside, patient FiO2 has been l owered down to 4 L to 3 L, review of the old records revealed that 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 has been on home oxygen he came into the hospital with one-day history of increased shortness of breath and increased swelling of the lower extremity, patient does have chronic atrial fibrillation and has been on anticoagulants also on bronchodilator, patient has been on amiodarone as well his prior cardiac history significant for for heart failure atrial flutter fibrillation and aortic valve replacement, he used to smoke heavily in the past Objective - Vital Signs Vital signs: Vital Signs Temp 97.9 F 03/04/20 08:00 Pulse 98 03/04/20 08:00 Resp 23 03/04/20 08:00 BP 131/64 03/04/20 08:00 Pulse Ox 94 L 03/04/20 08:00 Intake & Output 03/03/20 03/04/20 03/04/20 18:59 06:59 18:59 Intake Total 100 440 140 Output Total 1300 285 60 Balance -1200 155 80 Weight 92.3 kg Intake: IV 140 140 0.9 140 40 Piperacillin-Tazobactam 3 100 .375 gm In Sodium Chloride 0.9% 100 ml @ 25 mls/hr IVPB Q12HR [facility] Rx #:[id number] Intake, IV Titration 100 300 Amount Anidulafungin 100 mg In 100 100 Sodium Chloride 0.9% 100 ml @ 84 mls/hr IVPB DAILY @1800 [facility] Rx#:[id number] Piperacillin-Tazobactam 3 100 .375 gm In Sodium Chloride 0.9% 100 ml @ 25 mls/hr IVPB Q12HR [facility] Rx #:[id number] Potassium Chloride 10 meq 100 In Water For Injection 1 100ml.bag @ 100 mls/hr IVPB ONCE [facility] Rx#: [id number] Output: Urine 1300 285 60 Other: Voiding Method Indwelling Catheter Indwelling Catheter # Voids 0 # Bowel Movements 0 - Exam - Constitutional General appearance: disheveled, morbidly obese - EENT Eyes: EOMI, PERRLA Ears: bilateral: normal - Neck Neck: normal ROM Carotids: bilateral: upstroke normal Thyroid: bilateral: normal size - Respiratory Respiratory: bilateral: diminished, dullness, rales - Cardiovascular Rhythm: regular Heart sounds: normal: S1, S2 - Gastrointestinal General gastrointestinal: decreased bowel sounds, distended, soft - Musculoskeletal Musculoskeletal: generalized weakness bilateral lower extremity extensive edema - Labs CBC & Chem 7: 03/04/20 03:52 03/04/20 03:52 Labs: Abnormal Lab Results - Last 24 Hours (Table) 03/03/20 03/04/20 03/04/20 Range/Units 11:54 03:52 03:52 WBC 12.2 H (3.8-10.6) k/uL RBC 3.82 L (4.30-5.90) m/uL Hgb 11.8 L (13.0-17.5) gm/dL MCV 108.2 H (80.0-100.0) fL MCHC 28.5 L (31.0-37.0) g/dL Neutrophils # 11.3 H (1.3-7.7) k/uL Lymphocytes # 0.3 L (1.0-4.8) k/uL Macrocytosis Marked A ABG pH 7.14 L* (7.35-7.45) ABG pCO2 >120 H* (35-45) mmHg ABG pO2 77 L (83-108) mmHg ABG HCO3 (21-25) mmol/L ABG Total CO2 (19-24) mmol/L ABG O2 Saturation 93.3 L (94-97) % Potassium 3.4 L (3.5-5.1) mmol/L Chloride 93 L (98-107) mmol/L Carbon Dioxide 40 H (22-30) mmol/L BUN 117 H* (9-20) mg/dL Creatinine 4.90 H (0.66-1.25) mg/dL Glucose 102 H (74-99) mg/dL Calcium 8.1 L (8.4-10.2) mg/dL AST 971 H (17-59) U/L ALT 522 H (4-49) U/L Alkaline Phosphatase 144 H (38-126) U/L Total Protein 5.9 L (6.3-8.2) g/dL Albumin 3.3 L (3.5-5.0) g/dL 03/04/20 Range/Units 05:21 WBC (3.8-10.6) k/uL RBC (4.30-5.90) m/uL Hgb (13.0-17.5) gm/dL MCV (80.0-100.0) fL MCHC (31.0-37.0) g/dL Neutrophils # (1.3-7.7) k/uL Lymphocytes # (1.0-4.8) k/uL Macrocytosis ABG pH 7.20 L (7.35-7.45) ABG pCO2 99 H* (35-45) mmHg ABG pO2 (83-108) mmHg ABG HCO3 39 H (21-25) mmol/L ABG Total CO2 42 H (19-24) mmol/L ABG O2 Saturation (94-97) % Potassium (3.5-5.1) mmol/L Chloride (98-107) mmol/L Carbon Dioxide (22-30) mmol/L BUN (9-20) mg/dL Creatinine (0.66-1.25) mg/dL Glucose (74-99) mg/dL Calcium (8.4-10.2) mg/dL AST (17-59) U/L ALT (4-49) U/L Alkaline Phosphatase (38-126) U/L Total Protein (6.3-8.2) g/dL Albumin (3.5-5.0) g/dL Microbiology - Last 24 Hours (Table) 03/01/20 00:16 Gram Stain - Final Sputum Sputum Culture - Final Assessment and Plan Assessment: Acute on chronic renal failure progressive worsening Altered mental status/encephalopathy metabolic in nature Acute Hypercapnic hypoxic respiratory failure Chronic systolic heart failure with acute exacerbation Status post aortic valve replacement Worsening of heart failure Acute renal failure with progressive worsening Bilateral pleural effusion Bilateral pneumonia, clinically and radiographically improving Leukocytosis due to above however continued to decline Plan: We'll keep BiPAP 15/5 with oxygen to keep saturation over 90% and above throughout the day and check ABG tomorrow order x-ray for tomorrow Patient likely will need hemodialysis Follow-up from today chest x-ray reviewed, findings are suggestive of CHF as well as component of pneumonia Patient continued to needs gentle diuresis as needed Continue BiPAP each night and when necessary during the day would recommend to 3 hours in the afternoon as well as Keep oxygen 2 L to keep saturation over 88 % Agree with broad-spectrum antibiotics. However they can be changed to oral at the time of discharge Continue bronchodilators Monitor renal function and CO2 level very closely, will recommend dialysis or comfort measures Overall long-term prognosis is guarded and poor Time with Patient: Greater than 30
[2020-03-04] MEDS: METOPROLOL TARTRATE 50 MG TAB PO SCH ×2 (11:12→20:03)
[2020-03-04] MEDS: DILTIAZEM ORAL 30 MG TAB PO SCH ×3 (11:12→21:04)
[2020-03-04] MEDS: MIDODRINE 5 MG TAB PO SCH ×3 (11:12→16:23)
[2020-03-04] MEDS: AMIODARONE 200 MG TAB PO SCH ×2 (11:12→20:03)
[2020-03-04] MEDS: MULTIVITAMINS, THERA 1 EACH TAB PO SCH (11:12)
[2020-03-04] MEDS: APIXABAN 2.5 MG TABLET PO SCH (11:12)
[2020-03-04] MEDS ORDERED: METOPROLOL TARTRATE 5 MG/5 ML VIAL IVP PRN (11:13)
--- NOTE | 2020-03-04 11:52 | P.PN ---
<Ashley Church - Last Filed: 03/04/20 11:17> Subjective This is Ashley Church PA-C dictating a progress note on this patient The patient was interviewed and examined by Dr. Feldman HPI/interval history The patient is an 84-year-old male with a history significant for valvular heart surgery status post aortic valve replacement, COPD, atrial fibrillation, atrial flutter, and CKD who presented with complaints of shortness of breath. He was in atrial flutter with RVR. He was placed on bipap and admitted to the ICU. He has had worsening renal function and is being considered for dialysis. Remains on bipap. At this time he is unable to take oral meds so he has not been able to take his amiodarone or metoprolol. Remains in atrial fibrillation. EXAMINATION pulse in the 90s, patient is afebrile, respiratory rate 27, blood pressure 122/63, on BiPAP patient seen and examined by Dr. Feldman in the ICU patient is obtunded lung sounds are reduced bilaterally heart is irregular, heart sounds are soft, no audible murmur no JVD no hepatojugular reflux no lower extremity edema REVIEW OF LABS, ECG WBC 12.2, hemoglobin 11.8, platelets 259,potassium 3.4, BUN 117, creatinine 4 Echocardiogram on February 12, 2020 showed mild concentric LVH, EF 55-60%, mild to moderate MR, IMPRESSION / ASSESSMENT: respiratory failure requiring bipap altered mental status Paroxysmal atrial fibrillation with RVR, anticoagulation currently on hold for placement of dialysis catheter JAKE on CKD, worsening renal function possibly due to overdiuresis Hypertension Valvular heart disease status post aortic valve replacement COPD PLAN: repeat echo to reassess valves and assess cardiac structure and function once dialysis catheter is placed, start on heparin unable to take oral medications at this time so use IV metoprolol 2.5 mg q 6 hours to keep heart rates under 100 bmp Objective - Vital Signs Vital signs: Vital Signs Temp 97.9 F 03/04/20 08:00 Pulse 98 03/04/20 08:00 Resp 23 03/04/20 08:00 BP 131/64 03/04/20 08:00 Pulse Ox 94 L 03/04/20 08:00 Intake & Output 03/03/20 03/04/20 03/04/20 18:59 06:59 18:59 Intake Total 100 440 140 Output Total 1300 285 60 Balance -1200 155 80 Weight 92.3 kg Intake: IV 140 140 0.9 140 40 Piperacillin-Tazobactam 3 100 .375 gm In Sodium Chloride 0.9% 100 ml @ 25 mls/hr IVPB Q12HR [facility] Rx #:[id number] Intake, IV Titration 100 300 Amount Anidulafungin 100 mg In 100 100 Sodium Chloride 0.9% 100 ml @ 84 mls/hr IVPB DAILY @1800 [facility] Rx#:[id number] Piperacillin-Tazobactam 3 100 .375 gm In Sodium Chloride 0.9% 100 ml @ 25 mls/hr IVPB Q12HR [facility] Rx #:[id number] Potassium Chloride 10 meq 100 In Water For Injection 1 100ml.bag @ 100 mls/hr IVPB ONCE [facility] Rx#: [id number] Output: Urine 1300 285 60 Other: Voiding Method Indwelling Catheter Indwelling Catheter # Voids 0 # Bowel Movements 0 - Labs CBC & Chem 7: 03/04/20 03:52 03/04/20 09:31 Labs: Abnormal Lab Results - Last 24 Hours (Table) 03/03/20 03/04/20 03/04/20 Range/Units 11:54 03:52 03:52 WBC 12.2 H (3.8-10.6) k/uL RBC 3.82 L (4.30-5.90) m/uL Hgb 11.8 L (13.0-17.5) gm/dL MCV 108.2 H (80.0-100.0) fL MCHC 28.5 L (31.0-37.0) g/dL Neutrophils # 11.3 H (1.3-7.7) k/uL Lymphocytes # 0.3 L (1.0-4.8) k/uL Macrocytosis Marked A ABG pH 7.14 L* (7.35-7.45) ABG pCO2 >120 H* (35-45) mmHg ABG pO2 77 L (83-108) mmHg ABG HCO3 (21-25) mmol/L ABG Total CO2 (19-24) mmol/L ABG O2 Saturation 93.3 L (94-97) % Potassium 3.4 L (3.5-5.1) mmol/L Chloride 93 L (98-107) mmol/L Carbon Dioxide 40 H (22-30) mmol/L BUN 117 H* (9-20) mg/dL Creatinine 4.90 H (0.66-1.25) mg/dL Glucose 102 H (74-99) mg/dL Calcium 8.1 L (8.4-10.2) mg/dL AST 971 H (17-59) U/L ALT 522 H (4-49) U/L Alkaline Phosphatase 144 H (38-126) U/L Total Protein 5.9 L (6.3-8.2) g/dL Albumin 3.3 L (3.5-5.0) g/dL 03/04/20 Range/Units 05:21 WBC (3.8-10.6) k/uL RBC (4.30-5.90) m/uL Hgb (13.0-17.5) gm/dL MCV (80.0-100.0) fL MCHC (31.0-37.0) g/dL Neutrophils # (1.3-7.7) k/uL Lymphocytes # (1.0-4.8) k/uL Macrocytosis ABG pH 7.20 L (7.35-7.45) ABG pCO2 99 H* (35-45) mmHg ABG pO2 (83-108) mmHg ABG HCO3 39 H (21-25) mmol/L ABG Total CO2 42 H (19-24) mmol/L ABG O2 Saturation (94-97) % Potassium (3.5-5.1) mmol/L Chloride (98-107) mmol/L Carbon Dioxide (22-30) mmol/L BUN (9-20) mg/dL Creatinine (0.66-1.25) mg/dL Glucose (74-99) mg/dL Calcium (8.4-10.2) mg/dL AST (17-59) U/L ALT (4-49) U/L Alkaline Phosphatase (38-126) U/L Total Protein (6.3-8.2) g/dL Albumin (3.5-5.0) g/dL Microbiology - Last 24 Hours (Table) 03/01/20 00:16 Gram Stain - Final Sputum Sputum Culture - Final <Jaquan Feldman - Last Filed: 03/04/20 11:52> Objective - Vital Signs Vital signs: Vital Signs Temp 97.9 F 03/04/20 08:00 Pulse 87 03/04/20 11:00 Resp 27 H 03/04/20 11:00 BP 122/63 03/04/20 11:00 Pulse Ox 96 03/04/20 11:00 Intake & Output 03/03/20 03/04/20 03/04/20 18:59 06:59 18:59 Intake Total 100 440 160 Output Total 1300 285 200 Balance -1200 155 -40 Weight 92.3 kg Intake: IV 140 160 0.9 140 60 Piperacillin-Tazobactam 3 100 .375 gm In Sodium Chloride 0.9% 100 ml @ 25 mls/hr IVPB Q12HR [facility] Rx #:[id number] Intake, IV Titration 100 300 Amount Anidulafungin 100 mg In 100 100 Sodium Chloride 0.9% 100 ml @ 84 mls/hr IVPB DAILY @1800 [facility] Rx#:[id number] Piperacillin-Tazobactam 3 100 .375 gm In Sodium Chloride 0.9% 100 ml @ 25 mls/hr IVPB Q12HR [facility] Rx #:[id number] Potassium Chloride 10 meq 100 In Water For Injection 1 100ml.bag @ 100 mls/hr IVPB ONCE [facility] Rx#: [id number] Output: Urine 1300 285 200 Other: Voiding Method Indwelling Catheter Indwelling Catheter Indwelling Catheter # Voids 0 0 # Bowel Movements 0 0 - Labs CBC & Chem 7: 03/04/20 03:52 03/04/20 09:31 Labs: Abnormal Lab Results - Last 24 Hours (Table) 03/03/20 03/04/20 03/04/20 Range/Units 11:54 03:52 03:52 WBC 12.2 H (3.8-10.6) k/uL RBC 3.82 L (4.30-5.90) m/uL Hgb 11.8 L (13.0-17.5) gm/dL MCV 108.2 H (80.0-100.0) fL MCHC 28.5 L (31.0-37.0) g/dL Neutrophils # 11.3 H (1.3-7.7) k/uL Lymphocytes # 0.3 L (1.0-4.8) k/uL Macrocytosis Marked A ABG pH 7.14 L* (7.35-7.45) ABG pCO2 >120 H* (35-45) mmHg ABG pO2 77 L (83-108) mmHg ABG HCO3 (21-25) mmol/L ABG Total CO2 (19-24) mmol/L ABG O2 Saturation 93.3 L (94-97) % Potassium 3.4 L (3.5-5.1) mmol/L Chloride 93 L (98-107) mmol/L Carbon Dioxide 40 H (22-30) mmol/L BUN 117 H* (9-20) mg/dL Creatinine 4.90 H (0.66-1.25) mg/dL Glucose 102 H (74-99) mg/dL Calcium 8.1 L (8.4-10.2) mg/dL AST 971 H (17-59) U/L ALT 522 H (4-49) U/L Alkaline Phosphatase 144 H (38-126) U/L Total Protein 5.9 L (6.3-8.2) g/dL Albumin 3.3 L (3.5-5.0) g/dL 03/04/20 03/04/20 Range/Units 05:21 09:31 WBC (3.8-10.6) k/uL RBC (4.30-5.90) m/uL Hgb (13.0-17.5) gm/dL MCV (80.0-100.0) fL MCHC (31.0-37.0) g/dL Neutrophils # (1.3-7.7) k/uL Lymphocytes # (1.0-4.8) k/uL Macrocytosis ABG pH 7.20 L (7.35-7.45) ABG pCO2 99 H* (35-45) mmHg ABG pO2 (83-108) mmHg ABG HCO3 39 H (21-25) mmol/L ABG Total CO2 42 H (19-24) mmol/L ABG O2 Saturation (94-97) % Potassium 3.4 L (3.5-5.1) mmol/L Chloride (98-107) mmol/L Carbon Dioxide (22-30) mmol/L BUN (9-20) mg/dL Creatinine (0.66-1.25) mg/dL Glucose (74-99) mg/dL Calcium (8.4-10.2) mg/dL AST (17-59) U/L ALT (4-49) U/L Alkaline Phosphatase (38-126) U/L Total Protein (6.3-8.2) g/dL Albumin (3.5-5.0) g/dL Microbiology - Last 24 Hours (Table) 03/01/20 00:16 Gram Stain - Final Sputum Sputum Culture - Final
--- NOTE | 2020-03-04 12:29 | P.PN ---
Subjective Progress Note Date: 03/04/20 This a 84-year-old gentleman admitted with acute CHF exacerbation, fluid overload, respiratory failure, acute renal failure/cardiorenal multiple other medical issues. Patient did not diurese well on Lasix, converted over to Diamox. Maintained on broad-spectrum antibiotics as per infectious disease. Also continues to require BiPAP each night, 3 hours in the afternoon and when necessary as per pulmonary's recommendations. Sputum culture pending, WBC elevated but trending down. 03/04/2020 transferred into the ICU over the weekend with worsening elevated CO2/CO2 narcosis, fluid overload, renal failure. BiPAP dependent, on 40% BiPAP maintaining O2 sats in the mid 90s. Minimal urine output .atrial fibrillation per telemetry. Converted to IV beta blockers as per cardiology. Repeat echo pending. Evaluated by nephrology, recommending hemodialysis. Objective - Vital Signs Vital signs: Vital Signs Temp 97.9 F 03/04/20 08:00 Pulse 101 H 03/04/20 10:00 Resp 25 H 03/04/20 10:00 BP 119/69 03/04/20 10:00 Pulse Ox 95 03/04/20 10:00 Intake & Output 03/03/20 03/04/20 03/04/20 18:59 06:59 18:59 Intake Total 100 440 160 Output Total 1300 285 200 Balance -1200 155 -40 Weight 92.3 kg Intake: IV 140 160 0.9 140 60 Piperacillin-Tazobactam 3 100 .375 gm In Sodium Chloride 0.9% 100 ml @ 25 mls/hr IVPB Q12HR [facility] Rx #:[id number] Intake, IV Titration 100 300 Amount Anidulafungin 100 mg In 100 100 Sodium Chloride 0.9% 100 ml @ 84 mls/hr IVPB DAILY @1800 [facility] Rx#:[id number] Piperacillin-Tazobactam 3 100 .375 gm In Sodium Chloride 0.9% 100 ml @ 25 mls/hr IVPB Q12HR [facility] Rx #:[id number] Potassium Chloride 10 meq 100 In Water For Injection 1 100ml.bag @ 100 mls/hr IVPB ONCE [facility] Rx#: [id number] Output: Urine 1300 285 200 Other: Voiding Method Indwelling Catheter Indwelling Catheter Indwelling Catheter # Voids 0 0 # Bowel Movements 0 0 - Exam PHYSICAL EXAM: VITAL SIGNS: As above GENERAL: Sitting up in bed, lethargic, wearing BiPAP, nods but not able to follow verbal commands. HEENT: Conjunctivae normal. eyes normal. NECK: No JVD. No thyroid enlargement. No LNs CARDIOVASCULAR: S1, S2 irregular.No murmur RESPIRATION: Tachypneic Breath sounds diminished in the bases. Scattered rhonchi ,crackles. ABDOMEN: Soft, nontender . No guarding. no masses palpable. Bowel sounds heard. LEGS: Bilateral Positive edema NERVOUS SYSTEM: Unable to fully assess, lethargic, obtunded Skin: no rash - Labs CBC & Chem 7: 03/04/20 03:52 03/04/20 09:31 Labs: Abnormal Lab Results - Last 24 Hours (Table) 03/03/20 03/04/20 03/04/20 Range/Units 11:54 03:52 03:52 WBC 12.2 H (3.8-10.6) k/uL RBC 3.82 L (4.30-5.90) m/uL Hgb 11.8 L (13.0-17.5) gm/dL MCV 108.2 H (80.0-100.0) fL MCHC 28.5 L (31.0-37.0) g/dL Neutrophils # 11.3 H (1.3-7.7) k/uL Lymphocytes # 0.3 L (1.0-4.8) k/uL Macrocytosis Marked A ABG pH 7.14 L* (7.35-7.45) ABG pCO2 >120 H* (35-45) mmHg ABG pO2 77 L (83-108) mmHg ABG HCO3 (21-25) mmol/L ABG Total CO2 (19-24) mmol/L ABG O2 Saturation 93.3 L (94-97) % Potassium 3.4 L (3.5-5.1) mmol/L Chloride 93 L (98-107) mmol/L Carbon Dioxide 40 H (22-30) mmol/L BUN 117 H* (9-20) mg/dL Creatinine 4.90 H (0.66-1.25) mg/dL Glucose 102 H (74-99) mg/dL Calcium 8.1 L (8.4-10.2) mg/dL AST 971 H (17-59) U/L ALT 522 H (4-49) U/L Alkaline Phosphatase 144 H (38-126) U/L Total Protein 5.9 L (6.3-8.2) g/dL Albumin 3.3 L (3.5-5.0) g/dL 03/04/20 03/04/20 Range/Units 05:21 09:31 WBC (3.8-10.6) k/uL RBC (4.30-5.90) m/uL Hgb (13.0-17.5) gm/dL MCV (80.0-100.0) fL MCHC (31.0-37.0) g/dL Neutrophils # (1.3-7.7) k/uL Lymphocytes # (1.0-4.8) k/uL Macrocytosis ABG pH 7.20 L (7.35-7.45) ABG pCO2 99 H* (35-45) mmHg ABG pO2 (83-108) mmHg ABG HCO3 39 H (21-25) mmol/L ABG Total CO2 42 H (19-24) mmol/L ABG O2 Saturation (94-97) % Potassium 3.4 L (3.5-5.1) mmol/L Chloride (98-107) mmol/L Carbon Dioxide (22-30) mmol/L BUN (9-20) mg/dL Creatinine (0.66-1.25) mg/dL Glucose (74-99) mg/dL Calcium (8.4-10.2) mg/dL AST (17-59) U/L ALT (4-49) U/L Alkaline Phosphatase (38-126) U/L Total Protein (6.3-8.2) g/dL Albumin (3.5-5.0) g/dL Microbiology - Last 24 Hours (Table) 03/01/20 00:16 Gram Stain - Final Sputum Sputum Culture - Final Assessment and Plan Assessment: Acute on chronic CHF exacerbation, diastolic dysfunction secondary to fluid overload, bilateral pleural effusions, bilateral pneumonia, community-acquired. Tested negative for coronavirus. Worsening Acute hypoxic, hypercapnic respiratory failure, requiring BiPAP at night, and afternoon Acute metabolic encephalopathy secondary to the above, elevated CO2, CO2 narcosis , BiPAP dependent Status post aortic valve replacement Acute on chronic renal failure, cardiorenal, worsening Hypotension, on midodrin Metabolic alkalosis COPD Paroxysmal atrial fibrillation, atrial flutter with RVR, currently controlled. Recent cardioversion for atrial fibrillation Hypertension Prior nicotine dependence Plan: Continue on current medication regime ,monitoring and symptomatic treatment. Hemodialysis recommended per nephrology, discussed with family. by Dr. Whitfield. Family requesting to proceed with hemodialysis. Vascular surgery consulted for hemodialysis catheter, nephrology notified. Hold anticoagulation for dialysis catheter placement. Prognosis guarded given multiple complex medical issues. The impression and plan of care has been dictated as directed. : I performed a history and examination of this patient, discussed the same with the dictator. I agree with the dictator's note ,documented as a scribe. Any additional findings or plans will be noted.
--- NOTE | 2020-03-04 14:20 | CONS ---
DATE OF CONSULTATION: 03/04/2020 This is an 84-year-old gentleman seen in the intensive care unit. The patient is on BiPAP. I was consulted for placement of urgent dialysis catheter. Patient has history of acute kidney injury due to acute tubular necrosis. Creatinine is 4.9. The patient also has a history of volume overload. The patient does have hypoxic respiratory failure. Plan is placement of a dialysis catheter. Patient was seen in his room. Patient has a BiPAP and his chest has decreased bilaterally. Abdomen is soft. Femoral pulses are present. PLAN: Placement of the dialysis catheter. Risks and complications of bleeding, infection, thrombosis have been discussed. MMODL / IJN: [id number] / ADOLPH
--- NOTE | 2020-03-04 14:26 | OP ---
OPERATIVE REPORT PREOPERATIVE DIAGNOSIS: Acute chronic failure. PROCEDURE: Placement of the dialysis catheter right femoral approach. The patient's right groin was prepped and draped in the usual sterile manner. Micropuncture introduced right femoral vein, micropuncture guidewire was passed and 4- Amharic dilator advanced on top of the guidewire without any resistance. MMODL / IJN: [id number] /
[2020-03-04] MEDS ORDERED: LIDOCAINE 1% INJ 10MG/ML (20 ML MDV) ONE (15:00)
[2020-03-04] MEDS ORDERED: HEPARIN SODIUM 1,000 UN/ML (10ML VL) ONE (15:00)
[2020-03-04] MEDS ORDERED: HEPARIN SOD,PORK IN 0.45% NACL 25,000 UNIT in 0.45% NACL 1 250ML.BAG IV SCH (18:30)
[2020-03-04] MEDS ORDERED: HEPARIN SODIUM,PORCINE 5,000 UNIT/ML 1 ML VIAL IV PRN (18:30)
[2020-03-04] MEDS ORDERED: HEPARIN SODIUM,PORCINE 5,000 UNIT/ML 1 ML VIAL IV ONE (18:30)
[2020-03-04] MEDS: ANIDULAFUNGIN 100 MG in SODIUM CHLORIDE 0.9% 100 ML IVPB SCH (18:37)
--- NOTE | 2020-03-04 19:32 | PN ---
PROGRESS NOTE DATE OF SERVICE: 03/04/2020 REASON FOR FOLLOWUP: Pneumonia. INTERVAL HISTORY: The patient is currently afebrile. The patient remains BiPAP-dependent. The patient is noticed to have worsening of his kidney function with plan for dialysis. A dialysis catheter has been placed. The patient remains slightly lethargic and pleasantly confused, unable to provide any history. PHYSICAL EXAMINATION: Blood pressure 96/82 with a pulse of 89, temperature 97.7. He is 94% on 40% FiO2. General description is an elderly male up in the bed in no distress. RESPIRATORY SYSTEM: Unlabored breathing with decreased breath sounds at the base. No wheeze. HEART: S1, S2. Regular rate and rhythm. ABDOMEN: Soft. No tenderness. LABS: Hemoglobin is 11.8, white count 12.2, BUN of 113, creatinine 4.90. DIAGNOSTIC IMPRESSION AND PLAN: Patient with leukocytosis which is likely multifactorial in this patient with likely a component of pneumonia. Sputum has been negative for resistant pathogen. Patient is covered with Zosyn and Zyvox. White count is showing almost a downward trend, now almost normalized. To continue while waiting for his condition to stabilize. Continue with supportive care. MMODL / IJN: [id number] /
[2020-03-04 19:42] LABS: INR 1.2 (<1.2); Partial Thromboplastin Time 28.7 sec (22.0-30.0); Prothrombin Time 12.3 sec (9.0-12.0)
[2020-03-04 20:07] LABS: Hepatitis B Surface AB- Quant 3.5 mIU/mL; Hepatitis B Surface Antibody Non-Reactive (Non-Reactive); Hepatitis B Surface Antigen Non-Reactive (Non-Reactive)
[2020-03-04] MEDS ORDERED: POTASSIUM CHLORIDE 10 MEQ in WATER FOR INJECTION 1 100ML.BAG IVPB ONE ×2 (22:00→23:00)
[2020-03-05 05:00] LABS: Basophils % (A) 0 %; Eosinophils % (A) 0 %; HGB 11.7 gm/dL (13.0-17.5); Hypochromasia Marked; Lymphocytes # (A) 0.4 k/uL (1.0-4.8); Lymphocytes % (A) 3 %; MCH 30.6 pg (25.0-35.0); MCHC 28.5 g/dL (31.0-37.0); MCV 107.3 fL (80.0-100.0); Macrocytosis Moderate; Mean Platelet Volume 9.8; Monocytes # (A) 0.6 k/uL (0-1.0); Monocytes % (A) 4 %; Neutrophils % (A) 92 %; Platelet Count 221 k/uL (150-450); RBC 3.82 m/uL (4.30-5.90); RDW 13.5 % (11.5-15.5); WBC 15.2 k/uL (3.8-10.6)
[2020-03-05] MEDS: LINEZOLID 600 MG TAB PO SCH (05:04)
[2020-03-05 06:46] LABS: Albumin 3.3 g/dL (3.5-5.0); Calcium 8.1 mg/dL (8.4-10.2); Potassium 4.5 mmol/L (3.5-5.1); Total Bilirubin 0.6 mg/dL (0.2-1.3)
[2020-03-05] MEDS: MIDODRINE 5 MG TAB PO SCH (07:27)
--- NOTE | 2020-03-05 08:03 | XR ---
EXAMINATION TYPE: XR chest 1V portable DATE OF EXAM: 03/05/2020 Comparison: 03/04/2020 Clinical History: 84-year-old male pneumonia Findings: Greater obscuration of the left heart margin with moderate left and small to moderate effusions. Prom inence to the pulmonary vasculature. Dominant mid and lower lung opacities. Impression: Increasing moderate left and small to moderate right effusions with prominent underlying atelectasis and/or consolidation.
[2020-03-05] MEDS: TIOTROPIUM 18 MCG/PUFF INHALER INHALATION SCH (08:13)
--- NOTE | 2020-03-05 08:19 | P.PN ---
Subjective Progress Note Date: 03/05/20 Principal diagnosis: Acute metabolic encephalopathy Acute Hypercapnic hypoxic respiratory failure Chronic systolic heart failure with acute exacerbation Status post aortic valve replacement Altered mental status/encephalopathy due to elevated CO2 and CO2 narcosis Worsening of heart failure Bilateral pleural effusion Bilateral pneumonia 03/05/2020, patient seen eval reexamined during the rounds labs reviewed medications reviewed care plan discussed with the staff at length, chest x-ray reviewed, still have bilateral pleural effusion AB slightly more than yesterday, hemodynamic status stable, patient remains on BiPAP 15/5 pulling out 300-400 mL, oxygen saturation 93-94%, mental status is marginal but arousable patient does have a cough though patient is being planned for dialysis remove fluid, white cell count is up we'll do blood cultures 2, patient has been started on heparin drip by cardiovascular service for A. fib RVR, patient remains on antibiotics and antifungal as per recommendation of infectious disease services arterial blood gas not done today but noted to have mild anion gap metabolic acidosis CO2 however is coming down considerably liver enzymes also coming down considerably indicating better perfusion, critical care time 35 minutes 03/04/2020, patient seen and evaluated examined she remains in the ICU on BiPAP currently is on IPAP of 15 and EPAP of 5 spontaneous tidal volume have increase up to 300-350 remains somnolent and lethargic but more arousable arterial blood gases reviewed pH is improved to 7.2, PaCO2 have come down into 90s, hemodynamically patient remains stable not on any vasopressors, saturation is 94-95%, chest x-ray arterial blood gas and laboratory data reviewed, renal functions continued to progressively getting worse, I have discussed with renal services they have recommended hemodialysis patient [place] output is very dark on the 25 mL/h or less, patient also has bilateral pleural effusion, we'll talk to the son critical care time spent over 35 minutes 03/03/2020, patient seen and evaluated examined in ICU critical care time spent 35 minutes, patient to follow her has been off of BiPAP for 3-1/2 hours if fold off his BiPAP resulted in PaCO2 to to over 120 and pH reduced to 7, patient became is very unresponsive lethargic not arousable transferred to the ICU. Patient has been resumed on CPAP serial blood gases have been done pH is slowly improving CO2 is still high patient is now slowly arousable but closes eyes, will keep him nothing by mouth for now continue BiPAP is on 22/03 tidal volume increased from 120 range up to 350, respiratory rate is 12-16, it appears that patient is grunting adequate ventilation and repeat arterial blood gases pending, BUN/creatinine creatinine worsened BUNs is 95 creatinine is 3.58 which is up from yesterday, chest x-ray done this morning reviewed noted to have bilateral pleural effusion with cardiomegaly more so on the right side compared to left side, patient is being followed by renal service patient has declined hemodialysis is still have bilateral lower extremity edema 03/02/2020, patient seen evjoseph examined during rounds sitting upright in chair breathing comfortably on 2 L oxygen oxygen saturation are in low 90s, patient was confused and agitated last night did not use the BiPAP machine throughout the night however he managed reasonably 3 hours, this morning looks relatively composed labs reviewed per duration was 3.4 and creatinine 88 and 2.9, CO2 is 40 on 3 numbers appears to have plateaued out and in fact slowly improving and showing a downward trend March 01 2020, patient seen evjoseph examined during the rounds sitting upright on the bed on 2 L nasal cannula breathing comfortably, awake and alert, he used to have few hours in the afternoon and the throughout the night for his almost 6- 1/2 hours, a prescription of BiPAP has been provided, which is to be used patient night for 6-7 hours at least and during the day once to our during afternoon naps 02/29/2020, patient seen evjoseph reexamined during the rounds labs reviewed medications reviewed as main on supplemental oxygen sitting upright in the bed breathing comfortably awake and alert, patient had problems last night with somnolence and lethargy metabolic related to high CO2 and is recommended to use the BiPAP each night and when necessary during the day Will use it for short period time for 2-3 hour in the afternoon today discussed with the respiratory therapy 02/28/2020, patient seen evjoseph reexamined during the rounds sitting upright on the chair breathing comfortably about to get breathing treatment, patient is more awake and alert eyes open. The commands, alert and oriented 3, patient used almost 6-1/2 hour BiPAP machine last night which definitely has helped his mental status, as well as general well-being, denies any chest pain cough or sputum production, labs reviewed WBC count is up to 16,000 yesterday today is pending we'll check a follow-up x-ray in the morning This is a 84-year-old morbidly obese male was seen evaluated examined, patient is somnolent but arousable, patient had a trial of BiPAP overnight after that he is more calm for the ICU she has problems associated with confusion and intermittent agitation sitter is present at bedside, patient FiO2 has been lowered down to 4 L to 3 L, review of the old records revealed that 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 has been on home oxygen he came into the hospital with one-day history of increased shortness of breath and increased swelling of the lower extremity, patient does have chronic atrial fibrillation and has been on anticoagulants also on bronchodilator, patient has been on amiodarone as well his prior cardiac history significant for for heart failure atrial flutter fibrillation and aortic valve replacement, he used to smoke heavily in the past Objective - Vital Signs Vital signs: Vital Signs Temp 98.2 F 03/05/20 04:00 Pulse 98 03/05/20 07:00 Resp 33 H 03/05/20 07:00 BP 130/72 03/05/20 07:00 Pulse Ox 94 L 03/05/20 07:00 Intake & Output 03/04/20 03/05/20 03/05/20 18:59 06:59 18:59 Intake Total 400 420 10 Output Total 970 779 25 Balance -570 -359 -15 Weight 91.7 kg Intake: IV 400 220 10 0.9 200 120 10 Anidulafungin 100 mg In 100 Sodium Chloride 0.9% 100 ml @ 84 mls/hr IVPB DAILY @1800 [facility] Rx#:[id number] Piperacillin-Tazobactam 3 100 100 .375 gm In Sodium Chloride 0.9% 100 ml @ 25 mls/hr IVPB Q12HR [facility] Rx #:[id number] Intake, IV Titration 200 Amount Potassium Chloride 10 meq 200 In Water For Injection 1 100ml.bag @ 100 mls/hr IVPB ONCE ONE Rx#: [id number] Output: Urine 470 279 25 Hemodialysis 500 Other 500 Other: Voiding Method Indwelling Catheter Indwelling Catheter # Voids 0 # Bowel Movements 0 1 - Exam - Constitutional General appearance: disheveled, somnolent but does open his eyes -HEENT Eyes: EOMI, PERRLA Ears: bilateral: normal - Neck Neck: normal ROM Carotids: bilateral: upstroke normal Thyroid: bilateral: normal size - Respiratory Respiratory: bilateral: diminished, dullness, rales - Cardiovascular Rhythm: regular Heart sounds: normal: S1, S2 - Gastrointestinal General gastrointestinal: decreased bowel sounds, distended, soft - Musculoskeletal Musculoskeletal: generalized weakness bilateral lower extremity extensive edema - Labs CBC & Chem 7: 03/05/20 03:44 03/05/20 03:44 Labs: Abnormal Lab Results - Last 24 Hours (Table) 03/04/20 03/04/20 03/05/20 Range/Units 09:31 19:05 01:22 WBC (3.8-10.6) k/uL RBC (4.30-5.90) m/uL Hgb (13.0-17.5) gm/dL MCV (80.0-100.0) fL MCHC (31.0-37.0) g/dL Neutrophils # (1.3-7.7) k/uL Lymphocytes # (1.0-4.8) k/uL PT 12.3 H (9.0-12.0) sec INR 1.2 H (<1.2) APTT 45.0 H (22.0-30.0) sec Potassium 3.4 L (3.5-5.1) mmol/L Carbon Dioxide (22-30) mmol/L BUN (9-20) mg/dL Creatinine (0.66-1.25) mg/dL Glucose (74-99) mg/dL Calcium (8.4-10.2) mg/dL AST (17-59) U/L ALT (4-49) U/L Alkaline Phosphatase (38-126) U/L Total Protein (6.3-8.2) g/dL Albumin (3.5-5.0) g/dL 03/05/20 03/05/20 Range/Units 03:44 03:44 WBC 15.2 H (3.8-10.6) k/uL RBC 3.82 L (4.30-5.90) m/uL Hgb 11.7 L (13.0-17.5) gm/dL MCV 107.3 H (80.0-100.0) fL MCHC 28.5 L (31.0-37.0) g/dL Neutrophils # 14.0 H (1.3-7.7) k/uL Lymphocytes # 0.4 L (1.0-4.8) k/uL PT (9.0-12.0) sec INR (<1.2) APTT (22.0-30.0) sec Potassium (3.5-5.1) mmol/L Carbon Dioxide 32 H (22-30) mmol/L BUN 105 H* (9-20) mg/dL Creatinine 4.87 H (0.66-1.25) mg/dL Glucose 107 H (74-99) mg/dL Calcium 8.1 L (8.4-10.2) mg/dL AST 318 H (17-59) U/L ALT 324 H (4-49) U/L Alkaline Phosphatase 149 H (38-126) U/L Total Protein 6.0 L (6.3-8.2) g/dL Albumin 3.3 L (3.5-5.0) g/dL Assessment and Plan Assessment: Acute on chronic renal failure progressive worsening Sepsis A. fib with RVR Shock liver likely due to decreased perfusion Altered mental status/encephalopathy metabolic in nature Acute Hypercapnic hypoxic respiratory failure Chronic systolic heart failure with acute exacerbation Status post aortic valve replacement Worsening of heart failure Acute renal failure with progressive worsening Bilateral pleural effusion Bilateral pneumonia, clinically and radiographically improving Leukocytosis due to above however continued to decline Plan: We'll keep BiPAP 15/5 with oxygen to keep saturation over 90% and above throughout the day and check ABG tomorrow order x-ray for tomorrow Patient to be continued hemodialysis as planned We will do blood cultures 2 Contact continue antifungal and antibacterial antibiotics, Zyvox is being changed to IV Patient will benefit from PICC line Continue BiPAP each night and when necessary during the day would recommend to 3 hours in the afternoon as well as Continue bronchodilators Monitor renal function and CO2 level very closely, will recommend dialysis or comfort measures Overall long-term prognosis is guarded and poor Critical care time 35 minutes Time with Patient: Greater than 30
[2020-03-05 08:38] LABS: ABG Base Excess 6.3 mmol/L; ABG HCO3 35 mmol/L (21-25); ABG PO2 62 mmHg (83-108); ABG TCO2 38 mmol/L (19-24); Allen Test Performed? Yes
[2020-03-05 08:39] LABS: ABG PH 7.16 (7.35-7.45)
[2020-03-05 08:40] LABS: ABG PCO2 99 mmHg (35-45)
--- NOTE | 2020-03-05 08:46 | P.PN ---
Subjective Patient is seen in follow-up for acute kidney injury on chronic kidney disease. Started on hemodialysis on March 04. Patient is currently on BiPAP. He is not a reliable historian. Patient only nods to verbal commands. Urine output 15-20 mL an hour. Vital signs are stable. General: The patient appeared well nourished and normally developed. HEENT: Head exam is unremarkable. Neck is without jugular venous distension. On BiPAP. LUNGS: Breath sounds decreased. HEART: Rate and Rhythm are regular. ABDOMEN: Soft. Nontender. EXTREMITITES: 1+ edema. Objective - Vital Signs Vital signs: Vital Signs Temp 98.2 F 03/05/20 04:00 Pulse 98 03/05/20 07:00 Resp 33 H 03/05/20 07:00 BP 130/72 03/05/20 07:00 Pulse Ox 94 L 03/05/20 07:00 Intake & Output 03/04/20 03/05/20 03/05/20 18:59 06:59 18:59 Intake Total 400 420 10 Output Total 970 779 25 Balance -570 -359 -15 Weight 91.7 kg Intake: IV 400 220 10 0.9 200 120 10 Anidulafungin 100 mg In 100 Sodium Chloride 0.9% 100 ml @ 84 mls/hr IVPB DAILY @1800 [facility] Rx#:[id number] Piperacillin-Tazobactam 3 100 100 .375 gm In Sodium Chloride 0.9% 100 ml @ 25 mls/hr IVPB Q12HR [facility] Rx #:[id number] Intake, IV Titration 200 Amount Potassium Chloride 10 meq 200 In Water For Injection 1 100ml.bag @ 100 mls/hr IVPB ONCE ONE Rx#: [id number] Output: Urine 470 279 25 Hemodialysis 500 Other 500 Other: Voiding Method Indwelling Catheter Indwelling Catheter # Voids 0 # Bowel Movements 0 1 - Labs CBC & Chem 7: 03/05/20 03:44 03/05/20 03:44 Labs: Abnormal Lab Results - Last 24 Hours (Table) 03/04/20 03/04/20 03/05/20 Range/Units 09:31 19:05 01:22 WBC (3.8-10.6) k/uL RBC (4.30-5.90) m/uL Hgb (13.0-17.5) gm/dL MCV (80.0-100.0) fL MCHC (31.0-37.0) g/dL Neutrophils # (1.3-7.7) k/uL Lymphocytes # (1.0-4.8) k/uL PT 12.3 H (9.0-12.0) sec INR 1.2 H (<1.2) APTT 45.0 H (22.0-30.0) sec ABG pH (7.35-7.45) ABG pCO2 (35-45) mmHg ABG pO2 (83-108) mmHg ABG HCO3 (21-25) mmol/L ABG Total CO2 (19-24) mmol/L ABG O2 Saturation (94-97) % Potassium 3.4 L (3.5-5.1) mmol/L Carbon Dioxide (22-30) mmol/L BUN (9-20) mg/dL Creatinine (0.66-1.25) mg/dL Glucose (74-99) mg/dL Calcium (8.4-10.2) mg/dL AST (17-59) U/L ALT (4-49) U/L Alkaline Phosphatase (38-126) U/L Total Protein (6.3-8.2) g/dL Albumin (3.5-5.0) g/dL 03/05/20 03/05/20 03/05/20 Range/Units 03:44 03:44 08:36 WBC 15.2 H (3.8-10.6) k/uL RBC 3.82 L (4.30-5.90) m/uL Hgb 11.7 L (13.0-17.5) gm/dL MCV 107.3 H (80.0-100.0) fL MCHC 28.5 L (31.0-37.0) g/dL Neutrophils # 14.0 H (1.3-7.7) k/uL Lymphocytes # 0.4 L (1.0-4.8) k/uL PT (9.0-12.0) sec INR (<1.2) APTT (22.0-30.0) sec ABG pH 7.16 L* (7.35-7.45) ABG pCO2 99 H* (35-45) mmHg ABG pO2 62 L (83-108) mmHg ABG HCO3 35 H (21-25) mmol/L ABG Total CO2 38 H (19-24) mmol/L ABG O2 Saturation 88.0 L (94-97) % Potassium (3.5-5.1) mmol/L Carbon Dioxide 32 H (22-30) mmol/L BUN 105 H* (9-20) mg/dL Creatinine 4.87 H (0.66-1.25) mg/dL Glucose 107 H (74-99) mg/dL Calcium 8.1 L (8.4-10.2) mg/dL AST 318 H (17-59) U/L ALT 324 H (4-49) U/L Alkaline Phosphatase 149 H (38-126) U/L Total Protein 6.0 L (6.3-8.2) g/dL Albumin 3.3 L (3.5-5.0) g/dL Assessment and Plan Plan: Assessment: 1. Acute kidney injury secondary to ATN. Started on hemodialysis March 04. Urine output 15-20 mL an hour. 2. Acute on chronic diastolic CHF. 3. Volume overload. 4. Acute mixed hypercapnic and hypoxic respiratory failure currently on BiPAP. ABG reviewed. 5. Hypokalemia secondary to diuresis. Improved. 6. Chronic kidney disease stage III with baseline creatinine 1.3-1.4. Plan: Maintain Bumex. Discontinue Diamox as patient's metabolic alkalosis is compensatory for the respiratory acidosis. Currently seen while undergoing hemodialysis. Plan for another treatment tomorrow. Will try for 2 L ultrafiltration today. Check phosphorus level.
--- NOTE | 2020-03-05 09:00 | ECHOF ---
Referral Reason:worsening HF and renal function MEASUREMENTS -------- HEIGHT: 180.3 cm WEIGHT: 92.1 kg BP: 122/63 RVIDd: 3.8 cm (< 3.3) IVSd: 1.2 cm (0.6 - 1.1) LVIDd: 4.0 cm (3.9 - 5.3) LVPWd: 1.4 cm (0.6 - 1.1) IVSs: 1.3 cm LVIDs: 1.6 cm LVPWs: 1.9 cm MV E Abran: 1.78 m/s MV DecT: 194 ms MV A Abran: 0.85 m/s MV E/A Ratio: 2.10 AV maxP.29 mmHg AV meanP.29 mmHg AR PHT: 139 ms RAP: 5.00 mmHg RVSP: 48.80 mmHg FINDINGS -------- Sinus rhythm with extra systolic beats. This was a technically difficult study with suboptimal views. The left ventricular size is normal. There is mild concentric left ventricular hypertrophy. Overa left ventricular systolic function is normal with, an EF between 60 - 65 %. LVOT Obstruction wit h a max gradient of 51mmHg The right ventricle is mild to moderately enlarged. The left atrial size is normal. The right atrial size is normal. Lumason used Trace amount of aortic regurgitation. Peak/mean gradient across the Aortic Valve is 42.29mmHg / 24 .29mmHg. TAVR procedure done The mitral valve is normal. The mitral valve leaflets are moderately thickened. Moderate mitral a nnular calcification present. Mild mitral regurgitation is present. [id number] mitral steno sis. The peak and mean MV gradients are 17.37mmHg 5.46mmHg as measured by doppler. The tricuspid valve appears structurally normal. Moderate tricuspid regurgitation present. There is moderate pulmonary hypertension. The right ventricular systolic pressure, as measured by Doppler , is 48.80mmHg. There is no pulmonic regurgitation present. The aortic root size is normal. IVC Not well visulized. There is no pericardial effusion. Large Pleural Effusion. Lumason used CONCLUSIONS -------- 1. Sinus rhythm with extra systolic beats. 2. This was a technically difficult study with suboptimal views. 3. The left ventricular size is normal. 4. There is mild concentric left ventricular hypertrophy. 5. Overall left ventricular systolic function is normal with, an EF between 60 - 65 %. 6. LVOT Obstruction with a max gradient of 51 mmHg 7. The right ventricle is mild to moderately enlarged. 8. The left atrial size is normal. 9. The right atrial size is normal. 10. Lumason used 11. The tricuspid valve appears structurally normal. 12. Moderate tricuspid regurgitation present. 13. Lumason used 14. Trace amount of aortic regurgitation. 15. Peak/mean gradient across the Aortic Valve is 42.29mmHg / 24.29mmHg. 16. TAVR procedure done 17. The mitral valve is normal. 18. The mitral valve leaflets are moderately thickened. 19. Moderate mitral annular calcification present. 20. Mild mitral regurgitation is present. 21. The peak and mean MV gradients are 17.37mmHg 5.46mmHg as measured by doppler. 22. There is moderate pulmonary hypertension. 23. The right ventricular systolic pressure, as measured by Doppler, is 48.80mmHg. 24. There is no pulmonic regurgitation present. 25. The aortic root size is normal. 26. IVC Not well visulized. 27. There is no pericardial effusion. 28. Large Pleural Effusion. WATCH AND CLOCK REPAIRER: Keshia Reagan RDCS
[2020-03-05] MEDS: MULTIVITAMINS, THERA 1 EACH TAB PO SCH (09:04)
[2020-03-05] MEDS: DILTIAZEM ORAL 30 MG TAB PO SCH (09:04)
[2020-03-05] MEDS: AMIODARONE 200 MG TAB PO SCH (09:04)
[2020-03-05] MEDS: METOPROLOL TARTRATE 50 MG TAB PO SCH (09:04)
[2020-03-05] MEDS: PIPERACILLIN-TAZOBACTAM 3.375 GM in SODIUM CHLORIDE 0.9% 100 ML IVPB SCH (09:08)
[2020-03-05] MEDS: PANTOPRAZOLE 40 MG/10 ML VIAL IVP SCH (09:09)
[2020-03-05] MEDS: BUMETANIDE 0.25 MG/ML 4 ML VIAL IV SCH (09:09)
[2020-03-05 09:18] VITALS: TEMP 97.6
[2020-03-05] MEDS ORDERED: ARTIFICIAL TEARS-HYPROMELLOSE DROPS 15 ML BTL BOTH EYES PRN (11:43)
[2020-03-05] MEDS ORDERED: LORazepam 2 MG/ML INJ IV PRN (11:43)
[2020-03-05] MEDS ORDERED: ATROPINE OPHTH SOLN 1% 5ML BTL SUBLINGUAL PRN (11:43)
[2020-03-05] MEDS ORDERED: MORPHINE SULFATE (100 MG/2 ML) 100 MG in SODIUM CHLORIDE 0.9% 100 ML IV SCH (11:45)
[2020-03-05] MEDS ORDERED: SCOPOLAMINE 1.5MG/72HR PATCH TRANSDERM SCH (12:00)
[2020-03-05] MEDS ORDERED: MORPHINE SULFATE 2 MG/ML SYRINGE ONE (12:01)
[2020-03-05] MEDS ORDERED: LORazepam 2 MG/ML INJ ONE (12:02)
[2020-03-05] MEDS: MORPHINE SULFATE 2 MG/ML SYRINGE IV PRN ×2 (12:08→13:15)
--- NOTE | 2020-03-05 14:21 | CDI ---
Documentation Clarification Form Date: 03/05/2020 01:37:09 PM From: Tatiana Orosco RN CCDS Admit Date: 02/24/2020 10:51:00 AM Patient Name: Geraldo López Visit Number: [id number] Discharge Date: ATTENTION: The Clinical Documentation Specialists (CDI) and [facility] Coding Staff appreciate your assistance in clarifying documentation. Please respond to the clarification below the line at the bottom and electronically sign. The CDI & [facility] Coding staff will review the response and follow-up if needed. Please note: Queries are made part of the Legal Health Record. If you have any questions, please contact the author of this message via ITS. Dr. Tristian Arias MD The patient presented to the ED with shortness of breath, increased swelling to his lower extremities and exertional dyspnea. History/Risk Factors: 84-year-old male admitted with pneumonia Acute respiratory failure and acute on chronic congestive heart failure. Medical history of CHF, Atrial Fibrillation s/p electrical cardioversion back in atrial flutter. HTN, CKD 3, TERE and Asthma Clinical Indicators: VSS At admission: B/p 144/68; HR 108; Temp 98.0 F; RR 28; Oxygen Sat 83% room air WBC 02/23 14.1; 02/26 16.6; 02/28 21.1; 03/03 15.6; 03/04 12.2; 03/05 15.2 Treatment: Pulmonary Progress note 03/05: Sepsis ID Progress Note 02/27: Patient with leukocytosis, concern for possible pneumonia ID Progress Note 03/04: Patient with leukocytosis which is likely multifactorial in this patient with a likely component of pneumonia. Sputum has been negative for resistant pathogen. Antibiotics: 02/23 Zosyn ivpb Dc 03/05, 02/28 Linezolid ivpb changed to po 03/01 d/c 03/05, Other: 02/23 Ventolin Inhaler, Duonebs, 02/27 Anidulafungin Ivpb Daily Dc;d 03/04 In your professional opinion, please clarify if these findings signify one of the following conditions, whether the condition is POA, and cause, if known: Unable to determine Identify the (suspected) organism Link or clarify if there is associated (due to/with): Organ failure Shock SIRS Criteria (2 or more of the following may indicate SIRS): -Temperature < 96.8F (36C) or > 101.0F (38.3C) -Heart Rate > 90 bpm -Respiratory Rate > 20 breaths/min or PaCO2 < 32 mmHg -White Blood Cell Count > 12,000 or < 4,000 cells/mm3 or > 10% bands -Lactate >2.0 mmol/L (>4.0 is equivalent to septic shock) (Last Revision: February 2018) MTDD
[2020-03-05 15:20] VITALS: BP 74/36; PULSE 97; RESP 17
--- NOTE | 2020-03-05 17:39 | P.PN ---
Subjective Progress Note Date: 03/05/20 This a 84-year-old gentleman admitted with acute CHF exacerbation, fluid overload, respiratory failure, acute renal failure/cardiorenal multiple other medical issues. Patient did not diurese well on Lasix, converted over to Diamox. Maintained on broad-spectrum antibiotics as per infectious disease. Also continues to require BiPAP each night, 3 hours in the afternoon and when necessary as per pulmonary's recommendations. Sputum culture pending, WBC elevated but trending down. 03/04/2020 transferred into the ICU over the weekend with worsening elevated CO2/CO2 narcosis, fluid overload, renal failure. BiPAP dependent, on 40% BiPAP maintaining O2 sats in the mid 90s. Minimal urine output .atrial fibrillation per telemetry. Converted to IV beta blockers as per cardiology. Repeat echo pending. Evaluated by nephrology, recommending hemodialysis. 03/05/2020 yesterday hemodialysis initiated, tolerated well, sensorium unchanged, not responding, not following commands. CO2 decreased to 32. LFTs significantly improving. Scheduled for second session of hemodialysis this morning. Chest x-ray reporting increasing bilateral pleural effusions. Maintain on IV antibiotics/antifungals .Afebrile, elevated WBCs, blood cultures ordered. Anticoagulated on heparin drip. Objective - Vital Signs Vital signs: Vital Signs Temp 98.2 F 03/05/20 04:00 Pulse 98 03/05/20 07:00 Resp 33 H 03/05/20 07:00 BP 130/72 03/05/20 07:00 Pulse Ox 94 L 03/05/20 07:00 Intake & Output 03/04/20 03/05/20 03/05/20 18:59 06:59 18:59 Intake Total 400 420 10 Output Total 970 779 25 Balance -570 -359 -15 Weight 91.7 kg Intake: IV 400 220 10 0.9 200 120 10 Anidulafungin 100 mg In 100 Sodium Chloride 0.9% 100 ml @ 84 mls/hr IVPB DAILY @1800 [facility] Rx#:[id number] Piperacillin-Tazobactam 3 100 100 .375 gm In Sodium Chloride 0.9% 100 ml @ 25 mls/hr IVPB Q12HR [facility] Rx #:[id number] Intake, IV Titration 200 Amount Potassium Chloride 10 meq 200 In Water For Injection 1 100ml.bag @ 100 mls/hr IVPB ONCE ONE Rx#: [id number] Output: Urine 470 279 25 Hemodialysis 500 Other 500 Other: Voiding Method Indwelling Catheter Indwelling Catheter # Voids 0 # Bowel Movements 0 1 - Exam PHYSICAL EXAM: VITAL SIGNS: As above GENERAL: Sitting up in bed, obtunded HEENT: Conjunctivae normal. eyes normal. NECK: No JVD. No thyroid enlargement. No LNs CARDIOVASCULAR: S1, S2 irregular.No murmur RESPIRATION: Tachypneic Breath sounds diminished in the bases. Scattered rhonchi ,crackles. ABDOMEN: Soft, nontender . No guarding. no masses palpable. Bowel sounds heard. LEGS: Bilateral Positive edema NERVOUS SYSTEM: Unable to fully assess, lethargic, obtunded Skin: no rash - Labs CBC & Chem 7: 03/05/20 03:44 03/05/20 03:44 Labs: Abnormal Lab Results - Last 24 Hours (Table) 03/04/20 03/04/20 03/05/20 Range/Units 09:31 19:05 01:22 WBC (3.8-10.6) k/uL RBC (4.30-5.90) m/uL Hgb (13.0-17.5) gm/dL MCV (80.0-100.0) fL MCHC (31.0-37.0) g/dL Neutrophils # (1.3-7.7) k/uL Lymphocytes # (1.0-4.8) k/uL PT 12.3 H (9.0-12.0) sec INR 1.2 H (<1.2) APTT 45.0 H (22.0-30.0) sec Potassium 3.4 L (3.5-5.1) mmol/L Carbon Dioxide (22-30) mmol/L BUN (9-20) mg/dL Creatinine (0.66-1.25) mg/dL Glucose (74-99) mg/dL Calcium (8.4-10.2) mg/dL AST (17-59) U/L ALT (4-49) U/L Alkaline Phosphatase (38-126) U/L Total Protein (6.3-8.2) g/dL Albumin (3.5-5.0) g/dL 03/05/20 03/05/20 Range/Units 03:44 03:44 WBC 15.2 H (3.8-10.6) k/uL RBC 3.82 L (4.30-5.90) m/uL Hgb 11.7 L (13.0-17.5) gm/dL MCV 107.3 H (80.0-100.0) fL MCHC 28.5 L (31.0-37.0) g/dL Neutrophils # 14.0 H (1.3-7.7) k/uL Lymphocytes # 0.4 L (1.0-4.8) k/uL PT (9.0-12.0) sec INR (<1.2) APTT (22.0-30.0) sec Potassium (3.5-5.1) mmol/L Carbon Dioxide 32 H (22-30) mmol/L BUN 105 H* (9-20) mg/dL Creatinine 4.87 H (0.66-1.25) mg/dL Glucose 107 H (74-99) mg/dL Calcium 8.1 L (8.4-10.2) mg/dL AST 318 H (17-59) U/L ALT 324 H (4-49) U/L Alkaline Phosphatase 149 H (38-126) U/L Total Protein 6.0 L (6.3-8.2) g/dL Albumin 3.3 L (3.5-5.0) g/dL Assessment and Plan Assessment: Acute on chronic CHF exacerbation, diastolic dysfunction secondary to fluid overload, bilateral pleural effusions, bilateral pneumonia, community-acquired. Tested negative for coronavirus. Worsening Sepsis secondary to the above Leukocytosis Acute hypoxic, hypercapnic respiratory failure, BiPAP dependent Shock liver secondary to decreased perfusion Acute metabolic encephalopathy secondary to the above, elevated CO2, CO2 narcosis Status post aortic valve replacement Acute on chronic renal failure, cardiorenal, worsening Hypotension, on midodrin Metabolic alkalosis COPD Paroxysmal atrial fibrillation, atrial flutter with RVR, currently controlled. Recent cardioversion for atrial fibrillation Hypertension Prior nicotine dependence Plan: Continue on current medication regime ,monitoring and symptomatic treatment. Second Hemodialysis pending. Blood cultures in progress. Maintain nebulized bronchodilators, antibiotics. Close monitoring of renal function, CO2 level ,LFTs, coags Prognosis guarded given multiple complex medical issues. The impression and plan of care has been dictated as directed. : I performed a history and examination of this patient, discussed the same with the dictator. I agree with the dictator's note ,documented as a scribe. Any additional findings or plans will be noted.
== END 2020-03-05 16:01 | disposition expired | DRG 291 ==
LOC: EC 08:41 → 3SCARD 10:51 → 2SICU 03-03 06:54
PROVIDERS: ADMIT Family Medicine; ATTEND Family Medicine
PROC: 5A09557 Assistance with Respiratory Ventilation, Greater than 96 Consecutive Hours, Continuous Positive Airway Pressure (ICD-10-PCS; 2020-02-29)
PROC: 06HY33Z Insertion of Infusion Device into Lower Vein, Percutaneous Approach (ICD-10-PCS; principal; 2020-03-04)
DX: I13.0 Hypertensive heart and chronic kidney disease with heart failure and stage 1 through stage 4 chronic kidney disease, or unspecified chronic kidney disease (principal); G93.41 Metabolic encephalopathy; I50.43 Acute on chronic combined systolic (congestive) and diastolic (congestive) heart failure; J96.02 Acute respiratory failure with hypercapnia; J96.01 Acute respiratory failure with hypoxia; N17.0 Acute kidney failure with tubular necrosis; K72.00 Acute and subacute hepatic failure without coma; J18.9 Pneumonia, unspecified organism; A41.9 Sepsis, unspecified organism; J44.1 Chronic obstructive pulmonary disease with (acute) exacerbation; J44.0 Chronic obstructive pulmonary disease with (acute) lower respiratory infection; I48.19 Other persistent atrial fibrillation; I48.3 Typical atrial flutter; E87.4 Mixed disorder of acid-base balance; I31.3 Pericardial effusion (noninflammatory); Z51.5 Encounter for palliative care; E87.5 Hyperkalemia; E66.01 Morbid (severe) obesity due to excess calories; I07.1 Rheumatic tricuspid insufficiency; I27.20 Pulmonary hypertension, unspecified; G47.33 Obstructive sleep apnea (adult) (pediatric); Z11.59 Encounter for screening for other viral diseases; E87.6 Hypokalemia; N18.3 Chronic kidney disease, stage 3 (moderate); I42.9 Cardiomyopathy, unspecified; T50.2X5A Adverse effect of carbonic-anhydrase inhibitors, benzothiadiazides and other diuretics, initial encounter; I95.9 Hypotension, unspecified; Z79.899 Other long term (current) drug therapy; Z79.01 Long term (current) use of anticoagulants; Z95.2 Presence of prosthetic heart valve; Z87.891 Personal history of nicotine dependence; Z80.9 Family history of malignant neoplasm, unspecified; Z68.28 Body mass index [BMI] 28.0-28.9, adult
CPT/HCPCS: 36415; 36600; 70450; 71045; 71250; 80048; 80053; 81001; 82140; 82550; 82607; 82805; 83605; 83735; 83880; 84100; 84132; 84145; 84443; 84484; 85025; 85027; 85610; 85730; 86140; 86704; 86706; 87070; 87086; 87205; 87340; 90935; 93005; 93306; 93970; 94640; 94660; 96374; 99291